=== PATIENT | female | born 1935 | race Caucasian/White ===

== ENCOUNTER 2017-05-24 14:13 | Outpatient (CLI) | payer SELFPAY | END 2017-05-24 14:14 | disposition EMS.NT | LOC: EMS 14:13 | PROVIDERS: ATTEND Surgery | DX: Z04.1 Encounter for examination and observation following transport accident (principal); V48.5XXA Car driver injured in noncollision transport accident in traffic accident, initial encounter; Y92.414 Local residential or business street as the place of occurrence of the external cause ==

== ENCOUNTER 2017-12-13 16:39 | Emergency (ER) | payer MEDICARE, OTHER ==
[2017-12-13 17:21] LABS: BILIRUBIN,URINE NEGATIVE (NEGATIVE); GLUCOSE, URINE (UA) NEGATIVE (NEGATIVE); KETONES,URINE (UA) NEGATIVE (NEGATIVE); LEUKOCYTE ESTERASE, URINE NEGATIVE (NEGATIVE); NITRITE,URINE NEGATIVE (NEGATIVE); OCCULT BLOOD,URINE NEGATIVE (NEGATIVE); PROTEIN,URINE NEGATIVE (NEGATIVE); UROBILINOGEN,URINE 0.2 (NORMAL) E.U./dL (NORMAL)
[2017-12-13 17:24] LABS: CLARITY,URINE CLEAR (CLEAR)
--- NOTE | 2017-12-13 17:50 | ED Physician Documentation ---
PD HPI ABD PAIN - Stated complaint Stated Complaint: LT SIDE BODY PX - Chief complaint Chief Complaint: Abd Pain - History obtained from History obtained from: Patient - History of Present Illness Timing - onset: Yesterday Timing - duration: Days (1) Timing - details: Gradual onset, Still present, Constant. No: Intermittant Quality: Sharp, Pain Location: LLQ Radiation: Left flank Improved by: No: Eating, BM, Position Worsened by: Moving, Palpation. No: Eating, Breathing, Position Associated symptoms: Nausea. No: Fever, Vomiting, Diarrhea, Dysuria, Hematuria , Loss of appetite Similar symptoms before: Has not had sx before Recently seen: Not recently seen Review of Systems Constitutional: denies: Fever, Chills Nose: denies: Rhinorrhea / runny nose, Congestion Throat: denies: Sore throat Cardiac: denies: Chest pain / pressure, Palpitations Respiratory: denies: Dyspnea, Cough GI: reports: Abdominal Pain, Nausea. denies: Vomiting, Diarrhea : denies: Dysuria, Frequency, Hematuria, Discharge Musculoskeletal: denies: Neck pain, Back pain Neurologic: denies: Generalized weakness, Focal weakness, Numbness, Near syncope PD PAST MEDICAL HISTORY - Past Medical History Cardiovascular: None Respiratory: None Neuro: None Endocrine/Autoimmune: None - Present Medications Home Medications: Ambulatory Orders Medication Instructions Recorded Confirmed Diltiazem HCl [Diltiazem 24Hr ER] 12/13/17 Furosemide [Lasix] 12/13/17 Gabapentin 12/13/17 Hydrocodone/Acetaminophen 12/13/17 [Hydrocodone-Acetamin 7.5-325] Levothyroxine [Synthroid] 12/13/17 Nortriptyline [Pamelor] 12/13/17 Potassium Chloride [Klor-Con 10] 12/13/17 12/13/17 Pramipexole [Mirapex] 12/13/17 Sertraline HCl 12/13/17 - Allergies Allergies/Adverse Reactions: Allergies Allergy/AdvReac Type Severity Reaction Status Date / Time oxycodone Allergy Hallucinati Verified 12/13/17 16:55 ons epinephrine AdvReac Anxiety Verified 12/13/17 16:55 - Living Situation Living Situation: reports: With spouse/s.o. Living Arrangement: reports: At home - Social History Does the pt smoke?: No Does the pt drink ETOH?: No Does the pt have substance abuse?: No - Family History Family history: denies: Aortic aneursym, Aortic dissection PD ED PE NORMAL - Vitals Vital signs reviewed: Yes - General General: Alert and oriented X 3, Well developed/nourished, Other (appears in pain) - HEENT HEENT: Pharynx benign - Neck Neck: Supple, no meningeal sign, No adenopathy - Cardiac Cardiac: RRR, No murmur - Respiratory Respiratory: Clear bilaterally - Abdomen Abdomen: Normal bowel sounds, Soft, Non distended, No organomegaly, Other ( tender left lateral abd and toward the CVA area. ) - Female Female : Deferred - Rectal Rectal: Deferred - Back Back: No spinal TTP - Derm Derm: Normal color, Warm and dry, No rash - Neuro Neuro: Alert and oriented X 3, No motor deficit, Normal speech Results - Vitals Vitals: Oxygen O2 Source Room air - Labs Labs: Laboratory Tests 12/13/17 12/13/17 12/13/17 17:10 19:39 19:39 WBC 5.5 RBC 4.46 Hgb 13.6 Hct 40.6 MCV 91.1 MCH 30.4 MCHC 33.4 RDW 12.8 Plt Count 153 MPV 7.9 Neut # 3.2 Lymph # 1.5 [place] # 0.6 Eos # 0.1 Baso # 0.0 Absolute Nucleated RBC 0.00 Nucleated RBC % 0.0 Sodium 135 Potassium 4.0 Chloride 97 L Carbon Dioxide 30 Anion Gap 8.0 BUN 16 Creatinine 0.7 Estimated GFR (MDRD) 80 L Glucose 133 H Calcium 8.9 Magnesium 2.1 Total Bilirubin 0.5 AST 26 ALT 21 Alkaline Phosphatase 71 Total Protein 7.6 Albumin 4.0 Globulin 3.6 Albumin/Globulin Ratio 1.1 Lipase < 10 L Urine Color LT. YELLOW Urine Clarity CLEAR Urine pH 7.0 Ur Specific [place] <=1.005 Urine Protein NEGATIVE Urine Glucose (UA) NEGATIVE Urine Ketones NEGATIVE Urine Occult Blood NEGATIVE Urine Nitrite NEGATIVE Urine Bilirubin NEGATIVE Urine Urobilinogen 0.2 (NORMAL) Ur Leukocyte Esterase NEGATIVE Ur Microscopic Review NOT INDICATED Urine Culture Comments NOT INDICATED - Rads (name of study) abd pelvis CT Radiology: Prelim report reviewed (no acute process), EMP read contemporaneously PD MEDICAL DECISION MAKING - ED course Complexity details: reviewed results (no obvious cause based on UA, CT, blood. Presume myofascial pain. Could be nerve pain from thoracic area. No rash as of yet. ), considered differential, d/w patient Departure - Departure Disposition: 01 Home, Self Care Clinical Impression: Acute left flank pain Condition: Stable Record reviewed to determine appropriate education?: Yes Instructions: ED Flank Pain Uncertain Cause Comments: Your CT scan and blood tests and urine test appear normal. No signs of kidney stone nor kidney infection nor diverticulitis abscess or other acute problems. I presume the pain is musculoskeletal or may even be a nerve pain. Continue usual medications. Add ibuprofen 400-600 mg 2-3 times daily for the next 5 or 6 days. Drink lots of fluids. Recheck if not better during that timeframe. Recheck also if other symptoms develop that may signify a different cause such as fever, bloody stool, skin rash, change in location of pain, etc. Discharge Date/Time: 12/13/17 21:47
[2017-12-13] MEDS ORDERED: ONDANSETRON 4 MG/2 ML VIAL IVP STA (18:04)
[2017-12-13] MEDS ORDERED: HYDROmorphone 1 MG/ML CARPUJECT IVP STA (18:04)
[2017-12-13] MEDS ORDERED: KETOROLAC 60 MG/2 ML VIAL IVP STA (18:05)
[2017-12-13] MEDS ORDERED: IOPAMIDOL-300 100 ML VIAL ONE (18:27)
[2017-12-13 19:42] LABS: BASOPHILS % (AUTO) 0.7 %; EOSINOPHILS # (AUTO) 0.1 10^3/uL (0.0-0.7); HGB - HEMOGLOBIN 13.6 g/dL (12.0-16.0); LYMPHOCYTES # (AUTO) 1.5 10^3/uL (1.5-3.5); LYMPHOCYTES % (AUTO) 27.7 %; MEAN CORPUSCULAR HEMOGLOBIN 30.4 pg (27.0-31.0); MEAN CORPUSCULAR HGB CONC 33.4 g/dL (32.0-36.0); MEAN CORPUSCULAR VOLUME 91.1 fL (81.0-99.0); MEAN PLATELET VOLUME 7.9 fL (7.9-10.8); MONOCYTES # (AUTO) 0.6 10^3/uL (0.0-1.0); MONOCYTES % (AUTO) 11.3 %; NEUTROPHILS # (AUTO) 3.2 10^3/uL (1.5-6.6); NEUTROPHILS % (AUTO) 58.3 %; PLT - PLATELET COUNT 153 10^3/uL (130-450); RED BLOOD COUNT 4.46 10^6/uL (4.20-5.40); RED CELL DISTRIBUTION WIDTH 12.8 % (12.0-15.0); WHITE BLOOD COUNT 5.5 x10^3/uL (4.8-10.8)
[2017-12-13 20:04] LABS: ALBUMIN/GLOBULIN RATIO 1.1 (1.0-2.2); ALKALINE PHOSPHATASE 71 IU/L (42-121); ALT ALANINE AMINOTRANSFERASE 21 IU/L (10-60); AST ASPARTATE AMINOTRANSFERASE 26 IU/L (10-42); BILIRUBIN,TOTAL 0.5 mg/dL (0.2-1.0); BUN - BLOOD UREA NITROGEN 16 mg/dL (6-20); CALCIUM 8.9 mg/dL (8.5-10.3); CARBON DIOXIDE - CO2 30 mmol/L (21-32); CHLORIDE 97 mmol/L (101-111); CREATININE 0.7 mg/dL (0.4-1.0); GFR - MDRD 80 (>89); GLUCOSE 133 mg/dL (70-100); MAGNESIUM 2.1 mg/dL (1.7-2.8); SODIUM 135 mmol/L (135-145); TOTAL PROTEIN 7.6 g/dL (6.7-8.2)
[2017-12-13 20:13] LABS: LIPASE < 10 U/L (22-51)
[2017-12-13] MEDS ORDERED: IOPAMIDOL-300 100 ML VIAL IVP ONE (20:43)
--- NOTE | 2017-12-13 21:08 | CT Report ---
EXAM: CT ABDOMEN AND PELVIS EXAM DATE: 12/13/2017 08:43 PM. CLINICAL HISTORY: Left abd/flank pain today. COMPARISONS: None. TECHNIQUE: Routine helical CT imaging was performed through the abdomen and pelvis. IV contrast: 100 ML ISOVUE 300. Enteric contrast: No. Reconstructions: Coronal and sagittal. In accordance with CT protocol optimization, one or more of the following dose reduction techniques w ere utilized for this exam: automated exposure control, adjustment of mA and/or KV based on patient s ize, or use of iterative reconstructive technique. FINDINGS: Lung Bases: Unremarkable. Liver: Tiny cysts or hemangiomata. Otherwise unremarkable. Gallbladder/Bile Ducts: Unremarkable. Spleen: Normal. Pancreas: Atrophic changes. Adrenal Glands: Normal. Kidneys: Small left renal cyst. Otherwise unremarkable. No hydronephrosis. Peritoneal Cavity/Bowel: Moderate colonic diverticulosis. No free fluid, free air or adenopathy. No m asses or acute inflammatory process. Unremarkable region of appendix. Pelvic Organs: Unremarkable urinary bladder. Absent uterus. Vasculature: No aneurysms or other significant abnormality. Bones: Scoliosis, degenerative changes. Other: None. IMPRESSION: 1. Moderate diverticulosis, but no definite diverticulitis at this time. 2. Other chronic or incidental findings. [facility] Referring Provider Line: [phone] SITE ID: [id number]
[2017-12-13 21:16] VITALS: BP 149/72
[2017-12-13] MEDS ORDERED: DEXAMETHASONE 10 MG/ML VIAL IVP STA (21:26)
== END 2017-12-13 21:47 | disposition home or self-care (01) ==
LOC: ED 16:39
DX: R10.32 Left lower quadrant pain (principal)
CPT/HCPCS: 36415; 74177; 80053; 81003; 83690; 83735; 85025; 96374; 96375; 99283; 99284; Q9967; 81001; 87086

== ENCOUNTER 2019-08-24 21:00 | Outpatient (CLI) | payer MEDICARE, OTHER | END 2019-08-24 21:01 | disposition critical access hospital (66) | LOC: EMS 21:00 | PROVIDERS: ATTEND Surgery | DX: R10.33 Periumbilical pain (principal) | CPT/HCPCS: A0425; A0429 ==

== ENCOUNTER 2019-08-24 21:26 | Inpatient (IN) | payer MEDICARE, OTHER ==
[2019-08-24] MEDS ORDERED: ASPIRIN CHEW 81 MG TABLET PO STA (21:36)
--- NOTE | 2019-08-24 21:38 | ED Physician Documentation ---
History of Present Illness - Stated complaint Stated Complaint: CP - Chief complaint Chief Complaint: Abd Pain - Additonal information Additional information: This is an 83 year old female with a history of HF (unknown EF), atrial fibrillation not on anticoagulation, hypertension, GERD, who presents with epigastric discomfort. Patient states that this began yesterday when she took her pills she had a mild amount of abdominal pain in her epigastrium, this resolved, but then recurred again today and was bit worse it is 6 out of 10. It was nonradiating and associated with nausea but no vomiting. She states she has never had an PA and she typically is able to exercise and do her daily activities without any limitation. She saw her tubing oiler just in the last couple days who is very happy with the progress she has made and states that she appears to be in better condition than she has in past visits. Her called EMS [place], she was hesitant to come into the hospital because she thought that she just had a bit of indigestion. She has her gallbladder still. Review of Systems Constitutional: denies: Fever Nose: denies: Rhinorrhea / runny nose Throat: denies: Dental pain / toothache Cardiac: denies: Chest pain / pressure Respiratory: denies: Dyspnea GI: reports: Abdominal Pain, Nausea : denies: Dysuria Skin: denies: Rash Musculoskeletal: denies: Neck pain Neurologic: denies: Generalized weakness PD PAST MEDICAL HISTORY - Past Medical History Cardiovascular: None Respiratory: None Endocrine/Autoimmune: None - Present Medications Home Medications: Ambulatory Orders Medication Instructions Recorded Confirmed Furosemide [Lasix] 12/13/17 Gabapentin 12/13/17 Hydrocodone/Acetaminophen 12/13/17 [Hydrocodone-Acetamin 7.5-325] Levothyroxine [Synthroid] 12/13/17 Nortriptyline [Pamelor] 12/13/17 Potassium Chloride [Klor-Con 10] 12/13/17 12/13/17 Pramipexole [Mirapex] 12/13/17 Sertraline HCl 12/13/17 dilTIAZem HCl [Diltiazem 24Hr ER] 12/13/17 - Allergies Allergies/Adverse Reactions: Allergies Allergy/AdvReac Type Severity Reaction Status Date / Time oxycodone Allergy Hallucinati Verified 08/24/19 21:31 ons epinephrine AdvReac Anxiety Verified 08/24/19 21:31 - Social History Does the pt smoke?: No Does the pt drink ETOH?: No Does the pt have substance abuse?: No PD ED PE NORMAL - Vitals Vital signs reviewed: Yes - General General: Alert and oriented X 3, No acute distress - HEENT HEENT: PERRL - Neck Neck: Supple, no meningeal sign - Cardiac Cardiac: Other (Irregularly irregular rhythm, normal rate.) - Respiratory Respiratory: No respiratory distress, Clear bilaterally - Abdomen Abdomen: Normal bowel sounds, Soft, Non distended, Other (Moderate tenderness in the epigastrium and right upper quadrant. No lower abdominal tenderness.) - Derm Derm: Warm and dry - Extremities Extremities: No deformity - Neuro Neuro: Alert and oriented X 3 - Psych Psych: Normal mood, Normal affect Results - Vitals Vitals: Vital Signs - 24 hr 08/24/19 08/24/19 08/25/19 21:31 23:32 03:08 Temperature 36.8 C Heart Rate 95 97 105 H Respiratory 14 18 14 Rate Blood Pressure 166/85 H 121/66 141/93 H O2 Saturation 95 93 94 08/25/19 08/25/19 08/25/19 05:00 06:45 07:28 Temperature 36.8 C Heart Rate 113 H 112 H 112 H Respiratory 20 28 H 31 H Rate Blood Pressure 137/70 H 148/81 H 133/77 H O2 Saturation 92 100 98 Oxygen O2 Source Room air Oxygen Flow Rate 3 - EKG (time done) 21:42 Other comments: Other comments (Rate 83, rhythm atrial fibrillation Versus a- flutter,, there is a incomplete left bundle branch block.No ST segment changes. QTc 413) - Labs Labs: Laboratory Tests 08/24/19 08/24/19 08/24/19 22:01 22:01 22:01 WBC 6.0 RBC 4.69 Hgb 14.2 Hct 43.9 MCV 93.6 MCH 30.3 MCHC 32.3 RDW 13.0 Plt Count 168 MPV 10.8 Neut # (Auto) 3.5 Lymph # (Auto) 1.7 [place] # (Auto) 0.6 Eos # (Auto) 0.2 Baso # (Auto) 0.1 Absolute Nucleated RBC 0.00 Nucleated RBC % 0.0 PT 13.6 H INR 1.2 Sodium 141 Potassium 4.1 Chloride 100 L Carbon Dioxide 30 Anion Gap 11.0 BUN 15 Creatinine 0.7 Estimated GFR (MDRD) 80 L Glucose 150 H Calcium 9.4 Total Bilirubin 0.5 AST 30 ALT 25 Alkaline Phosphatase 103 Troponin I High Sens Total Protein 7.8 Albumin 4.0 Globulin 3.8 Albumin/Globulin Ratio 1.1 Lipase 23 08/24/19 22:01 WBC RBC Hgb Hct MCV MCH MCHC RDW Plt Count MPV Neut # (Auto) Lymph # (Auto) [place] # (Auto) Eos # (Auto) Baso # (Auto) Absolute Nucleated RBC Nucleated RBC % PT INR Sodium Potassium Chloride Carbon Dioxide Anion Gap BUN Creatinine Estimated GFR (MDRD) Glucose Calcium Total Bilirubin AST ALT Alkaline Phosphatase Troponin I High Sens 5.7 Total Protein Albumin Globulin Albumin/Globulin Ratio Lipase - Rads (name of study) Chest Xr Radiology: Other (No acute findings, no consolidation, pleural effusion or pneumothorax.) PD MEDICAL DECISION MAKING - ED course Complexity details: considered differential (Gastritis, cholecystitis, ACS, dysrhythmia, pancreatitis, Hepatitis, gastroenteritis.) ED course: On arrival patient is nontoxic-appearing, she does have significant tenderness in the right upper quadrant. IV was inserted labs are drawn patient was given morphine for pain control, she subsequently required a second dose of morphine. Labs show no leukocytosis, her abdominal panel is unremarkable. Ultrasound of the right upper quadrant is performed and shows some gallbladder wall thickening as well as cholelithiasis and a sonographic Pal sign consistent with cholecystitis. On repeat examination she does have persistent right upper quadrant focal tenderness, consistent with cholecystitis. She has no lower abdominal tenderness. Her EKG shows no convincing signs of ischemia or dysrhythmia, and given these results as well as the location of her discomfort in the focal tenderness I feel that ACS is highly unlikely. I spoke with our general surgeon Dr. Ledesma, who is concerned based on patient's cardiac history if she is appropriate for surgery and asked that she have an echocardiogram done for risk stratification by the hospitalist service. Speaking with our hospitalist service it initially seemed unlikely that we would be able to obtain an echocardiogram, and I discussed with patient transfer for further cardiac work-up, I spoke with [facility] but they were full with no beds available, then spoke with the general surgery service at [facility], who did not feel that the patient needed transfer for cardiac work-up, and thought she was appropriate for treatment here. I confirmed that we do have an farm technician in the morning, and an echocardiogram was ordered. Echocardiogram was performed and showed a normal EF, pt does have pulmonary hypretension. I spoke with Dr. Franco and she discussed the case with Dr. Ledesma, and decided to Admit the patient for further work-up and plans for likely cholecystectomy. Patient's pain is fairly well-controlled at the moment, she continues to have some focal right upper quadrant abdominal pain. I reviewed the plan with the patient who is in agreement. Patient is in agreement with this plan. Departure - Departure Disposition: [facility] DC/Xfer Clinical Impression: Cholecystitis Atrial fibrillation Qualifiers: Atrial fibrillation type: unspecified Qualified Code(s): I48.91 - Unspecified atrial fibrillation
[2019-08-24 22:08] LABS: BASOPHILS # (AUTO) 0.1 10^3/uL (0.0-0.1); BASOPHILS % (AUTO) 0.8 %; EOSINOPHILS # (AUTO) 0.2 10^3/uL (0.0-0.7); EOSINOPHILS % (AUTO) 2.5 %; HGB - HEMOGLOBIN 14.2 g/dL (12.0-16.0); LYMPHOCYTES # (AUTO) 1.7 10^3/uL (1.5-3.5); LYMPHOCYTES % (AUTO) 28.3 %; MEAN CORPUSCULAR HEMOGLOBIN 30.3 pg (27.0-31.0); MEAN CORPUSCULAR HGB CONC 32.3 g/dL (32.0-36.0); MEAN CORPUSCULAR VOLUME 93.6 fL (81.0-99.0); MEAN PLATELET VOLUME 10.8 fL (7.9-10.8); MONOCYTES # (AUTO) 0.6 10^3/uL (0.0-1.0); MONOCYTES % (AUTO) 10.2 %; NEUTROPHILS # (AUTO) 3.5 10^3/uL (1.5-6.6); NEUTROPHILS % (AUTO) 57.7 %; PLT - PLATELET COUNT 168 10^3/uL (130-450); RED BLOOD COUNT 4.69 10^6/uL (4.20-5.40)
[2019-08-24 22:13] LABS: INR 1.2 (0.8-1.2); PT - PROTHROMBIN TIME 13.6 secs (9.9-12.6)
[2019-08-24 22:21] LABS: ALBUMIN/GLOBULIN RATIO 1.1 (1.0-2.2); BILIRUBIN,TOTAL 0.5 mg/dL (0.2-1.0); CALCIUM 9.4 mg/dL (8.5-10.3); CREATININE 0.7 mg/dL (0.4-1.0); TOTAL PROTEIN 7.8 g/dL (6.7-8.2)
[2019-08-24] MEDS ORDERED: MAG HYDROX/AL HYDROX/SIMETH 30 ML UDC PO STA (22:36)
--- NOTE | 2019-08-24 23:22 | XRAY Report ---
Reason: Chest Pain Procedure Date: 08/24/2019 Accession Number: [id number] / [id number] Procedure: XR - Chest 1 View X-Ray CPT Code: 92025 Final Report FULL RESULT: EXAM: CHEST RADIOGRAPHY EXAM DATE: 08/24/2019 10:05 PM. CLINICAL HISTORY: Chest Pain. Epigastric pain today. COMPARISON: None. TECHNIQUE: 1 view. FINDINGS: Left midlung linear opacity, suspect atelectasis or scarring. No consolidation, pleural effusion or pneumothorax. Heart size within normal limits for technique. IMPRESSION: No acute findings are seen. See above. [facility]
[2019-08-24] MEDS ORDERED: MORPHINE 2 MG/ML CARPUJECT IVP STA (23:23)
--- NOTE | 2019-08-24 23:41 | Ultrasound Report ---
Reason: RUQ pain Procedure Date: 08/24/2019 Accession Number: [id number] / [id number] Procedure: US - Abdomen Limited CPT Code: Final Report FULL RESULT: EXAM: ABDOMEN ULTRASOUND LIMITED, RUQ EXAM DATE: 08/24/2019 10:52 PM. CLINICAL HISTORY: Right upper quadrant pain. COMPARISON: ABDOMEN/PELVIS W/ 12/13/2017 8:24 PM. TECHNIQUE: Real-time scanning was performed with static images obtained. FINDINGS: Liver: Echotexture within normal limits without suspicious abnormality seen. Possible small 9 mm cyst. Main portal vein flow: Hepatopetal. Gallbladder: Multiple gallstones and a distended gallbladder. Wall thickening at 4 mm. There is reported tenderness. Biliary System: CBD measures 7 mm. No intrahepatic or extrahepatic ductal dilatation. Other: Technically difficult study due to body habitus and motion. IMPRESSION: 1. Reportedly technically difficult due to motion and body habitus. 2. Findings concerning for acute cholecystitis. [facility]
[2019-08-25] MEDS ORDERED: MORPHINE 2 MG/ML CARPUJECT IVP STA ×2 (00:46→05:35)
[2019-08-25] MEDS ORDERED: LACTATED RINGERS 1,000 ML IV STA (04:13)
[2019-08-25] MEDS ORDERED: MIDAZOLAM 2 MG/2 ML VIAL IVP ONE (10:37)
[2019-08-25] MEDS ORDERED: NEOSTIGMINE 1 MG/1 ML 10 ML MDV IVP ONE (10:37)
[2019-08-25] MEDS ORDERED: ONDANSETRON 4 MG/2 ML VIAL IVP ONE (10:37)
[2019-08-25] MEDS ORDERED: LIDOCAINE 2% 10 ML MDV SUBQ ONE (10:37)
[2019-08-25] MEDS ORDERED: PROPOFOL 200 MG/20 ML VIAL IVP ONE (10:37)
[2019-08-25] MEDS ORDERED: PHENYLEPHRINE 10 MG/ML VIAL IV ONE (10:37)
[2019-08-25] MEDS ORDERED: fentaNYL 100 MCG/2 ML VIAL IVP ONE (10:37)
[2019-08-25] MEDS ORDERED: ROCURONIUM 50 MG/5 ML VIAL IVP ONE (10:37)
[2019-08-25] MEDS ORDERED: DEXAMETHASONE 4 MG/ML VIAL IVP ONE (10:37)
[2019-08-25] MEDS ORDERED: ACETAMINOPHEN 1,000 MG/100 ML VIAL IV ONE (10:55)
[2019-08-25] MEDS: BUPIVACAINE 0.5% PF 30 ML VIAL ONE ×2 (11:13→13:03)
--- NOTE | 2019-08-25 11:15 | ANESTHESIA ---
Pre-Anesthesia VS, & Labs - Diagnosis acute cholecytitis - Procedure Laparoscopic cholecystectomy Vital Signs: Temp Pulse Resp BP Pulse Ox 36.8 C 107 H 16 144/81 H 92 08/25/19 10:07 08/25/19 10:07 08/25/19 10:07 08/25/19 10:07 08/25/19 10:07 Height 5 ft 3 in Weight (kg) 92.8 kg Body Mass Index 36.2 - NPO >8 hours - Is Patient ?: No - Lab Results Current Lab Results: Laboratory Tests 08/24/19 22:01: Troponin I High Sens 5.7 08/24/19 22:01: Sodium 141, Potassium 4.1, Chloride 100 L, Carbon Dioxide 30, Anion Gap 11.0, BUN 15, Creatinine 0.7, Estimated GFR (MDRD) 80 L, Glucose 150 H , Calcium 9.4, Total Bilirubin 0.5, AST 30, ALT 25, Alkaline Phosphatase 103, Total Protein 7.8, Albumin 4.0, Globulin 3.8, Albumin/Globulin Ratio 1.1, Lipase 23 08/24/19 22:01: PT 13.6 H, INR 1.2 08/24/19 22:01: WBC 6.0, RBC 4.69, Hgb 14.2, Hct 43.9, MCV 93.6, MCH 30.3, MCHC 32.3, RDW 13.0, Plt Count 168, MPV 10.8, Neut # (Auto) 3.5, Lymph # (Auto) 1.7, [place] # (Auto) 0.6, Eos # (Auto) 0.2, Baso # (Auto) 0.1, Absolute Nucleated RBC 0.00, Nucleated RBC % 0.0 Lab results reviewed: Yes Fish Bones: 08/24/19 22:01 08/24/19 22:01 Home Medications and Allergies Active Medications Lactated Ringer's (Lr) 1,000 mls @ 125 mls/hr IV .Q8H STA Stop: 08/25/19 12:12 Last Admin: 08/25/19 04:20 Dose: 125 mls/hr Piperacillin Sod/Tazobactam (Sod 3.375 gm/ Sodium Chloride) 100 mls @ 200 mls/hr IV Q6H KARRIE Furosemide [Lasix] 12/13/17 Gabapentin 12/13/17 Hydrocodone/Acetaminophen [Hydrocodone-Acetamin 7.5-325] 12/13/17 Levothyroxine [Synthroid] 12/13/17 Nortriptyline [Pamelor] 12/13/17 Potassium Chloride [Klor-Con 10] 12/13/17 Pramipexole [Mirapex] 12/13/17 Sertraline HCl 12/13/17 dilTIAZem HCl [Diltiazem 24Hr ER] 12/13/17 Allergies/Adverse Reactions: Allergies Allergy/AdvReac Type Severity Reaction Status Date / Time oxycodone Allergy Hallucinati Verified 08/24/19 21:31 ons epinephrine AdvReac Anxiety Verified 08/24/19 21:31 Anes History & Medical History - Anesthetic History Anesthesia Complications: reports: No previous complications Family history of Anesthesia Complications: Denies Family history of Malignant Hyperthermia: Denies - Medical History Cardiovascular: reports: None, Atrial fibrillation Pulmonary: reports: None Musculoskeletal: reports: Chronic back pain, Other Endocrine/Autoimmune: reports: None Smoking Status: Never smoker Other Past Medical History: Pt states she is pre diabetic, no meds - Surgical History Gynecologic: 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 Orthopedic: Knee replacement Exam General: Alert, Oriented x3, Cooperative Dental: WNL Mouth Openin Fingerbreadth Neck Mobility: Normal Mallampati classification: III Thyromental Distance: 4-6 cm Respiratory: Lungs clear, Normal breath sounds, No respiratory distress Cardiovascular: Other (AF) Neurological: Normal speech Mental/Cognitive Status: Alert/Oriented X3, Normal for patient Cognitive Status: Within normal limits Plan Anesthesia Type: General Consent for Procedure(s) Verified and Reviewed: Yes Code Status: Attempt Resuscitation ASA classification: 3-Severe systemic disease Is this case an emergency?: Yes
--- NOTE | 2019-08-25 11:16 | CONSULTATION NOTE ---
Referring Provider Name of Referring Provider:: Dr. Ledbetter Consult Date: 08/25/19 Chief Complaint - Chief Complaint Chief Complaint: abd pain History of Present Illness - Admitted From Admitted From:: ER - History Obtained From Records Reviewed: yes History obtained from: pt, records, daughter Exam Limitations: none - History of Present Illness HPI Comment/Other: 83 yo female in her usual state of health until yesterday mid day when she developed sudden onset of severe constant steady midepigastric pain which radiates into the RUQ and back, not associated with N/V, fever/chills. No previous similar sx. No hx of food intolerance, heartburn, indigestion, dysphagia, PUD, hepatitis/jaundice, change in bowel habits, melena/hematochezia/acholic stools. She reports 30# wt loss over the past 6 months which has been intentional. FH + gallbladder disease in her daughter. She reports a nl colonoscopy in her 70s. She denies any prior abdominal surgery. Because of worsening pain she presented to the ER last night where labs were noted to be benign with nl CBC, lfts, and lipase, but abd US showed gallstones in gallbladder which was distended and thickened to 4 mm with + sonographic Pal's sign and nl bile ducts and no other sig abnormalities. She has a hx of CHF and atrial fibrillation and [place] Hospitalist evaluation including EKG and echocardiogram has been completed and she has been cleared medically for cholecystectomy. She was admitted for surgical consultation and cholecystectomy if indicated. History - Past Medical History Cardiovascular: reports: Congestive heart failure, Atrial fibrillation. denies: [place] Respiratory: reports: None Endocrine/Autoimmune: reports: None Psych: reports: Depression, Anxiety Musculoskeletal: reports: Chronic back pain MRSA Hx?: No Other Past Medical History: Pt states she is pre diabetic, no meds - Past Surgical History Ortho: reports: Knee replacement - Family & Social History Family History Comment/Other: + gallbladder disease in daughter Living arrangement: At home Living Situation: With spouse/s.o. - Substance History Use: Uses substance without health or social issues: NONE - POLST Patient has POLST: No Meds/Allgy - Home Medications Home Medications: Ambulatory Orders Medication Instructions Recorded Confirmed Furosemide [Lasix] 12/13/17 Gabapentin 12/13/17 Hydrocodone/Acetaminophen 12/13/17 [Hydrocodone-Acetamin 7.5-325] Levothyroxine [Synthroid] 12/13/17 Nortriptyline [Pamelor] 12/13/17 Potassium Chloride [Klor-Con 10] 12/13/17 12/13/17 Pramipexole [Mirapex] 12/13/17 Sertraline HCl 12/13/17 dilTIAZem HCl [Diltiazem 24Hr ER] 12/13/17 - Allergies Allergies/Adverse Reactions: Allergies Allergy/AdvReac Type Severity Reaction Status Date / Time oxycodone Allergy Hallucinati Verified 08/24/19 21:31 ons epinephrine AdvReac Anxiety Verified 08/24/19 21:31 Review of Systems - Constitutional Constitutional: reports: Weight loss. denies: Fever, Chills, Diaphoresis - Cardiovascular Cariovascular: reports: Irregular heart rate - Respiratory Respiratory: reports: Cough (past several hours) - Gastrointestinal Gastrointestinal: reports: Abdominal pain. denies: Abdominal distention, Constipation, Diarrhea, Change in bowel habits, Rectal bleeding, Black stools, Bloody stools, Nausea, Vomiting, Coffee grounds emesis, Reflux/heartburn, Bloating - Musculoskeletal Musculoskeletal: reports: Back pain - Psychiatric Psychiatric: reports: Depression, Anxiety - Hematologic/Lymphatic Hematologic/Lymphatic: denies: Anemia, Blood clots, Bleeding tendencies - All Other Systems All Other Systems: reports: Reviewed and negative (or covered in HPI/PMH) Exam - Vital Signs Reviewed Vital Signs: Yes Vital Signs: Vital Signs x48h Temp Pulse Pulse Resp BP BP Pulse Ox 08/25/19 10:07 36.8 C 107 H 16 144/81 H 92 08/25/19 09:06 115 H 24 124/73 96 08/25/19 07:28 112 H 31 H 133/77 H 98 08/25/19 06:45 112 H 28 H 148/81 H 100 08/25/19 05:00 36.8 C 113 H 20 137/70 H 92 - Physical Exam General Appearance: positive: Alert, Moderate distress Eyes Bilateral: positive: Normal inspection, Conjunctivae nml, No scleral icterus ENT: positive: Pharynx nml, Dry mucous membranes Neck: positive: Nml inspection, No JVD. negative: Thyromegaly, Lymphadenopathy (R), Lymphadenopathy (L) Respiratory: positive: Chest non-tender, No respiratory distress, Rales (left base partially clear with cough). negative: Wheezes, Rhonchi Cardiovascular: positive: No murmur, Irregularly irregular Abdomen: positive: Tenderness (in RUQ with +Pal's sign; no generalized peritoneal signs), Guarding, Rebound, Other (marked truncal obesity). negative: Hepatomegaly, Splenomegaly, Mass Skin: positive: Color nml, Warm, Dry. negative: Cyanosis Extremities: positive: No pedal edema. negative: Calf tenderness Neurologic/Psychiatric: positive: Oriented x3 Conclusion and Plan - Lab Results Laboratory Results 08/24/19 22:01: Troponin I High Sens 5.7 08/24/19 22:01: Sodium 141, Potassium 4.1, Chloride 100 L, Carbon Dioxide 30, Anion Gap 11.0, BUN 15, Creatinine 0.7, Estimated GFR (MDRD) 80 L, Glucose 150 H, Calcium 9.4, Total Bilirubin 0.5, AST 30, ALT 25, Alkaline Phosphatase 103, Total Protein 7.8, Albumin 4.0, Globulin 3.8, Albumin/Globulin Ratio 1.1, Lipase 23 08/24/19 22:01: PT 13.6 H, INR 1.2 08/24/19 22:01: WBC 6.0, RBC 4.69, Hgb 14.2, Hct 43.9, MCV 93.6, MCH 30.3, MCHC 32.3, RDW 13.0, Plt Count 168, MPV 10.8, Neut # (Auto) 3.5, Lymph # (Auto) 1.7, Shannon # (Auto) 0.6, Eos # (Auto) 0.2, Baso # (Auto) 0.1, Absolute Nucleated RBC 0.00, Nucleated RBC % 0.0 - Diagnostic Imaging Results Diagnostic Imaging Results: positive: Final report reviewed (see HPI; CXR: left mid lung atelectasis; NAD.), Read independently - EKG Results EKG Interpreted Independently: No EKG Findings: atrial fibrillation with controlled VR - Diagnosis Diagnosis: Acute calculous cholecystitis - Plan Plan: Laparoscopic cholecystectomy with poss IOC was discussed with pt and daughter. PAR conference was held and consent obtained. risks of bleeding, infection, bile duct injury, need for open procedure, cardiac/pulmonary complications and discussed and pt and daughter are comfortable with proceeding later this morning. Thanks,
[2019-08-25] MEDS: PIPERACILLIN/TAZOBACTAM 3.375 GM in SODIUM CHLORIDE 0.9% MINIBAG 100 ML IV SCH ×3 (11:19→23:19)
[2019-08-25] MEDS ORDERED: LACTATED RINGERS 1,000 ML IV ONE ×4 (12:02→13:55)
--- NOTE | 2019-08-25 13:20 | OPERATIVE REPORT ---
Operative Report - General Admit Date: 08/25/19 Procedure Date: 08/25/19 Planned Procedure: Laparoscopic cholecystectomy with possible IOC Pre-Op Diagnosis: Acute calculous cholecystitis Procedure Performed: Laparoscopic cholecystectomy Post Op Diagnosis: acute gangrenous calculous cholecystitis - Procedure Note Primary Surgeon: Ga Ledesma MD [facility] Anesthesia Provider: Ac Friedman CRNA Anesthesia Technique: General ET tube Pathology: gallbladder and contents IV Fluids (mL): 900 Estimated Blood Loss (mL): 25 Indications: epigastric and RUQ pain; +US acute calculous cholecystitis Findings: gangrenous changes in gallbladder; pericholecystic edema and adhesions Complications: none
[2019-08-25] MEDS ORDERED: SODIUM CHLORIDE FLUSH 0.9% 10 ML SYRINGE IVP PRN (13:21)
[2019-08-25] MEDS ORDERED: ONDANSETRON 4 MG/2 ML VIAL IVP PRN (13:21)
--- NOTE | 2019-08-25 13:50 | HISTORY & PHYSICAL EXAMINATION ---
0 DATE OF SERVICE: 08/25/2019 Physician: Vaishnavi Ledbetter MD HISTORY OF PRESENT ILLNESS: This is an 83-year-old white female with a history of hypertension, obesity, hypothyroidism, who moved to [facility] approximately two years ago. She still goes to see her PCP in [place] and has a automotive warranty administrator there as well. The history is obtained from the daughter, since the patient is currently about to enter surgery. The daughter is not aware of what the automotive warranty administrator keeps an eye on the patient for. The patient told the ER that she is "on many pills" and did not know their names or diagnoses, but when she was told about atrial fibrillation, she did not recognize that. The patient went to see her automotive warranty administrator two days ago for a six-month visit and described how active she is, that she has lost 34 pounds in attempt to control her blood pressure and overall status, and the automotive warranty administrator was very pleased. The daughter is not sure if there was discussion about any atrial fibrillation. There were apparently no changes in medications. One of the complaints was that the patient was having chest discomfort as well as abdominal discomfort, and the impression according to the daughter was that this did not sound cardiac and that it was probably her gallbladder. The patient's abdominal pain got worse and she presented to the emergency room today, where imaging did show gallstones, dilated gallbladder wall and duct, and she is to be taken for gallbladder surgery. The emergency room doctor spoke to the surgeon and the plan was to obtain a resting echo, and if there was systolic heart failure, then the patient would be transferred to a facility with a higher level of care, but plan for surgery here if the echo is overall stable. The echo has returned and shows normal LV size and contractility, there is mild right heart dilatation and moderate pulmonary hypertension with PA pressure 60 mmHg. PAST MEDICAL HISTORY: Hypothyroidism, hypertension, obesity. It is unclear if atrial fibrillation is old or new. ALLERGIES: OXYCODONE AND EPINEPHRINE. MEDICATIONS: Unknown, but may include: 1. Diltiazem CD. 2. Potassium chloride. 3. Pamelor. 4. Synthroid. 5. Tylenol with Codeine. 6. Gabapentin. 7. Lasix. 8. Sertraline. FAMILY HISTORY: Noncontributory. SOCIAL HISTORY: The patient lives with her . She is very active, walks daily independently, and has good memory and all her faculties. The daughter states that the [place], and she and the go on many trips. REVIEW OF SYSTEMS: This was obtained from the patient's daughter. The pertinent positives are listed, the rest are negative after performing a comprehensive review of systems. PHYSICAL EXAMINATION GENERAL: Elderly white female. She is in no distress, sitting upright in bed. VITAL SIGNS: Blood pressure 148/81, heart rate 112 in atrial fibrillation, afebrile, room air saturation 100%. HEENT: Unremarkable with moist oral mucosa. NECK: Without JVD. CHEST: Clear. HEART: Tachycardic, 1/6 systolic murmur. ABDOMEN: Soft, mildly tender. No guarding or rebound. EXTREMITIES: No clubbing, cyanosis or edema. NEUROLOGIC: Grossly intact. LABORATORY DATA: Normal electrolytes. Normal BUN and creatinine. Troponin high sensitivity is negligible at 5.7. Lipase is normal at 23. CBC is unremarkable. INR is unremarkable. EKG: Atrial fibrillation/flutter with a rate of 83 and an incomplete left bundle branch block. CHEST X-RAY: No active pulmonary disease. ABDOMINAL ULTRASOUND: Dilated gallbladder, dilated gallbladder lamb, duct, and several stones are present. IMPRESSION/DIAGNOSES 1. Acute cholecystitis. 2. Atrial fibrillation. 3. Hypothyroidism history. 4. Hypertension history. 5. Cor pulmonale. 6. Pulmonary HTN. 7. Pre-op clearance. PLAN: The patient's preop evaluation for cardiac risk was done and she has low risk, with only the possibility of heart failure present, giving her a 1-1.3% cardiac risk perioperatively. The patient has been seen by anesthesia, as well as by the surgeon, and is being taken to the operating room. Postoperatively, manage her pain, IV fluids, advance diet as tolerated, treat the hypothyroidism and any blood pressure medication would be resumed. Obtain her proper medication list. It would be beneficial to know if the atrial fibrillation is old or new. CODE STATUS: FULL CODE. DEEP VENOUS THROMBOSIS PROPHYLAXIS: SCDs. ATTESTATION: The patient is expected to be discharged or transferred to another facility within 96 hours: Yes. TD: 08/25/2019 13:18 [facility]
[2019-08-25] MEDS: SODIUM CHLORIDE FLUSH 0.9% 10 ML SYRINGE IVP SCH (17:22)
[2019-08-25] MEDS: LACTATED RINGERS 1,000 ML IV SCH (17:23)
--- NOTE | 2019-08-25 19:05 | OPERATIVE REPORT ---
DATE OF SERVICE: 08/25/2019 Physician: Ga Ledesma MD PREOPERATIVE DIAGNOSIS: Acute calculous cholecystitis. POSTOPERATIVE DIAGNOSIS: Acute gangrenous calculous cholecystitis. PROCEDURE PERFORMED: Laparoscopic cholecystectomy. ANESTHESIA: General endotracheal by Ac Friedman CRNA. SURGEON: Ga Ledesma MD ESTIMATED BLOOD LOSS: 25 mL DRAINS: None. FINDINGS: Laparoscopy revealed a distended gangrenous-appearing gallbladder with marked pericholecys tic edema and moderate pericholecystic adhesions. The visualized portions of the liver, stomach, and small and large bowel were within normal limits. Adhesions were present in the right lower quadrant . The common duct was not visualized. The cystic duct appeared to be mildly dilated versus an enlar ged gallbladder neck. INDICATIONS: Juani Henderson is an 83-year-old woman with a 24-hour history of sudden onset of se colette epigastric and right upper quadrant pain associated with right upper quadrant peritoneal signs, normal labs, and an ultrasound showing a thickened gallbladder wall and stones within the gallbladder and normal bile duct. She was felt to be suffering from acute calculous cholecystitis and after a [facility] preoperative medical clearance, she was advised to undergo laparoscopic cholecystectomy. TECHNIQUE: After informed consent, the patient was taken to the operating room where she was placed under general endotracheal anesthesia. Preoperative preparation included application of sequential c derrick compression boots, administration of 3.375 grams of Zosyn intravenously. Within an hour of the i ncision, her abdomen was prepared with ChloraPrep solution and draped in the usual sterile fashion. A transverse incision was made along the superior edge of the umbilicus and carried down through the layers of the abdominal wall until the peritoneum was identified and entered sharply. A 10 mm Brice cannula was inserted. Pneumoperitoneum was achieved with carbon dioxide. A 10 mm, 30-degree [employer]ke r telescope was inserted. Laparoscopy was carried out with findings as noted above. Three additiona l 5 mm ports were placed in the right upper quadrant. Instruments were passed. The gallbladder was grasped. It was aspirated of approximately 20 mL of dark green bile and sample sent for Gram stain a nd culture. The gallbladder was then able to be grasped and retracted in a cephalad and lateral dire ction. Pericholecystic adhesions were lysed with electrocautery. The cystic triangle of Calot was t hen exposed and carefully dissected, isolating the cystic duct and artery adjacent to the gallbladder . After the critical view of safety had been obtained, the cystic duct was triply clipped distally, doubly proximally adjacent to the gallbladder and divided between. The cystic artery was doubly clip ped proximally and distally, adjacent to the gallbladder and divided between. The gallbladder was th en dissected from the liver bed using electrocautery for dissection and hemostasis. It was detached intact, placed in an organ retrieval bag, extracted and sent for pathologic evaluation. The right up per quadrant was copiously irrigated with warm saline. Hemostasis was assured with electrocautery an d because of continued mild oozing, a piece of Surgicel Nu-Knit was expanded and placed into the live r bed. Hemostasis was complete at the end of the operative procedure. Instruments and cannulas were then removed under direct vision. Pneumoperitoneum was allowed to escape and the incisions were shanda sed in layers using continuous 0 Vicryl to reapproximate the midline fascia at the umbilicus, followe d by 4-0 Monocryl subcuticular skin closure at all the port sites. A total of 30 mL of 0.5% Marcaine with epinephrine was infiltrated into the incision to assist in postoperative analgesia. Dermabond completed wound dressings. Anesthesia was terminated. The patient was transferred to the recovery r oom in satisfactory condition. Sponge and needle counts were correct x2. No drains were used. TD: 08/25/2019 13:35
[2019-08-25] MEDS: ENOXAPARIN 40 MG/0.4 ML SYRINGE SUBQ SCH (21:17)
[2019-08-25] MEDS ORDERED: PRAMIPEXOLE 0.25 MG TABLET PO PRN (22:44)
[2019-08-26] MEDS: traZODone 50 MG TABLET PO SCH ×2 (00:12→21:19)
[2019-08-26] MEDS: SODIUM CHLORIDE FLUSH 0.9% 10 ML SYRINGE IVP SCH ×3 (03:28→18:50)
[2019-08-26] MEDS ORDERED: ZINC OXIDE 20% OINT 30 GM TUBE TOP PRN (04:03)
[2019-08-26] MEDS: PIPERACILLIN/TAZOBACTAM 3.375 GM in SODIUM CHLORIDE 0.9% MINIBAG 100 ML IV SCH (05:16)
[2019-08-26] MEDS: HYDROcod/ACETAM 5/325 MG TABLET PO PRN ×4 (05:16→18:49)
[2019-08-26] MEDS: LACTATED RINGERS 1,000 ML IV SCH (05:17)
[2019-08-26 06:25] LABS: BASOPHILS % (AUTO) 0.1 %; HGB - HEMOGLOBIN 12.3 g/dL (12.0-16.0); LYMPHOCYTES # (AUTO) 0.8 10^3/uL (1.5-3.5); LYMPHOCYTES % (AUTO) 10.6 %; MEAN CORPUSCULAR HEMOGLOBIN 30.1 pg (27.0-31.0); MEAN CORPUSCULAR HGB CONC 32.6 g/dL (32.0-36.0); MEAN CORPUSCULAR VOLUME 92.4 fL (81.0-99.0); MEAN PLATELET VOLUME 10.7 fL (7.9-10.8); MONOCYTES # (AUTO) 0.8 10^3/uL (0.0-1.0); MONOCYTES % (AUTO) 10.2 %; NEUTROPHILS # (AUTO) 6.1 10^3/uL (1.5-6.6); NEUTROPHILS % (AUTO) 78.5 %; PLT - PLATELET COUNT 133 10^3/uL (130-450); RED BLOOD COUNT 4.08 10^6/uL (4.20-5.40); RED CELL DISTRIBUTION WIDTH 12.7 % (12.0-15.0); WHITE BLOOD COUNT 7.7 x10^3/uL (4.8-10.8)
[2019-08-26 06:37] LABS: ALBUMIN/GLOBULIN RATIO 0.9 (1.0-2.2); CALCIUM 8.7 mg/dL (8.5-10.3); CREATININE 0.5 mg/dL (0.4-1.0); TOTAL PROTEIN 6.4 g/dL (6.7-8.2)
--- NOTE | 2019-08-26 09:03 | PROVIDER PROGRESS NOTE ---
Assessment/Plan - Problem List (1) Acute gangrenous cholecystitis Assessment/Plan: Her pain is under good control. The surgeon wants her to start ambulating, PT to be started. The surgeon switched her from IV Zosyn to oral Augmentin but she has an ampicillin allergy causing severe diarrhea with cramps. We will use Cipro 3 times daily and Flagyl 3 times daily orally starting today. (2) Elevated LFTs Assessment/Plan: Probably related to the acute GB disease and biliary obstruction. Continue to monitor CMP daily. (3) Atrial fibrillation Qualifiers: Atrial fibrillation type: unspecified Qualified Code(s): I48.91 - Unspecified atrial fibrillation Assessment/Plan: I reached out to her PCP's office (Dr Anisha Najera) for information about her PMH, and got no call back (today is Sun). The patient was able to tell me who her Home Health Aide was (Dr Aaron Guo at [facility]), and the covering Home Health Aide did call me back after looking at her EMR and read to me her established diagnoses which are: Chronic Diastolic Heart failure, Puilmonaty HTN and HTN. A. fib is a new diagnosis for her. Her TFTs and troponin were normal. HR is under control. But she has not been on her home dose of Diltiazem for 6 mos (per Pharmacy fill info, obtained by our Pharmacist) Continue telemetry Her CHADS score is 2 (age greater than 75 and hypertension, she does not have systolic heart failure), but she cannot be started on oral anticoagulant having had major surgery just yesterday (4) Chronic diastolic (congestive) heart failure Assessment/Plan: The patient was more alert and able to tell me that her spun paste machine operator is per week at [facility] in [facility]. I reached out to his service and the covering spun paste machine operator called me back after checking the EMR and states that the patient's diagnoses are: Chronic diastolic heart failure, hypertension, pulmonary hypertension. A CXR was done today that did not show pulmonary vascular congestion, but atelectasis present. (5) Hypothyroidism Assessment/Plan: Her home thyroid med continues while here. (6) Hx of essential hypertension Assessment/Plan: BP stable (7) Cor pulmonale Assessment/Plan: No evidence of R heart overload, despite being off her Lasix while here. (8) Pulmonary hypertension, moderate to severe Assessment/Plan: No SOB complaintes. Will assess ant SOB with activity. - Current Meds Current Meds: Current Medications Generic Name Dose Route Start Last Admin Trade Name Freq PRN Reason Stop Dose Admin Hydrocodone Bitart/Acetaminophen 1 tab 08/25/19 13:27 08/26/19 05:16 Warren 5/325 PO 1 tab Q4HR PRN Administration PAIN Enoxaparin Sodium 40 mg 08/25/19 21:00 08/25/19 21:17 Lovenox SUBQ 40 mg Q24H KARRIE Administration Piperacillin Sod/Tazobactam 100 mls @ 200 mls/hr 08/25/19 11:00 08/26/19 06:16 Sod 3.375 gm/ Sodium Chloride IV Infused Q6H KARRIE Infusion Lactated Ringer's 1,000 mls @ 75 mls/hr 08/25/19 14:00 08/26/19 05:17 Lr IV 75 mls/hr .[id number] KARRIE Administration Multi-Ingredient Ointment 1 applic 08/26/19 04:03 08/26/19 05:16 Zinc Oxide TOP 1 applic PRN PRN Administration Skin Care Sodium Chloride 10 ml 08/25/19 17:00 08/26/19 03:28 Normal Saline Flush 0.9% IVP Not Given 0100,0900,1700 KARRIE Trazodone HCl 50 mg 08/25/19 23:38 08/26/19 00:12 Desyrel PO 50 mg QPM KARRIE Administration - Lab Result Fish Bone Diagrams: 08/27/19 05:20 08/27/19 05:20 - Additional Planning My Orders: My Active Orders 08/26/19 08:58 PT WITH INR [COAG] Stat 08/27/19 05:00 CBC - COMP BLD CT W/AUTO DIFF [HEME] DAILYLAB CMP [COMPREHENSIVE METABOLIC PANEL] [CHEM] DAILYLAB PT WITH INR [COAG] DAILYLAB 08/28/19 05:00 CBC - COMP BLD CT W/AUTO DIFF [HEME] DAILYLAB CMP [COMPREHENSIVE METABOLIC PANEL] [CHEM] DAILYLAB PT WITH INR [COAG] DAILYLAB Subjective - Subjective Patient Reports: Feeling Better, Resting Comfortably Objective Vital Signs: Vital Signs - 24 hr 08/25/19 08/25/19 08/25/19 09:06 10:07 13:21 Temperature 36.8 C 36.7 C Heart Rate 115 H Heart Rate [ 107 H 79 Brachial] Respiratory 24 16 16 Rate Blood Pressure 124/73 Blood Pressure 144/81 H 117/54 L [Right Brachial artery] O2 Saturation 96 92 94 08/25/19 08/25/19 08/25/19 13:27 13:30 13:35 Temperature 37.4 C 37.3 C 37.3 C Heart Rate 101 H 89 86 Heart Rate [ Brachial] Respiratory 18 20 20 Rate Blood Pressure 134/77 H 129/81 H 136/77 H Blood Pressure [Right Brachial artery] O2 Saturation 96 96 96 08/25/19 08/25/19 08/25/19 13:40 13:45 13:50 Temperature 37.5 C 37.4 C 37.3 C Heart Rate 102 H 99 109 H Heart Rate [ Brachial] Respiratory 20 22 20 Rate Blood Pressure 122/72 121/65 125/84 H Blood Pressure [Right Brachial artery] O2 Saturation 94 95 95 08/25/19 08/25/19 08/25/19 13:51 13:55 15:51 Temperature 36.7 C 37.3 C 36.7 C Heart Rate 102 H Heart Rate [ 78 84 Brachial] Respiratory 16 16 20 Rate Blood Pressure 117/85 H Blood Pressure 122/64 126/77 [Right Brachial artery] O2 Saturation 96 94 92 08/25/19 08/25/19 08/25/19 17:44 21:31 23:54 Temperature 36.5 C 36.4 C L 36.5 C Heart Rate Heart Rate [ 92 89 94 Brachial] Respiratory 20 18 18 Rate Blood Pressure Blood Pressure 128/82 H 121/82 H 130/66 [Right Brachial artery] O2 Saturation 97 94 96 08/26/19 08/26/19 08/26/19 01:59 04:25 08:20 Temperature 36.5 C 36.6 C 36.5 C Heart Rate Heart Rate [ 94 75 77 Brachial] Respiratory 18 16 16 Rate Blood Pressure Blood Pressure 110/61 106/62 118/74 [Right Brachial artery] O2 Saturation 93 95 94 Oxygen O2 Source Room air Oxygen Flow Rate 3 I&O (Last 24 Hrs): Intake and Output Totals x24h 08/24/19 08/25/19 08/26/19 23:59 23:59 23:59 Intake Total 1542.917 992.5 Output Total 1800 Balance -257.083 992.5 General: Alert, Oriented x3 HEENT: Mucous membr. moist/pink Neck: Supple, No JVD Neuro: Alert, Non Focal Cardiovascular: No murmurs, Other (Irreg irreg) Respiratory: No respiratory distress Abdomen: Normal bowel sounds, Soft Extremities: No edema - Results Results: Laboratory Results WBC 7.7 x10^3/uL (4.8-10.8) 08/26/19 05:55 RBC 4.08 10^6/uL (4.20-5.40) L 08/26/19 05:55 Hgb 12.3 g/dL (12.0-16.0) 08/26/19 05:55 Hct 37.7 % (37.0-47.0) 08/26/19 05:55 MCV 92.4 fL (81.0-99.0) 08/26/19 05:55 MCH 30.1 pg (27.0-31.0) 08/26/19 05:55 MCHC 32.6 g/dL (32.0-36.0) 08/26/19 05:55 RDW 12.7 % (12.0-15.0) 08/26/19 05:55 Plt Count 133 10^3/uL (130-450) 08/26/19 05:55 MPV 10.7 fL (7.9-10.8) 08/26/19 05:55 Neut # (Auto) 6.1 10^3/uL (1.5-6.6) 08/26/19 05:55 Lymph # (Auto) 0.8 10^3/uL (1.5-3.5) L 08/26/19 05:55 [place] # (Auto) 0.8 10^3/uL (0.0-1.0) 08/26/19 05:55 Eos # (Auto) 0.0 10^3/uL (0.0-0.7) 08/26/19 05:55 Baso # (Auto) 0.0 10^3/uL (0.0-0.1) 08/26/19 05:55 Absolute Nucleated RBC 0.00 x10^3/uL 08/26/19 05:55 Nucleated RBC % 0.0 /100WBC 08/26/19 05:55 PT 13.6 secs (9.9-12.6) H 08/24/19 22:01 INR 1.2 (0.8-1.2) 08/24/19 22:01 Sodium 139 mmol/L (135-145) 08/26/19 05:55 Potassium 3.7 mmol/L (3.5-5.0) 08/26/19 05:55 Chloride 104 mmol/L (101-111) 08/26/19 05:55 Carbon Dioxide 29 mmol/L (21-32) 08/26/19 05:55 Anion Gap 6.0 (6-13) 08/26/19 05:55 BUN 12 mg/dL (6-20) 08/26/19 05:55 Creatinine 0.5 mg/dL (0.4-1.0) 08/26/19 05:55 Estimated GFR (MDRD) 118 (>89) 08/26/19 05:55 Glucose 130 mg/dL (70-100) H 08/26/19 05:55 Calcium 8.7 mg/dL (8.5-10.3) 08/26/19 05:55 Total Bilirubin 1.0 mg/dL (0.2-1.0) 08/26/19 05:55 AST 238 IU/L (10-42) H 08/26/19 05:55 ALT 128 IU/L (10-60) H 08/26/19 05:55 Alkaline Phosphatase 151 IU/L (42-121) H 08/26/19 05:55 Troponin I High Sens 5.7 ng/L (2.3-14.8) 08/24/19 22:01 Total Protein 6.4 g/dL (6.7-8.2) L 08/26/19 05:55 Albumin 3.0 g/dL (3.2-5.5) L 08/26/19 05:55 Globulin 3.4 g/dL (2.1-4.2) 08/26/19 05:55 Albumin/Globulin Ratio 0.9 (1.0-2.2) L 08/26/19 05:55 Lipase 23 U/L (22-51) 08/24/19 22:01
[2019-08-26 09:18] LABS: INR 1.4 (0.8-1.2); PT - PROTHROMBIN TIME 15.7 secs (9.9-12.6)
--- NOTE | 2019-08-26 10:48 | PROVIDER PROGRESS NOTE ---
Subjective - General Admit Date: 08/25/19 Procedure Date: 08/25/19 Post Op Days: 1 Procedure Performed: lap deepti for gangrenous calculous cholecystitis - Review of Systems Wound/Incisions: positive: Healing well General: positive: No symptoms Pulmonary: positive: No symptoms Cardiovascular: positive: No symptoms Gastrointestinal: positive: No symptoms Psychiatric: positive: Mood lability (crying; wants to go home; misses her and her cats) Objective - Patient Data Reviewed Vital Signs: Yes Vital Signs: Vital Signs x48h Temp Pulse Resp BP Pulse Ox 08/26/19 08:20 36.5 C 77 16 118/74 94 08/26/19 04:25 36.6 C 75 16 106/62 95 Weight: Weight 08/24/19 08/25/19 08/26/19 23:59 23:59 23:59 Weight (kg) 92.8 kg 89 kg Intake & Output: Intake and Output Totals x24h 08/24/19 08/25/19 08/26/19 23:59 23:59 23:59 Intake Total 7733.641 9992.5 Output Total 1800 Balance -870.004 3284.5 - Lab Results Lab Results: 08/26/19 05:55 08/26/19 05:55 Other Lab Results: Lab Results x24hrs 08/26/19 08/26/19 08/26/19 Range/Units 09:05 05:55 05:55 WBC 7.7 (4.8-10.8) x10^3/uL RBC 4.08 L (4.20-5.40) 10^6/uL Hgb 12.3 (12.0-16.0) g/dL Hct 37.7 (37.0-47.0) % MCV 92.4 (81.0-99.0) fL MCH 30.1 (27.0-31.0) pg MCHC 32.6 (32.0-36.0) g/dL RDW 12.7 (12.0-15.0) % Plt Count 133 (130-450) 10^3/uL MPV 10.7 (7.9-10.8) fL Neut # (Auto) 6.1 (1.5-6.6) 10^3/uL Lymph # (Auto) 0.8 L (1.5-3.5) 10^3/uL [place] # (Auto) 0.8 (0.0-1.0) 10^3/uL Eos # (Auto) 0.0 (0.0-0.7) 10^3/uL Baso # (Auto) 0.0 (0.0-0.1) 10^3/uL Absolute Nucleated RBC 0.00 x10^3/uL Nucleated RBC % 0.0 /100WBC PT 15.7 H (9.9-12.6) secs INR 1.4 H (0.8-1.2) Sodium 139 (135-145) mmol/L Potassium 3.7 (3.5-5.0) mmol/L Chloride 104 (101-111) mmol/L Carbon Dioxide 29 (21-32) mmol/L Anion Gap 6.0 (6-13) BUN 12 (6-20) mg/dL Creatinine 0.5 (0.4-1.0) mg/dL Estimated GFR (MDRD) 118 (>89) Glucose 130 H (70-100) mg/dL Calcium 8.7 (8.5-10.3) mg/dL Total Bilirubin 1.0 (0.2-1.0) mg/dL AST 238 H (10-42) IU/L ALT 128 H (10-60) IU/L Alkaline Phosphatase 151 H (42-121) IU/L Total Protein 6.4 L (6.7-8.2) g/dL Albumin 3.0 L (3.2-5.5) g/dL Globulin 3.4 (2.1-4.2) g/dL Albumin/Globulin Ratio 0.9 L (1.0-2.2) - Current Medications Current Medications: Current Medications Generic Name Dose Route Start Last Admin Trade Name Freq PRN Reason Stop Dose Admin Hydrocodone Bitart/Acetaminophen 1 tab 08/25/19 13:27 08/26/19 09:12 [place] 5/325 PO 1 tab Q4HR PRN Administration PAIN Enoxaparin Sodium 40 mg 08/25/19 21:00 08/25/19 21:17 Lovenox SUBQ 40 mg Q24H KARRIE Administration Multi-Ingredient Ointment 1 applic 08/26/19 04:03 08/26/19 05:16 Zinc Oxide TOP 1 applic PRN PRN Administration Skin Care Sodium Chloride 10 ml 08/25/19 17:00 08/26/19 09:13 Normal Saline Flush 0.9% IVP Not Given 0100,0900,1700 KARRIE Trazodone HCl 50 mg 08/25/19 23:38 08/26/19 00:12 Desyrel PO 50 mg QPM KARRIE Administration - Physical Exam Wound/Incisions: positive: Healing well General Appearance: positive: No acute distress, Alert Eyes Bilateral: positive: Normal inspection, No scleral icterus ENT: positive: ENT inspection nml, No signs of dehydration Neck: positive: Nml inspection, No JVD Respiratory: positive: Chest non-tender, No respiratory distress, Rales (bibasilar 2/[address] up back bilat) Cardiovascular: positive: Irregularly irregular Abdomen: positive: Non-tender, No distention, Other (incisions healing well) Skin: positive: Color nml, No rash, Warm, Dry. negative: Cyanosis Extremities: positive: Non-tender, No pedal edema. negative: Calf tenderness Neurologic/Psychiatric: positive: Oriented x3 ABX Reporting Has patient been on IV antibiotics over the past 48 hours?: No Impression/Plan - Problem List Problem List: PO Day 1 s/p lap deepti for acute gangrenous calculous cholecystitis; doing well over all; abn lfts could be due to retained common duct stone, medication side effect (enoxaparin, pip/karen) or sepsis, but clinically no evidence of biliary obstruction. Findings on lung exam concerning for fluid overload/pulm edema vs atelectasis, pneumonitis, etc. Rec: switch from pip/karen to oral amp/clav; obtain a CXR; repeat labs in am tomorrow; OOB and diet as filiberto; ow as per Dr. Ledbetter
[2019-08-26] MEDS ORDERED: AMOX/CLAV 875 MG/125 MG TABLET PO SCH (11:00)
--- NOTE | 2019-08-26 13:06 | XRAY Report ---
Reason: bibasilar rales Procedure Date: 08/26/2019 Accession Number: [id number] / [id number] Procedure: XR - Chest 2 View X-Ray CPT Code: 84791 Final Report FULL RESULT: EXAM: CHEST RADIOGRAPHY EXAM DATE: 08/26/2019 11:12 AM. CLINICAL HISTORY: Bibasilar rales. COMPARISON: CHEST 1 VIEW 08/24/2019 9:43 PM. TECHNIQUE: 2 views. FINDINGS: Lungs/Pleura: There are streaky linear densities in the left midlung and left lower lobe which appear similar. No developing consolidation. There is minimal blunting of the posterior costophrenic angles. Mediastinum: Heart size is normal. There is mild aortic arch atherosclerotic calcification. Other: None. IMPRESSION: 1. Trace bilateral pleural effusion. 2. Linear atelectasis versus airway thickening in left mid lung and base. RADIA
[2019-08-26] MEDS: CIPROFLOXACIN 250 MG TABLET PO SCH ×2 (14:59→21:36)
[2019-08-26] MEDS: metroNIDAZOLE 250 MG TABLET PO SCH ×2 (14:59→22:37)
[2019-08-26] MEDS: SACCHAROMYCES BOULARDII 250 MG CAPSULE PO SCH (16:52)
[2019-08-26] MEDS: ENOXAPARIN 40 MG/0.4 ML SYRINGE SUBQ SCH (21:18)
[2019-08-27] MEDS: SODIUM CHLORIDE FLUSH 0.9% 10 ML SYRINGE IVP SCH ×2 (00:23→10:04)
[2019-08-27 05:40] LABS: BASOPHILS % (AUTO) 0.6 %; EOSINOPHILS # (AUTO) 0.2 10^3/uL (0.0-0.7); EOSINOPHILS % (AUTO) 2.8 %; HGB - HEMOGLOBIN 12.5 g/dL (12.0-16.0); LYMPHOCYTES # (AUTO) 1.8 10^3/uL (1.5-3.5); LYMPHOCYTES % (AUTO) 28.5 %; MEAN CORPUSCULAR HGB CONC 31.8 g/dL (32.0-36.0); MEAN CORPUSCULAR VOLUME 94.2 fL (81.0-99.0); MEAN PLATELET VOLUME 10.8 fL (7.9-10.8); MONOCYTES # (AUTO) 0.7 10^3/uL (0.0-1.0); MONOCYTES % (AUTO) 11.4 %; NEUTROPHILS # (AUTO) 3.6 10^3/uL (1.5-6.6); NEUTROPHILS % (AUTO) 56.5 %; PLT - PLATELET COUNT 154 10^3/uL (130-450); RED BLOOD COUNT 4.17 10^6/uL (4.20-5.40); RED CELL DISTRIBUTION WIDTH 12.9 % (12.0-15.0); WHITE BLOOD COUNT 6.4 x10^3/uL (4.8-10.8)
[2019-08-27 05:42] LABS: INR 1.3 (0.8-1.2)
[2019-08-27 05:53] LABS: ALBUMIN 3.3 g/dL (3.2-5.5); BILIRUBIN,TOTAL 0.7 mg/dL (0.2-1.0); CALCIUM 8.6 mg/dL (8.5-10.3); CREATININE 0.6 mg/dL (0.4-1.0); TOTAL PROTEIN 6.7 g/dL (6.7-8.2)
[2019-08-27] MEDS: CIPROFLOXACIN 250 MG TABLET PO SCH ×2 (06:36→11:22)
[2019-08-27] MEDS: metroNIDAZOLE 250 MG TABLET PO SCH ×2 (06:36→11:22)
--- NOTE | 2019-08-27 06:55 | PROVIDER PROGRESS NOTE ---
Subjective - General Admit Date: 08/25/19 Procedure Date: 08/25/19 Post Op Days: 2 Procedure Performed: lap deepti for gangrenous calculous cholecystitis - Review of Systems Wound/Incisions: positive: Healing well General: positive: No symptoms Pulmonary: positive: No symptoms Cardiovascular: positive: No symptoms Gastrointestinal: positive: No symptoms - Other Other Information/Narrative: feels well; tolerating reg diet, ambulating, voiding well; minimal incisional discomfort. Objective - Patient Data Reviewed Vital Signs: Yes Vital Signs: Vital Signs x48h Temp Pulse Resp BP Pulse Ox 08/27/19 05:00 36.6 C 89 18 125/70 97 08/27/19 00:25 36.6 C 84 18 126/65 95 Weight: Weight 08/25/19 08/26/19 08/27/19 23:59 23:59 23:59 Weight (kg) 89 kg Intake & Output: Intake and Output Totals x24h 08/25/19 08/26/19 08/27/19 23:59 23:59 23:59 Intake Total 5938.289 4613.5 100 Output Total 1800 Balance -029.392 4740.5 100 - Lab Results Lab Results: 08/27/19 05:20 08/27/19 05:20 Other Lab Results: Lab Results x24hrs 08/27/19 08/27/19 08/27/19 Range/Units 05:20 05:20 05:20 WBC 6.4 (4.8-10.8) x10^3/uL RBC 4.17 L (4.20-5.40) 10^6/uL Hgb 12.5 (12.0-16.0) g/dL Hct 39.3 (37.0-47.0) % MCV 94.2 (81.0-99.0) fL MCH 30.0 (27.0-31.0) pg MCHC 31.8 L (32.0-36.0) g/dL RDW 12.9 (12.0-15.0) % Plt Count 154 (130-450) 10^3/uL MPV 10.8 (7.9-10.8) fL Neut # (Auto) 3.6 (1.5-6.6) 10^3/uL Lymph # (Auto) 1.8 (1.5-3.5) 10^3/uL [place] # (Auto) 0.7 (0.0-1.0) 10^3/uL Eos # (Auto) 0.2 (0.0-0.7) 10^3/uL Baso # (Auto) 0.0 (0.0-0.1) 10^3/uL Absolute Nucleated RBC 0.00 x10^3/uL Nucleated RBC % 0.0 /100WBC PT 15.0 H (9.9-12.6) secs INR 1.3 H (0.8-1.2) Sodium 140 (135-145) mmol/L Potassium 3.7 (3.5-5.0) mmol/L Chloride 104 (101-111) mmol/L Carbon Dioxide 29 (21-32) mmol/L Anion Gap 7.0 (6-13) BUN 17 (6-20) mg/dL Creatinine 0.6 (0.4-1.0) mg/dL Estimated GFR (MDRD) 95 (>89) Glucose 108 H (70-100) mg/dL Calcium 8.6 (8.5-10.3) mg/dL Total Bilirubin 0.7 (0.2-1.0) mg/dL AST 109 H (10-42) IU/L ALT 102 H (10-60) IU/L Alkaline Phosphatase 129 H (42-121) IU/L Total Protein 6.7 (6.7-8.2) g/dL Albumin 3.3 (3.2-5.5) g/dL Globulin 3.4 (2.1-4.2) g/dL Albumin/Globulin Ratio 1.0 (1.0-2.2) 08/26/19 Range/Units 09:05 WBC (4.8-10.8) x10^3/uL RBC (4.20-5.40) 10^6/uL Hgb (12.0-16.0) g/dL Hct (37.0-47.0) % MCV (81.0-99.0) fL MCH (27.0-31.0) pg MCHC (32.0-36.0) g/dL RDW (12.0-15.0) % Plt Count (130-450) 10^3/uL MPV (7.9-10.8) fL Neut # (Auto) (1.5-6.6) 10^3/uL Lymph # (Auto) (1.5-3.5) 10^3/uL [place] # (Auto) (0.0-1.0) 10^3/uL Eos # (Auto) (0.0-0.7) 10^3/uL Baso # (Auto) (0.0-0.1) 10^3/uL Absolute Nucleated RBC x10^3/uL Nucleated RBC % /100WBC PT 15.7 H (9.9-12.6) secs INR 1.4 H (0.8-1.2) Sodium (135-145) mmol/L Potassium (3.5-5.0) mmol/L Chloride (101-111) mmol/L Carbon Dioxide (21-32) mmol/L Anion Gap (6-13) BUN (6-20) mg/dL Creatinine (0.4-1.0) mg/dL Estimated GFR (MDRD) (>89) Glucose (70-100) mg/dL Calcium (8.5-10.3) mg/dL Total Bilirubin (0.2-1.0) mg/dL AST (10-42) IU/L ALT (10-60) IU/L Alkaline Phosphatase (42-121) IU/L Total Protein (6.7-8.2) g/dL Albumin (3.2-5.5) g/dL Globulin (2.1-4.2) g/dL Albumin/Globulin Ratio (1.0-2.2) - Imaging Results Radiology Imaging: positive: Final report received Imaging Results Comments: CXR yest: atelectasis - Current Medications Current Medications: Current Medications Generic Name Dose Route Start Last Admin Trade Name Freq PRN Reason Stop Dose Admin Hydrocodone Bitart/Acetaminophen 1 tab 08/25/19 13:27 08/26/19 18:49 [place] 5/325 PO 1 tab Q4HR PRN Administration PAIN Ciprofloxacin 250 mg 08/26/19 15:00 08/27/19 06:36 Cipro PO 250 mg TID KARRIE Administration Enoxaparin Sodium 40 mg 08/25/19 21:00 08/26/19 21:18 Lovenox SUBQ 40 mg Q24H KARRIE Administration Metronidazole 250 mg 08/26/19 15:00 08/27/19 06:36 Flagyl PO 250 mg Q8H KARRIE Administration Multi-Ingredient Ointment 1 applic 08/26/19 04:03 08/26/19 05:16 Zinc Oxide TOP 1 applic PRN PRN Administration Skin Care Pramipexole Dihydrochloride 0.25 mg 08/25/19 22:44 08/26/19 18:50 Mirapex PO 0.25 mg QPM PRN Administration PER PHYSICIAN ORDER Saccharomyces Boulardii 250 mg 08/26/19 17:00 08/26/19 16:52 Florastor PO 250 mg BIDWM KARRIE Administration Sodium Chloride 10 ml 08/25/19 17:00 08/27/19 00:23 Normal Saline Flush 0.9% IVP Not Given 0100,0900,1700 KARRIE Trazodone HCl 50 mg 08/25/19 23:38 08/26/19 21:19 Desyrel PO 50 mg QPM KARRIE Administration - Physical Exam Wound/Incisions: positive: Healing well, No drainage General Appearance: positive: No acute distress, Alert Eyes Bilateral: positive: Normal inspection ENT: positive: ENT inspection nml Neck: positive: No JVD Abdomen: positive: Tenderness (minimal antoni incisional ow benign), Other (incisions healing well) Extremities: positive: No pedal edema. negative: Calf tenderness Neurologic/Psychiatric: positive: Oriented x3 ABX Reporting Has patient been on IV antibiotics over the past 48 hours?: No Impression/Plan - Problem List Problem List: doing well POD #2 s/p lap deepti for gangrenous cholecystitis; lfts improving; no pneumonitis or chf. REc: OK for d/c from surgical perspective; one more day of oral antibiotics; reg diet, ambulation as tolerated; may shower; no baths x 1 week; no lifting more than 10 lbs for [address] Ledesma in 1-2 weeks.
[2019-08-27] MEDS: SACCHAROMYCES BOULARDII 250 MG CAPSULE PO SCH (08:47)
[2019-08-27 08:53] VITALS: BP 120/63
--- NOTE | 2019-08-27 09:26 | Discharge Plan ---
Discharge Plan Problem Reviewed?: Yes Disposition: Home, Self Care Condition: Stable Prescriptions: Ciprofloxacin [Cipro] 250 mg PO TID #9 tablet metroNIDAZOLE [Flagyl] 250 mg PO TID #9 tablet Saccharomyces Boulardii [Daily Probiotic] 250 mg PO BID #6 capsule Diet: Regular Activity Restrictions: Activity as Tolerated Shower Restrictions: No (No bath for 1 week, but shower is OK) Driving Restrictions: No Instruction Topics: Atrial Fibrillation, ED Gallbladder Infec Conf Health Concerns: You were admitted with acute cholecystitis, needed gallbladder surgery and the gallbladder was found to be gangrenous (infected). Antibiotics have been started and should continue. The pain medications that you take for your back, may have been suppressing any early pain symptoms from the gallbladder. Your EKG at admission showed atrial fibrillation. 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 Your other diagnoses which were confirmed from the bridge construction inspector office are: Chronic diastolic heart failure, pulmonary hypertension, and hypertension. You should memorize these or keep a written list in your wallet for future medical or ER visits. Also, you should have a correct list of medications memorized or easily available. Plan of Treatment: You are being sent home with 2 antibiotics to take for several more days and a prescription for a probiotic is being ordered. These were electronically sent to your [email or web address] pharmacy. Use Tylenol, aspirin or Ibuprofen or your home Oxycodone for pain control. Please have light activity for 1 week, then you may restart walking. You should resume all your previous medications now, but stay off the Lasix and Potassium for 5 days, to avoid dehydration. You need to see your PCP in 1-2 weeks for hospital follow-up and for any readjustment of medications or management. You should see your bridge construction inspector in the next 4 to 6 weeks (do not wait 6 months) because of the new diagnosis of A. fib. You may need to be on different medicines for this and have more testing done for this diagnosis. Care Goals: Healing after surgery is the goal. Assessment: The patient and are agreeable with the plan. No Smoking: If you smoke, Please STOP! Call for help. Follow-up with: Anisha Rosas MD [Physician No Access] -
--- NOTE | 2019-08-27 11:21 | DISCHARGE SUMMARY ---
Discharge Summary Admit Date: 08/25/19 Discharge Date: 08/27/19 Discharging Provider: Dr Vaishnavi Ledbetter Primary Care Provider: Dr Anisha Najera (PCP), Dr Aaron Guo (Cardiology) Code Status: Attempt Resuscitation Condition at Discharge: Stable Discharge Disposition: 01 Home, Self Care - DIAGNOSES Admission Diagnoses: 1) Acute cholecystitis 2) Afib 3) Hypothyroidism history 4) Hypertension history 5) Cor pulmonale 6) Pulmonary hypertension 7) Preop clearance Discharge Diagnoses with Status of Each Condition: See below - HPI History of Present Illness: This is an 83-year-old white female with a history of hypertension and hypothyroidism. She moved to [facility] approximately 2 years ago and still sees her PCP in [facility] and has a Television Parts Tester there as well. She does not k now her diagnoses and says she is on "many pills" and "has a touch of heart failure". Patient had gone to see her Television Parts Tester 2 days ago for 6-month visit and described that she is active, had had 34 pound weight loss with walking daily,which was done to control her blood pressure and borderline diabetes, and the Television Parts Tester was "very pleased". The patient did have chest discomfort and abdominal discomfort and the impression, according to the daughter's report, was that this did not sound cardiac and it was probably her gallbladder. The patient's abdominal pain got worse during the following 2 days and she presented to the emergency room here. Abdominal imaging showed gallstones, dilated gallbladder and wall and dilated duct. She had urgent Echocardiogrphy done in the emergency room, fir pre-op clearance, showing preserved LVEF, a moderately dilated right ventricle and pulmonary hypertension with PA pressure of 60 mmHg. Her EKG showed Atrial fib with controlled rate. The patient did not know if she had prior A. fib or not. She was taken to the operating room from the ER and then admitted for management of acute cholecystitis. - CONSULTS | PROCEDURES Consultations: Dr Ga Ledesma Procedures: Laperoscopic cholecystectomy - HOSPITAL COURSE Hospital Course: (1) Acute gangrenous cholecystitis Dr Ga Ledesma performed the surgery and found a gangrenous gallbladder. She was put on IV Zosyn. Her pain was under good control and she started ambulating with PT the next day. The surgeon switched her from IV Zosyn to oral Augmentin but she has an Ampicillin side effect, causing severe diarrhea with cramps. Thus, she was sent home on Cipro 3 times daily and Flagyl 3 times daily orally for a 7 day total course.. (2) Elevated LFTs The LFTs increased on the second day: AST 30>> 238, ALT 25>> 128, alk phos 103>> 151. This was probably related to the acute GB disease and biliary obstruction. By the following day these had decreased: AST 109, ALT 102, alk phos 129. (3) Atrial fibrillation Her admission EKG showed A. fib with a controlled rate. According to the , she was on Cardizem CD but our Pharmacist found that she had not picked up this prescription since February 2019. I reached out to her PCP's office (Dr Anisha Najera) for information about her PMH, and got no call back (Dania). The patient was able to tell me who her Television Parts Tester was (Dr Aaron Guo at [facility]), and the covering Television Parts Tester did call me back after looking at her EMR and read to me her established diagnoses which were: Chronic Diastolic Heart failure, Pulmonary HTN and HTN. A. fib is a new diagnosis for her. Her TFTs and troponin were normal. Her CHADS score is 2 (age greater than 75 and hypertension, and she does not have systolic heart failure), but she cannot be started on oral anticoagulant having had major surgery. She was told that she needs follow-up with her Television Parts Tester in 4 to 6 weeks, not to wait 6 months, for further evaluation and management of this A. fib. (4) Chronic diastolic (congestive) heart failure The patient was more alert by day 2 and able to tell me that her Television Parts Tester is Dr. Guo at [facility] in [place]. I reached out to his service and the covering Television Parts Tester called me back after checking their EMR and stated that the patient's diagnoses are: Chronic diastolic heart failure, hypertension, pulmonary hypertension. A follow-up CXR was done that did not show pulmonary vascular congestion, but atelectasis was present. Incentive spirometry was ordered. Her only medicine for her diastolic heart failure was Lasix apparently, which was not used while she was hospitalized because of her n.p.o. status. She was advised to restart Lasix after about 5 days. (5) Hypothyroidism Her home thyroid med was continued while here. (6) Hx of essential hypertension BP was stable while here. (7) Cor pulmonale This was the (new?) finding by Echo done preoperatively. There was no evidence of right heart volume overload, despite being off her Lasix while here. (8) Pulmonary hypertension, moderate to severe She had no SOB complaints at rest or with ambulation. - ALLERGIES Allergies/Adverse Reactions: Allergies Allergy/AdvReac Type Severity Reaction Status Date / Time ampicillin AdvReac Cramps Verified 08/26/19 14:37 epinephrine AdvReac Anxiety Verified 08/24/19 21:31 oxycodone AdvReac Hallucinati Verified 08/26/19 14:35 ons - MEDICATIONS Home Medications: Ambulatory Orders Medication Instructions Recorded Confirmed RX: Gabapentin 600 mg PO TID 12/13/17 08/26/19 RX: Hydrocodone/Acetaminophen 1 tab PO BID 12/13/17 08/26/19 [Hydrocodone-Acetamin 7.5-325] RX: Levothyroxine [Synthroid] 175 mcg PO QDAC 12/13/17 08/26/19 RX: Nortriptyline [Pamelor] 100 mg PO QPM 12/13/17 08/26/19 RX: Pramipexole [Mirapex] 0.25 - 0.5 mg PO QPM PRN 12/13/17 08/26/19 RX: Sertraline HCl 100 mg PO DAILY 12/13/17 08/26/19 RX: dilTIAZem HCl [Diltiazem 24Hr 360 mg PO DAILY 12/13/17 08/26/19 ER] RX: Ciprofloxacin [Cipro] 250 mg PO TID #9 tablet 08/27/19 RX: Saccharomyces Boulardii [Daily 250 mg PO BID #6 capsule 08/27/19 Probiotic] RX: metroNIDAZOLE [Flagyl] 250 mg PO TID #9 tablet 08/27/19 - PHYSICAL EXAM AT DISCHARGE General Appearance: positive: No acute distress, Alert Eyes Bilateral: positive: Normal inspection ENT: positive: ENT inspection nml Neck: positive: Nml inspection, No JVD Respiratory: positive: No respiratory distress, Breath sounds nml Cardiovascular: positive: No murmur, Irregularly irregular Abdomen: positive: Non-tender, No distention Skin: positive: Color nml Extremities: positive: No pedal edema - LABS Result Diagrams: 08/27/19 05:20 08/27/19 05:20 - DIAGNOSTIC IMAGING Diagnostic Imaging Results: Final report reviewed - FOLLOW UP Follow Up: See PCP in 1 week for hospital follow-up. See Television Parts Tester in 4-6 weeks for follow-up. - TIME SPENT Time Spent in Discharge (Minutes): 60
== END 2019-08-27 11:35 | disposition home or self-care (01) | DRG 418 ==
LOC: EDBD → EDUNIT# → ED 21:26 → MS2 08-25 09:00
PROVIDERS: ADMIT Internal Medicine; ATTEND Internal Medicine
PROC: 0FT44ZZ Resection of Gallbladder, Percutaneous Endoscopic Approach (ICD-10-PCS; principal; 2019-08-25 11:00)
DX: K80.10 Calculus of gallbladder with chronic cholecystitis without obstruction (principal); K80.01 Calculus of gallbladder with acute cholecystitis with obstruction; I50.32 Chronic diastolic (congestive) heart failure; K52.1 Toxic gastroenteritis and colitis; K21.9 Gastro-esophageal reflux disease without esophagitis; T36.0X5A Adverse effect of penicillins, initial encounter; Y92.230 Patient room in hospital as the place of occurrence of the external cause; K82.A1 Gangrene of gallbladder in cholecystitis; K82.8 Other specified diseases of gallbladder; I48.91 Unspecified atrial fibrillation; E03.9 Hypothyroidism, unspecified; I11.0 Hypertensive heart disease with heart failure; I27.81 Cor pulmonale (chronic); I27.20 Pulmonary hypertension, unspecified; R73.03 Prediabetes; E66.9 Obesity, unspecified; F32.9 Major depressive disorder, single episode, unspecified; F41.9 Anxiety disorder, unspecified; M54.9 Dorsalgia, unspecified; Z79.899 Other long term (current) drug therapy; Z68.34 Body mass index [BMI] 34.0-34.9, adult; Z83.79 Family history of other diseases of the digestive system; Z79.891 Long term (current) use of opiate analgesic
CPT/HCPCS: 36415; 71045; 71046; 76705; 80053; 83690; 84484; 85025; 85610; 87070; 87205; 93005; 93306; 96374; 96376; 97162; 99284; 99285; A9270; J0131; J1650; J7120

== ENCOUNTER 2019-12-13 10:20 | Emergency (ER) | payer MEDICARE ==
--- NOTE | 2019-12-13 11:20 | ED Physician Documentation ---
History of Present Illness - Stated complaint Stated Complaint: R ANKLE PN - Chief complaint Chief Complaint: Ext Problem - History obtained from History obtained from: Patient - Additonal information Additional information: Patient comes emergency department complaining of right lower extremity pain and swelling that started sometime last night. Patient states that yesterday, she went for a walk with her friend as she does every day, and did not have any trouble. However, she got up last night to go the bathroom and noticed that her right ankle felt tight and painful. She states that she was able to ambulate at home, but had to be careful and use her cane, which she normally does not have to use. She denies any injury to the ankle. No history of gout. Patient states that she had a PE many years ago after surgery, but has never had any problems with clot formation since. She denies any fevers or chills. Patient normally has some swelling in her lower extremities, but states that it is usually her left side that is worse. No other complaints at this time. Review of Systems Ten Systems: 10 systems reviewed and negative Constitutional: reports: Reviewed and negative Eyes: reports: Reviewed and negative Ears: reports: Reviewed and negative Nose: reports: Reviewed and negative Throat: reports: Reviewed and negative Cardiac: reports: Reviewed and negative Respiratory: reports: Reviewed and negative GI: reports: Reviewed and negative : reports: Reviewed and negative Skin: reports: Reviewed and negative Musculoskeletal: reports: Extremity pain, Extremity swelling, Joint swelling Neurologic: reports: Reviewed and negative Psychiatric: reports: Reviewed and negative Endocrine: reports: Reviewed and negative Immunocompromised: reports: Reviewed and negative PD PAST MEDICAL HISTORY - Past Medical History Past Medical History: Yes Cardiovascular: Congestive heart failure, Atrial fibrillation Respiratory: None Neuro: Peripheral neuropathy Endocrine/Autoimmune: HyPOthyroidism GI: None SYSTEMS PROJECT MANAGER: None : Incontinence HEENT: None Psych: Depression, Anxiety Musculoskeletal: Chronic back pain Derm: None - Past Surgical History Past Surgical History: Yes General: Cholecystectomy Ortho: Knee replacement /SYSTEMS PROJECT MANAGER: 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 - Present Medications Home Medications: Ambulatory Orders Medication Instructions Recorded Confirmed Gabapentin 600 mg PO TID 12/13/17 12/20/19 Hydrocodone/Acetaminophen 1 tab PO BID 12/13/17 12/20/19 [Hydrocodone-Acetamin 7.5-325] Levothyroxine [Synthroid] 175 mcg PO QDAC 12/13/17 12/20/19 Nortriptyline [Pamelor] 100 mg PO QPM 12/13/17 12/20/19 Pramipexole [Mirapex] 0.5 mg PO QPM 12/13/17 12/20/19 Sertraline HCl 100 mg PO DAILY 12/13/17 12/20/19 dilTIAZem HCl [Diltiazem 24Hr ER] 360 mg PO DAILY 12/13/17 12/20/19 Apixaban [Eliquis] 2.5 mg PO BID 12/20/19 12/20/19 Doxycycline Hyclate 100 mg PO BID #20 capsule 12/20/19 Furosemide 20 mg PO DAILY 12/20/19 12/20/19 Potassium Chloride 20 meq PO DAILY 12/20/19 12/20/19 Saccharomyces Boulardii [Daily 250 mg PO DAILY PM 12/20/19 12/20/19 Probiotic] - Allergies Allergies/Adverse Reactions: Allergies Allergy/AdvReac Type Severity Reaction Status Date / Time ampicillin AdvReac Cramps Verified 12/20/19 16:04 epinephrine AdvReac Anxiety Verified 12/20/19 16:04 oxycodone AdvReac Hallucinati Verified 12/20/19 16:04 ons - Social History Does the pt smoke?: No Smoking Status: Never smoker Does the pt drink ETOH?: No Does the pt have substance abuse?: No - Immunizations Immunizations are current?: Yes - POLST Patient has POLST: No PD ED PE NORMAL - Vitals Vital signs reviewed: Yes - General General: Alert and oriented X 3, No acute distress - HEENT HEENT: Atraumatic, PERRL, EOMI, Moist mucous membranes - Neck Neck: Supple, no meningeal sign - Cardiac Cardiac: RRR, No murmur, Strong equal pulses - Respiratory Respiratory: No respiratory distress, Clear bilaterally - Abdomen Abdomen: Soft, Non tender, Non distended - Back Back: Other (Grossly normal) - Derm Derm: Normal color, Warm and dry, No rash - Extremities Extremities: No deformity, Other (Patient has moderate edema of her right lower extremity from the mid calf and distally. She has very mild edema on the left side. No right-sided erythema is noted. Patient has mild hyperpigmentation which is symmetrical bilaterally. Patient has intact distal pulses in her bilateral lower extremities. Patient has mild tenderness palpation over her distal right lower extremity. There is no obvious focus of the swelling in the ankle itself, appears to be fairly uniform distal to the mid calf. No cords are palpable. No venous prominence.) - Neuro Neuro: Alert and oriented X 3 - Psych Psych: Normal mood, Normal affect Results - Vitals Vitals: Oxygen O2 Source Room air - Labs Labs: Laboratory Tests 12/13/19 12/13/19 11:20 11:20 WBC 6.8 RBC 4.44 Hgb 12.6 Hct 40.6 MCV 91.4 MCH 28.4 MCHC 31.0 L RDW 13.7 Plt Count 139 MPV 10.0 Neut # (Auto) 4.9 Lymph # (Auto) 1.0 L [place] # (Auto) 0.8 Eos # (Auto) 0.1 Baso # (Auto) 0.0 Absolute Nucleated RBC 0.00 Nucleated RBC % 0.0 Uric Acid 5.8 - Rads (name of study) US LE Radiology: Final report received, See rad report (Neg DVT) PD MEDICAL DECISION MAKING - ED course Complexity details: reviewed results, re-evaluated patient, considered differential, d/w patient ED course: The patient was worked up with CBC, uric acid level, and ultrasound of the right lower extremity. All work-up was negative. The pt did not have any bony findings of her ankle on physical exam, and had not had any injury to suggest a fracture or even a sprain. As such, I did not feel that x-ray imaging would be helpful. I d/w pt that I am not sure what has caused her to swell. It may be inflammation from the activities she engaged in yesterday, but I cannot be sure. However, no condition requiring acute or emergent intervention has been identified. We have discussed home management of the sx, as well as the usual indications for return. Departure - Departure Disposition: 01 Home, Self Care Clinical Impression: Dependent edema Condition: Stable Instructions: ED Leg Swelling Unilateral Comments: Your labs, ultrasound, and ankle x-ray do not show any acute findings. 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 There is no evidence of a serious cause of your swelling and pain at this time. Most likely, the chronic arthritis in your ankle is flaring up. Sometimes this can happen after seemingly normal activities, such as your daily walk. Please follow-up with your primary care physician if you are not feeling better in the next week. You may take ibuprofen and/or Tylenol for the pain at home, and you may also take the medication prescribed if you have breakthrough pain after those. Please elevate your leg and apply an ice pack several times a day for 20 minutes to help bring the swelling down. Be sure to have a thin barrier, such as a pillowcase or a paper towel between the ice pack and your skin to avoid frostbite. Discharge Date/Time: 12/13/19 13:19
[2019-12-13 11:27] LABS: BASOPHILS % (AUTO) 0.6 %; EOSINOPHILS # (AUTO) 0.1 10^3/uL (0.0-0.7); EOSINOPHILS % (AUTO) 0.7 %; HGB - HEMOGLOBIN 12.6 g/dL (12.0-16.0); LYMPHOCYTES % (AUTO) 14.8 %; MEAN CORPUSCULAR HEMOGLOBIN 28.4 pg (27.0-31.0); MEAN CORPUSCULAR VOLUME 91.4 fL (81.0-99.0); MONOCYTES # (AUTO) 0.8 10^3/uL (0.0-1.0); MONOCYTES % (AUTO) 12.3 %; NEUTROPHILS # (AUTO) 4.9 10^3/uL (1.5-6.6); NEUTROPHILS % (AUTO) 71.3 %; PLT - PLATELET COUNT 139 10^3/uL (130-450); RED BLOOD COUNT 4.44 10^6/uL (4.20-5.40); RED CELL DISTRIBUTION WIDTH 13.7 % (12.0-15.0); WHITE BLOOD COUNT 6.8 x10^3/uL (4.8-10.8)
[2019-12-13] MEDS: KETOROLAC 60 MG/2 ML VIAL IM STA (12:39)
[2019-12-13 12:43] VITALS: BP 116/96
--- NOTE | 2019-12-13 12:46 | Ultrasound Report ---
Reason: swelling/pain Procedure Date: 12/13/2019 Accession Number: [id number] / [id number] Procedure: US - Duplex Ext Veins Right CPT Code: Final Report FULL RESULT: EXAM: RIGHT LOWER EXTREMITY VENOUS ULTRASOUND EXAM DATE: 12/13/2019 12:09 PM. CLINICAL HISTORY: Right leg Swelling/pain. COMPARISON: None. TECHNIQUE: Real-time sonographic vascular imaging was performed by the client relationship consultant through the lower extremity utilizing both color-flow and Doppler spectral analysis. Multiple customer account representative static images were saved for review. FINDINGS: Common Femoral Vein (CFV): Normal. CFV-GSV Junction: Normal. Profunda Femoral Vein (PFV): Normal. Femoral Vein (FV) Prox: Normal. Femoral Vein (FV) Mid: Normal. Femoral Vein (FV) Dist: Technically difficult to compress, but normal color Doppler flow. Popliteal Vein: Normal. Posterior Tibial Veins: Normal. Peroneal Veins: Normal. Contralateral Side CFV: Normal. Other: None. IMPRESSION: No evidence for deep venous thrombosis. RADIA
--- NOTE | 2019-12-13 12:54 | XRAY Report ---
Reason: pain, swelling Procedure Date: 12/13/2019 Accession Number: [id number] / [id number] Procedure: XR - Ankle 3 View RT CPT Code: Final Report FULL RESULT: EXAM: RIGHT ANKLE RADIOGRAPHY EXAM DATE: 12/13/2019 12:29 PM. CLINICAL HISTORY: Pain, swelling. No trauma. COMPARISON: DUPLEX EXT VEINS RIGHT 12/13/2019 11:23 AM. TECHNIQUE: 3 views. FINDINGS: Bones: Moderate well-corticated Achilles calcaneal enthesophyte. No fracture. No lucent or sclerotic lesion. Excess free ossicle is noted adjacent to the medial malleolus. Joints: Normal. No effusion. No subluxations. The ankle mortise is normally aligned. Soft Tissues: Mild diffuse soft tissue swelling about the ankle. IMPRESSION: 1. Mild diffuse soft tissue swelling about the right ankle. 2. No underlying osseous or articular abnormality is identified. RADIA
== END 2019-12-13 13:19 | disposition home or self-care (01) ==
LOC: ED 10:20
DX: R60.0 Localized edema (principal); M19.071 Primary osteoarthritis, right ankle and foot
CPT/HCPCS: 36415; 84550; 85025; 96372; 99284

== ENCOUNTER 2019-12-20 15:59 | Emergency (ER) | payer MEDICARE, OTHER ==
--- NOTE | 2019-12-20 16:44 | ED Physician Documentation ---
History of Present Illness - Stated complaint Stated Complaint: RT LEG PX/SWELLING - Chief complaint Chief Complaint: Ext Problem - History obtained from History obtained from: Patient (83-year-old female comes in today complaining of continued right lower extremity pains, swelling that is been ongoing since roughly the ninth of this month. She was seen in the emergency department here I evaluated for a DVT, via ultrasound which came back negative. Also had a x- ray of her right ankle which did not show any fracture. She was sent home with some pain medicine and told to follow-up with PCP. She denies any history of gout she does admit to having atrial fibrillation, and she is on Eliquis daily for this. This is a new medication she is been on for roughly 2 months now she denies any fevers or chills. She denies any pain to the back of the calf, or feeling any cord to the back of the calf area. Patient does have a history of CHF, which she has bilateral lower extremity edema which she wears compression stockings for daily. She has been unable to wear compression stockings in the right lower extremity due to the edema she is in today at the request of her family, as a swelling is getting worse, some erythema to the area as well. No other concerns or complaints today.) Review of Systems Constitutional: denies: Fever, Chills Eyes: denies: Loss of vision, Decreased vision Ears: denies: Ear pain Nose: denies: Rhinorrhea / runny nose, Epistaxis, Foreign Body Throat: denies: Sore throat, Swollen tonsils Cardiac: reports: Pedal edema, Calf pain. denies: Chest pain / pressure, Palpitations Respiratory: denies: Dyspnea, Cough, Hemoptysis, Wheezing GI: denies: Abdominal Pain, Nausea, Vomiting, Diarrhea Skin: denies: Rash, Lesions, Abrasion (s), Laceration (s) Musculoskeletal: reports: Back pain (Chronic), Extremity pain (right lower leg) Neurologic: denies: Generalized weakness, Numbness, Syncope, Seizure, Confused Psychiatric: reports: Anxiety. 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 : Incontinence HEENT: None Psych: Depression, Anxiety Musculoskeletal: Chronic back pain Derm: None - Past Surgical History Past Surgical History: Yes General: Cholecystectomy Ortho: Knee replacement /PATIENT CARE TECHNICIAN INSTRUCTOR: 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 - Present Medications Home Medications: Ambulatory Orders Medication Instructions Recorded Confirmed Gabapentin 600 mg PO TID 12/13/17 08/26/19 Hydrocodone/Acetaminophen 1 tab PO BID 12/13/17 08/26/19 [Hydrocodone-Acetamin 7.5-325] Levothyroxine [Synthroid] 175 mcg PO QDAC 12/13/17 08/26/19 Nortriptyline [Pamelor] 100 mg PO QPM 12/13/17 08/26/19 Pramipexole [Mirapex] 0.25 - 0.5 mg PO QPM PRN 12/13/17 08/26/19 Sertraline HCl 100 mg PO DAILY 12/13/17 08/26/19 dilTIAZem HCl [Diltiazem 24Hr ER] 360 mg PO DAILY 12/13/17 08/26/19 Saccharomyces Boulardii [Daily 250 mg PO BID #6 capsule 08/27/19 Probiotic] traMADol [Ultram] 25 mg PO Q6HR PRN 5 Days #20 tablet 12/13/19 Apixaban [Eliquis] mg PO 12/20/19 Doxycycline Hyclate 100 mg PO BID #20 capsule 12/20/19 - Allergies Allergies/Adverse Reactions: Allergies Allergy/AdvReac Type Severity Reaction Status Date / Time ampicillin AdvReac Cramps Verified 12/20/19 16:04 epinephrine AdvReac Anxiety Verified 12/20/19 16:04 oxycodone AdvReac Hallucinati Verified 12/20/19 16:04 ons - Social History Does the pt smoke?: No Smoking Status: Never smoker Does the pt drink ETOH?: No Does the pt have substance abuse?: No - Immunizations Immunizations are current?: Yes - POLST Patient has POLST: No PD ED PE NORMAL - General General: Alert and oriented X 3, No acute distress, Well developed/nourished - HEENT HEENT: Atraumatic, PERRL, EOMI - Neck Neck: No adenopathy - Cardiac Cardiac: No murmur. No: RRR - Respiratory Respiratory: No respiratory distress, Clear bilaterally - Abdomen Abdomen: Normal bowel sounds, Soft, Non tender - Back Back: No CVA TTP - Derm Derm: Warm and dry, No rash. No: Normal color - Extremities Extremities: No deformity, No tenderness to palpate, No calf tenderness / cord. No: No edema PD ED PE EXPANDED - Cardiac Cardiac: Irregularly irregular - Extremities Extremities: Other (right lower leg with edema, slight erythema, warmth, some serous blistering noted. ) Results - Vitals Vitals: Vital Signs - 24 hr 12/20/19 12/20/19 16:04 16:18 Temperature 36.5 C 36.8 C Heart Rate 103 H 101 H Respiratory 16 18 Rate Blood Pressure 138/74 H 129/76 O2 Saturation 98 99 Oxygen O2 Source Room air PD MEDICAL DECISION MAKING - ED course Complexity details: reviewed results, re-evaluated patient, considered differential (DVT, cellulitis.), d/w patient, d/w building performance consultant (Dr. Pena evaluated the patient) Departure - Departure Disposition: 01 Home, Self Care Clinical Impression: Cellulitis of leg, right Clinical Impression: (Ruled Out): Cellulitis and abscess of right lower extremity Condition: Good Instructions: ED Infec Skin Cellulitis Prescriptions: Doxycycline Hyclate 100 mg PO BID #20 capsule Comments: You have cellulitis to the right lower leg. I prescribed you doxycycline antibiotic to take 10 days. Continue to put your compression stocking on your right lower leg daily to help reduce the swelling in the leg. If he cannot get a compression stocking or wear the Michael wrap daily to help reduce the swelling. Continue to take your regular medications as prescribed, adding the doxycycline to it. If your symptoms worsen or you develop fever, nausea, vomiting, or your right lower leg becomes more swollen or painful return to the ER for further follow-up.
[2019-12-20 16:58] VITALS: BP 111/70
== END 2019-12-20 17:07 | disposition home or self-care (01) ==
LOC: ED 15:59
DX: L03.115 Cellulitis of right lower limb (principal); I50.9 Heart failure, unspecified; I48.91 Unspecified atrial fibrillation; G62.9 Polyneuropathy, unspecified; E03.9 Hypothyroidism, unspecified; G89.29 Other chronic pain; M54.9 Dorsalgia, unspecified; F32.9 Major depressive disorder, single episode, unspecified; F41.9 Anxiety disorder, unspecified; Z96.653 Presence of artificial knee joint, bilateral; R32 Unspecified urinary incontinence; Z79.891 Long term (current) use of opiate analgesic; Z79.01 Long term (current) use of anticoagulants
CPT/HCPCS: 99282; 99283

== ENCOUNTER 2020-01-03 11:39 | Emergency (ER) | payer MEDICARE, OTHER ==
[2020-01-03 12:00] VITALS: BP 132/72
[2020-01-03] MEDS ORDERED: cephALEXin 250 MG CAPSULE PO STA (12:00)
--- NOTE | 2020-01-03 12:03 | ED Physician Documentation ---
PD HPI LOWER EXT INJURY - Stated complaint Stated Complaint: RT LEG PX - Chief complaint Chief Complaint: Ext Problem - History obtained from History obtained from: Patient (This is a very pleasant 84-year-old woman on anticoagulation therapy for atrial fibrillation. She is had trouble with the right leg for most of the month now, she was seen earlier in the month, there was a concern for DVT but ultrasound was negative at that time. Subsequently developed some redness and was diagnosed with cellulitis. She was placed on doxycycline which was helpful, but despite the completion of the antibiotic she still has redness of the leg. There is no pain, no limited range of motion. 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 ASSESSMENT SPECIALIST: None : Incontinence HEENT: None Psych: Depression, Anxiety Musculoskeletal: Chronic back pain Derm: None - Past Surgical History Past Surgical History: Yes General: Cholecystectomy Ortho: Knee replacement /MISSION ASSESSMENT SPECIALIST: 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 - Present Medications Home Medications: Ambulatory Orders Medication Instructions Recorded Confirmed Gabapentin 600 mg PO TID 12/13/17 12/20/19 Hydrocodone/Acetaminophen 1 tab PO BID 12/13/17 12/20/19 [Hydrocodone-Acetamin 7.5-325] Levothyroxine [Synthroid] 175 mcg PO QDAC 12/13/17 12/20/19 Nortriptyline [Pamelor] 100 mg PO QPM 12/13/17 12/20/19 Pramipexole [Mirapex] 0.5 mg PO QPM 12/13/17 12/20/19 Sertraline HCl 100 mg PO DAILY 12/13/17 12/20/19 dilTIAZem HCl [Diltiazem 24Hr ER] 360 mg PO DAILY 12/13/17 12/20/19 Apixaban [Eliquis] 2.5 mg PO BID 12/20/19 12/20/19 Doxycycline Hyclate 100 mg PO BID #20 capsule 12/20/19 Furosemide 20 mg PO DAILY 12/20/19 12/20/19 Potassium Chloride 20 meq PO DAILY 12/20/19 12/20/19 Saccharomyces Boulardii [Daily 250 mg PO DAILY PM 12/20/19 12/20/19 Probiotic] Cephalexin [Keflex] 500 mg PO Q6H #56 capsule 01/03/20 - Allergies Allergies/Adverse Reactions: Allergies Allergy/AdvReac Type Severity Reaction Status Date / Time ampicillin AdvReac Cramps Verified 01/03/20 12:00 epinephrine AdvReac Anxiety Verified 01/03/20 12:00 oxycodone AdvReac Hallucinati Verified 01/03/20 12:00 ons - Social History Does the pt smoke?: No Smoking Status: Never smoker Does the pt drink ETOH?: No Does the pt have substance abuse?: No - Immunizations Immunizations are current?: Yes - POLST Patient has POLST: No PD ED PE NORMAL - Vitals Vital signs reviewed: Yes - General General: Alert and oriented X 3, No acute distress - Extremities Extremities: Other (She has redness of the leg from the upper cantrell down to the ankle. It spares the foot, but she says the foot was red previously. Good pedal pulses. Excellent range of motion at the ankle and knee. No evidence of abscess. The legs are symmetric with respect to size and mild symmetric pedal edema.) - Neuro Neuro: Alert and oriented X 3, Normal speech Results - Vitals Vitals: Vital Signs - 24 hr 01/03/20 11:55 Temperature 36.8 C Heart Rate 87 Respiratory 18 Rate Blood Pressure 132/72 H O2 Saturation 98 Oxygen O2 Source Room air PD MEDICAL DECISION MAKING - ED course ED course: This is a vilma 84-year-old woman who has persistent cellulitis despite having taken a course of doxycycline and we will give her 2 weeks of Keflex. Departure - Departure Disposition: Home, Self Care Clinical Impression: Cellulitis of leg, right Condition: Good Record reviewed to determine appropriate education?: Yes Instructions: Cellulitis Dc Prescriptions: Cephalexin [Keflex] 500 mg PO Q6H #56 capsule Comments: Recheck with your doctor on Tuesday, return for new or worsening symptoms. Elevate the leg as much as possible.
== END 2020-01-03 12:07 | disposition home or self-care (01) ==
LOC: ED 11:39
DX: L03.115 Cellulitis of right lower limb (principal); I48.91 Unspecified atrial fibrillation; Z79.01 Long term (current) use of anticoagulants
CPT/HCPCS: 99282; 99283; A9270

== ENCOUNTER 2021-03-02 16:36 | Inpatient (IN) | payer MEDICARE, OTHER ==
[2021-03-02 19:51] LABS: BASOPHILS % (AUTO) 0.5 %; EOSINOPHILS # (AUTO) 0.1 10^3/uL (0.0-0.7); EOSINOPHILS % (AUTO) 2.6 %; LYMPHOCYTES # (AUTO) 1.6 10^3/uL (1.5-3.5); LYMPHOCYTES % (AUTO) 36.4 %; MEAN CORPUSCULAR HEMOGLOBIN 25.8 pg (27.0-31.0); MEAN CORPUSCULAR HGB CONC 30.3 g/dL (32.0-36.0); MEAN CORPUSCULAR VOLUME 85.1 fL (81.0-99.0); MEAN PLATELET VOLUME 9.5 fL (7.9-10.8); MONOCYTES # (AUTO) 0.5 10^3/uL (0.0-1.0); MONOCYTES % (AUTO) 11.7 %; NEUTROPHILS # (AUTO) 2.1 10^3/uL (1.5-6.6); NEUTROPHILS % (AUTO) 48.6 %; PLT - PLATELET COUNT 161 10^3/uL (130-450); RED BLOOD COUNT 1.94 10^6/uL (4.20-5.40); RED CELL DISTRIBUTION WIDTH 15.7 % (12.0-15.0); WHITE BLOOD COUNT 4.3 x10^3/uL (4.8-10.8)
--- NOTE | 2021-03-02 20:01 | XRAY Report ---
PROCEDURE: Chest 1 View X-Ray INDICATIONS: pedal edema TECHNIQUE: One view of the chest was acquired. COMPARISON: 08/26/2019 FINDINGS: Surgical changes and devices: None. Lungs and pleura: No pleural effusions or pneumothorax. Mild reticulonodular pulmonary opacity is pr esent. Mediastinum: Mediastinal contours appear normal. Heart size is normal. Bones and chest wall: No suspicious bony lesions. Overlying soft tissues appear unremarkable. IMPRESSION: Mild edema versus atypical pneumonia. Reviewed by: Loco Gaitan MD on 03/02/2021 7:59 PM PDT Approved by: Loco Gaitan MD on 03/02/2021 7:59 PM PDT Station ID: [id number]
[2021-03-02 20:07] LABS: HCT - HEMATOCRIT 16.5 % (37.0-47.0)
[2021-03-02 20:16] LABS: ALBUMIN 3.7 g/dL (3.2-5.5); ALBUMIN/GLOBULIN RATIO 1.3 (1.0-2.2); BILIRUBIN,TOTAL 0.3 mg/dL (0.2-1.0); CALCIUM 8.6 mg/dL (8.5-10.3); CREATININE 0.7 mg/dL (0.4-1.0); POTASSIUM 3.5 mmol/L (3.5-5.0); TOTAL PROTEIN 6.6 g/dL (6.7-8.2)
[2021-03-02] MEDS ORDERED: PANTOPRAZOLE 40 MG VIAL IVP STA (20:29)
--- NOTE | 2021-03-02 20:31 | ED Physician Documentation ---
History of Present Illness - Stated complaint Stated Complaint: SWELLING LT LEG - Chief complaint Chief Complaint: Ext Problem - History obtained from History obtained from: Patient, Family - Additonal information Additional information: 85-year-old woman with history of atrial fibrillation on Eliquis, although it sounds like they converted her 2 years ago and has not been in atrial fibrillation since. Over the last 5 days or so she has had some dark stools and intermittent shortness of breath. More acutely over the last 3 days or so has developed significant bilateral pedal edema, left worse than right with weight gain of 9 pounds. She does not take NSAIDs and does not use alcohol. She is otherwise pretty active but has been laid up right lately because of a stress fracture in her hip. Review of Systems Ten Systems: 10 systems reviewed and negative Constitutional: reports: Reviewed and negative Ears: reports: Reviewed and negative Nose: reports: Reviewed and negative Throat: reports: Reviewed and negative Cardiac: reports: Reviewed and negative PD PAST MEDICAL HISTORY - Past Medical History Past Medical History: Yes Cardiovascular: Congestive heart failure, Atrial fibrillation Respiratory: None Neuro: Peripheral neuropathy Endocrine/Autoimmune: HyPOthyroidism GI: None INSTRUCTIONAL AIDE: None : Incontinence HEENT: None Psych: Depression, Anxiety Musculoskeletal: Chronic back pain Derm: None - Past Surgical History Past Surgical History: Yes General: Cholecystectomy Ortho: Knee replacement /INSTRUCTIONAL AIDE: 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 - Present Medications Home Medications: Ambulatory Orders Medication Instructions Recorded Confirmed Gabapentin 600 mg PO TID 12/13/17 12/20/19 Hydrocodone/Acetaminophen 1 tab PO BID 12/13/17 12/20/19 [Hydrocodone-Acetamin 7.5-325] Levothyroxine [Synthroid] 175 mcg PO QDAC 12/13/17 12/20/19 Nortriptyline [Pamelor] 100 mg PO QPM 12/13/17 12/20/19 Pramipexole [Mirapex] 0.5 mg PO QPM 12/13/17 12/20/19 Sertraline HCl 100 mg PO DAILY 12/13/17 12/20/19 dilTIAZem HCl [Diltiazem 24Hr ER] 360 mg PO DAILY 12/13/17 12/20/19 Apixaban [Eliquis] 2.5 mg PO BID 12/20/19 12/20/19 Doxycycline Hyclate 100 mg PO BID #20 capsule 12/20/19 Furosemide 20 mg PO DAILY 12/20/19 12/20/19 Potassium Chloride 20 meq PO DAILY 12/20/19 12/20/19 Saccharomyces Boulardii [Daily 250 mg PO DAILY PM 12/20/19 12/20/19 Probiotic] cephALEXin [Keflex] 500 mg PO Q6H #56 capsule 01/03/20 - Allergies Allergies/Adverse Reactions: Allergies Allergy/AdvReac Type Severity Reaction Status Date / Time ampicillin AdvReac Cramps Verified 03/02/21 16:50 epinephrine AdvReac Anxiety Verified 03/02/21 16:50 oxycodone AdvReac Hallucinati Verified 03/02/21 16:50 ons - Social History Does the pt smoke?: No Smoking Status: Never smoker Does the pt drink ETOH?: No Does the pt have substance abuse?: No - Family History Family history: reports: Non contributory - Immunizations Immunizations are current?: Yes - POLST Patient has POLST: No PD ED PE NORMAL - Vitals Vital signs reviewed: Yes - General General: Alert and oriented X 3, No acute distress - HEENT HEENT: PERRL, EOMI - Neck Neck: Supple, no meningeal sign, No bony TTP - Cardiac Cardiac: RRR (Subtle systolic murmur which she says is chronic) - Respiratory Respiratory: No respiratory distress, Clear bilaterally - Abdomen Abdomen: Normal bowel sounds, Soft, Non tender - Back Back: No CVA TTP, No spinal TTP - Derm Derm: Normal color, Warm and dry - Extremities Extremities: Other (Significant bilateral pitting pedal edema, nontender, no evidence of cellulitis.) - Neuro Neuro: Alert and oriented X 3, Normal speech Results - Vitals Vitals: Vital Signs - 24 hr 03/02/21 03/02/21 16:45 18:50 Temperature 37.3 C 37.4 C Heart Rate 90 88 Respiratory 18 18 Rate Blood Pressure 124/42 L 134/49 H O2 Saturation 97 97 Oxygen O2 Source Room air - EKG (time done) 1936 Rate: Rate (enter#) (89) Rhythm: NSR [place]: Normal QRS: Low voltage Ischemia: Non specific changes Computer interpretation: Agree with computer - Labs Labs: Laboratory Tests 03/02/21 03/02/21 03/02/21 19:43 19:43 19:43 WBC 4.3 L RBC 1.94 L Hgb 5.0 L* Hct 16.5 L* MCV 85.1 MCH 25.8 L MCHC 30.3 L RDW 15.7 H Plt Count 161 MPV 9.5 Sodium 134 L Potassium 3.5 Chloride 103 Carbon Dioxide 24 Anion Gap 7.0 BUN 18 Creatinine 0.7 Estimated GFR (MDRD) 79 L Glucose 122 H Calcium 8.6 Total Bilirubin 0.3 AST 27 ALT 16 Alkaline Phosphatase 70 Troponin I High Sens 29.7 H* B-Natriuretic Peptide Total Protein 6.6 L Albumin 3.7 Globulin 2.9 Albumin/Globulin Ratio 1.3 Lipase 19 L 03/02/21 19:43 WBC RBC Hgb Hct MCV MCH MCHC RDW Plt Count MPV Sodium Potassium Chloride Carbon Dioxide Anion Gap BUN Creatinine Estimated GFR (MDRD) Glucose Calcium Total Bilirubin AST ALT Alkaline Phosphatase Troponin I High Sens B-Natriuretic Peptide 307 H Total Protein Albumin Globulin Albumin/Globulin Ratio Lipase PD MEDICAL DECISION MAKING - ED course ED course: This is a vilma 85-year-old woman who presents with a chief complaint of pedal edema, but on review of the history and initial labs more likely due to high- output heart failure from a GI bleed. He did not hemodynamically she is in good shape. We will ready blood and give her an IV PPI. I spoke with Dr. Edgar Viera and he will consult at approximately 8:30 PM. And subsequently I spoke with Dr. Gallo for admission at 8:35 PM Departure - Departure Disposition: 66 [facility] DC/Xfer Clinical Impression: Dependent edema, Severe anemia, Adequate anticoagulation on anticoagulant therapy Atrial fibrillation Qualifiers: Atrial fibrillation type: paroxysmal Qualified Code(s): I48.0 - Paroxysmal atrial fibrillation GI bleed Qualifiers: GI bleed type/associated pathology: unspecified gastrointestinal hemorrhage type Qualified Code(s): K92.2 - Gastrointestinal hemorrhage, unspecified Condition: Serious
[2021-03-02] MEDS ORDERED: ACETAMINOPHEN 325 MG TABLET PO PRN (20:33)
[2021-03-02] MEDS ORDERED: SODIUM CHLORIDE FLUSH 0.9% 10 ML SYRINGE IVP PRN (20:33)
[2021-03-02] MEDS ORDERED: ONDANSETRON 4 MG/2 ML VIAL IVP PRN (20:33)
--- NOTE | 2021-03-02 20:40 | HISTORY & PHYSICAL EXAMINATION ---
Chief Complaint - Chief Complaint Chief Complaint: Leg swelling. History of Present Illness - Admitted From Admitted From:: Home - History Obtained From Records Reviewed: Yes History obtained from: Patient, ER Physician, EMR - History of Present Illness HPI Comment/Other: This is a 85-year-old female with a past medical history significant for diast olic heart failure, restless leg syndrome, hypothyroidism, paroxysmal atrial fibrillation on Eliquis who presents today complaining of leg. She states she noticed over the past week that her legs have become more swollen and she gained 9 pounds. She been taking extra dose of Lasix without any improvement. She reports no dyspnea, chest pain, cough. Denies fevers, chills. She denies a prior history of heart failure. She reports no fatigue, weakness, dizziness, lightheadedness. She has noticed that about over the past week her stool has been darker. She not noticed any ciara blood. She does not take any NSAIDs or drink alcohol. She has not had an endoscopy but reports having a colonoscopy in her 70s which was unremarkable. She denies any abdominal pain, nausea, vomiting. She does not take oral iron supplementation. She denies a prior history of DVTs. She does report a history of a left hip stress fracture a few months ago and has been using a cane to ambulate. She does complain of right groin pain that began yesterday. It is worse with movement. No weakness in her lower extremities. No trauma. In the emergency department, she is found to be afebrile. Her heart is in the 80s and her blood pressure is 134/49. She was not tachypneic and was saturating well on room air. Labs were significant for hemoglobin of 5.0. Her BNP was 307. Chest x-ray was concerning for mild pulmonary edema. Given the above findings, medicine was consulted for admission. We did discuss goals of care and she would like to be a DNR. History - Past Medical History Cardiovascular: reports: Congestive heart failure, Atrial fibrillation, Murmur Respiratory: reports: None Neuro: reports: Peripheral neuropathy Endocrine/Autoimmune: reports: HyPOthyroidism GI: reports: None BROADCAST PRODUCER: reports: None : reports: Incontinence HEENT: reports: None Psych: reports: Depression, Anxiety Musculoskeletal: reports: Chronic back pain Derm: reports: None MRSA Hx?: No - Past Surgical History General: reports: Cholecystectomy, Appendectomy Ortho: reports: Knee replacement /BROADCAST PRODUCER: reports: 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 - Family & Social History Family History Comment/Other: She reports that her father in his 60s from a myocardial infarction. Her mother from renal failure due to diabetes. Living arrangement: At home Living Situation: With spouse/s.o. Social History Notes: She lives at home with her , Jimmy. She does not smoke and does not drink alcohol. - Substance History Use: Uses substance without health or social issues: NONE - POLST Patient has POLST: No Meds/Allgy - Home Medications Home Medications: Ambulatory Orders Medication Instructions Recorded Confirmed Gabapentin 600 mg PO TID 12/13/17 12/20/19 Hydrocodone/Acetaminophen 1 tab PO BID 12/13/17 12/20/19 [Hydrocodone-Acetamin 7.5-325] Levothyroxine [Synthroid] 175 mcg PO QDAC 12/13/17 12/20/19 Nortriptyline [Pamelor] 100 mg PO QPM 12/13/17 12/20/19 Pramipexole [Mirapex] 0.5 mg PO QPM 12/13/17 12/20/19 Sertraline HCl 100 mg PO DAILY 12/13/17 12/20/19 dilTIAZem HCl [Diltiazem 24Hr ER] 360 mg PO DAILY 12/13/17 12/20/19 Apixaban [Eliquis] 2.5 mg PO BID 12/20/19 12/20/19 Doxycycline Hyclate 100 mg PO BID #20 capsule 12/20/19 Furosemide 20 mg PO DAILY 12/20/19 12/20/19 Potassium Chloride 20 meq PO DAILY 12/20/19 12/20/19 Saccharomyces Boulardii [Daily 250 mg PO DAILY PM 12/20/19 12/20/19 Probiotic] cephALEXin [Keflex] 500 mg PO Q6H #56 capsule 01/03/20 - Allergies Allergies/Adverse Reactions: Allergies Allergy/AdvReac Type Severity Reaction Status Date / Time ampicillin AdvReac Cramps Verified 03/02/21 16:50 epinephrine AdvReac Anxiety Verified 03/02/21 16:50 oxycodone AdvReac Hallucinati Verified 03/02/21 16:50 ons Review of Systems - Constitutional Constitutional: denies: Fatigue, Fever, Chills, Malaise, Weakness, Poor appetite - Cardiovascular Cariovascular: reports: Edema. denies: Chest pain, Lightheadedness - Respiratory Respiratory: denies: Cough, Orthopnea, SOB at rest, SOB with exertion - Gastrointestinal Gastrointestinal: reports: Black stools. denies: Abdominal pain, Constipation, Diarrhea, Bloody stools, Nausea, Vomiting - Genitourinary Genitourinary: denies: Dysuria, Frequency, Hematuria - Musculoskeletal Musculoskeletal: reports: Back pain - Integumentary Integumentary: denies: Rash - Neurological Neurological: reports: Numbness. denies: General weakness, Focal weakness, Dizziness - Hematologic/Lymphatic Hematologic/Lymphatic: denies: Anemia, Blood clots, Bleeding tendencies - All Other Systems All Other Systems: reports: Reviewed and negative Prior Level of Functionality: She is normally independent with her ADLs but her mobility has been limited due to stress fracture of the hip. Exam - Vital Signs Reviewed Vital Signs: Yes Vital Signs: Vital Signs x48h Temp Pulse Resp BP Pulse Ox 03/02/21 18:50 37.4 C 88 18 134/49 H 97 03/02/21 16:45 37.3 C 90 18 124/42 L 97 - Physical Exam General Appearance: positive: No acute distress, Alert Eyes Bilateral: positive: Other (Conjuctival pallor.) ENT: positive: ENT inspection nml Neck: positive: Nml inspection Respiratory: positive: No respiratory distress, Other (Diminished bilaterally.). negative: Wheezes, Rales Cardiovascular: positive: Systolic murmur. negative: No murmur, Irregularly irregular, Tachycardia, Bradycardia Abdomen: positive: Non-tender, No distention. negative: Tenderness, Guarding, Rebound Skin: positive: Warm, Dry Extremities: positive: Pedal edema (+1 to +2 pitting edema in bilateral lower extremities.), Other (No erythema or edema of right hip. It is not tender. Ne urovascularlly intact.). negative: Calf tenderness Neurologic/Psychiatric: positive: Other (No focal deficits.). negative: Disoriented to person, Disoriented to place Conclusion/Plan - Problem List (1) GI bleed Conclusion/Plan: Concern for an upper GI bleed given she reports dark tarry stools. She is not in alcohol and does not take NSAIDs. She is on Eliquis for her atrial fibrillation. Her hemoglobin is decreased at 5.0. We will place on a clear liquid diet this evening and n.p.o. at midnight for likely EGD tomorrow. Start her on Protonix 40 mg IV twice daily. I did speak with general surgery and will attempt to obtain a colonoscopy at some point during this hospitalization as well. Qualifiers: GI bleed type/associated pathology: unspecified gastrointestinal hemorrhage type Qualified Code(s): K92.2 - Gastrointestinal hemorrhage, unspecified (2) Acute blood loss anemia Conclusion/Plan: This patient secondary to the GI bleed. Her hemoglobin is decreased at 5.0 with a normal MCV. Her prior hemoglobins were all within normal limits. We will transfuse her 2 units of packed red blood cell and will administer Lasix in between given concern for exacerbation of heart failure as well. We will hold her Eliquis. If she has evidence of significant bleeding then we will admin ister FFP. SCDs for DVT prophylaxis. Monitor hemoglobin every 8 hours. (3) Acute exacerbation of congestive heart failure Conclusion/Plan: Concern for potential acute exacerbation of her diastolic heart failure given she has lower extremity edema, and elevated BNP and pulmonary vascular congestion on imaging. We will be transfusing her two units of packed red blood cells today and we will administer 20mg of IV Lasix in between. Continue with daily weights and strict I's and O's. Her last echocardiogram revealed a preserved ejection fraction but she did have evidence of pulmonary hypertension and so we will repeat this. We will also follow-up duplex of her lower extremities although low suspicion for DVT given she has been on Eliquis. Qualifiers: Heart failure type: diastolic Qualified Code(s): I50.33 - Acute on chronic diastolic (congestive) heart failure (4) Atrial fibrillation Conclusion/Plan: She is currently rate controlled. We will continue her home diltiazem in the morning and hold her Eliquis given the GI bleed. Qualifiers: Atrial fibrillation type: paroxysmal Qualified Code(s): I48.0 - Paroxysmal atrial fibrillation (5) Hypothyroidism Conclusion/Plan: We will continue her home Synthroid. (6) Right groin pain Conclusion/Plan: Given her history of pelvic stress fracture of the left hip, there is concern she may have overcompensated and may have a stress fracture of the right hip now. Will order pelvis x-ray. Continue Tylenol and home hydrocodone for pain as needed. - Lab Results Lab results reviewed: Yes Fish Bones: 03/02/21 19:43 03/02/21 19:43 - Diagnostic Imaging Results Diagnostic Imaging Results: positive: Final report reviewed Core Measures - Anticipated LOS I expect patient to be DC'd or transferred within 96 hours.: Yes - Issues Hospital Issues and Management Plan: 85-year-old female presents with dyspnea and dark tarry stools found to have acute blood loss anemia likely due to upper GI bleed and CHF exacerbation. We will admit for transfusion of PRBCs and endoscopy. We will also diurese her. - DVT/VTE - Prophylaxis VTE/DVT Device ordered at admit?: Yes VTE/DVT Prophylaxis med ordered at admit?: No
[2021-03-02] MEDS ORDERED: FUROSEMIDE 20 MG/2 ML VIAL IVP PRN (20:41)
[2021-03-02 20:46] LABS: PLATELET ESTIMATE, MANUAL NORMAL (130-450,000) (NORMAL); PLATELET MORPHOLOGY 2+ GIANT PLATELETS (NORMAL)
--- NOTE | 2021-03-02 20:51 | Ultrasound Report ---
PROCEDURE: Duplex Ext Veins Bilateral INDICATIONS: CITLALLI BRENNER TECHNIQUE: Real-time imaging, as well as color and pulse Doppler interrogation, were performed of the deep veins of both legs from the inguinal ligament to the popliteal fossa. COMPARISON: 12/13/2019 ultrasound. FINDINGS: Calf veins are noncompressible secondary to edema. The deep veins are otherwise normally c ompressible, and free of intraluminal thrombus. Color and pulse Doppler demonstrate normal phasic in travascular flow. There is normal augmentation response to distal compression maneuver. IMPRESSION: 1. Limited examination of the calf veins. 2. No definite DVT. Reviewed by: Loco Gaitan MD on 03/02/2021 8:49 PM PDT Approved by: Loco Gaitan MD on 03/02/2021 8:49 PM PDT Station ID: [id number]
[2021-03-02 21:13] LABS: IRON < 6 ug/dL (28-170); TOTAL IRON BINDING CAPACITY 491 ug/dL (250-450); TRANSFERRIN 351 mg/dL (192-382)
[2021-03-02 21:35] LABS: INR 1.5 (0.8-1.2); PT - PROTHROMBIN TIME 16.4 secs (9.9-12.6)
[2021-03-02 21:45] LABS: B. PARAPERTUSSIS- RESP PCR PAN NOT DETECTED; B. PERTUSSIS- RESP PCR PANEL NOT DETECTED; C. PNEUMONIAE- RESP PCR PANEL NOT DETECTED; CORONAVIRUS 229E-RESP PCR NOT DETECTED; CORONAVIRUS HKU1-RESP PCR NOT DETECTED; CORONAVIRUS NL63-RESP PCR NOT DETECTED; CORONAVIRUS OC43-RESP PCR NOT DETECTED; HUMAN METAPNEUMOVIRUS NOT DETECTED; INFLUENZA A- RESP PCR PANEL NOT DETECTED; INFLUENZA B - RESP PCR PANEL NOT DETECTED; M. PNEUMONIAE- RESP PCR PANEL NOT DETECTED; PARAINFLUENZA VIRUS 1 NOT DETECTED; PARAINFLUENZA VIRUS 2 NOT DETECTED; PARAINFLUENZA VIRUS 3 NOT DETECTED; PARAINFLUENZA VIRUS 4 NOT DETECTED; RHINOVIRUS/ENTEROVIRUS NOT DETECTED; RSV- RESP PCR PANEL NOT DETECTED; SARS-CoV-2 -RESP PCR PANEL NOT DETECTED
[2021-03-02] MEDS: NORTRIPTYLINE 25 MG CAPSULE PO SCH (22:35)
[2021-03-02] MEDS: HYDROcod/ACETAM 7.5 MG/325 MG TABLET PO SCH (22:35)
[2021-03-02] MEDS: PRAMIPEXOLE 0.25 MG TABLET PO SCH (22:35)
[2021-03-02] MEDS: GABAPENTIN 300 MG CAPSULE PO SCH (22:36)
[2021-03-03] MEDS: SODIUM CHLORIDE FLUSH 0.9% 10 ML SYRINGE IVP SCH ×4 (01:34→23:44)
[2021-03-03] MEDS: GABAPENTIN 300 MG CAPSULE PO SCH ×3 (05:05→21:39)
[2021-03-03 06:08] LABS: BASOPHILS # (AUTO) 0.1 10^3/uL (0.0-0.1); BASOPHILS % (AUTO) 1.3 %; EOSINOPHILS # (AUTO) 0.2 10^3/uL (0.0-0.7); EOSINOPHILS % (AUTO) 4.4 %; LYMPHOCYTES # (AUTO) 1.4 10^3/uL (1.5-3.5); LYMPHOCYTES % (AUTO) 37.5 %; MEAN CORPUSCULAR HEMOGLOBIN 26.5 pg (27.0-31.0); MEAN CORPUSCULAR HGB CONC 31.5 g/dL (32.0-36.0); MEAN PLATELET VOLUME 11.1 fL (7.9-10.8); MONOCYTES # (AUTO) 0.5 10^3/uL (0.0-1.0); MONOCYTES % (AUTO) 12.2 %; NEUTROPHILS # (AUTO) 1.7 10^3/uL (1.5-6.6); NEUTROPHILS % (AUTO) 44.3 %; PLT - PLATELET COUNT 114 10^3/uL (130-450); RED BLOOD COUNT 2.38 10^6/uL (4.20-5.40); RED CELL DISTRIBUTION WIDTH 15.9 % (12.0-15.0); WHITE BLOOD COUNT 3.8 x10^3/uL (4.8-10.8)
[2021-03-03 06:14] LABS: CALCIUM 7.9 mg/dL (8.5-10.3); CREATININE 0.6 mg/dL (0.4-1.0); MAGNESIUM 2.1 mg/dL (1.7-2.8); POTASSIUM 3.1 mmol/L (3.5-5.0)
[2021-03-03 06:23] LABS: HGB - HEMOGLOBIN 6.3 g/dL (12.0-16.0)
[2021-03-03] MEDS ORDERED: SODIUM CHLORIDE 0.9% 500 ML IV ONE (07:09)
[2021-03-03] MEDS: LEVOTHYROXINE 25 MCG TABLET PO SCH (07:27)
[2021-03-03] MEDS: POTASSIUM CHLOR 10 MEQ/100 ML 10 MEQ/100 ML BAG IV SCH ×4 (07:38→15:57)
[2021-03-03] MEDS: HYDROcod/ACETAM 7.5 MG/325 MG TABLET PO SCH ×2 (08:51→20:30)
[2021-03-03] MEDS: POTASSIUM CHLORIDE 10 MEQ CAPSULE PO SCH (08:51)
[2021-03-03] MEDS: diltiaZEM CD 180 MG CAPSULE PO SCH (08:51)
[2021-03-03] MEDS: FUROSEMIDE 20 MG/2 ML VIAL IVP SCH ×2 (08:51→20:31)
[2021-03-03] MEDS: FERROUS SULFATE 325 MG TABLET PO SCH ×2 (08:51→16:37)
[2021-03-03] MEDS: SERTRALINE 50 MG TABLET PO SCH (08:52)
[2021-03-03] MEDS: PANTOPRAZOLE 40 MG VIAL IVP SCH ×2 (08:52→20:31)
--- NOTE | 2021-03-03 08:54 | XRAY Report ---
PROCEDURE: Hip w/Pelvis 2-3V RT INDICATIONS: Hip pain. TECHNIQUE: AP pelvis with lateral view(s) of the bilateral hip(s). COMPARISON: None. FINDINGS: Bones: No fractures or dislocations. Pelvic ring appears intact. No suspicious bony lesions. Soft tissues: The visualized bowel gas pattern is normal. No suspicious soft tissue calcifications. IMPRESSION: Quality of visualization is limited by body habitus. 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 No trauma found. Reviewed by: Broderick Garcia MD on 03/03/2021 8:53 AM PDT Approved by: Broderick Garcia MD on 03/03/2021 8:53 AM PDT Station ID: [id number]
[2021-03-03] MEDS ORDERED: FUROSEMIDE 20 MG/2 ML VIAL IVP SCH (09:00)
--- NOTE | 2021-03-03 12:17 | PROVIDER PROGRESS NOTE ---
Assessment/Plan - Problem List (1) GI bleed Qualifiers: GI bleed type/associated pathology: unspecified gastrointestinal hemorrhage type Qualified Code(s): K92.2 - Gastrointestinal hemorrhage, unspecified Assessment/Plan: pt reports dark tarry stools, HGB is continuing drop, pt need another transfusion of blood. Called GI surgeon Dr. Soriano, we will have bowel prepare for patient tonight and plan to have EGD and colonoscopy on tomorrow morning. Continue to trend H monitor patient, continue PPI intravenous, hold eliquis for GI bleeding (2) Acute blood loss anemia Conclusion/Plan: Patient already have 2 units blood transfusion blood but her hemoglobin is still 6.3, patient will have another unit of blood transfusion. We will hold the patient Eliquis. Anemia study show patient also have significantly iron deficiency anemia, we will prescribed iron for patient, continue SCDs for DVT prophylaxis. Monitor hemoglobin H&H. Patient report dark tarry stool, hold eliquis for GI bleeding (3) Acute exacerbation of congestive heart failure we are Concern for potential acute exacerbation of her diastolic heart failure given she has lower extremity edema, and elevated BNP and pulmonary vascular congestion on imaging. We will be transfusing her two units of packed red blood cells today and we will administer 20mg of IV Lasix in between. order ECHO, bid Lasix, Continue with daily weights and strict I's and O's. Her last echocardiogram revealed a preserved ejection fraction but she did have evidence of pulmonary hypertension and so we will repeat this. no DVT on lower extremities although low suspicion, hold eliquis for GI bleeding (4) Atrial fibrillation Conclusion/Plan: She is currently rate controlled. We will continue her home diltiazem in the morning and hold her Eliquis given the GI bleed. (5) Hypothyroidism Conclusion/Plan: we will check TSH, We will continue her home Synthroid. (6) Right groin pain Conclusion/Plan: Xray show Moderate to severe bilaterally hip joint osteoarthritis, no trauma found. Continue Tylenol and home hydrocodone for pain as needed. (7)depression Patient frequently crying, report depression feeling, add Celexa, followup with PCP management. - Current Meds Current Meds: Current Medications Generic Name Dose Route Start Last Admin Trade Name Freq PRN Reason Stop Dose Admin Acetaminophen 650 mg 03/02/21 20:33 03/03/21 04:09 Acetaminophen 325 Mg Tablet PO 325 mg Q4HR PRN Administration Pain 1 to 4 Hydrocodone Bitart/Acetaminophen 1 tab 03/02/21 22:00 03/03/21 08:51 Hydrocod/Acetam 7.5 Mg/325 Mg Tablet PO 1 tab BID KARRIE Administration Diltiazem HCl 360 mg 03/03/21 09:00 03/03/21 08:51 Diltiazem Cd 180 Mg Capsule PO 360 mg DAILY KARRIE Administration Ferrous Sulfate 325 mg 03/03/21 08:00 03/03/21 08:51 Ferrous Sulfate 325 Mg Tablet PO 325 mg BIDWM KARRIE Administration Furosemide 20 mg 03/02/21 20:41 03/03/21 01:35 Furosemide 20 Mg/2 Ml Vial IVP 20 mg PRN PRN Administration Dyspnea Furosemide 20 mg 03/03/21 09:00 03/03/21 08:51 Furosemide 20 Mg/2 Ml Vial IVP 20 mg BID KARRIE Administration Gabapentin 600 mg 03/02/21 22:00 03/03/21 05:05 Gabapentin 300 Mg Capsule PO 600 mg TID KARRIE Administration Levothyroxine Sodium 175 mcg 03/03/21 07:00 03/03/21 07:27 Levothyroxine 25 Mcg Tablet PO 175 mcg QDAC KARRIE Administration Nortriptyline HCl 100 mg 03/02/21 21:00 03/02/21 22:35 Nortriptyline 25 Mg Capsule PO 100 mg QPM KARRIE Administration Pantoprazole Sodium 40 mg 03/03/21 09:00 03/03/21 08:52 Pantoprazole 40 Mg Vial IVP 40 mg BID KARRIE Administration Potassium Chloride 20 meq 03/03/21 08:00 03/03/21 08:51 Potassium Chloride 10 Meq Capsule PO 20 meq DAILYWM KARRIE Administration Pramipexole Dihydrochloride 0.5 mg 03/02/21 21:00 03/02/21 22:35 Pramipexole 0.25 Mg Tablet PO 0.5 mg QPM KARRIE Administration Sertraline HCl 100 mg 03/03/21 09:00 03/03/21 08:52 Sertraline 50 Mg Tablet PO 100 mg DAILY KARRIE Administration Sodium Chloride 10 ml 03/03/21 01:00 03/03/21 08:52 Sodium Chloride Flush 0.9% 10 Ml Syringe IVP 10 ml 0100,0900,1700 KARRIE Administration - Lab Result Fish Bone Diagrams: 03/03/21 05:46 03/03/21 05:46 - Additional Planning My Orders: My Active Orders 03/03/21 09:00 FUROSEMIDE INJ 20mg VIAL [LASIX INJ 20mg VIAL] 20 mg IVP BID 03/03/21 12:00 Citalopram [CeleXA] 10 mg PO DAILY 03/03/21 14:00 H&H [HEMOGLOBIN AND HEMATOCRIT] [HEME] Timed 03/03/21 Dinner Clear Liquid Diet [DIET] 03/03/21 18:00 Sodium/Potassium/Mag Sulfates [Suprep Bowel Prep Kit] 177 ml PO 1800,0500 03/03/21 19:00 D5.45ns W/20 Meq KCl 1,000 ml IV 75 mls/hr 03/03/21 22:00 H&H [HEMOGLOBIN AND HEMATOCRIT] [HEME] Timed 03/04/21 00:01 NPO except Meds at Midnight [DIET] Subjective - Subjective Patient Reports: Feeling Better, Pain Objective Vital Signs: Vital Signs - 24 hr 03/02/21 03/02/21 03/02/21 16:45 18:50 20:00 Temperature 37.3 C 37.4 C Heart Rate 90 88 89 Heart Rate [ Brachial] Respiratory 18 18 24 Rate Blood Pressure 124/42 L 134/49 H 129/54 L Blood Pressure [Left Brachial artery] O2 Saturation 97 97 98 03/02/21 03/02/21 03/02/21 22:05 22:22 22:37 Temperature 36.7 C 36.7 C 36.5 C Heart Rate 86 85 Heart Rate [ 96 Brachial] Respiratory 16 19 18 Rate Blood Pressure 113/47 L 123/44 L Blood Pressure 117/53 L [Left Brachial artery] O2 Saturation 96 03/03/21 03/03/21 03/03/21 01:17 01:31 01:39 Temperature 36.5 C 36.5 C Heart Rate 77 Heart Rate [ 77 Brachial] Respiratory 17 18 Rate Blood Pressure 97/48 L Blood Pressure 97/48 L 109/43 L [Left Brachial artery] O2 Saturation 94 03/03/21 03/03/21 03/03/21 02:19 02:30 02:40 Temperature 36.2 C L 36.3 C L 36.3 C L Heart Rate 94 75 77 Heart Rate [ Brachial] Respiratory 17 17 17 Rate Blood Pressure 118/48 L 115/45 L 121/45 L Blood Pressure [Left Brachial artery] O2 Saturation 03/03/21 03/03/21 03/03/21 04:55 07:52 10:54 Temperature 36.4 C L 36.5 C 36.4 C L Heart Rate 85 78 Heart Rate [ 78 Brachial] Respiratory 16 16 20 Rate Blood Pressure 112/41 L 126/51 L Blood Pressure 108/46 L [Left Brachial artery] O2 Saturation 99 03/03/21 03/03/21 11:04 11:14 Temperature 36.4 C L 36.5 C Heart Rate 80 75 Heart Rate [ Brachial] Respiratory 20 20 Rate Blood Pressure 112/58 L 115/48 L Blood Pressure [Left Brachial artery] O2 Saturation Oxygen O2 Source Room air I&O (Last 24 Hrs): Intake and Output Totals x24h 03/01/21 03/02/21 03/03/21 23:59 23:59 23:59 Intake Total 812 Output Total 800 Balance 12 General: Alert, Oriented x3, Cooperative, No acute distress HEENT: Atraumatic Neck: Supple Lymphatic: no adenopathy Neuro: Alert, Non Focal, Oriented Times 3 Cardiovascular: Regular rate, Normal S1, Normal S2 Respiratory: Chest non-tender, No respiratory distress Extremities: Normal pulses - Results Results: Laboratory Results WBC 3.8 x10^3/uL (4.8-10.8) L 03/03/21 05:46 RBC 2.38 10^6/uL (4.20-5.40) L 03/03/21 05:46 Hgb 6.3 g/dL (12.0-16.0) L* 03/03/21 05:46 Hct 20.0 % (37.0-47.0) L* 03/03/21 05:46 MCV 84.0 fL (81.0-99.0) 03/03/21 05:46 MCH 26.5 pg (27.0-31.0) L 03/03/21 05:46 MCHC 31.5 g/dL (32.0-36.0) L 03/03/21 05:46 RDW 15.9 % (12.0-15.0) H 03/03/21 05:46 Plt Count 114 10^3/uL (130-450) L 03/03/21 05:46 MPV 11.1 fL (7.9-10.8) H 03/03/21 05:46 Neut # (Auto) 1.7 10^3/uL (1.5-6.6) 03/03/21 05:46 Lymph # (Auto) 1.4 10^3/uL (1.5-3.5) L 03/03/21 05:46 [place] # (Auto) 0.5 10^3/uL (0.0-1.0) 03/03/21 05:46 Eos # (Auto) 0.2 10^3/uL (0.0-0.7) 03/03/21 05:46 Baso # (Auto) 0.1 10^3/uL (0.0-0.1) 03/03/21 05:46 Absolute Nucleated RBC 0.00 x10^3/uL 03/03/21 05:46 Nucleated RBC % 0.0 /100WBC 03/03/21 05:46 Platelet Estimate NORMAL (130-450,000) (NORMAL) 03/02/21 19:43 Platelet Morphology 2+ GIANT PLATELETS (NORMAL) 03/02/21 19:43 RBC Morph Micro Appear 2+ ANISOCYTOSIS (NORMAL) 4+ HYPOCHROMASIA (NORMAL) 03/02/21 19:43 RBC Morph Micro Appear 2+ ANISOCYTOSIS (NORMAL) 4+ HYPOCHROMASIA (NORMAL) 03/02/21 19:43 PT 16.4 secs (9.9-12.6) H 03/02/21 21:07 INR 1.5 (0.8-1.2) H 03/02/21 21:07 Sodium 140 mmol/L (135-145) 03/03/21 05:46 Potassium 3.1 mmol/L (3.5-5.0) L 03/03/21 05:46 Chloride 105 mmol/L (101-111) 03/03/21 05:46 Carbon Dioxide 27 mmol/L (21-32) 03/03/21 05:46 Anion Gap 8.0 (6-13) 03/03/21 05:46 BUN 15 mg/dL (6-20) 03/03/21 05:46 Creatinine 0.6 mg/dL (0.4-1.0) 03/03/21 05:46 Estimated GFR (MDRD) 95 (>89) 03/03/21 05:46 Glucose 113 mg/dL (70-100) H 03/03/21 05:46 Calcium 7.9 mg/dL (8.5-10.3) L 03/03/21 05:46 Magnesium 2.1 mg/dL (1.7-2.8) 03/03/21 05:46 Iron < 6 ug/dL (28-170) L 03/02/21 19:43 TIBC 491 ug/dL (250-450) H 03/02/21 19:43 Transferrin 351 mg/dL (192-382) 03/02/21 19:43 Ferritin 5.0 ng/mL (11.0-306.8) L 03/02/21 19:43 Total Bilirubin 0.3 mg/dL (0.2-1.0) 03/02/21 19:43 AST 27 IU/L (10-42) 03/02/21 19:43 ALT 16 IU/L (10-60) 03/02/21 19:43 Alkaline Phosphatase 70 IU/L (42-121) 03/02/21 19:43 Troponin I High Sens 29.7 ng/L (2.3-14.8) H* 03/02/21 19:43 B-Natriuretic Peptide 307 pg/mL (5-100) H 03/02/21 19:43 Total Protein 6.6 g/dL (6.7-8.2) L 03/02/21 19:43 Albumin 3.7 g/dL (3.2-5.5) 03/02/21 19:43 Globulin 2.9 g/dL (2.1-4.2) 03/02/21 19:43 Albumin/Globulin Ratio 1.3 (1.0-2.2) 03/02/21 19:43 Lipase 19 U/L (22-51) L 03/02/21 19:43 TSH 3.86 uIU/mL (0.34-5.60) 03/03/21 05:46 Nasal Adenovirus (PCR) NOT DETECTED 03/02/21 20:46 Nasal B. parapertussis DNA (PCR) NOT DETECTED 03/02/21 20:46 Nasal Coronavir 229E PCR NOT DETECTED 03/02/21 20:46 Nasal Coronavir HKU1 PCR NOT DETECTED 03/02/21 20:46 Nasal Coronavir NL63 PCR NOT DETECTED 03/02/21 20:46 Nasal Coronavir OC43 PCR NOT DETECTED 03/02/21 20:46 Nasal Enterovir/Rhinovir PCR NOT DETECTED 03/02/21 20:46 Nasal Influenza B PCR NOT DETECTED 03/02/21 20:46 Nasal Influenza A PCR NOT DETECTED 03/02/21 20:46 Nasal Parainfluen 1 PCR NOT DETECTED 03/02/21 20:46 Nasal Parainfluen 2 PCR NOT DETECTED 03/02/21 20:46 Nasal Parainfluen 3 PCR NOT DETECTED 03/02/21 20:46 Nasal Parainfluen 4 PCR NOT DETECTED 03/02/21 20:46 Nasal RSV (PCR) NOT DETECTED 03/02/21 20:46 Nasal B.pertussis DNA PCR NOT DETECTED 03/02/21 20:46 Nasal C.pneumoniae (PCR) NOT DETECTED 03/02/21 20:46 Wilfredo Human Metapneumo PCR NOT DETECTED 03/02/21 20:46 Nasal M.pneumoniae (PCR) NOT DETECTED 03/02/21 20:46 Nasal SARS-CoV-2 (PCR) NOT DETECTED 03/02/21 20:46 Blood Type O NEGATIVE 03/02/21 20:37 Blood Type Recheck O NEGATIVE 03/02/21 19:43 Antibody Screen NEGATIVE 03/02/21 20:37 Crossmatch IS Only See Detail 03/02/21 20:37 - Procedures Procedures: Procedures RESECTION OF GALLBLADDER, PERCUTANEOUS ENDOSCOPIC APPROACH (08/25/19) ABX Reporting Has patient been on IV antibiotics over the past 48 hours?: No Current Medications - Current Medications Current Medications: Active Medications Acetaminophen (Acetaminophen 325 Mg Tablet) 650 mg PO Q4HR PRN PRN Reason: Pain 1 to 4 Last Admin: 03/03/21 04:09 Dose: 325 mg Documented by: Hydrocodone Bitart/Acetaminophen (Hydrocod/Acetam 7.5 Mg/325 Mg Tablet) 1 tab PO BID [facility] Last Admin: 03/03/21 08:51 Dose: 1 tab Documented by: Citalopram Hydrobromide (Citalopram 10 Mg Tablet) 10 mg PO DAILY [facility] Last Admin: 03/03/21 12:36 Dose: 10 mg Documented by: Diltiazem HCl (Diltiazem Cd 180 Mg Capsule) 360 mg PO DAILY [facility] Last Admin: 03/03/21 08:51 Dose: 360 mg Documented by: Ferrous Sulfate (Ferrous Sulfate 325 Mg Tablet) 325 mg PO BIDWM [facility] Last Admin: 03/03/21 08:51 Dose: 325 mg Documented by: Furosemide (Furosemide 20 Mg/2 Ml Vial) 20 mg IVP PRN PRN PRN Reason: Dyspnea Last Admin: 03/03/21 01:35 Dose: 20 mg Documented by: Furosemide (Furosemide 20 Mg/2 Ml Vial) 20 mg IVP BID [facility] Last Admin: 03/03/21 08:51 Dose: 20 mg Documented by: Gabapentin (Gabapentin 300 Mg Capsule) 600 mg PO TID [facility] Last Admin: 03/03/21 05:05 Dose: 600 mg Documented by: Potassium Chloride/Dextrose/Sod Cl (D5.45ns W/20 Meq Kcl) 1,000 mls @ 75 mls/hr IV .[id number] [facility] Stop: 03/04/21 21:39 Levothyroxine Sodium (Levothyroxine 25 Mcg Tablet) 175 mcg PO QDAC [facility] Last Admin: 03/03/21 07:27 Dose: 175 mcg Documented by: Nortriptyline HCl (Nortriptyline 25 Mg Capsule) 100 mg PO QPM [facility] Last Admin: 03/02/21 22:35 Dose: 100 mg Documented by: Ondansetron HCl (Ondansetron 4 Mg/2 Ml Vial) 4 mg IVP Q6HR PRN PRN Reason: Nausea / Vomiting Pantoprazole Sodium (Pantoprazole 40 Mg Vial) 40 mg IVP BID [facility] Last Admin: 03/03/21 08:52 Dose: 40 mg Documented by: Potassium Chloride (Potassium Chloride 10 Meq Capsule) 20 meq PO DAILYWM [facility] Last Admin: 03/03/21 08:51 Dose: 20 meq Documented by: Pramipexole Dihydrochloride (Pramipexole 0.25 Mg Tablet) 0.5 mg PO QPM [facility] Last Admin: 03/02/21 22:35 Dose: 0.5 mg Documented by: Sertraline HCl (Sertraline 50 Mg Tablet) 100 mg PO DAILY [facility] Last Admin: 03/03/21 08:52 Dose: 100 mg Documented by: Sodium Chloride (Sodium Chloride Flush 0.9% 10 Ml Syringe) 10 ml IVP PRN PRN PRN Reason: NEEDED PER PROVIDER ORDERS Sodium Chloride (Sodium Chloride Flush 0.9% 10 Ml Syringe) 10 ml IVP 0100,0900,1700 [facility] Last Admin: 03/03/21 08:52 Dose: 10 ml Documented by: Sodium Sulfate/Potass Sulf/Mag Sulf (Sodium/Potassium/Mag Sulfates 354 Ml Prep Kit) 177 ml PO 1800,0500 [facility] Stop: 03/04/21 05:01 Gabapentin 600 mg PO TID 12/13/17 Hydrocodone/Acetaminophen [Hydrocodone-Acetamin 7.5-325] 1 tab PO BID 12/13/17 Nortriptyline [Pamelor] 100 mg PO QPM 12/13/17 Pramipexole [Mirapex] 0.25 mg PO BID 12/13/17 dilTIAZem HCl [Diltiazem 24Hr ER] 360 mg PO DAILY 12/13/17 Furosemide 40 mg PO DAILY 12/20/19 Potassium Chloride 20 meq PO BID 12/20/19 Saccharomyces Boulardii [Daily Probiotic] 250 mg PO DAILY PM 12/20/19 Alendronate [Fosamax] 70 mg PO .Tuesday03/03/21 Apixaban [Eliquis] 5 mg PO BID 03/03/21 Calcium Carbonate [Calcium] 600 mg PO DAILY 03/03/21 Cholecalciferol [Vitamin D3] 25 mcg PO DAILY 03/03/21 Hydroxychloroquine [Plaquenil] 200 mg PO BID 03/03/21 Levothyroxine Sodium [Synthroid] 175 mcg PO QDAC 03/03/21 Mirabegron [Myrbetriq] 25 mg PO DAILY 03/03/21 polyethylene glycoL 3350 [Polyethylene Glycol 3350] 17 gm PO DAILY PRN 03/03/21
--- NOTE | 2021-03-03 12:30 | PHARMACY PROGRESS NOTE ---
- Best Possible Medication History Admit Date and Time: 03/02/212032 Processed by: Pharmacy Medication History completed: Yes Patient Interview: Completed Secondary Source(s): Written medication list Patient reports stopping her sertraline but has not informed her PCP of this. As the person ultimately responsible for medication therapy, providers are able to order a medication from an existing home medication list in [facility] via the "Reconcile Routine" prior to Confirmation of that medication by program support assistant. Such practice is discouraged except when the physician, in their clinical judgment, deems that a medical need exists for a medication without regard to previous use.
[2021-03-03] MEDS: CITALOPRAM 10 MG TABLET PO SCH (12:36)
--- NOTE | 2021-03-03 13:31 | SURGERY HX AND PHYSICAL(T) ---
Surgical History & Physical - PMH/PSH/Social Hx Does the pt have a hx of MRSA?: No Neurological History: Peripheral neuropathy Eyes, Ears, Nose, Throat: None Cardiovascular: Congestive heart failure, Atrial fibrillation, Murmur Respiratory: None Skin: None Endocrine/Autoimmune: HyPOthyroidism Gastrointestinal: None WHEEL ADJUSTER: None Urinary: Incontinence Musculoskeletal: Chronic back pain Blood Disorders: None Psychiatric: Depression, Anxiety General: Cholecystectomy, Appendectomy Orthopedic: Knee replacement Smoking Status: Never smoker Does the pt drink ETOH?: No Does the pt have substance abuse?: No - Home Meds and Allergies Home Medications: Gabapentin 600 mg PO TID 12/13/17 Hydrocodone/Acetaminophen [Hydrocodone-Acetamin 7.5-325] 1 tab PO BID 12/13/17 Nortriptyline [Pamelor] 100 mg PO QPM 12/13/17 Pramipexole [Mirapex] 0.25 mg PO BID 12/13/17 dilTIAZem HCl [Diltiazem 24Hr ER] 360 mg PO DAILY 12/13/17 Furosemide 40 mg PO DAILY 12/20/19 Potassium Chloride 20 meq PO BID 12/20/19 Saccharomyces Boulardii [Daily Probiotic] 250 mg PO DAILY PM 12/20/19 Alendronate [Fosamax] 70 mg PO .Tuesday03/03/21 Apixaban [Eliquis] 5 mg PO BID 03/03/21 Calcium Carbonate [Calcium] 600 mg PO DAILY 03/03/21 Cholecalciferol [Vitamin D3] 25 mcg PO DAILY 03/03/21 Hydroxychloroquine [Plaquenil] 200 mg PO BID 03/03/21 Levothyroxine Sodium [Synthroid] 175 mcg PO QDAC 03/03/21 Mirabegron [Myrbetriq] 25 mg PO DAILY 03/03/21 polyethylene glycoL 3350 [Polyethylene Glycol 3350] 17 gm PO DAILY PRN 03/03/21 Allergies/Adverse Reactions: Allergies Allergy/AdvReac Type Severity Reaction Status Date / Time ampicillin AdvReac Cramps Verified 03/02/21 16:50 epinephrine AdvReac Anxiety Verified 03/02/21 16:50 oxycodone AdvReac Hallucinati Verified 03/02/21 16:50 ons - Vital Signs Heart Rate: 75 Blood Pressure: 115/48 Temperature: 36.5 C Respiratory Rate: 18 O2 Saturation: 93 Weight (kg): 99.5 kg Height: 1.6 m - Patient Review Patient Review: Problems were reviewed with the patient during this visit. Medications were reviewed with the patient during this visit. Allergies were reviewed this patient during this visit. Pertinent Tests Reviewed: All pertitent test for this patient were reviewed.
[2021-03-03 15:21] LABS: HCT - HEMATOCRIT 25.7 % (37.0-47.0); HGB - HEMOGLOBIN 8.1 g/dL (12.0-16.0)
[2021-03-03] MEDS: SODIUM/POTASSIUM/MAG SULFATES 354 ML PREP KIT PO SCH (18:53)
[2021-03-03] MEDS ORDERED: D5.45NS W/20 MEQ KCL 1,000 ML IV SCH ×3 (19:00→21:26)
--- NOTE | 2021-03-03 19:14 | XRAY Report ---
PROCEDURE: Chest 1 View X-Ray INDICATIONS: sob TECHNIQUE: One view of the chest was acquired. COMPARISON: Chest x-ray one view, 02/22/2021 FINDINGS: Surgical changes and devices: None. Lungs and pleura: Bilateral interstitial infiltrates compatible with pulmonary edema secondary to co ngestive heart failure. Discoid atelectasis in the left lung base which No pleural effusions or pneum othorax. Mediastinum: Mediastinal contours appear normal. Heart size is increased. Bones and chest wall: No suspicious bony lesions. Overlying soft tissues appear unremarkable. IMPRESSION: 1. Congestive heart failure. Reviewed by: Eileen Ernst MD on 03/03/2021 7:12 PM PDT Approved by: Eileen Ernst MD on 03/03/2021 7:12 PM PDT Station ID: [id number]
[2021-03-03] MEDS: PRAMIPEXOLE 0.25 MG TABLET PO SCH (20:30)
[2021-03-03] MEDS: NORTRIPTYLINE 25 MG CAPSULE PO SCH (20:30)
[2021-03-03 22:17] LABS: HCT - HEMATOCRIT 24.8 % (37.0-47.0); HGB - HEMOGLOBIN 7.8 g/dL (12.0-16.0)
[2021-03-04] MEDS: SODIUM/POTASSIUM/MAG SULFATES 354 ML PREP KIT PO SCH (04:37)
[2021-03-04] MEDS: GABAPENTIN 300 MG CAPSULE PO SCH (06:16)
[2021-03-04] MEDS: LEVOTHYROXINE 25 MCG TABLET PO SCH (06:16)
[2021-03-04 06:25] LABS: BASOPHILS # (AUTO) 0.1 10^3/uL (0.0-0.1); BASOPHILS % (AUTO) 1.2 %; EOSINOPHILS # (AUTO) 0.2 10^3/uL (0.0-0.7); EOSINOPHILS % (AUTO) 3.7 %; HCT - HEMATOCRIT 27.6 % (37.0-47.0); HGB - HEMOGLOBIN 8.6 g/dL (12.0-16.0); LYMPHOCYTES # (AUTO) 1.4 10^3/uL (1.5-3.5); LYMPHOCYTES % (AUTO) 26.6 %; MEAN CORPUSCULAR HEMOGLOBIN 26.8 pg (27.0-31.0); MEAN CORPUSCULAR HGB CONC 31.2 g/dL (32.0-36.0); MEAN PLATELET VOLUME 11.3 fL (7.9-10.8); MONOCYTES # (AUTO) 0.6 10^3/uL (0.0-1.0); MONOCYTES % (AUTO) 11.3 %; NEUTROPHILS # (AUTO) 2.9 10^3/uL (1.5-6.6); NRBC ABSOLUTE COUNT (AUTO) 0.02 x10^3/uL; NUCLEATED RED BLOOD CELLS AUTO 0.4 /100WBC; PLT - PLATELET COUNT 131 10^3/uL (130-450); RED BLOOD COUNT 3.21 10^6/uL (4.20-5.40); RED CELL DISTRIBUTION WIDTH 15.9 % (12.0-15.0); WHITE BLOOD COUNT 5.1 x10^3/uL (4.8-10.8)
[2021-03-04 06:31] LABS: CALCIUM 8.6 mg/dL (8.5-10.3); CREATININE 0.7 mg/dL (0.4-1.0); MAGNESIUM 2.2 mg/dL (1.7-2.8); POTASSIUM 3.7 mmol/L (3.5-5.0)
[2021-03-04] MEDS: POTASSIUM CHLORIDE 10 MEQ CAPSULE PO SCH (08:00)
[2021-03-04] MEDS: FERROUS SULFATE 325 MG TABLET PO SCH (08:00)
[2021-03-04] MEDS: CITALOPRAM 10 MG TABLET PO SCH (08:00)
[2021-03-04] MEDS: HYDROcod/ACETAM 7.5 MG/325 MG TABLET PO SCH (08:00)
[2021-03-04] MEDS: SERTRALINE 50 MG TABLET PO SCH (08:00)
[2021-03-04] MEDS: diltiaZEM CD 180 MG CAPSULE PO SCH (08:00)
[2021-03-04] MEDS: PANTOPRAZOLE 40 MG VIAL IVP SCH (08:02)
[2021-03-04] MEDS: FUROSEMIDE 20 MG/2 ML VIAL IVP SCH (08:02)
[2021-03-04] MEDS: SODIUM CHLORIDE FLUSH 0.9% 10 ML SYRINGE IVP SCH (08:02)
--- NOTE | 2021-03-04 08:41 | ANESTHESIA ---
Pre-Anesthesia VS, & Labs - Diagnosis GI Bleed/ anemia - Procedure EGD, Colonoscopy Vital Signs: Temp Pulse Resp BP Pulse Ox 36.5 C 86 16 112/50 L 93 03/04/21 08:19 03/04/21 08:19 03/04/21 08:19 03/04/21 08:19 03/04/21 08:19 Height: 5 ft 3 in Weight (kg): 98 kg Body Mass Index: 38.2 BMI Classification: Obese - NPO >8 hours - Is Patient ?: No - Lab Results Current Lab Results: Laboratory Tests 03/04/21 06:15: Sodium 140, Potassium 3.7, Chloride 102, Carbon Dioxide 26, Anion Gap 12.0, BUN 11, Creatinine 0.7, Estimated GFR (MDRD) 79 L, Glucose 143 H , Calcium 8.6, Magnesium 2.2 03/04/21 06:15: WBC 5.1, RBC 3.21 L, Hgb 8.6 L, Hct 27.6 L, MCV 86.0, MCH 26.8 L , MCHC 31.2 L, RDW 15.9 H, Plt Count 131, MPV 11.3 H, Neut # (Auto) 2.9, Lymph # (Auto) 1.4 L, [place] # (Auto) 0.6, Eos # (Auto) 0.2, Baso # (Auto) 0.1, Absolute Nucleated RBC 0.02, Nucleated RBC % 0.4 03/03/21 21:56: Hgb 7.8 L, Hct 24.8 L 03/03/21 15:16: Hgb 8.1 L, Hct 25.7 L 03/03/21 05:46: TSH 3.86 03/03/21 05:46: Sodium 140, Potassium 3.1 L, Chloride 105, Carbon Dioxide 27, Anion Gap 8.0, BUN 15, Creatinine 0.6, Estimated GFR (MDRD) 95, Glucose 113 H, Calcium 7.9 L, Magnesium 2.1 03/03/21 05:46: WBC 3.8 L, RBC 2.38 L, Hgb 6.3 L*, Hct 20.0 L*, MCV 84.0, MCH 26.5 L, MCHC 31.5 L, RDW 15.9 H, Plt Count 114 L, MPV 11.1 H, Neut # (Auto) 1.7, Lymph # (Auto) 1.4 L, [place] # (Auto) 0.5, Eos # (Auto) 0.2, Baso # (Auto) 0.1, Absolute Nucleated RBC 0.00, Nucleated RBC % 0.0 03/02/21 21:07: PT 16.4 H, INR 1.5 H 03/02/21 20:37: Blood Type O NEGATIVE, Antibody Screen NEGATIVE, Crossmatch IS Only See Detail 03/02/21 19:43: Blood Type Recheck O NEGATIVE 03/02/21 19:43: Ferritin 5.0 L 03/02/21 19:43: Iron < 6 L, TIBC 491 H, Transferrin 351 03/02/21 19:43: B-Natriuretic Peptide 307 H 03/02/21 19:43: Troponin I High Sens 29.7 H* 03/02/21 19:43: Sodium 134 L, Potassium 3.5, Chloride 103, Carbon Dioxide 24, Anion Gap 7.0, BUN 18, Creatinine 0.7, Estimated GFR (MDRD) 79 L, Glucose 122 H, Calcium 8.6, Total Bilirubin 0.3, AST 27, ALT 16, Alkaline Phosphatase 70, Total Protein 6.6 L, Albumin 3.7, Globulin 2.9, Albumin/Globulin Ratio 1.3, Lipase 19 L 03/02/21 19:43: WBC 4.3 L, RBC 1.94 L, Hgb 5.0 L*, Hct 16.5 L*, MCV 85.1, MCH 25.8 L, MCHC 30.3 L, RDW 15.7 H, Plt Count 161, MPV 9.5, Neut # (Auto) 2.1, Lymph # (Auto) 1.6, [place] # (Auto) 0.5, Eos # (Auto) 0.1, Baso # (Auto) 0.0, Absolute Nucleated RBC 0.00, Nucleated RBC % 0.0, Platelet Estimate NORMAL (130- 450,000), Platelet Morphology 2+ GIANT PLATELETS, RBC Morph Micro Appear 4+ HYPOCHROMASIA Fish Bones: 03/04/21 06:15 03/04/21 06:15 Home Medications and Allergies Home Medications: Ambulatory Orders Alendronate [Fosamax] 70 mg PO .Tuesday03/03/21 Apixaban [Eliquis] 5 mg PO BID 03/03/21 Calcium Carbonate [Calcium] 600 mg PO DAILY 03/03/21 Cholecalciferol [Vitamin D3] 25 mcg PO DAILY 03/03/21 Hydroxychloroquine [Plaquenil] 200 mg PO BID 03/03/21 Levothyroxine Sodium [Synthroid] 175 mcg PO QDAC 03/03/21 Mirabegron [Myrbetriq] 25 mg PO DAILY 03/03/21 polyethylene glycoL 3350 [Polyethylene Glycol 3350] 17 gm PO DAILY PRN 03/03/21 Active Medications Acetaminophen (Acetaminophen 325 Mg Tablet) 650 mg PO Q4HR PRN PRN Reason: Pain 1 to 4 Last Admin: 03/03/21 04:09 Dose: 325 mg Documented by: Hydrocodone Bitart/Acetaminophen (Hydrocod/Acetam 7.5 Mg/325 Mg Tablet) 1 tab PO BID [facility] Last Admin: 03/04/21 08:00 Dose: 1 tab Documented by: Citalopram Hydrobromide (Citalopram 10 Mg Tablet) 10 mg PO DAILY [facility] Last Admin: 03/04/21 08:00 Dose: 10 mg Documented by: Diltiazem HCl (Diltiazem Cd 180 Mg Capsule) 360 mg PO DAILY [facility] Last Admin: 03/04/21 08:00 Dose: 360 mg Documented by: Ferrous Sulfate (Ferrous Sulfate 325 Mg Tablet) 325 mg PO BIDWM [facility] Last Admin: 03/04/21 08:00 Dose: 325 mg Documented by: Furosemide (Furosemide 20 Mg/2 Ml Vial) 20 mg IVP PRN PRN PRN Reason: Dyspnea Last Admin: 03/03/21 01:35 Dose: 20 mg Documented by: Furosemide (Furosemide 20 Mg/2 Ml Vial) 20 mg IVP BID [facility] Last Admin: 03/04/21 08:02 Dose: 20 mg Documented by: Gabapentin (Gabapentin 300 Mg Capsule) 600 mg PO TID [facility] Last Admin: 03/04/21 06:16 Dose: 600 mg Documented by: Potassium Chloride/Dextrose/Sod Cl (D5.45ns W/20 Meq Kcl) 1,000 mls @ 40 mls/hr IV .Q25H [facility] Stop: 03/05/21 23:25 Last Admin: 03/03/21 21:29 Dose: Not Given Documented by: Levothyroxine Sodium (Levothyroxine 25 Mcg Tablet) 175 mcg PO QDAC [facility] Last Admin: 03/04/21 06:16 Dose: 175 mcg Documented by: Nortriptyline HCl (Nortriptyline 25 Mg Capsule) 100 mg PO QPM [facility] Last Admin: 03/03/21 20:30 Dose: 100 mg Documented by: Ondansetron HCl (Ondansetron 4 Mg/2 Ml Vial) 4 mg IVP Q6HR PRN PRN Reason: Nausea / Vomiting Pantoprazole Sodium (Pantoprazole 40 Mg Vial) 40 mg IVP BID [facility] Last Admin: 03/04/21 08:02 Dose: 40 mg Documented by: Potassium Chloride (Potassium Chloride 10 Meq Capsule) 20 meq PO DAILYWM [facility] Last Admin: 03/04/21 08:00 Dose: 20 meq Documented by: Pramipexole Dihydrochloride (Pramipexole 0.25 Mg Tablet) 0.5 mg PO QPM [facility] Last Admin: 03/03/21 20:30 Dose: 0.5 mg Documented by: Sertraline HCl (Sertraline 50 Mg Tablet) 100 mg PO DAILY [facility] Last Admin: 03/04/21 08:00 Dose: 100 mg Documented by: Sodium Chloride (Sodium Chloride Flush 0.9% 10 Ml Syringe) 10 ml IVP PRN PRN PRN Reason: NEEDED PER PROVIDER ORDERS Sodium Chloride (Sodium Chloride Flush 0.9% 10 Ml Syringe) 10 ml IVP 0100,090 0,1700 [facility] Last Admin: 03/04/21 08:02 Dose: 10 ml Documented by: Gabapentin 600 mg PO TID 12/13/17 Hydrocodone/Acetaminophen [Hydrocodone-Acetamin 7.5-325] 1 tab PO BID 12/13/17 Nortriptyline [Pamelor] 100 mg PO QPM 12/13/17 Pramipexole [Mirapex] 0.25 mg PO BID 12/13/17 dilTIAZem HCl [Diltiazem 24Hr ER] 360 mg PO DAILY 12/13/17 Furosemide 40 mg PO DAILY 12/20/19 Potassium Chloride 20 meq PO BID 12/20/19 Saccharomyces Boulardii [Daily Probiotic] 250 mg PO DAILY PM 12/20/19 Alendronate [Fosamax] 70 mg PO .Tuesday03/03/21 Apixaban [Eliquis] 5 mg PO BID 03/03/21 Calcium Carbonate [Calcium] 600 mg PO DAILY 03/03/21 Cholecalciferol [Vitamin D3] 25 mcg PO DAILY 03/03/21 Hydroxychloroquine [Plaquenil] 200 mg PO BID 03/03/21 Levothyroxine Sodium [Synthroid] 175 mcg PO QDAC 03/03/21 Mirabegron [Myrbetriq] 25 mg PO DAILY 03/03/21 polyethylene glycoL 3350 [Polyethylene Glycol 3350] 17 gm PO DAILY PRN 03/03/21 Allergies/Adverse Reactions: Allergies Allergy/AdvReac Type Severity Reaction Status Date / Time ampicillin AdvReac Cramps Verified 03/02/21 16:50 epinephrine AdvReac Anxiety Verified 03/02/21 16:50 oxycodone AdvReac Hallucinati Verified 03/02/21 16:50 ons Anes History & Medical History - Anesthetic History Anesthesia Complications: reports: No previous complications Family history of Anesthesia Complications: Denies Family history of Malignant Hyperthermia: Denies - Medical History Cardiovascular: reports: Congestive heart failure, Atrial fibrillation, Murmur Pulmonary: reports: None Gastrointestinal: reports: GI bleed Urinary: reports: Incontinence Neuro: reports: Peripheral neuropathy Musculoskeletal: reports: Chronic back pain Endocrine/Autoimmune: reports: HyPOthyroidism Blood Disorders: reports: None Skin: reports: None Smoking Status: Never smoker Psychosocial: reports: Anxiety - Surgical History General: reports: Cholecystectomy, Appendectomy Gynecologic: reports: 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 Orthopedic: reports: Knee replacement Exam General: Alert, Oriented x3, Cooperative Dental: WNL Mouth Openin Fingerbreadth Neck Mobility: Normal Mallampati classification: III Thyromental Distance: 4-6 cm Respiratory: Lungs clear Cardiovascular: Other (A Fib) Plan Anesthesia Type: Total IV Consent for Procedure(s) Verified and Reviewed: Yes Code Status: Attempt Resuscitation ASA classification: 3-Severe systemic disease Is this case an emergency?: No
[2021-03-04] MEDS ORDERED: PROPOFOL 200 MG/20 ML VIAL IVP ONE (08:49)
[2021-03-04] MEDS ORDERED: fentaNYL 100 MCG/2 ML VIAL ONE (08:50)
--- NOTE | 2021-03-04 09:59 | OPERATIVE REPORT ---
Operative Report - General Admit Date: 03/02/21 Procedure Date: 03/04/21 Planned Procedure: EGD and colonoscopy Pre-Op Diagnosis: anemia Procedure Performed: EGD and colonoscopy Post Op Diagnosis: anemia. No evidence bleeding upper or lower endoscopy - Procedure Note Primary Surgeon: rory rivera Anesthesia Technique: MAC Pathology: biopsies taken esophagus and antrum Estimated Blood Loss (mL): 0 Indications: anemia Complications: none - Other Other Information/Narrative: normal egd except white coating esophagus. bx taken. normal mucosa colonoscopy avm right colon without bleeding and diverticulosis sigmoid without bleeding. no polyps/ tumors
--- NOTE | 2021-03-04 11:42 | Discharge Plan ---
Discharge Plan Problem Reviewed?: Yes Disposition: Home, Self Care Condition: Stable Prescriptions: Ferrous Sulfate [Feosol] 325 mg PO DAILY #30 tablet Pantoprazole Sodium [Protonix] 40 mg PO DAILY #30 tab Diet: Regular Activity Restrictions: Activity as Tolerated Shower Restrictions: No (fall precaution) Instruction Topics: Bleeding Gastrointestinal, Anemia Iron Deficiency Ch Health Concerns: GI bleeding Plan of Treatment: You had EGD and colonoscopy done at hospital, in which you has no acute GI bleeding. Your HGB is stable. you are found to have iron deficiency anemia. You are prescribed iron pill, and Protonix. your home Eliquis is holding now for your healing of your GI bleeding. You may discuss with your senior linux administrator and your PCP for the further management of your home Eliquis medication. Care Goals: stabilization and improvement/resolve of your medical conditions. Assessment: Discussed the care plan with you, answered your questions, you understood. Additional Instructions or Follow Up instructions: You may followup with your PCP in one week and have HGB check again. You may followup with your senior linux administrator as out-pt. Should your symptoms return or worsen, you may present ER or call 911 for help. No Smoking: If you smoke, Please STOP! Call for help. Follow-up with: Anisha Rosas MD [Primary Care Provider] -
--- NOTE | 2021-03-04 12:37 | DISCHARGE SUMMARY ---
"Discharge Summary Admit Date: 03/02/21 Discharge Date: 03/04/21 Discharging Provider: Geovanni Hilton Primary Care Provider: Anisha Leon Condition at Discharge: Stable Discharge Disposition: 01 Home, Self Care Discharge Facility Name: home - DIAGNOSES Discharge Diagnoses with Status of Each Condition: (1) GI bleed Patient had both EGD and colonoscopy. Per surgeon report, there is no active bleeding sites in the EGD and colonoscopy. Patient hemoglobin continue to be stable. Patient was discharged with Protonix, recheck hemoglobin with her primary care in 1 week. Hold patient's Eliquis now. Followed by surgeon to rev iew biopsy. Patient may discuss with his PCP and processes chemical design engineer for continued management of his Eliquis medication. (2) Acute blood loss anemia Patient had 3 units blood transfusion in the hospital, then patient hemoglobin continue to be stable. Patient is also found to have iron deficiency. Patient is prescribed iron pill. Patient may follow-up her PCP with PCP to recheck hemoglobin in 1 week. (3) Acute exacerbation of congestive heart failure Resolved to her acute phase of CHF, patient has no acute respiratory distress. Patient had 98% sats on room air without tachycardia or tachypnea. Resume patient's home medication. Echo show normal range EF, with moderate abnormal right heart pressure, RVSP is 59 mmHg (4) Atrial fibrillation Stable, resume home Cardizem. Hold Eliquis now for GI bleeding, pt may discuss with her PCP and processes chemical design engineer for continued management of Eliquis (5) Hypothyroidism TSH is normal, resume home meds (6) Right groin pain Resolved. X-ray show osteoarthritis, pt may followup with PCP for pain management (7)depression Resolved, pt may followup with PCP for pain management - [facility] History of Present Illness: refer from Dr. pineda's HPI on 03/02/21 This is a 85-year-old female with a past medical history significant for diastolic heart failure, restless leg syndrome, hypothyroidism, paroxysmal atrial fibrillation on Eliquis who presents today complaining of leg. She states she noticed over the past week that her legs have become more swollen and she gained 9 pounds. She been taking extra dose of Lasix without any improvement. She reports no dyspnea, chest pain, cough. Denies fevers, chills. She denies a prior history of heart failure. She reports no fatigue, weakness, dizziness, lightheadedness. She has noticed that about over the past week her stool has been darker. She not noticed any ciara blood. She does not take any NSAIDs or drink alcohol. She has not had an endoscopy but reports having a colonoscopy in her 70s which was unremarkable. She denies any abdominal pain, nausea, vomiting. She does not take oral iron supplementation. She denies a prior history of DVTs. She does report a history of a left hip stress fracture a few months ago and has been using a cane to ambulate. She does complain of right groin pain that began yesterday. It is worse with movement. No weakness in her lower extremities. No trauma. In the emergency department, she is found to be afebrile. Her heart is in the 80s and her blood pressure is 134/49. She was not tachypneic and was saturating well on room air. Labs were significant for hemoglobin of 5.0. Her BNP was 307. Chest x-ray was concerning for mild pulmonary edema. Given the above fi ndings, medicine was consulted for admission. We did discuss goals of care and she would like to be a DNR. - CONSULTS | PROCEDURES Consultations: Dr. Wills Procedures: Both EGD and colonoscopy - HOSPITAL COURSE Hospital Course: Patient was admitted for black stool of GI bleed. Patient hemoglobin had 5.0 at admission. Patient was given 3 units of blood transfusion in the hospital. Patient's home medication Eliquis was on hold. Patient was given intravenous Protonix. Patient had a EGD and colonoscopy done in hospital which show no active bleeding site per surgeon. After treatment in the hospital, patient hemoglobin Continue to be stable. Patient also report shortness breathing at adm ission, patient was found to have acute on chronic diastolic heart failure. After the patient was given diuretics, patient's shortness of breathing was resolved, patient had 98% on room air without tachycardia or tachypnea. Patient is discharge as hemodynamically stable condition - ALLERGIES Allergies/Adverse Reactions: Allergies Allergy/AdvReac Type Severity Reaction Status Date / Time ampicillin AdvReac Cramps Verified 03/02/21 16:50 epinephrine AdvReac Anxiety Verified 03/02/21 16:50 oxycodone AdvReac Hallucinati Verified 03/02/21 16:50 ons - MEDICATIONS Home Medications: Ambulatory Orders Medication Instructions Recorded Confirmed Gabapentin 600 mg PO TID 12/13/17 03/03/21 Hydrocodone/Acetaminophen 1 tab PO BID 12/13/17 03/03/21 [Hydrocodone-Acetamin 7.5-325] Nortriptyline [Pamelor] 100 mg PO QPM 12/13/17 03/03/21 Pramipexole [Mirapex] 0.25 mg PO BID 12/13/17 03/03/21 dilTIAZem HCl [Diltiazem 24Hr ER] 360 mg PO DAILY 12/13/17 03/03/21 Furosemide 40 mg PO DAILY 12/20/19 03/03/21 Potassium Chloride 20 meq PO BID 12/20/19 03/03/21 Saccharomyces Boulardii [Daily 250 mg PO DAILY PM 12/20/19 03/03/21 Probiotic] Alendronate [Fosamax] 70 mg PO .Tuesday03/03/21 03/03/21 Calcium Carbonate [Calcium] 600 mg PO DAILY 03/03/21 03/03/21 Cholecalciferol [Vitamin D3] 25 mcg PO DAILY 03/03/21 03/03/21 Hydroxychloroquine [Plaquenil] 200 mg PO BID 03/03/21 03/03/21 Levothyroxine Sodium [Synthroid] 175 mcg PO QDAC 03/03/21 03/03/21 Mirabegron [Myrbetriq] 25 mg PO DAILY 03/03/21 03/03/21 polyethylene glycoL 3350 17 gm PO DAILY PRN 03/03/21 03/03/21 [Polyethylene Glycol 3350] Ferrous Sulfate [Feosol] 325 mg PO DAILY #30 tablet 03/04/21 Pantoprazole Sodium [Protonix] 40 mg PO DAILY #30 tab 03/04/21 - PHYSICAL EXAM AT DISCHARGE General Appearance: positive: No acute distress, Alert. negative: Lethargic Eyes Bilateral: positive: Normal inspection, PERRL, No lid inflammation ENT: positive: ENT inspection nml, No signs of dehydration. negative: Purulent nasal drainage Neck: positive: Nml inspection, Trachea midline. negative: Thyromegaly, Tracheal deviation Respiratory: positive: Chest non-tender, No respiratory distress. negative: Wheezes, Rales Cardiovascular: positive: Regular rate & rhythm, No murmur. negative: Tachycardia, Bradycardia, Systolic murmur, Diastolic murmur Peripheral Pulses: positive: 2+ Abdomen: positive: Non-tender, Nml bowel sounds, No distention. negative: Tenderness Back: positive: Nml inspection Skin: positive: Color nml, Warm, Dry. negative: Cyanosis Extremities: positive: Non-tender, Full ROM, Nml appearance. negative: Calf tenderness Neurologic/Psychiatric: positive: Oriented x3, Motor nml, Sensation nml. negative: Weakness, Sensory loss, Facial droop, Slurred/abnml speech - LABS Result Diagrams: 03/04/21 06:15 03/04/21 06:15 - FOLLOW UP Follow Up: You had EGD and colonoscopy done at hospital, in which you has no acute GI bleeding. Your HGB is stable. you are found to have iron deficiency anemia. You are prescribed iron pill, and Protonix. your home Eliquis is holding now for your healing of your GI bleeding. You may discuss with your processes chemical design engineer and your PCP for the further management of your home Eliquis medication. You may followup with your PCP in one week and have HGB check again. You may followup with your processes chemical design engineer as out-pt. Should your symptoms return or worsen, you may present ER or call 911 for help. - TIME SPENT Time Spent in Discharge (Minutes): 30"
[2021-03-04 12:41] VITALS: BP 114/51
--- NOTE | 2021-03-04 16:00 | ANESTHESIA POST OP EVALUATION ---
Anesthesia Post Eval - Post Anesthesia Eval Vitals: Last Vital Signs Temp 36.5 C 03/04/21 12:28 Pulse 73 03/04/21 12:28 Resp 16 03/04/21 12:28 BP 114/51 L 03/04/21 12:28 Pulse Ox 98 03/04/21 12:28 CV Function Including HR & BP: Stable Pain Control: Satisfactory Nausea & Vomiting: Negative Mental Status: Baseline Respiratory Status: Airway Patent Hydration Status: Satisfactory Anesthesia Complications: None
== END 2021-03-04 13:37 | disposition home or self-care (01) | DRG 377 ==
LOC: ED 16:36 → MS2 20:33
PROVIDERS: ADMIT Internal Medicine; ATTEND Nurse Practitioner Gerontology
PROC: 30233N1 Transfusion of Nonautologous Red Blood Cells into Peripheral Vein, Percutaneous Approach (ICD-10-PCS; 2021-03-03)
PROC: 0DB38ZX Excision of Lower Esophagus, Via Natural or Artificial Opening Endoscopic, Diagnostic (ICD-10-PCS; principal; 2021-03-04 10:45)
PROC: 0DB78ZX Excision of Stomach, Pylorus, Via Natural or Artificial Opening Endoscopic, Diagnostic (ICD-10-PCS; 2021-03-04 10:45)
DX: D64.9 Anemia, unspecified (principal); K92.2 Gastrointestinal hemorrhage, unspecified; I50.33 Acute on chronic diastolic (congestive) heart failure; D62 Acute posthemorrhagic anemia; I50.9 Heart failure, unspecified; D50.9 Iron deficiency anemia, unspecified; G62.9 Polyneuropathy, unspecified; Q27.33 Arteriovenous malformation of digestive system vessel; K57.30 Diverticulosis of large intestine without perforation or abscess without bleeding; I11.0 Hypertensive heart disease with heart failure; F41.9 Anxiety disorder, unspecified; I48.0 Paroxysmal atrial fibrillation; E03.9 Hypothyroidism, unspecified; Z20.822 Contact with and (suspected) exposure to COVID-19; M16.0 Bilateral primary osteoarthritis of hip; G89.29 Other chronic pain; M54.9 Dorsalgia, unspecified; F32.9 Major depressive disorder, single episode, unspecified; M84.359D Stress fracture, hip, unspecified, subsequent encounter for fracture with routine healing; R32 Unspecified urinary incontinence; G25.81 Restless legs syndrome; E66.9 Obesity, unspecified; Z96.649 Presence of unspecified artificial hip joint; Z68.38 Body mass index [BMI] 38.0-38.9, adult; Z79.891 Long term (current) use of opiate analgesic; Z79.01 Long term (current) use of anticoagulants; Z79.899 Other long term (current) drug therapy
CPT/HCPCS: 36415; 71045; 73502; 80048; 80053; 82272; 82728; 83540; 83690; 83735; 83880; 84443; 84466; 84484; 85014; 85018; 85025; 85610; 86850; 86900; 86901; 86920; 87631; 93005; 93306; 93970; 99285; A9270; P9016; 0202U

== ENCOUNTER 2021-03-08 23:56 | Emergency (ER) | payer MEDICARE ==
[2021-03-09 00:56] LABS: BASOPHILS # (AUTO) 0.1 10^3/uL (0.0-0.1); BASOPHILS % (AUTO) 1.2 %; EOSINOPHILS # (AUTO) 0.3 10^3/uL (0.0-0.7); EOSINOPHILS % (AUTO) 5.9 %; LYMPHOCYTES # (AUTO) 1.6 10^3/uL (1.5-3.5); LYMPHOCYTES % (AUTO) 31.9 %; MEAN CORPUSCULAR HEMOGLOBIN 26.1 pg (27.0-31.0); MEAN CORPUSCULAR HGB CONC 29.6 g/dL (32.0-36.0); MEAN CORPUSCULAR VOLUME 87.9 fL (81.0-99.0); MEAN PLATELET VOLUME 10.4 fL (7.9-10.8); MONOCYTES # (AUTO) 0.8 10^3/uL (0.0-1.0); NEUTROPHILS # (AUTO) 2.3 10^3/uL (1.5-6.6); NEUTROPHILS % (AUTO) 45.6 %; PLT - PLATELET COUNT 154 10^3/uL (130-450); RED BLOOD COUNT 3.07 10^6/uL (4.20-5.40); RED CELL DISTRIBUTION WIDTH 16.2 % (12.0-15.0); WHITE BLOOD COUNT 5.1 x10^3/uL (4.8-10.8)
[2021-03-09 01:07] LABS: ALBUMIN 3.4 g/dL (3.2-5.5); ALBUMIN/GLOBULIN RATIO 1.1 (1.0-2.2); BILIRUBIN,TOTAL 0.5 mg/dL (0.2-1.0); CALCIUM 8.9 mg/dL (8.5-10.3); CREATININE 0.7 mg/dL (0.4-1.0); POTASSIUM 4.2 mmol/L (3.5-5.0); TOTAL PROTEIN 6.6 g/dL (6.7-8.2)
--- NOTE | 2021-03-09 02:35 | ED Physician Documentation ---
History of Present Illness - Stated complaint Stated Complaint: BILAT LEG SWELLING - Chief complaint Chief Complaint: Ext Problem - History obtained from History obtained from: Patient, Family - Additonal information Additional information: Patient comes to the emergency department chief complaint of lower extremity edema. Patient states that she has a history of this and that about a week and a half ago, her chip tuner ahead have the patient increase her dose of daily Lasix from 40 to 60 mg. She took this dose for 3 days but then was admitted to the hospital for a variety of issues including what turned out to be a congestive heart failure exacerbation. Patient was discharged from the hospital and instead of going back on the 60 mg of furosemide, she downgraded to her prior dose of 40 mg daily. She states that in the nearly weeks since, her lower extremity edema has slowly increased again. She denies any shortness of breath. No chest pain. No fevers or chills. Her swelling is symmetrical bilaterally. No pain in her lower extremities. Patient states she is here because she "just wants to make sure she is not going to ." Patient does admit to not wearing compression stockings because "they are hard to get on". She states she has an appointment with her chip tuner in 4 days. Review of Systems Ten Systems: 10 systems reviewed and negative Constitutional: reports: Reviewed and negative Eyes: reports: Reviewed and negative Ears: reports: Reviewed and negative Nose: reports: Reviewed and negative Throat: reports: Reviewed and negative Cardiac: reports: Reviewed and negative Respiratory: reports: Reviewed and negative. denies: Dyspnea GI: reports: Reviewed and negative : reports: Reviewed and negative Skin: reports: Reviewed and negative Musculoskeletal: reports: Extremity swelling Neurologic: reports: Reviewed and negative Psychiatric: reports: Reviewed and negative Endocrine: reports: Reviewed and negative Immunocompromised: reports: Reviewed and negative PD PAST MEDICAL HISTORY - Past Medical History Past Medical History: Yes Cardiovascular: Congestive heart failure, Atrial fibrillation, Murmur Respiratory: None Neuro: Peripheral neuropathy Endocrine/Autoimmune: HyPOthyroidism GI: GI bleed HEAT TREATING FURNACE TENDER: None : Incontinence HEENT: None Psych: Depression, Anxiety Musculoskeletal: Chronic back pain Derm: None - Past Surgical History Past Surgical History: Yes General: Cholecystectomy, Appendectomy Ortho: Knee replacement /HEAT TREATING FURNACE TENDER: 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 - Present Medications Home Medications: Ambulatory Orders Medication Instructions Recorded Confirmed Gabapentin 600 mg PO TID 12/13/17 03/09/21 Hydrocodone/Acetaminophen 1 tab PO BID 12/13/17 03/09/21 [Hydrocodone-Acetamin 7.5-325] Nortriptyline [Pamelor] 100 mg PO QPM 12/13/17 03/09/21 Pramipexole [Mirapex] 0.25 mg PO BID 12/13/17 03/09/21 dilTIAZem HCl [Diltiazem 24Hr ER] 360 mg PO DAILY 12/13/17 03/09/21 Furosemide 40 mg PO DAILY 12/20/19 03/09/21 Potassium Chloride 20 meq PO BID 12/20/19 03/09/21 Saccharomyces Boulardii [Daily 250 mg PO DAILY PM 12/20/19 03/09/21 Probiotic] Alendronate [Fosamax] 70 mg PO .Tuesday03/03/21 03/09/21 Calcium Carbonate [Calcium] 600 mg PO DAILY 03/03/21 03/09/21 Cholecalciferol [Vitamin D3] 25 mcg PO DAILY 03/03/21 03/09/21 Hydroxychloroquine [Plaquenil] 200 mg PO BID 03/03/21 03/09/21 Levothyroxine Sodium [Synthroid] 175 mcg PO QDAC 03/03/21 03/09/21 Mirabegron [Myrbetriq] 25 mg PO DAILY 03/03/21 03/09/21 polyethylene glycoL 3350 17 gm PO DAILY PRN 03/03/21 03/09/21 [Polyethylene Glycol 3350] Ferrous Sulfate [Feosol] 325 mg PO DAILY #30 tablet 03/04/21 03/09/21 Pantoprazole Sodium [Protonix] 40 mg PO DAILY #30 tab 03/04/21 03/09/21 - Allergies Allergies/Adverse Reactions: Allergies Allergy/AdvReac Type Severity Reaction Status Date / Time ampicillin AdvReac Cramps Verified 03/09/21 00:41 epinephrine AdvReac Anxiety Verified 03/09/21 00:41 oxycodone AdvReac Hallucinati Verified 03/09/21 00:41 ons - Social History Does the pt smoke?: No Smoking Status: Never smoker Does the pt drink ETOH?: No Does the pt have substance abuse?: No - Immunizations Immunizations are current?: Yes - POLST Patient has POLST: No PD ED PE NORMAL - Vitals Vital signs reviewed: Yes - General General: Alert and oriented X 3, Well developed/nourished, Other (Patient is not in respiratory distress, but is tearful and anxious.) - HEENT HEENT: Atraumatic, PERRL, EOMI, Moist mucous membranes - Neck Neck: Supple, no meningeal sign - Cardiac Cardiac: RRR, No murmur, Strong equal pulses - Respiratory Respiratory: No respiratory distress, Clear bilaterally - Abdomen Abdomen: Soft, Non tender, Non distended - Derm Derm: Normal color, Warm and dry, No rash - Extremities Extremities: No deformity, Other (Marked pitting edema, symmetrical, bilateral lower extremities. Edema extends to approximately 4 cm distal to knees. No calf tenderness.) - Neuro Neuro: Alert and oriented X 3 - Psych Psych: Normal mood, Normal affect Results - Vitals Vitals: Vital Signs - 24 hr 03/09/21 03/09/21 00:18 02:59 Temperature 36.6 C 37.1 C Heart Rate 91 99 Respiratory 20 18 Rate Blood Pressure 151/68 H 144/63 H O2 Saturation 98 95 Oxygen O2 Source Room air - Labs Labs: Laboratory Tests 03/09/21 03/09/21 03/09/21 00:50 00:50 00:50 WBC 5.1 RBC 3.07 L Hgb 8.0 L Hct 27.0 L MCV 87.9 MCH 26.1 L MCHC 29.6 L RDW 16.2 H Plt Count 154 MPV 10.4 Neut # (Auto) 2.3 Lymph # (Auto) 1.6 [place] # (Auto) 0.8 Eos # (Auto) 0.3 Baso # (Auto) 0.1 Absolute Nucleated RBC 0.00 Nucleated RBC % 0.0 Sodium 142 Potassium 4.2 Chloride 103 Carbon Dioxide 29 Anion Gap 10.0 BUN 18 Creatinine 0.7 Estimated GFR (MDRD) 79 L Glucose 140 H Calcium 8.9 Total Bilirubin 0.5 AST 22 ALT 17 Alkaline Phosphatase 74 B-Natriuretic Peptide 149 H Total Protein 6.6 L Albumin 3.4 Globulin 3.2 Albumin/Globulin Ratio 1.1 Lipase 17 L PD MEDICAL DECISION MAKING - ED course Complexity details: reviewed results, re-evaluated patient, considered differential, d/w patient, d/w family ED course: I discussed with the patient that her BNP is actually only mildly elevated and that I suspect that between going back to her previous, lower dose of Lasix, instead of staying on the increased dose that her chip tuner had recommended, as well as not using pressure stockings, she is most likely inadequately treating the edema. There is no evidence of pulmonary edema, and patient has no respiratory complaints. I discussed with the patient that I would recommend going back up to the 60 mg daily Lasix dose and using prescription grade pressure stockings, which I prescribed for her. We have discussed elevating the legs, as well. The patient has an appointment coming up in 4 days with her chip tuner which is reasonable. Given the symmetrical nature of her findings, I do not feel that either cellulitis or DVT is likely. We have discussed home management of symptoms, as well as usual indications for return. Departure - Departure Disposition: Home, Self Care Condition: Stable Instructions: ED Edema Legs Bilateral Comments: Your labs look fairly good overall. Your congestive heart failure lab is mildly elevated, but this is to be expected. It is not concerningly high at this time. You do have a low red blood cell count, which may also partly account for some of the swelling you are experiencing. Please talk to your chip tuner about this when you see him on . You should go back up to the dose of furosemide that your chip tuner had recommended, which is 3 tablet dose. Please start this the next time you take your furosemide and stay on this higher dose every day until you see your chip tuner. Please also coal picker the medical grade pressure stockings to help move fluid out of your legs and back into your system so your body can get rid of it. There is no evidence of a serious condition today, and most likely, you have just gotten somewhat behind on getting the fluid out of your legs. Following the recommendations above should help to get this under control. Discharge Date/Time: 03/09/21 03:00
[2021-03-09 03:00] VITALS: BP 144/63
== END 2021-03-09 03:00 | disposition home or self-care (01) ==
LOC: ED 23:56
DX: R60.0 Localized edema (principal); T50.1X6A Underdosing of loop [high-ceiling] diuretics, initial encounter; Z91.138 Patient's unintentional underdosing of medication regimen for other reason; I50.9 Heart failure, unspecified; I48.91 Unspecified atrial fibrillation; G62.9 Polyneuropathy, unspecified
CPT/HCPCS: 36415; 80053; 83690; 83880; 85025; 99283

== ENCOUNTER 2021-11-25 23:16 | Outpatient (CLI) | payer MEDICARE | END 2021-11-25 23:17 | disposition EMS.NT | LOC: EMS 23:16 | DX: M79.604 Pain in right leg (principal); M79.605 Pain in left leg; G25.81 Restless legs syndrome; R60.0 Localized edema ==

== ENCOUNTER 2021-12-17 15:48 | Observation (INO) | payer MEDICARE, OTHER ==
[2021-12-17] MEDS ORDERED: MORPHINE 2 MG/ML CARPUJECT IVP STA (16:15)
[2021-12-17] MEDS ORDERED: FUROSEMIDE 40 MG/4 ML VIAL IVP STA (16:15)
--- NOTE | 2021-12-17 16:18 | ED Physician Documentation ---
PD HPI DYSPNEA - Stated complaint Stated Complaint: SOA,SWOLLEN LEGS - Chief complaint Chief Complaint: Cardiac - History obtained from History obtained from: Patient - Additional information Additional information: 85-year-old woman with history of CHF and pulmonary hypertension presents referred by [facility] cardiology for evaluation of anasarca. States that about a month and a half ago she started on the Nutrisystem diet and was not watching her sodium intake and started to develop increased water retention. About a week ago she was switched to torsemide which has not helped her fluid retention. She is short of breath especially with supine positioning but she is short of breath even at rest. They did send her last echocardiogram which was done in October 2019 which showed no hypokinesis. She had an EF of 63%. She had severe LAE, mild right atrial enlargement. Mild to moderate TR and mild pulmonary hypertension. She denies chest pain. She is also having right ankle pain which she says is chronic but she does need something for it. Review of Systems Ten Systems: 10 systems reviewed and negative Constitutional: reports: Reviewed and negative Eyes: reports: Reviewed and negative Ears: reports: Reviewed and negative Nose: reports: Reviewed and negative Throat: reports: Reviewed and negative Respiratory: reports: Dyspnea. denies: Cough PD PAST MEDICAL HISTORY - Past Medical History Cardiovascular: Congestive heart failure, Atrial fibrillation, Murmur Respiratory: None Neuro: Peripheral neuropathy Endocrine/Autoimmune: HyPOthyroidism GI: GI bleed DIRECTOR AUTO: None : Incontinence HEENT: None Psych: Depression, Anxiety Musculoskeletal: Chronic back pain Derm: None - Past Surgical History Past Surgical History: Yes General: Cholecystectomy, Appendectomy Ortho: Knee replacement /DIRECTOR AUTO: 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 - Present Medications Home Medications: Ambulatory Orders Medication Instructions Recorded Confirmed Gabapentin 600 mg PO TID 12/13/17 03/09/21 Hydrocodone/Acetaminophen 1 tab PO BID 12/13/17 03/09/21 [Hydrocodone-Acetamin 7.5-325] Nortriptyline [Pamelor] 100 mg PO QPM 12/13/17 03/09/21 Pramipexole [Mirapex] 0.25 mg PO BID 12/13/17 03/09/21 dilTIAZem HCl [Diltiazem 24Hr ER] 360 mg PO DAILY 12/13/17 03/09/21 Furosemide 40 mg PO DAILY 12/20/19 03/09/21 Potassium Chloride 20 meq PO BID 12/20/19 03/09/21 Saccharomyces Boulardii [Daily 250 mg PO DAILY PM 12/20/19 03/09/21 Probiotic] Alendronate [Fosamax] 70 mg PO .Tuesday03/03/21 03/09/21 Calcium Carbonate [Calcium] 600 mg PO DAILY 03/03/21 03/09/21 Cholecalciferol [Vitamin D3] 25 mcg PO DAILY 03/03/21 03/09/21 Hydroxychloroquine [Plaquenil] 200 mg PO BID 03/03/21 03/09/21 Levothyroxine Sodium [Synthroid] 175 mcg PO QDAC 03/03/21 03/09/21 Mirabegron [Myrbetriq] 25 mg PO DAILY 03/03/21 03/09/21 polyethylene glycoL 3350 17 gm PO DAILY PRN 03/03/21 03/09/21 [Polyethylene Glycol 3350] Ferrous Sulfate [Feosol] 325 mg PO DAILY #30 tablet 03/04/21 03/09/21 Pantoprazole Sodium [Protonix] 40 mg PO DAILY #30 tab 03/04/21 03/09/21 - Allergies Allergies/Adverse Reactions: Allergies Allergy/AdvReac Type Severity Reaction Status Date / Time ampicillin AdvReac Cramps Verified 12/17/21 16:02 epinephrine AdvReac Anxiety Verified 12/17/21 16:02 oxycodone AdvReac Hallucinati Verified 12/17/21 16:02 ons - Social History Does the pt smoke?: No Smoking Status: Never smoker Does the pt drink ETOH?: No Does the pt have substance abuse?: No - Immunizations Immunizations are current?: Yes - POLST Patient has POLST: No PD ED PE NORMAL - Vitals Vital signs reviewed: Yes - General General: Alert and oriented X 3, No acute distress - HEENT HEENT: PERRL, EOMI - Neck Neck: Supple, no meningeal sign, No bony TTP - Cardiac Cardiac: Other (Irregularly irregular with a subtle murmur) - Respiratory Respiratory: Other (Diminished throughout) - Abdomen Abdomen: Normal bowel sounds, Soft, Non tender - Extremities Extremities: Other (She is weeping anasarca of the right leg and symmetric anasarca of the left leg up to the belly. Abdominal ultrasound briefly shows no free fluid.) - Neuro Neuro: Alert and oriented X 3, Normal speech - Psych Psych: Normal mood, Normal affect Results - Vitals Vitals: Vital Signs - 24 hr 12/17/21 12/17/21 15:59 16:02 Temperature 36.4 C L 36.5 C Heart Rate 97 97 Respiratory 20 20 Rate Blood Pressure 135/67 H 135/67 H O2 Saturation 100 100 Oxygen O2 Source Room air - EKG (time done) 1630 Rate: Rate (enter#) (97) Rhythm: Atrial fibrillation [place]: Normal QRS: Normal Ischemia: Non specific changes. No: ST elevation c/w ischemia, ST depression - Labs Labs: Laboratory Tests 12/17/21 12/17/21 12/17/21 16:50 16:50 16:50 WBC 4.5 L RBC 2.91 L Hgb 6.2 L* Hct 22.2 L MCV 76.3 L MCH 21.3 L MCHC 27.9 L RDW 19.9 H Plt Count TNP MPV Not Reportable Neut # (Auto) 2.8 Lymph # (Auto) 0.[address] [place] # (Auto) 0.7 Eos # (Auto) 0.1 Baso # (Auto) 0.1 Absolute Nucleated RBC 0.03 Nucleated RBC % 0.7 Manual Slide Review Indicated Platelet Estimate NORMAL (130-450,000) Platelet Morphology PLATELET CLUMPING RBC Morph Micro Appear 1+ MICROCYTOSIS PT 32.0 H INR 2.9 H Sodium 133 L Potassium 3.6 Chloride 94 L Carbon Dioxide 27 Anion Gap 12.0 BUN 17 Creatinine 0.9 Estimated GFR (MDRD) 59 L Glucose 138 H Calcium 8.7 Total Bilirubin 1.0 AST 42 ALT 29 Alkaline Phosphatase 94 Troponin I High Sens B-Natriuretic Peptide Total Protein 7.2 Albumin 3.6 Globulin 3.6 Albumin/Globulin Ratio 1.0 Lipase 26 12/17/21 12/17/21 16:50 16:50 WBC RBC Hgb Hct MCV MCH MCHC RDW Plt Count MPV Neut # (Auto) Lymph # (Auto) [place] # (Auto) Eos # (Auto) Baso # (Auto) Absolute Nucleated RBC Nucleated RBC % Manual Slide Review Platelet Estimate Platelet Morphology RBC Morph Micro Appear PT INR Sodium Potassium Chloride Carbon Dioxide Anion Gap BUN Creatinine Estimated GFR (MDRD) Glucose Calcium Total Bilirubin AST ALT Alkaline Phosphatase Troponin I High Sens 14.5 B-Natriuretic Peptide 255 H Total Protein Albumin Globulin Albumin/Globulin Ratio Lipase PD MEDICAL DECISION MAKING - ED course ED course: 85-year-old woman with HFpEF presents with anasarca and significant weight gain associated with stage IV CHF. Found to have significant anemia which is not necessarily a new issue. Negative endoscopies upper and lower in the past for same. Given her symptomatology at rest, anasarca, and anemia I spoke with Dr. Gallo for observation at 5:30 PM and he accepts. Treatment in the emergency department consisted of 80 mg of IV Lasix with good urine output and prep for 1 unit transfusion. Departure - Departure Disposition: ED Place in Observation Clinical Impression: Adequate anticoagulation on anticoagulant therapy, Severe anemia, Atrial fibrillation, (HFpEF) heart failure with preserved ejection fraction Condition: Serious
--- NOTE | 2021-12-17 16:31 | XRAY Report ---
PROCEDURE: Chest 1 View X-Ray INDICATIONS: dyspnea TECHNIQUE: One view of the chest was acquired. COMPARISON: October 03, 2020. FINDINGS: SUPPORT DEVICES: None. LUNGS/PLEURA: Prominence of the interstitial markings, compatible with pulmonary edema. No pleural ef fusion or pneumothorax. MEDIASTINUM: Enlargement of the cardiac silhouette. BONES/SOFT TISSUES: No acute abnormality. IMPRESSION: 1.Cardiomegaly with pulmonary edema pattern. Reviewed by: Nitesh Bran MD on 12/17/2021 4:30 PM PDT Approved by: Nitesh Bran MD on 12/17/2021 4:30 PM PDT Station ID: [id number]
[2021-12-17 17:01] LABS: BASOPHILS # (AUTO) 0.1 10^3/uL (0.0-0.1); BASOPHILS % (AUTO) 1.3 %; EOSINOPHILS # (AUTO) 0.1 10^3/uL (0.0-0.7); EOSINOPHILS % (AUTO) 1.8 %; HCT - HEMATOCRIT 22.2 % (37.0-47.0); LYMPHOCYTES # (AUTO) 0.8 10^3/uL (1.5-3.5); MEAN CORPUSCULAR HEMOGLOBIN 21.3 pg (27.0-31.0); MEAN CORPUSCULAR HGB CONC 27.9 g/dL (32.0-36.0); MEAN CORPUSCULAR VOLUME 76.3 fL (81.0-99.0); MONOCYTES # (AUTO) 0.7 10^3/uL (0.0-1.0); MONOCYTES % (AUTO) 15.1 %; NEUTROPHILS # (AUTO) 2.8 10^3/uL (1.5-6.6); NEUTROPHILS % (AUTO) 63.4 %; NRBC ABSOLUTE COUNT (AUTO) 0.03 x10^3/uL; NUCLEATED RED BLOOD CELLS AUTO 0.7 /100WBC; RED BLOOD COUNT 2.91 10^6/uL (4.20-5.40); RED CELL DISTRIBUTION WIDTH 19.9 % (12.0-15.0); WHITE BLOOD COUNT 4.5 x10^3/uL (4.8-10.8)
[2021-12-17 17:04] LABS: SLIDE REVIEW? Indicated
[2021-12-17 17:05] LABS: HGB - HEMOGLOBIN 6.2 g/dL (12.0-16.0)
[2021-12-17 17:10] LABS: ALBUMIN 3.6 g/dL (3.2-5.5); CALCIUM 8.7 mg/dL (8.5-10.3); CREATININE 0.9 mg/dL (0.4-1.0); POTASSIUM 3.6 mmol/L (3.5-5.0); TOTAL PROTEIN 7.2 g/dL (6.7-8.2)
[2021-12-17 17:17] LABS: INR 2.9 (0.8-1.2)
[2021-12-17 17:26] LABS: PLATELET ESTIMATE, MANUAL NORMAL (130-450,000) (NORMAL); PLATELET MORPHOLOGY PLATELET CLUMPING (NORMAL)
[2021-12-17] MEDS ORDERED: ONDANSETRON ODT 4 MG TABLET TL PRN (17:36)
[2021-12-17 18:14] LABS: % IRON SATURATION 2 % (20-50); IRON 10 ug/dL (28-170); TOTAL IRON BINDING CAPACITY 571 ug/dL (250-450); TRANSFERRIN 408 mg/dL (192-382)
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
[2021-12-17] MEDS ORDERED: NORTRIPTYLINE 25 MG CAPSULE PO SCH (21:00)
[2021-12-17] MEDS: HYDROcod/ACETAM 5/325 MG TABLET PO SCH (21:49)
[2021-12-17] MEDS: PRAMIPEXOLE 0.25 MG TABLET PO SCH (21:49)
[2021-12-17 22:04] LABS: HGB - HEMOGLOBIN 6.6 g/dL (12.0-16.0)
[2021-12-17] MEDS: GABAPENTIN 400 MG CAPSULE PO SCH (22:59)
[2021-12-18] MEDS: SODIUM CHLORIDE FLUSH 0.9% 10 ML SYRINGE IVP SCH ×3 (00:08→16:42)
[2021-12-18 05:16] LABS: BASOPHILS # (AUTO) 0.1 10^3/uL (0.0-0.1); BASOPHILS % (AUTO) 1.5 %; EOSINOPHILS # (AUTO) 0.1 10^3/uL (0.0-0.7); EOSINOPHILS % (AUTO) 1.7 %; HCT - HEMATOCRIT 23.8 % (37.0-47.0); HGB - HEMOGLOBIN 7.2 g/dL (12.0-16.0); LYMPHOCYTES # (AUTO) 1.1 10^3/uL (1.5-3.5); LYMPHOCYTES % (AUTO) 23.8 %; MEAN CORPUSCULAR HEMOGLOBIN 23.3 pg (27.0-31.0); MEAN CORPUSCULAR HGB CONC 30.3 g/dL (32.0-36.0); MEAN PLATELET VOLUME 11.1 fL (7.9-10.8); MONOCYTES # (AUTO) 0.8 10^3/uL (0.0-1.0); MONOCYTES % (AUTO) 17.5 %; NEUTROPHILS # (AUTO) 2.5 10^3/uL (1.5-6.6); NEUTROPHILS % (AUTO) 55.1 %; NRBC ABSOLUTE COUNT (AUTO) 0.03 x10^3/uL; NUCLEATED RED BLOOD CELLS AUTO 0.7 /100WBC; PLT - PLATELET COUNT 47 10^3/uL (130-450); RED BLOOD COUNT 3.09 10^6/uL (4.20-5.40); RED CELL DISTRIBUTION WIDTH 20.5 % (12.0-15.0); WHITE BLOOD COUNT 4.6 x10^3/uL (4.8-10.8)
[2021-12-18 05:25] LABS: CALCIUM 8.1 mg/dL (8.5-10.3); CREATININE 0.7 mg/dL (0.4-1.0); POTASSIUM 2.8 mmol/L (3.5-5.0)
[2021-12-18 05:28] LABS: SLIDE REVIEW? Indicated
[2021-12-18] MEDS: FUROSEMIDE 40 MG/4 ML VIAL IVP SCH ×2 (05:29→07:28)
[2021-12-18] MEDS: PRAMIPEXOLE 0.25 MG TABLET PO SCH (05:30)
[2021-12-18 05:53] LABS: PLATELET ESTIMATE, MANUAL DECREASED (<130,000) (NORMAL); PLATELET MORPHOLOGY PLATELET CLUMPING (NORMAL); WBC MORPHOLOGY (MULTIPLE) NORMAL APPEARANCE (NORMAL)
[2021-12-18] MEDS: GABAPENTIN 400 MG CAPSULE PO SCH (07:28)
[2021-12-18] MEDS ORDERED: POTASSIUM CHLORIDE 20 MEQ/15 ML UDC PO SCH (08:00)
[2021-12-18] MEDS: HYDROcod/ACETAM 5/325 MG TABLET PO SCH ×2 (08:36→20:38)
[2021-12-18] MEDS: diltiaZEM CD 180 MG CAPSULE PO SCH (08:36)
[2021-12-18] MEDS ORDERED: ENOXAPARIN 100 MG/ML SYRINGE SUBQ SCH (09:00)
[2021-12-18] MEDS ORDERED: IRON DEXTRAN 1,000 MG in SODIUM CHLORIDE 0.9% 250 ML IV ONE (09:00)
[2021-12-18] MEDS: SODIUM CHLORIDE FLUSH 0.9% 10 ML SYRINGE IVP PRN ×2 (09:20→13:30)
[2021-12-18 10:28] LABS: BASOPHILS # (AUTO) 0.1 10^3/uL (0.0-0.1); BASOPHILS % (AUTO) 1.3 %; EOSINOPHILS # (AUTO) 0.1 10^3/uL (0.0-0.7); HCT - HEMATOCRIT 27.5 % (37.0-47.0); HGB - HEMOGLOBIN 8.1 g/dL (12.0-16.0); LYMPHOCYTES # (AUTO) 0.6 10^3/uL (1.5-3.5); LYMPHOCYTES % (AUTO) 12.6 %; MEAN CORPUSCULAR HEMOGLOBIN 21.8 pg (27.0-31.0); MEAN CORPUSCULAR HGB CONC 29.5 g/dL (32.0-36.0); MEAN CORPUSCULAR VOLUME 73.9 fL (81.0-99.0); MEAN PLATELET VOLUME 10.5 fL (7.9-10.8); MONOCYTES # (AUTO) 0.6 10^3/uL (0.0-1.0); MONOCYTES % (AUTO) 13.7 %; NEUTROPHILS # (AUTO) 3.2 10^3/uL (1.5-6.6); NEUTROPHILS % (AUTO) 68.1 %; NRBC ABSOLUTE COUNT (AUTO) 0.05 x10^3/uL; NUCLEATED RED BLOOD CELLS AUTO 1.1 /100WBC; PLT - PLATELET COUNT 159 10^3/uL (130-450); RED BLOOD COUNT 3.72 10^6/uL (4.20-5.40); RED CELL DISTRIBUTION WIDTH 19.2 % (12.0-15.0); WHITE BLOOD COUNT 4.7 x10^3/uL (4.8-10.8)
[2021-12-18] MEDS ORDERED: metOLazone 2.5 MG TABLET PO SCH (11:00)
--- NOTE | 2021-12-18 12:03 | PHARMACY PROGRESS NOTE ---
- Best Possible Medication History Admit Date and Time: 12/17/21 1736 Processed by: Pharmacy Medication History completed: Yes Patient Interview: Completed Secondary Source(s): Physician records As the person ultimately responsible for medication therapy, providers are able to order a medication from an existing home medication list in [facility] via the "Reconcile Routine" prior to Confirmation of that medication by arch support maker. Such practice is discouraged except when the physician, in their clinical judgment, deems that a medical need exists for a medication without regard to previous use.
[2021-12-18] MEDS ORDERED: GABAPENTIN 300 MG CAPSULE PO SCH ×2 (13:00→21:00)
--- NOTE | 2021-12-18 13:16 | PROVIDER PROGRESS NOTE ---
Subjective - Prog Note Date Prog Note Date: 12/18/21 - Subjective Subjective: She states she does not feel short of breath with activity. She is still concerned about her significant edema predominately in her upper thighs and abdomen. She confirms she has not always been compliant with her oral iron. She has not noticed any bleeding or blood in her stool. Current Medications - Current Medications Current Medications: Active Medications Acetaminophen (Acetaminophen 325 Mg Tablet) 650 mg PO Q4HR PRN PRN Reason: Pain 1 to 4, or Fever Hydrocodone Bitart/Acetaminophen (Hydrocod/Acetam 5/325 Mg Tablet) 1 tab PO BID [facility] Last Admin: 12/18/21 08:36 Dose: 1 tab Bumetanide (Bumetanide 1 Mg/4 Ml Vial) 1 mg IVP BIDDIURETIC [facility] Diltiazem HCl (Diltiazem Cd 180 Mg Capsule) 360 mg PO DAILY [facility] Last Admin: 12/18/21 08:36 Dose: 360 mg Gabapentin (Gabapentin 300 Mg Capsule) 600 mg PO TID [facility] Metolazone (Metolazone 2.5 Mg Tablet) 2.5 mg PO ONCE [facility] Stop: 12/18/21 14:00 Last Admin: 12/18/21 11:15 Dose: 2.5 mg Nortriptyline HCl (Nortriptyline 25 Mg Capsule) 25 mg PO QPM [facility] Last Admin: 12/17/21 21:49 Dose: 25 mg Ondansetron HCl (Ondansetron Odt 4 Mg Tablet) 4 mg TL Q6HR PRN PRN Reason: Nausea / Vomiting Pramipexole Dihydrochloride (Pramipexole 0.25 Mg Tablet) 0.25 mg PO TID [facility] Last Admin: 12/18/21 05:30 Dose: 0.25 mg Sodium Chloride (Sodium Chloride Flush 0.9% 10 Ml Syringe) 10 ml IVP PRN PRN PRN Reason: NEEDED PER PROVIDER ORDERS Last Admin: 12/18/21 09:20 Dose: 10 ml Sodium Chloride (Sodium Chloride Flush 0.9% 10 Ml Syringe) 10 ml IVP 0100,0900,1700 [facility] Last Admin: 12/18/21 08:36 Dose: Not Given Gabapentin 600 mg PO QPM 12/13/17 Hydrocodone/Acetaminophen [Hydrocodone-Acetamin 7.5-325] 1 tab PO BID 12/13/17 Nortriptyline [Pamelor] 100 mg PO QPM 12/13/17 Pramipexole [Mirapex] 0.5 mg PO 1700 12/13/17 dilTIAZem HCl [Diltiazem 24Hr ER] 360 mg PO DAILY 12/13/17 Potassium Chloride 30 meq PO QPM 12/20/19 Alendronate [Fosamax] 70 mg PO TU 03/03/21 Calcium Carbonate [Calcium] 600 mg PO DAILY 03/03/21 Cholecalciferol [Vitamin D3] 25 mcg PO DAILY 03/03/21 Hydroxychloroquine [Plaquenil] 200 mg PO BID 03/03/21 Levothyroxine Sodium [Synthroid] 175 mcg PO QDAC 03/03/21 polyethylene glycoL 3350 [Polyethylene Glycol 3350] 17 gm PO DAILY PRN 03/03/21 Apixaban [Eliquis] 5 mg PO BID 12/18/21 Diclofenac Sodium [Voltaren Arthritis Pain] 2 gm TP QID PRN 12/18/21 Gabapentin [Neurontin] 1,200 mg PO DAILY 12/18/21 Sertraline HCl 100 mg PO DAILY 12/18/21 Torsemide 40 mg PO DAILY 12/18/21 Objective - Vital Signs/Intake & Output Reviewed Vital Signs: Yes Vital Signs: Vital Signs x48h Temp Pulse Pulse Resp BP Pulse Ox 12/18/21 12:20 36.6 C 97 18 117/66 97 12/18/21 07:25 36.8 C 104 H 18 109/59 L 93 12/18/21 05:30 36.8 C 84 20 106/52 L 96 Intake & Output: Intake & Output 12/15/21 12/16/21 12/17/21 12/18/21 23:59 23:59 23:59 23:59 Intake Total 1200 930 Output Total 900 750 Balance 300 180 - Objective General Appearance: positive: No acute distress, Alert Eyes Bilateral: positive: Normal inspection, Conjunctivae nml ENT: positive: ENT inspection nml Neck: positive: Nml inspection Respiratory: positive: No respiratory distress, Rales (Faint rales bilaterally.) Cardiovascular: positive: Irregularly irregular. negative: Tachycardia, Systolic murmur Abdomen: positive: Non-tender, No distention. negative: Tenderness Skin: positive: Warm, Dry Extremities: positive: Pedal edema (+1 edema in her lower abdomen and in her lower extremities above the knee.) Neurologic/Psychiatric: negative: Disoriented to person, Disoriented to place - Lab Results Fish Bones: 12/18/21 10:19 12/18/21 04:26 Other Labs: Lab Results x24hrs 12/18/21 12/18/21 12/18/21 Range/Units 10:19 04:26 04:26 WBC 4.7 L (4.8-10.8) x10^3/uL RBC 3.72 L (4.20-5.40) 10^6/uL Hgb 8.1 L (12.0-16.0) g/dL Hct 27.5 L (37.0-47.0) % MCV 73.9 L (81.0-99.0) fL MCH 21.8 L (27.0-31.0) pg MCHC 29.5 L (32.0-36.0) g/dL RDW 19.2 H (12.0-15.0) % Plt Count 159 MPV 10.5 Neut # (Auto) 3.2 (1.5-6.6) 10^3/uL Lymph # (Auto) 0.6 L (1.5-3.5) 10^3/uL Starr # (Auto) 0.6 (0.0-1.0) 10^3/uL Eos # (Auto) 0.1 (0.0-0.7) 10^3/uL Baso # (Auto) 0.1 (0.0-0.1) 10^3/uL Absolute Nucleated RBC 0.05 x10^3/uL Nucleated RBC % 1.1 /100WBC Manual Slide Review WBC Morphology (NORMAL) Platelet Estimate (NORMAL) Platelet Morphology (NORMAL) RBC Morph Micro Appear (NORMAL) PT (9.9-12.6) secs INR (0.8-1.2) Sodium 137 (135-145) mmol/L Potassium 2.8 L (3.5-5.0) mmol/L Chloride 98 L (101-111) mmol/L Carbon Dioxide 28 (21-32) mmol/L Anion Gap 11.0 (6-13) BUN 15 (6-20) mg/dL Creatinine 0.7 (0.4-1.0) mg/dL Estimated GFR (MDRD) 79 L (>89) Glucose 101 H (70-100) mg/dL Calcium 8.1 L (8.5-10.3) mg/dL Iron (28-170) ug/dL TIBC (250-450) ug/dL % Saturation (20-50) % Transferrin (192-382) mg/dL Ferritin (11.0-306.8) ng/mL Total Bilirubin (0.2-1.0) mg/dL AST (10-42) IU/L ALT (10-60) IU/L Alkaline Phosphatase (42-121) IU/L Troponin I High Sens (2.3-14.8) ng/L B-Natriuretic Peptide 398 H (5-100) pg/mL Total Protein (6.7-8.2) g/dL Albumin (3.2-5.5) g/dL Globulin (2.1-4.2) g/dL Albumin/Globulin Ratio (1.0-2.2) Lipase (22-51) U/L SARS-CoV-2 (PCR) Blood Type Antibody Screen Crossmatch IS Only 12/18/21 12/17/21 12/17/21 Range/Units 04:26 21:55 17:50 WBC 4.6 L (4.8-10.8) x10^3/uL RBC 3.09 L (4.20-5.40) 10^6/uL Hgb 7.2 L 6.6 L* (12.0-16.0) g/dL Hct 23.8 L 23.0 L (37.0-47.0) % MCV 77.0 L (81.0-99.0) fL MCH 23.3 L (27.0-31.0) pg MCHC 30.3 L (32.0-36.0) g/dL RDW 20.5 H (12.0-15.0) % Plt Count 47 L MPV 11.1 H Neut # (Auto) 2.5 (1.5-6.6) 10^3/uL Lymph # (Auto) 1.1 L (1.5-3.5) 10^3/uL Starr # (Auto) 0.8 (0.0-1.0) 10^3/uL Eos # (Auto) 0.1 (0.0-0.7) 10^3/uL Baso # (Auto) 0.1 (0.0-0.1) 10^3/uL Absolute Nucleated RBC 0.03 x10^3/uL Nucleated RBC % 0.7 /100WBC Manual Slide Review Indicated WBC Morphology NORMAL APPEARANCE (NORMAL) Platelet Estimate DECREASED (<130,000) (NORMAL) Platelet Morphology PLATELET CLUMPING (NORMAL) RBC Morph Micro Appear 2+ HYPOCHROMASIA (NORMAL) PT (9.9-12.6) secs INR (0.8-1.2) Sodium (135-145) mmol/L Potassium (3.5-5.0) mmol/L Chloride (101-111) mmol/L Carbon Dioxide (21-32) mmol/L Anion Gap (6-13) BUN (6-20) mg/dL Creatinine (0.4-1.0) mg/dL Estimated GFR (MDRD) (>89) Glucose (70-100) mg/dL Calcium (8.5-10.3) mg/dL Iron (28-170) ug/dL TIBC (250-450) ug/dL % Saturation (20-50) % Transferrin (192-382) mg/dL Ferritin (11.0-306.8) ng/mL Total Bilirubin (0.2-1.0) mg/dL AST (10-42) IU/L ALT (10-60) IU/L Alkaline Phosphatase (42-121) IU/L Troponin I High Sens (2.3-14.8) ng/L B-Natriuretic Peptide (5-100) pg/mL Total Protein (6.7-8.2) g/dL Albumin (3.2-5.5) g/dL Globulin (2.1-4.2) g/dL Albumin/Globulin Ratio (1.0-2.2) Lipase (22-51) U/L SARS-CoV-2 (PCR) NOT DETECTED Blood Type Antibody Screen Crossmatch IS Only 12/17/21 12/17/21 12/17/21 Range/Units 17:35 16:50 16:50 WBC (4.8-10.8) x10^3/uL RBC (4.20-5.40) 10^6/uL Hgb (12.0-16.0) g/dL Hct (37.0-47.0) % MCV (81.0-99.0) fL MCH (27.0-31.0) pg MCHC (32.0-36.0) g/dL RDW (12.0-15.0) % Plt Count MPV Neut # (Auto) (1.5-6.6) 10^3/uL Lymph # (Auto) (1.5-3.5) 10^3/uL Starr # (Auto) (0.0-1.0) 10^3/uL Eos # (Auto) (0.0-0.7) 10^3/uL Baso # (Auto) (0.0-0.1) 10^3/uL Absolute Nucleated RBC x10^3/uL Nucleated RBC % /100WBC Manual Slide Review WBC Morphology (NORMAL) Platelet Estimate (NORMAL) Platelet Morphology (NORMAL) RBC Morph Micro Appear (NORMAL) PT (9.9-12.6) secs INR (0.8-1.2) Sodium (135-145) mmol/L Potassium (3.5-5.0) mmol/L Chloride (101-111) mmol/L Carbon Dioxide (21-32) mmol/L Anion Gap (6-13) BUN (6-20) mg/dL Creatinine (0.4-1.0) mg/dL Estimated GFR (MDRD) (>89) Glucose (70-100) mg/dL Calcium (8.5-10.3) mg/dL Iron 10 L (28-170) ug/dL TIBC 571 H (250-450) ug/dL % Saturation 2 L (20-50) % Transferrin 408 H (192-382) mg/dL Ferritin 9.3 L (11.0-306.8) ng/mL Total Bilirubin (0.2-1.0) mg/dL AST (10-42) IU/L ALT (10-60) IU/L Alkaline Phosphatase (42-121) IU/L Troponin I High Sens (2.3-14.8) ng/L B-Natriuretic Peptide (5-100) pg/mL Total Protein (6.7-8.2) g/dL Albumin (3.2-5.5) g/dL Globulin (2.1-4.2) g/dL Albumin/Globulin Ratio (1.0-2.2) Lipase (22-51) U/L SARS-CoV-2 (PCR) Blood Type O NEGATIVE Antibody Screen NEGATIVE Crossmatch IS Only See Detail 12/17/21 12/17/21 12/17/21 Range/Units 16:50 16:50 16:50 WBC (4.8-10.8) x10^3/uL RBC (4.20-5.40) 10^6/uL Hgb (12.0-16.0) g/dL Hct (37.0-47.0) % MCV (81.0-99.0) fL MCH (27.0-31.0) pg MCHC (32.0-36.0) g/dL RDW (12.0-15.0) % Plt Count MPV Neut # (Auto) (1.5-6.6) 10^3/uL Lymph # (Auto) (1.5-3.5) 10^3/uL Starr # (Auto) (0.0-1.0) 10^3/uL Eos # (Auto) (0.0-0.7) 10^3/uL Baso # (Auto) (0.0-0.1) 10^3/uL Absolute Nucleated RBC x10^3/uL Nucleated RBC % /100WBC Manual Slide Review WBC Morphology (NORMAL) Platelet Estimate (NORMAL) Platelet Morphology (NORMAL) RBC Morph Micro Appear (NORMAL) PT (9.9-12.6) secs INR (0.8-1.2) Sodium 133 L (135-145) mmol/L Potassium 3.6 (3.5-5.0) mmol/L Chloride 94 L (101-111) mmol/L Carbon Dioxide 27 (21-32) mmol/L Anion Gap 12.0 (6-13) BUN 17 (6-20) mg/dL Creatinine 0.9 (0.4-1.0) mg/dL Estimated GFR (MDRD) 59 L (>89) Glucose 138 H (70-100) mg/dL Calcium 8.7 (8.5-10.3) mg/dL Iron (28-170) ug/dL TIBC (250-450) ug/dL % Saturation (20-50) % Transferrin (192-382) mg/dL Ferritin (11.0-306.8) ng/mL Total Bilirubin 1.0 (0.2-1.0) mg/dL AST 42 (10-42) IU/L ALT 29 (10-60) IU/L Alkaline Phosphatase 94 (42-121) IU/L Troponin I High Sens 14.5 (2.3-14.8) ng/L B-Natriuretic Peptide 255 H (5-100) pg/mL Total Protein 7.2 (6.7-8.2) g/dL Albumin 3.6 (3.2-5.5) g/dL Globulin 3.6 (2.1-4.2) g/dL Albumin/Globulin Ratio 1.0 (1.0-2.2) Lipase 26 (22-51) U/L SARS-CoV-2 (PCR) Blood Type Antibody Screen Crossmatch IS Only 12/17/21 12/17/21 Range/Units 16:50 16:50 WBC 4.5 L (4.8-10.8) x10^3/uL RBC 2.91 L (4.20-5.40) 10^6/uL Hgb 6.2 L* (12.0-16.0) g/dL Hct 22.2 L (37.0-47.0) % MCV 76.3 L (81.0-99.0) fL MCH 21.3 L (27.0-31.0) pg MCHC 27.9 L (32.0-36.0) g/dL RDW 19.9 H (12.0-15.0) % Plt Count TNP MPV Not Reportable Neut # (Auto) 2.8 (1.5-6.6) 10^3/uL Lymph # (Auto) 0.8 L (1.5-3.5) 10^3/uL Starr # (Auto) 0.7 (0.0-1.0) 10^3/uL Eos # (Auto) 0.1 (0.0-0.7) 10^3/uL Baso # (Auto) 0.1 (0.0-0.1) 10^3/uL Absolute Nucleated RBC 0.03 x10^3/uL Nucleated RBC % 0.7 /100WBC Manual Slide Review Indicated WBC Morphology (NORMAL) Platelet Estimate NORMAL (130-450,000) (NORMAL) Platelet Morphology PLATELET CLUMPING (NORMAL) RBC Morph Micro Appear 1+ MICROCYTOSIS (NORMAL) PT 32.0 H (9.9-12.6) secs INR 2.9 H (0.8-1.2) Sodium (135-145) mmol/L Potassium (3.5-5.0) mmol/L Chloride (101-111) mmol/L Carbon Dioxide (21-32) mmol/L Anion Gap (6-13) BUN (6-20) mg/dL Creatinine (0.4-1.0) mg/dL Estimated GFR (MDRD) (>89) Glucose (70-100) mg/dL Calcium (8.5-10.3) mg/dL Iron (28-170) ug/dL TIBC (250-450) ug/dL % Saturation (20-50) % Transferrin (192-382) mg/dL Ferritin (11.0-306.8) ng/mL Total Bilirubin (0.2-1.0) mg/dL AST (10-42) IU/L ALT (10-60) IU/L Alkaline Phosphatase (42-121) IU/L Troponin I High Sens (2.3-14.8) ng/L B-Natriuretic Peptide (5-100) pg/mL Total Protein (6.7-8.2) g/dL Albumin (3.2-5.5) g/dL Globulin (2.1-4.2) g/dL Albumin/Globulin Ratio (1.0-2.2) Lipase (22-51) U/L SARS-CoV-2 (PCR) Blood Type Antibody Screen Crossmatch IS Only Assessment/Plan - Problem List (1) Acute on chronic heart failure with preserved ejection fraction (HFpEF) Impression: Although she is not hypoxic and her dyspnea is improved, she is still significantly volume overloaded and imaging still reveals pulmonary edema and this is evident on exam. I have recommended that she remain hospitalized for 1 more night so we can diurese her further. We will switch her over to Bumex 1 mg IV twice daily and we will add metolazone 2.5 mg. We will look to discharge her on Bumex 1 mg p.o. twice daily and metolazone on Tuesday/Tuesday/Tuesday. We will continue with daily weights and strict I's and O's. She really does prefer to go home and so we will look to discharge her tomorrow as long as she is stable from a dyspnea standpoint and her hemoglobin is stable. (2) Iron deficiency anemia Impression: She has severe iron deficiency which is the cause of her anemia. I have ordered for IV iron for this morning given her significant deficiency and the fact that she is consistent with her oral iron and has a history of constipation. There has been no evidence of bleeding and she had an EGD/colonoscopy last year which showed an AVM in the right colon but no evidence of bleeding. Her hemoglobin is improved this morning to greater 8 after one unit of packed red blood cell. We will continue her Eliquis and recheck noted in the morning. If stable then she can be discharged. Qualifiers: Iron deficiency anemia type: inadequate dietary iron intake Qualified Code(s): D50.8 - Other iron deficiency anemias (3) Atrial fibrillation Impression: She is rate controlled. We will continue her diltiazem and Eliquis. 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 (4) Hypothyroidism Impression: Continue Synthroid. (5) Restless leg syndrome Impression: We discussed this may have been exacerbated by her iron deficiency. She received IV iron and we are continuing her home Mirapex.
[2021-12-18] MEDS: BUMETANIDE 1 MG/4 ML VIAL IVP SCH (13:30)
[2021-12-18] MEDS: ACETAMINOPHEN 325 MG TABLET PO PRN (16:41)
--- NOTE | 2021-12-18 16:49 | Discharge Plan ---
Discharge Plan Problem Reviewed?: Yes Disposition: Home, Self Care Condition: Stable Prescriptions: Bumetanide [Bumex] 1 mg PO BID #60 tablet Potassium Chloride Oral Soln [Potassium Chloride] 20 meq PO BIDWM 30 Days #1 bottle metOLazone [Zaroxolyn] 2.5 mg PO UD #30 tablet Diet: Low Sodium Activity Restrictions: Activity as Tolerated Assistance Devices: [facility] Concerns: You were admitted to the hospital because of excess fluid due to your heart failure. You are also found to be anemic with low blood counts. We gave you furosemide through an IV to help remove fluid and added another medication called metolazone to help assist with this. You have had improvement in your swelling and you are no longer short of breath with activity. Your blood counts were also noted to be low and we gave you 1 unit of blood. You were found to be severely iron deficient and we gave you IV iron. You will need to take the oral iron at home. If you do not tolerate oral iron you may need IV iron infusions on an outpatient basis. There has not been any evidence of bleeding since you are hospitalized. We did not perform an endoscopy or colonoscopy given you had one just this past year. Plan of Treatment: We have changed a few of your medications on discharge. Please stop taking torsemide and begin to take Bumex 1 mg twice daily. This is similar to the torsemide but the Bumex is better absorbed and we have increased the medication to twice a day to help keep fluid off. We have also prescribed you a new medication called metolazone which you should take only on Tuesday/Tuesday/Fridays. This is to help augment the Bumex and keeping fluid off. It is important to adhere to a low-sodium diet as sodium can cause fluid retenti on. Please stop taking the previous potassium tablet you are taking each night. I have sent a new prescription for liquid potassium which you will need to take twice a day due to low potassium. Care Goals: The goal is to prevent future hospitalizations for your heart failure and to treat your iron deficiency anemia. Assessment: The patient expressed understanding of the treatment plan. 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 You should have labs done next week to ensure your kidney function and potassium are stable. You should also have your blood counts checked to ensure your hemoglobin and platelets are stable. No Smoking: If you smoke, Please STOP! Call for help. Follow-up with: Anisha Rosas MD [Primary Care Provider] -
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
[2021-12-18] MEDS ORDERED: PRAMIPEXOLE 0.25 MG TABLET PO SCH (17:00)
[2021-12-18] MEDS: HYDROXYCHLOROQUINE 200 MG TABLET PO SCH (20:38)
[2021-12-18] MEDS ORDERED: APIXABAN 5 MG TABLET PO SCH (21:00)
[2021-12-18] MEDS ORDERED: POTASSIUM CHLORIDE 10 MEQ CAPSULE PO SCH (21:00)
[2021-12-18] MEDS ORDERED: NORTRIPTYLINE 25 MG CAPSULE PO SCH (21:00)
[2021-12-19] MEDS: SODIUM CHLORIDE FLUSH 0.9% 10 ML SYRINGE IVP SCH ×2 (00:37→06:00)
[2021-12-19] MEDS: ACETAMINOPHEN 325 MG TABLET PO PRN ×2 (00:37→05:58)
[2021-12-19 05:20] LABS: BASOPHILS # (AUTO) 0.1 10^3/uL (0.0-0.1); BASOPHILS % (AUTO) 1.3 %; EOSINOPHILS # (AUTO) 0.2 10^3/uL (0.0-0.7); EOSINOPHILS % (AUTO) 4.4 %; HCT - HEMATOCRIT 24.8 % (37.0-47.0); HGB - HEMOGLOBIN 7.3 g/dL (12.0-16.0); LYMPHOCYTES # (AUTO) 1.3 10^3/uL (1.5-3.5); LYMPHOCYTES % (AUTO) 23.6 %; MEAN CORPUSCULAR HEMOGLOBIN 22.5 pg (27.0-31.0); MEAN CORPUSCULAR HGB CONC 29.4 g/dL (32.0-36.0); MEAN CORPUSCULAR VOLUME 76.5 fL (81.0-99.0); MEAN PLATELET VOLUME 11.4 fL (7.9-10.8); MONOCYTES # (AUTO) 0.8 10^3/uL (0.0-1.0); MONOCYTES % (AUTO) 14.2 %; NEUTROPHILS # (AUTO) 3.1 10^3/uL (1.5-6.6); NEUTROPHILS % (AUTO) 55.4 %; NRBC ABSOLUTE COUNT (AUTO) 0.06 x10^3/uL; NUCLEATED RED BLOOD CELLS AUTO 1.1 /100WBC; PLT - PLATELET COUNT 107 10^3/uL (130-450); RED BLOOD COUNT 3.24 10^6/uL (4.20-5.40); RED CELL DISTRIBUTION WIDTH 20.5 % (12.0-15.0); WHITE BLOOD COUNT 5.5 x10^3/uL (4.8-10.8)
[2021-12-19 05:26] LABS: CALCIUM 8.7 mg/dL (8.5-10.3); CREATININE 0.8 mg/dL (0.4-1.0); POTASSIUM 2.9 mmol/L (3.5-5.0)
[2021-12-19 05:58] LABS: SLIDE REVIEW? Indicated
[2021-12-19] MEDS: BUMETANIDE 1 MG/4 ML VIAL IVP SCH (05:58)
[2021-12-19 05:59] LABS: PLATELET ESTIMATE, MANUAL DECREASED (<130,000) (NORMAL); PLATELET MORPHOLOGY PLATELET CLUMPING (NORMAL); WBC MORPHOLOGY (MULTIPLE) NORMAL APPEARANCE (NORMAL)
[2021-12-19] MEDS ORDERED: LEVOTHYROXINE 100 MCG TABLET PO SCH (07:00)
[2021-12-19] MEDS ORDERED: LEVOTHYROXINE 75 MCG TABLET PO SCH (07:00)
[2021-12-19] MEDS ORDERED: POTASSIUM CHLORIDE 10 MEQ CAPSULE PO SCH (08:00)
[2021-12-19 08:32] VITALS: BP 123/63
[2021-12-19] MEDS ORDERED: CALCIUM CARB (OYSTER SHELL) 500 MG TABLET PO SCH (09:00)
[2021-12-19] MEDS ORDERED: FERROUS SULFATE 325 MG TABLET PO SCH (09:00)
[2021-12-19] MEDS ORDERED: GABAPENTIN 400 MG CAPSULE PO SCH (09:00)
[2021-12-19] MEDS ORDERED: CHOLECALCIFEROL 25 MCG TABLET PO SCH (09:00)
[2021-12-19] MEDS ORDERED: SERTRALINE 50 MG TABLET PO SCH (09:00)
[2021-12-19] MEDS: HYDROcod/ACETAM 5/325 MG TABLET PO SCH (09:04)
[2021-12-19] MEDS: HYDROXYCHLOROQUINE 200 MG TABLET PO SCH (09:04)
[2021-12-19] MEDS: diltiaZEM CD 180 MG CAPSULE PO SCH (09:04)
[2021-12-19 09:33] LABS: BASOPHILS # (AUTO) 0.1 10^3/uL (0.0-0.1); BASOPHILS % (AUTO) 1.5 %; EOSINOPHILS # (AUTO) 0.2 10^3/uL (0.0-0.7); EOSINOPHILS % (AUTO) 3.9 %; HCT - HEMATOCRIT 29.6 % (37.0-47.0); HGB - HEMOGLOBIN 8.5 g/dL (12.0-16.0); LYMPHOCYTES # (AUTO) 0.7 10^3/uL (1.5-3.5); LYMPHOCYTES % (AUTO) 15.7 %; MEAN CORPUSCULAR HEMOGLOBIN 21.7 pg (27.0-31.0); MEAN CORPUSCULAR HGB CONC 28.7 g/dL (32.0-36.0); MEAN CORPUSCULAR VOLUME 75.7 fL (81.0-99.0); MEAN PLATELET VOLUME 10.5 fL (7.9-10.8); MONOCYTES # (AUTO) 0.6 10^3/uL (0.0-1.0); MONOCYTES % (AUTO) 13.1 %; NEUTROPHILS % (AUTO) 64.9 %; NRBC ABSOLUTE COUNT (AUTO) 0.08 x10^3/uL; NUCLEATED RED BLOOD CELLS AUTO 1.7 /100WBC; PLT - PLATELET COUNT 74 10^3/uL (130-450); RED BLOOD COUNT 3.91 10^6/uL (4.20-5.40); RED CELL DISTRIBUTION WIDTH 19.7 % (12.0-15.0); WHITE BLOOD COUNT 4.6 x10^3/uL (4.8-10.8)
[2021-12-19 10:51] LABS: BASOPHILS # (AUTO) 0.1 10^3/uL (0.0-0.1); BASOPHILS % (AUTO) 1.7 %; EOSINOPHILS # (AUTO) 0.2 10^3/uL (0.0-0.7); EOSINOPHILS % (AUTO) 3.5 %; HCT - HEMATOCRIT 30.5 % (37.0-47.0); HGB - HEMOGLOBIN 8.9 g/dL (12.0-16.0); LYMPHOCYTES # (AUTO) 0.7 10^3/uL (1.5-3.5); LYMPHOCYTES % (AUTO) 13.7 %; MEAN CORPUSCULAR HGB CONC 29.2 g/dL (32.0-36.0); MEAN CORPUSCULAR VOLUME 75.5 fL (81.0-99.0); MONOCYTES # (AUTO) 0.7 10^3/uL (0.0-1.0); MONOCYTES % (AUTO) 12.9 %; NEUTROPHILS # (AUTO) 3.5 10^3/uL (1.5-6.6); NRBC ABSOLUTE COUNT (AUTO) 0.12 x10^3/uL; NUCLEATED RED BLOOD CELLS AUTO 2.3 /100WBC; PLT - PLATELET COUNT 185 10^3/uL (130-450); RED BLOOD COUNT 4.04 10^6/uL (4.20-5.40); RED CELL DISTRIBUTION WIDTH 19.9 % (12.0-15.0); WHITE BLOOD COUNT 5.2 x10^3/uL (4.8-10.8)
[2021-12-19 11:02] LABS: SLIDE REVIEW? Indicated
== END 2021-12-19 12:15 | disposition home or self-care (01) ==
LOC: ED 15:48 → MS2 17:36
PROVIDERS: ADMIT Specialist; ATTEND Internal Medicine
DX: I50.33 Acute on chronic diastolic (congestive) heart failure (principal); I48.91 Unspecified atrial fibrillation; Z79.01 Long term (current) use of anticoagulants; F43.23 Adjustment disorder with mixed anxiety and depressed mood; G25.81 Restless legs syndrome; E03.9 Hypothyroidism, unspecified; Z20.822 Contact with and (suspected) exposure to COVID-19; I27.20 Pulmonary hypertension, unspecified; G62.9 Polyneuropathy, unspecified; N39.41 Urge incontinence; F32.A Depression, unspecified; F41.9 Anxiety disorder, unspecified; M06.9 Rheumatoid arthritis, unspecified; M54.9 Dorsalgia, unspecified; G89.29 Other chronic pain; D50.8 Other iron deficiency anemias
CPT/HCPCS: 36415; 36430; 71045; 80048; 80053; 82728; 83540; 83690; 83735; 83880; 84443; 84466; 84484; 85014; 85018; 85025; 85610; 86850; 86900; 86901; 86920; 87635; 93005; 96365; 96375; 96376; 99285; A9270; G0378; J1750; P9016

== ENCOUNTER 2021-12-22 11:29 | Outpatient (CLI) | payer MEDICARE ==
[2021-12-22 12:01] LABS: HCT - HEMATOCRIT 28.7 % (37.0-47.0); HGB - HEMOGLOBIN 8.1 g/dL (12.0-16.0); MEAN CORPUSCULAR HEMOGLOBIN 22.3 pg (27.0-31.0); MEAN CORPUSCULAR HGB CONC 28.2 g/dL (32.0-36.0); MEAN CORPUSCULAR VOLUME 78.8 fL (81.0-99.0); RED BLOOD COUNT 3.64 10^6/uL (4.20-5.40); RED CELL DISTRIBUTION WIDTH 22.8 % (12.0-15.0)
[2021-12-22 12:26] LABS: ALBUMIN 3.4 g/dL (3.2-5.5); ALBUMIN/GLOBULIN RATIO 0.9 (1.0-2.2); BILIRUBIN,TOTAL 0.7 mg/dL (0.2-1.0); CALCIUM 9.1 mg/dL (8.5-10.3); CREATININE 0.8 mg/dL (0.4-1.0); POTASSIUM 3.4 mmol/L (3.5-5.0)
== END 2021-12-22 11:30 | disposition home or self-care (01) ==
LOC: LAB 11:29
PROVIDERS: ATTEND Internal Medicine
DX: I50.32 Chronic diastolic (congestive) heart failure (principal); D50.0 Iron deficiency anemia secondary to blood loss (chronic)
CPT/HCPCS: 36415; 80053; 83540; 83880; 84466; 85027

== ENCOUNTER 2022-08-30 14:42 | Inpatient (IN) | payer MEDICARE ==
--- NOTE | 2022-08-30 15:47 | XRAY Report ---
PROCEDURE: Chest 1 View X-Ray INDICATIONS: Chest Pain TECHNIQUE: One view of the chest was acquired. COMPARISON: CXR 12/17/2021. FINDINGS: Surgical changes and devices: None. Lungs and pleura: No pleural effusions or pneumothorax. Lungs are clear. Mediastinum: Mediastinal contours appear normal. Heart size is normal. Bones and chest wall: No suspicious bony lesions. Scoliosis. Overlying soft tissues appear unremark able. IMPRESSION: No acute cardiopulmonary abnormality. Reviewed by: Familia Mclain MD on 08/30/2022 3:46 PM PST Approved by: Familia Mclain MD on 08/30/2022 3:46 PM PST Station ID: [id number]
[2022-08-30 15:48] LABS: BASOPHILS % (AUTO) 0.8 %; EOSINOPHILS % (AUTO) 0.4 %; LYMPHOCYTES % (AUTO) 18.1 %; MEAN CORPUSCULAR HEMOGLOBIN 28.9 pg (27.0-31.0); MEAN CORPUSCULAR HGB CONC 28.4 g/dL (32.0-36.0); MEAN CORPUSCULAR VOLUME 101.8 fL (81.0-99.0); MEAN PLATELET VOLUME 9.6 fL (7.9-10.8); MONOCYTES # (AUTO) 0.6 10^3/uL (0.0-1.0); MONOCYTES % (AUTO) 10.6 %; NEUTROPHILS # (AUTO) 3.7 10^3/uL (1.5-6.6); NEUTROPHILS % (AUTO) 69.7 %; PLT - PLATELET COUNT 225 10^3/uL (130-450); RED BLOOD COUNT 1.66 10^6/uL (4.20-5.40); RED CELL DISTRIBUTION WIDTH 13.6 % (12.0-15.0); WHITE BLOOD COUNT 5.3 x10^3/uL (4.8-10.8)
[2022-08-30 15:53] LABS: SLIDE REVIEW? Indicated
[2022-08-30 15:56] LABS: HCT - HEMATOCRIT 16.9 % (37.0-47.0); HGB - HEMOGLOBIN 4.8 g/dL (12.0-16.0)
[2022-08-30 16:07] LABS: ALBUMIN/GLOBULIN RATIO 1.2 (1.0-2.2); BILIRUBIN,TOTAL 0.3 mg/dL (0.2-1.0); CALCIUM 8.4 mg/dL (8.5-10.3); CREATININE 0.9 mg/dL (0.4-1.0); POTASSIUM 3.5 mmol/L (3.5-5.0); TOTAL PROTEIN 5.6 g/dL (6.7-8.2)
[2022-08-30 16:48] LABS: PLATELET ESTIMATE, MANUAL NORMAL (130-450,000) (NORMAL); PLATELET MORPHOLOGY NORMAL APPEARANCE (NORMAL)
--- NOTE | 2022-08-30 16:48 | ED Physician Documentation ---
History of Present Illness - Stated complaint Stated Complaint: TIRED/SOA - Chief complaint Chief Complaint: Cardiac - Additonal information Additional information: 86-year-old female who has a history of atrial fibrillation anticoagulated on Eliquis presents to the emergency department for evaluation of progressive weakness as well as dyspnea. She is also noticed that she has beginning to have bilateral lower extremity leg swelling. She has had no syncope. She denies chest pain. She is on iron supplement so reports that her stools typically black. She was admitted to this hospital in February 2021 for a GI bleed though the screening colonoscopy and EGD did not find a source. On presentation to the emergency department the patient appears well though she is exceedingly anxious and upset. She has an atrial fibrillation rate of 120 on the monitor. She is normotensive. Review of Systems Constitutional: denies: Fever, Chills Cardiac: reports: Palpitations, Pedal edema. denies: Chest pain / pressure Respiratory: reports: Dyspnea. denies: Cough GI: reports: Other (Reports chronically black or tarry stools but is on iron) : reports: Reviewed and negative Skin: reports: Reviewed and negative PD PAST MEDICAL HISTORY - Past Medical History Cardiovascular: Congestive heart failure, Atrial fibrillation, Murmur Respiratory: Shortness of breath Neuro: Peripheral neuropathy Endocrine/Autoimmune: HyPOthyroidism GI: GI bleed STORAGE ADMINISTRATOR: None : Incontinence HEENT: None Psych: Depression, Anxiety Musculoskeletal: Rheumatoid arthritis, Chronic back pain, Other Derm: Other - Past Surgical History Past Surgical History: Yes General: Cholecystectomy, Appendectomy Ortho: Knee replacement /STORAGE ADMINISTRATOR: 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 - Present Medications Home Medications: Ambulatory Orders Medication Instructions Recorded Confirmed Gabapentin 600 mg PO QPM 12/13/17 12/18/21 Hydrocodone/Acetaminophen 1 tab PO BID 12/13/17 12/18/21 [Hydrocodone-Acetamin 7.5-325] Nortriptyline [Pamelor] 100 mg PO QPM 12/13/17 12/18/21 Pramipexole [Mirapex] 0.5 mg PO 1700 12/13/17 12/18/21 dilTIAZem HCl [Diltiazem 24Hr ER] 360 mg PO DAILY 12/13/17 12/18/21 Alendronate [Fosamax] 70 mg PO TU 03/03/21 12/18/21 Calcium Carbonate [Calcium] 600 mg PO DAILY 03/03/21 12/18/21 Cholecalciferol [Vitamin D3] 25 mcg PO DAILY 03/03/21 12/18/21 Hydroxychloroquine [Plaquenil] 200 mg PO BID 03/03/21 12/18/21 Levothyroxine Sodium [Synthroid] 175 mcg PO QDAC 03/03/21 12/18/21 polyethylene glycoL 3350 17 gm PO DAILY PRN 03/03/21 12/18/21 [Polyethylene Glycol 3350] Ferrous Sulfate [Feosol] 325 mg PO DAILY #30 tablet 03/04/21 12/18/21 Apixaban [Eliquis] 5 mg PO BID 12/18/21 12/18/21 Diclofenac Sodium [Voltaren 2 gm TP QID PRN 12/18/21 12/18/21 Arthritis Pain] Gabapentin [Neurontin] 1,200 mg PO DAILY 12/18/21 12/18/21 Sertraline HCl 100 mg PO DAILY 12/18/21 12/18/21 Bumetanide [Bumex] 1 mg PO BID #60 tablet 12/19/21 Potassium Chloride Oral Soln 20 meq PO BIDWM 30 Days #1 bottle 12/19/21 [Potassium Chloride] metOLazone [Zaroxolyn] 2.5 mg PO UD #30 tablet 12/19/21 Acetaminophen [Tylenol] 650 mg PO Q6H PRN #30 tab 04/25/22 Cyclobenzaprine [Flexeril] 10 mg PO TID PRN #20 tablet 04/25/22 - Allergies Allergies/Adverse Reactions: Allergies Allergy/AdvReac Type Severity Reaction Status Date / Time acetaminophen [From Tylenol] Allergy Unknown Verified 08/30/22 18:02 ampicillin AdvReac Cramps Verified 08/30/22 15:12 epinephrine AdvReac Anxiety Verified 08/30/22 15:12 oxycodone AdvReac Hallucinati Verified 08/30/22 15:12 ons - Social History Does the pt smoke?: No Smoking Status: Never smoker Does the pt drink ETOH?: No Does the pt have substance abuse?: No - Immunizations Immunizations are current?: Yes - POLST Patient has POLST: No PD ED PE EXPANDED - General General: Alert, Anxious - Cardiac Cardiac: Irregularly irregular, Murmur Present (2+ systolic murmur), Radial strong equal, Pedal strong equal, Cap refill < 2 sec, Other (2+ pitting edema in the bilateral lower extremities from the feet to the knees.) - Respiratory Respiratory: Clear to ausultation deandre. No: Distress, Labored - Abdomen Abdomen: Normal Bowel sounds. No: Tender to palpation - Back Back: Normal exam - Derm Derm: Abrasion (s) (Areas of bruising noted on the legs and upper extremities) - Extremities Extremities: Pedal Pulses Present - Neuro Neuro: Alert and Oriented X 3, CNII-XII intact - GCS Eye Opening: Spontaneous Motor: Obeys Commands Verbal: Oriented Total: 15 Results - Vitals Vitals: Vital Signs - 24 hr 08/30/22 08/30/22 15:07 16:43 Temperature 36.7 C Heart Rate 118 H 117 H Respiratory 20 15 Rate Blood Pressure 136/53 H O2 Saturation 100 100 Oxygen O2 Source Room air - EKG (time done) 1515 Rate: Rate (enter#) (112) Rhythm: Atrial fibrillation Intervals: No: Prolonged QT Ischemia: Non specific changes Compare to prior EKG: Unchanged from prior EKG - Labs Labs: Laboratory Tests 08/30/22 08/30/22 08/30/22 15:43 15:43 15:43 WBC 5.3 RBC 1.66 L Hgb 4.8 L* Hct 16.9 L* MCV 101.8 H MCH 28.9 MCHC 28.4 L RDW 13.6 Plt Count 225 MPV 9.6 Neut # (Auto) 3.7 Lymph # (Auto) 1.0 L [place] # (Auto) 0.6 Eos # (Auto) 0.0 Baso # (Auto) 0.0 Absolute Nucleated RBC 0.00 Nucleated RBC % 0.0 Manual Slide Review Indicated Platelet Estimate NORMAL (130-450,000) Platelet Morphology NORMAL APPEARANCE RBC Morph Micro Appear 2+ RENZO CELLS Sodium 138 Potassium 3.5 Chloride 99 L Carbon Dioxide 28 Anion Gap 11.0 BUN 26 H Creatinine 0.9 Estimated GFR (MDRD) 59 L Glucose 155 H Lactic Acid Calcium 8.4 L Total Bilirubin 0.3 AST 24 ALT 17 Alkaline Phosphatase 66 Troponin I High Sens 11.5 B-Natriuretic Peptide Total Protein 5.6 L Albumin 3.0 L Globulin 2.6 Albumin/Globulin Ratio 1.2 Lipase 28 Blood Type Antibody Screen Crossmatch IS Only 08/30/22 08/30/22 08/30/22 15:43 16:48 16:48 WBC RBC Hgb Hct MCV MCH MCHC RDW Plt Count MPV Neut # (Auto) Lymph # (Auto) [place] # (Auto) Eos # (Auto) Baso # (Auto) Absolute Nucleated RBC Nucleated RBC % Manual Slide Review Platelet Estimate Platelet Morphology RBC Morph Micro Appear Sodium Potassium Chloride Carbon Dioxide Anion Gap BUN Creatinine Estimated GFR (MDRD) Glucose Lactic Acid Calcium Total Bilirubin AST ALT Alkaline Phosphatase Troponin I High Sens B-Natriuretic Peptide 200 H 200 H Total Protein Albumin Globulin Albumin/Globulin Ratio Lipase Blood Type O NEGATIVE Antibody Screen NEGATIVE Crossmatch IS Only See Detail 08/30/22 16:55 WBC RBC Hgb Hct MCV MCH MCHC RDW Plt Count MPV Neut # (Auto) Lymph # (Auto) [place] # (Auto) Eos # (Auto) Baso # (Auto) Absolute Nucleated RBC Nucleated RBC % Manual Slide Review Platelet Estimate Platelet Morphology RBC Morph Micro Appear Sodium Potassium Chloride Carbon Dioxide Anion Gap BUN Creatinine Estimated GFR (MDRD) Glucose Lactic Acid 1.4 Calcium Total Bilirubin AST ALT Alkaline Phosphatase Troponin I High Sens B-Natriuretic Peptide Total Protein Albumin Globulin Albumin/Globulin Ratio Lipase Blood Type Antibody Screen Crossmatch IS Only - Rads (name of study) cxr Radiology: Final report received (No acute cardiopulmonary abnormality) PD Medical Decision Making - ED course Complexity details: reviewed old records, reviewed results, re-evaluated patient, d/w patient, d/w family ED course: 86-year-old female who has a history of congestive heart failure, Atrial fibrillation anticoagulated on Eliquis comes to the emergency department with increasing weakness over the last week some exertional dyspnea and orthopnea as well as increasing swelling of her bilateral lower extremities. She does have a history of GI bleed requiring blood transfusion. She was admitted to this hospital in February 2021 for similar. She did obtain a colonoscopy as well as an EGD but no source of bleeding was found. Patient is on iron and reports black stools. On exam she is alert to though quite anxious. EKG is A. fib with a rate of 120. She was not hypoxic. Abdominal exam was nontender. Initial CBC showed marked anemia with a hemoglobin of 4.8. Her electrolytes showed no worrisome findings. She has preserved renal function. A lactate was negative. However this likely is severe anemia in the setting of anticoagulation likely a GI bleed. Patient will be admitted to the hospital under ICU care in order to initially manage the anemia.. She does have a [id number] score of 6 putting her at about a 10% risk of stroke in the absence of anticoagulation however the significant anemia likely Barse further anticoagulation moving forward. I have spoken with Dr. Ledbetter or hospitalist was agreed to admit the patient. Further care to be dictated by the inpatient team - Critical Care Time(min): 30 Time Includes: Review records, Coordinate care Data interpretation: Labs Departure - Departure Disposition: ED Place in Observation Clinical Impression: Severe anemia, Anticoagulated CHF (congestive heart failure) Qualifiers: Heart failure type: unspecified Heart failure chronicity: acute on chronic Qualified Code(s): I50.9 - Heart failure, unspecified GIB (gastrointestinal bleeding) Qualifiers: GI bleed type/associated pathology: unspecified gastrointestinal hemorrhage type Qualified Code(s): K92.2 - Gastrointestinal hemorrhage, unspecified Discharge Date/Time: 08/30/22 18:05
[2022-08-30] MEDS ORDERED: ACETAMINOPHEN 325 MG TABLET PO ONE (17:06)
[2022-08-30] MEDS ORDERED: ONDANSETRON 4 MG/2 ML VIAL IVP PRN (18:02)
[2022-08-30] MEDS ORDERED: diltiaZEM INJ 5 MG/ML VIAL IVP STA (18:08)
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
[2022-08-30] MEDS ORDERED: FUROSEMIDE 20 MG/2 ML VIAL IVP SCH (21:00)
[2022-08-30] MEDS: PANTOPRAZOLE 40 MG VIAL IVP SCH (21:38)
[2022-08-30] MEDS: NORTRIPTYLINE 25 MG CAPSULE PO SCH (21:38)
[2022-08-30] MEDS: SODIUM CHLORIDE FLUSH 0.9% 10 ML SYRINGE IVP PRN ×2 (21:39→23:11)
[2022-08-30] MEDS: LORazepam 2 MG/ML VIAL IVP PRN (23:11)
[2022-08-31] MEDS: SODIUM CHLORIDE FLUSH 0.9% 10 ML SYRINGE IVP SCH ×4 (02:37→22:45)
[2022-08-31 05:14] LABS: CALCIUM, IONIZED 0.98 mmol/L (1.15-1.33); VBG PH 7.535 (7.31-7.41)
[2022-08-31 05:17] LABS: BASOPHILS % (AUTO) 0.8 %; EOSINOPHILS % (AUTO) 0.8 %; HCT - HEMATOCRIT 20.7 % (37.0-47.0); LYMPHOCYTES # (AUTO) 1.2 10^3/uL (1.5-3.5); LYMPHOCYTES % (AUTO) 22.5 %; MEAN CORPUSCULAR HEMOGLOBIN 28.8 pg (27.0-31.0); MEAN CORPUSCULAR HGB CONC 30.4 g/dL (32.0-36.0); MEAN CORPUSCULAR VOLUME 94.5 fL (81.0-99.0); MEAN PLATELET VOLUME 11.2 fL (7.9-10.8); MONOCYTES # (AUTO) 0.7 10^3/uL (0.0-1.0); MONOCYTES % (AUTO) 12.6 %; NEUTROPHILS # (AUTO) 3.3 10^3/uL (1.5-6.6); NEUTROPHILS % (AUTO) 62.9 %; PLT - PLATELET COUNT 131 10^3/uL (130-450); RED BLOOD COUNT 2.19 10^6/uL (4.20-5.40); RED CELL DISTRIBUTION WIDTH 16.8 % (12.0-15.0); WHITE BLOOD COUNT 5.2 x10^3/uL (4.8-10.8)
[2022-08-31 05:27] LABS: CALCIUM 7.9 mg/dL (8.5-10.3); CREATININE 0.8 mg/dL (0.4-1.0); MAGNESIUM 1.9 mg/dL (1.7-2.8); PHOSPHORUS 3.9 mg/dL (2.5-4.6); POTASSIUM 3.3 mmol/L (3.5-5.0)
[2022-08-31 05:29] LABS: HGB - HEMOGLOBIN 6.3 g/dL (12.0-16.0)
[2022-08-31] MEDS: FUROSEMIDE 20 MG/2 ML VIAL IVP SCH ×3 (06:11→17:41)
[2022-08-31] MEDS: LEVOTHYROXINE 100 MCG TABLET PO SCH (06:12)
[2022-08-31] MEDS: LEVOTHYROXINE 75 MCG TABLET PO SCH (06:12)
[2022-08-31] MEDS: SODIUM CHLORIDE FLUSH 0.9% 10 ML SYRINGE IVP PRN ×2 (06:12→21:05)
[2022-08-31] MEDS ORDERED: CALCIUM GLUCONATE IN NS 0.9% 2,000 MG/100 ML BAG IV ONE (07:00)
[2022-08-31] MEDS ORDERED: POTASSIUM CHLORIDE 10 MEQ CAPSULE PO ONE (08:11)
[2022-08-31] MEDS: ACETAMINOPHEN 325 MG TABLET PO PRN (09:15)
[2022-08-31] MEDS: PANTOPRAZOLE 40 MG VIAL IVP SCH ×2 (09:15→21:05)
[2022-08-31] MEDS: POTASSIUM CHLORIDE 20 MEQ TABLET PO SCH ×2 (09:15→12:14)
[2022-08-31] MEDS: SERTRALINE 50 MG TABLET PO SCH (09:15)
[2022-08-31] MEDS: diltiaZEM CD 120 MG CAPSULE PO SCH (09:15)
[2022-08-31] MEDS: FUROSEMIDE 20 MG/2 ML VIAL IVP ONE (12:13)
[2022-08-31 13:04] LABS: CALCIUM, IONIZED 1.06 mmol/L (1.15-1.33); VBG PH 7.411 (7.31-7.41)
--- NOTE | 2022-08-31 13:49 | PHARMACY PROGRESS NOTE ---
- Best Possible Medication History Admit Date and Time: 08/30/221801 Processed by: Pharmacy Medication History completed: Yes Patient Interview: Pt unable to participate Secondary Source(s): Written medication list, Physician records As the person ultimately responsible for medication therapy, providers are able to order a medication from an existing home medication list in [facility] via the "Reconcile Routine" prior to Confirmation of that medication by support group manager. Such practice is discouraged except when the physician, in their clinical judgment, deems that a medical need exists for a medication without regard to previous use.
[2022-08-31] MEDS ORDERED: POTASSIUM CHLORIDE 20 MEQ TABLET PO ONE (14:27)
[2022-08-31] MEDS ORDERED: CALCIUM GLUC 1,000MG/50ML-NACL 1,000 MG/50 ML BAG IV ONE ×3 (14:27→22:26)
[2022-08-31 16:59] LABS: CALCIUM, IONIZED 1.05 mmol/L (1.15-1.33); VBG PH 7.44 (7.31-7.41)
--- NOTE | 2022-08-31 19:23 | PROVIDER PROGRESS NOTE ---
Subjective - Subjective Pt reports feeling: Improved (Feels stronger and no SOB, since got several U of blood transfused. Has no abd pain, N/V/D.) Objective - Vital Signs/Intake & Output Reviewed Vital Signs: Yes Vital Signs: Vital Signs Pulse Resp BP BP Pulse Ox 08/31/22 19:00 99 23 112/57 L 100 08/31/22 18:00 99 24 107/60 96 08/31/22 17:00 113 H 24 102/56 L 95 08/31/22 16:00 112 H 20 109/56 L 97 Intake & Output: Intake & Output 08/28/22 08/29/22 08/30/22 08/31/22 23:59 23:59 23:59 23:59 Intake Total 784 4301 Output Total 425 1050 Balance 359 3251 - Objective General Appearance: positive: No acute distress, Alert Eyes Bilateral: positive: Normal inspection ENT: positive: ENT inspection nml, No signs of dehydration Neck: positive: Nml inspection, No JVD Respiratory: positive: No respiratory distress, Breath sounds nml Cardiovascular: positive: Regular rate & rhythm, No murmur Abdomen: positive: Non-tender, Nml bowel sounds Skin: positive: Warm, Dry, Pallor Extremities: positive: Non-tender, Other (Trace ankle edema) - Lab Results Fish Bones: 08/31/22 16:45 08/31/22 16:52 Other Labs: Lab Results x24hrs 08/31/22 08/31/22 08/31/22 Range/Units 16:52 16:52 16:45 WBC (4.8-10.8) x10^3/uL RBC (4.20-5.40) 10^6/uL Hgb 8.4 L (12.0-16.0) g/dL Hct (37.0-47.0) % MCV (81.0-99.0) fL MCH (27.0-31.0) pg MCHC (32.0-36.0) g/dL RDW (12.0-15.0) % Plt Count (130-450) 10^3/uL MPV (7.9-10.8) fL Neut # (Auto) (1.5-6.6) 10^3/uL Lymph # (Auto) (1.5-3.5) 10^3/uL [place] # (Auto) (0.0-1.0) 10^3/uL Eos # (Auto) (0.0-0.7) 10^3/uL Baso # (Auto) (0.0-0.1) 10^3/uL Absolute Nucleated RBC x10^3/uL Nucleated RBC % /100WBC VBG pH 7.440 H (7.31-7.41) Ionized Calcium 1.05 L (1.15-1.33) mmol/L Sodium (135-145) mmol/L Potassium 4.3 (3.5-5.0) mmol/L Chloride (101-111) mmol/L Carbon Dioxide (21-32) mmol/L Anion Gap (6-13) BUN (6-20) mg/dL Creatinine (0.4-1.0) mg/dL Estimated GFR (MDRD) (>89) Glucose (70-100) mg/dL Calcium (8.5-10.3) mg/dL Phosphorus (2.5-4.6) mg/dL Magnesium (1.7-2.8) mg/dL Troponin I High Sens (2.3-14.8) ng/L TSH (0.34-5.60) uIU/mL Nasal Screen MRSA (PCR) (NEGATIVE) SARS-CoV-2 (PCR) Blood Type Antibody Screen Crossmatch IS Only 08/31/22 08/31/22 08/31/22 Range/Units 12:45 12:45 04:17 WBC (4.8-10.8) x10^3/uL RBC (4.20-5.40) 10^6/uL Hgb (12.0-16.0) g/dL Hct (37.0-47.0) % MCV (81.0-99.0) fL MCH (27.0-31.0) pg MCHC (32.0-36.0) g/dL RDW (12.0-15.0) % Plt Count (130-450) 10^3/uL MPV (7.9-10.8) fL Neut # (Auto) (1.5-6.6) 10^3/uL Lymph # (Auto) (1.5-3.5) 10^3/uL [place] # (Auto) (0.0-1.0) 10^3/uL Eos # (Auto) (0.0-0.7) 10^3/uL Baso # (Auto) (0.0-0.1) 10^3/uL Absolute Nucleated RBC x10^3/uL Nucleated RBC % /100WBC VBG pH 7.411 H 7.535 H (7.31-7.41) Ionized Calcium 1.06 L 0.98 L (1.15-1.33) mmol/L Sodium (135-145) mmol/L Potassium 3.7 (3.5-5.0) mmol/L Chloride (101-111) mmol/L Carbon Dioxide (21-32) mmol/L Anion Gap (6-13) BUN (6-20) mg/dL Creatinine (0.4-1.0) mg/dL Estimated GFR (MDRD) (>89) Glucose (70-100) mg/dL Calcium (8.5-10.3) mg/dL Phosphorus (2.5-4.6) mg/dL Magnesium (1.7-2.8) mg/dL Troponin I High Sens (2.3-14.8) ng/L TSH (0.34-5.60) uIU/mL Nasal Screen MRSA (PCR) (NEGATIVE) SARS-CoV-2 (PCR) Blood Type Antibody Screen Crossmatch IS Only 08/31/22 08/31/22 08/31/22 Range/Units 04:17 04:17 04:17 WBC 5.2 (4.8-10.8) x10^3/uL RBC 2.19 L (4.20-5.40) 10^6/uL Hgb 6.3 L* (12.0-16.0) g/dL Hct 20.7 L (37.0-47.0) % MCV 94.5 (81.0-99.0) fL MCH 28.8 (27.0-31.0) pg MCHC 30.4 L (32.0-36.0) g/dL RDW 16.8 H (12.0-15.0) % Plt Count 131 (130-450) 10^3/uL MPV 11.2 H (7.9-10.8) fL Neut # (Auto) 3.3 (1.5-6.6) 10^3/uL Lymph # (Auto) 1.2 L (1.5-3.5) 10^3/uL [place] # (Auto) 0.7 (0.0-1.0) 10^3/uL Eos # (Auto) 0.0 (0.0-0.7) 10^3/uL Baso # (Auto) 0.0 (0.0-0.1) 10^3/uL Absolute Nucleated RBC 0.00 x10^3/uL Nucleated RBC % 0.0 /100WBC VBG pH (7.31-7.41) Ionized Calcium (1.15-1.33) mmol/L Sodium 136 (135-145) mmol/L Potassium 3.3 L (3.5-5.0) mmol/L Chloride 98 L (101-111) mmol/L Carbon Dioxide 28 (21-32) mmol/L Anion Gap 10.0 (6-13) BUN 24 H (6-20) mg/dL Creatinine 0.8 (0.4-1.0) mg/dL Estimated GFR (MDRD) 68 L (>89) Glucose 133 H (70-100) mg/dL Calcium 7.9 L (8.5-10.3) mg/dL Phosphorus 3.9 (2.5-4.6) mg/dL Magnesium 1.9 (1.7-2.8) mg/dL Troponin I High Sens (2.3-14.8) ng/L TSH 3.45 (0.34-5.60) uIU/mL Nasal Screen MRSA (PCR) (NEGATIVE) SARS-CoV-2 (PCR) Blood Type Antibody Screen Crossmatch IS Only 08/30/22 08/30/22 08/30/22 Range/Units 18:55 18:50 18:23 WBC (4.8-10.8) x10^3/uL RBC (4.20-5.40) 10^6/uL Hgb (12.0-16.0) g/dL Hct (37.0-47.0) % MCV (81.0-99.0) fL MCH (27.0-31.0) pg MCHC (32.0-36.0) g/dL RDW (12.0-15.0) % Plt Count (130-450) 10^3/uL MPV (7.9-10.8) fL Neut # (Auto) (1.5-6.6) 10^3/uL Lymph # (Auto) (1.5-3.5) 10^3/uL [place] # (Auto) (0.0-1.0) 10^3/uL Eos # (Auto) (0.0-0.7) 10^3/uL Baso # (Auto) (0.0-0.1) 10^3/uL Absolute Nucleated RBC x10^3/uL Nucleated RBC % /100WBC VBG pH (7.31-7.41) Ionized Calcium (1.15-1.33) mmol/L Sodium (135-145) mmol/L Potassium (3.5-5.0) mmol/L Chloride (101-111) mmol/L Carbon Dioxide (21-32) mmol/L Anion Gap (6-13) BUN (6-20) mg/dL Creatinine (0.4-1.0) mg/dL Estimated GFR (MDRD) (>89) Glucose (70-100) mg/dL Calcium (8.5-10.3) mg/dL Phosphorus (2.5-4.6) mg/dL Magnesium (1.7-2.8) mg/dL Troponin I High Sens 14.2 (2.3-14.8) ng/L TSH (0.34-5.60) uIU/mL Nasal Screen MRSA (PCR) NEGATIVE (NEGATIVE) SARS-CoV-2 (PCR) NOT DETECTED Blood Type Antibody Screen Crossmatch IS Only 08/30/22 Range/Units 16:48 WBC (4.8-10.8) x10^3/uL RBC (4.20-5.40) 10^6/uL Hgb (12.0-16.0) g/dL Hct (37.0-47.0) % MCV (81.0-99.0) fL MCH (27.0-31.0) pg MCHC (32.0-36.0) g/dL RDW (12.0-15.0) % Plt Count (130-450) 10^3/uL MPV (7.9-10.8) fL Neut # (Auto) (1.5-6.6) 10^3/uL Lymph # (Auto) (1.5-3.5) 10^3/uL [place] # (Auto) (0.0-1.0) 10^3/uL Eos # (Auto) (0.0-0.7) 10^3/uL Baso # (Auto) (0.0-0.1) 10^3/uL Absolute Nucleated RBC x10^3/uL Nucleated RBC % /100WBC VBG pH (7.31-7.41) Ionized Calcium (1.15-1.33) mmol/L Sodium (135-145) mmol/L Potassium (3.5-5.0) mmol/L Chloride (101-111) mmol/L Carbon Dioxide (21-32) mmol/L Anion Gap (6-13) BUN (6-20) mg/dL Creatinine (0.4-1.0) mg/dL Estimated GFR (MDRD) (>89) Glucose (70-100) mg/dL Calcium (8.5-10.3) mg/dL Phosphorus (2.5-4.6) mg/dL Magnesium (1.7-2.8) mg/dL Troponin I High Sens (2.3-14.8) ng/L TSH (0.34-5.60) uIU/mL Nasal Screen MRSA (PCR) (NEGATIVE) SARS-CoV-2 (PCR) Blood Type O NEGATIVE Antibody Screen NEGATIVE Crossmatch IS Only See Detail Assessment/Plan - Problem List (1) Symptomatic anemia Impression: She is tachycardic at rest and has a soft BP BP less than 100 syst today, some meds were held. This severely low hemoglobin has given her CHF exacerbations in the past, as it is this time Etiology of anemia is likely a GI bleed. If she does not have a sudden acute GI bleed, she may have a slow oozing of GI blood loss. Location is not known. Hgb went from 4.8>> 6.2 this am after 2 U transfused. Plan: Will order type and cross and transfuse 2 more units of blood tonight. Target hemoglobin will be 8, as it is in the past given her symptomatic CHF presentations. Follow H/H q12h (2) Black stools Conclusion/Plan: She takes iron replacement daily. Her iron or a GI bleed could be the reason for black stools. When she had the colonoscopy in 02/2021, a non-bleeding AVM was seen. Today she had a maroon stool. It was sent for guaiac and came back positive. I asked for records of the recent pill cam test to be obtained by our [facility] and by our [facility] RN and finally myself called the office of Dr Gustafson at [facility] in [place]. I received info that it has not been interpreted yet and Dr Gustafson is not back for another 3 days. Plan: Considering a general surgery consult for possible repeat colonoscopy. We will start her on empiric Protonix twice daily Stopped Eliquis I explained to her today what a bleeding AVM may be causing, gay pictures on her white board. (3) Atrial fibrillation with RVR Conclusion/Plan: The cause of RVR is likely her significant anemia and hypotension. TSH was normal Plan: Continue telemetry. 2 more U of blood to be transfused today to replace her intravascular volume. Cont her usual Cardizem CD 360 milligrams daily a.m. dose Unfortunately her Eliquis needed to be stopped until we are assured no GI bleed is active. (4) Acute on chronic heart failure with preserved ejection fraction (HFpEF) Conclusion/Plan: This is most likely from her severe anemia. Her troponins ruled out an acute SC as the cause Plan: Remain in the ICU given her hypotension and maroon BM today. Give blood transfusion to a target hemoglobin of 8. Will use IV diuretics. Continue with her other cardiac medications Since her last Echo was done over a year ago (in 02/2021), will repeat her Echo to assure this is still diastolic heart failure, not systolic. (5) Restless leg syndrome Conclusion/Plan: According to history, this gave her severe distress but "when she got iv Iron, her sx stopped" and she is also on a medication for it Plan: Resume her RLS medication when her home medication list is reconciled by pharmacy (6) Anxiety Conclusion/Plan: She has had anxiety in previous admissions. Currently she admits that she is very afraid of being diagnosed with cancer as the cause of her severe anemia The family members are asking to give her something for her significant anxiety Plan: Will give Ativan as needed
[2022-08-31] MEDS: NORTRIPTYLINE 25 MG CAPSULE PO SCH (21:04)
[2022-08-31 22:18] LABS: VBG PH 7.463 (7.31-7.41)
[2022-08-31 22:19] LABS: CALCIUM, IONIZED 1.05 mmol/L (1.15-1.33)
[2022-08-31] MEDS: LORazepam 2 MG/ML VIAL IVP PRN (22:44)
[2022-09-01] MEDS: LORazepam 2 MG/ML VIAL IVP PRN ×2 (01:15→02:52)
[2022-09-01] MEDS: SODIUM CHLORIDE FLUSH 0.9% 10 ML SYRINGE IVP PRN ×5 (01:15→21:50)
[2022-09-01 05:16] LABS: CALCIUM, IONIZED 1.07 mmol/L (1.15-1.33); VBG PH 7.459 (7.31-7.41)
[2022-09-01] MEDS ORDERED: CALCIUM GLUC 1,000MG/50ML-NACL 1,000 MG/50 ML BAG IV ONE ×2 (05:23→21:00)
[2022-09-01 05:27] LABS: MAGNESIUM 1.8 mg/dL (1.7-2.8); PHOSPHORUS 3.1 mg/dL (2.5-4.6)
[2022-09-01] MEDS: FUROSEMIDE 20 MG/2 ML VIAL IVP SCH (06:49)
[2022-09-01] MEDS ORDERED: MAGNESIUM SULFATE 2 GRAM 2 GM/50 ML BAG IV ONE (08:05)
[2022-09-01] MEDS: SODIUM CHLORIDE FLUSH 0.9% 10 ML SYRINGE IVP SCH ×2 (08:31→20:46)
[2022-09-01] MEDS: diltiaZEM CD 120 MG CAPSULE PO SCH ×2 (09:13→10:18)
[2022-09-01] MEDS: LEVOTHYROXINE 75 MCG TABLET PO SCH (09:13)
[2022-09-01] MEDS: LEVOTHYROXINE 100 MCG TABLET PO SCH ×2 (09:13→10:38)
[2022-09-01] MEDS: SERTRALINE 50 MG TABLET PO SCH ×2 (09:13→10:38)
[2022-09-01] MEDS ORDERED: DIGOXIN 500 MCG/2 ML AMP IVP STA (09:17)
--- NOTE | 2022-09-01 09:28 | PROVIDER PROGRESS NOTE ---
Subjective - Subjective Pt reports feeling: Worse (Confused and lethargic, after received Ativan for sleep last night. Has had 3 red-maroon BMs today) Objective - Vital Signs/Intake & Output Reviewed Vital Signs: Yes Vital Signs: Vital Signs Temp Pulse Resp BP Pulse Ox 09/01/22 08:55 37 C 09/01/22 08:15 88 L 09/01/22 08:00 114 H 33 H 117/48 L 92 09/01/22 07:00 117 H 21 123/70 96 09/01/22 06:00 118 H 34 H 109/61 92 Intake & Output: Intake & Output 08/29/22 08/30/22 08/31/22 09/01/22 23:59 23:59 23:59 23:59 Intake Total 784 4971 500 Output Total 425 1050 Balance 359 3921 500 - Objective General Appearance: positive: No acute distress, Lethargic (Awakens, smiles, moves all extrem, falls back asleep) Eyes Bilateral: positive: Normal inspection, EOMI ENT: positive: No signs of dehydration Neck: positive: Nml inspection, No JVD Respiratory: positive: No respiratory distress Cardiovascular: positive: No murmur, Irregularly irregular Abdomen: positive: Non-tender, No distention Skin: positive: Warm, Dry, Pallor Extremities: positive: Non-tender, Other (Trace ankle edema) - Lab Results Fish Bones: 09/01/22 04:21 08/31/22 16:52 Other Labs: Lab Results x24hrs 09/01/22 09/01/22 09/01/22 Range/Units 04:21 04:21 04:21 Hgb 7.4 L (12.0-16.0) g/dL VBG pH 7.459 H (7.31-7.41) Ionized Calcium 1.07 L (1.15-1.33) mmol/L Potassium (3.5-5.0) mmol/L Phosphorus 3.1 (2.5-4.6) mg/dL Magnesium 1.8 (1.7-2.8) mg/dL Blood Type Antibody Screen Crossmatch IS Only 08/31/22 08/31/22 08/31/22 Range/Units 22:11 16:52 16:52 Hgb (12.0-16.0) g/dL VBG pH 7.463 H 7.440 H (7.31-7.41) Ionized Calcium 1.05 L 1.05 L (1.15-1.33) mmol/L Potassium 4.3 (3.5-5.0) mmol/L Phosphorus (2.5-4.6) mg/dL Magnesium (1.7-2.8) mg/dL Blood Type Antibody Screen Crossmatch IS Only 08/31/22 08/31/22 08/31/22 Range/Units 16:45 12:45 12:45 Hgb 8.4 L (12.0-16.0) g/dL VBG pH 7.411 H (7.31-7.41) Ionized Calcium 1.06 L (1.15-1.33) mmol/L Potassium 3.7 (3.5-5.0) mmol/L Phosphorus (2.5-4.6) mg/dL Magnesium (1.7-2.8) mg/dL Blood Type Antibody Screen Crossmatch IS Only 08/30/22 Range/Units 16:48 Hgb (12.0-16.0) g/dL VBG pH (7.31-7.41) Ionized Calcium (1.15-1.33) mmol/L Potassium (3.5-5.0) mmol/L Phosphorus (2.5-4.6) mg/dL Magnesium (1.7-2.8) mg/dL Blood Type O NEGATIVE Antibody Screen NEGATIVE Crossmatch IS Only See Detail Assessment/Plan - Problem List (1) Acute delirium Impression: She was very anxious and had insomnia yesterday and last night. She got Ativan prn, ordered for anxiety Today she is confused, disoriented to person place and time. It is not hyperthyroidism, her TSH is normal She is not hypoxic or hypotensive Plan: We will stop her lorazepam Remain in bed until alert and oriented Give cueing and supportive care (2) Symptomatic anemia Conclusion/Plan: She is still mildly tachycardic at rest )HR 100-120) and has a soft BP BP of 10o-110 syst today, some meds needed to be held. This severely low hemoglobin has given her CHF exacerbations in the past and now Etiology of anemia is likely a GI bleed. Hgb went from 4.8>> 6.2 after 2 U transfused>> 8.4 after 2 more U>> then down to 7.4 today without any iv hydration to cause hemodilution. Plan: Will order type and cross and transfuse 1 more units of blood today Target hemoglobin will be 8, as it is in the past given her symptomatic CHF presentations. Follow H/H q12h (3) Hematochezia Conclusion/Plan: She has had about 4 red-maroon stools since admission. Guaic test is (+). When she had the colonoscopy in 02/2021, a non-bleeding AVM was seen. I explained to her yesterday what a bleeding AVM may be causing, gay pictures on her white board. I asked for records of the recent pill cam test and called the office of Dr Gustafson at [facility] in [place]. I received info that it has not been interpreted yet and Dr Gustafson is not back until 09/03. Plan: Will request a General Surgery consult for repeat colonoscopy. I discussed case with Dr Wills. Change diet to clear liquids Continue her on empiric Protonix twice daily We stopped Eliquis at time of admission (4) Atrial fibrillation with RVR Conclusion/Plan: The cause of RVR is likely her significant anemia and borderline hypotension, but also her Cardizem has needed to be on hold due to low BP. TSH was normal Plan: Continue telemetry. 1 more U of blood to be transfused today to replace her intravascular volume. Cont her usual Cardizem CD 360 mg daily a.m. dose, but with holding parameters Will give Dig 250 mcg iv x1 today for rate control. Her Eliquis needed to be stopped given her active GI bleeding. (5) Acute on chronic heart failure with preserved ejection fraction (HFpEF) Conclusion/Plan: Her CHF presentation is most likely from her severe anemia. Her troponins ruled out an acute AL as the cause Her last Echo was done in 02/2021. Plan: Remain in the ICU given her borderline hypotension and today's maroon BMs Give blood transfusion to a target hemoglobin of 8. Since her last Echo was done over a year ago (in 02/2021), will repeat her Echo to assure this is still diastolic heart failure, not systolic. (6) Restless leg syndrome Conclusion/Plan: According to history, RLS gave her severe distress but "when she got iv Iron, her sx stopped" and she is also on a medication for it Plan: We resumed her RLS medication (7) Anxiety Conclusion/Plan: She has had anxiety in previous admissions. Currently she admits that she is very afraid of being diagnosed with cancer as the cause of her severe anemia The family members asked to give her something for her significant anxiety Plan: Will stop the prn Ativan due to confusion.
[2022-09-01] MEDS: PANTOPRAZOLE 40 MG VIAL IVP SCH ×2 (10:19→20:45)
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
--- NOTE | 2022-09-01 18:48 | ANESTHESIA PROCEDURE NOTE ---
Anesth Central Line Template - Central Line Central Line Preparation: Consent Obtained, Time out completed, Ultrasound used, Sterile prep and drape Central line location: Right IJ Central line type: Triple lumen Central line catheter tip site resides: Superior vena cava (SVC) Central line aftercare: Chlorhexidine disc placed, Secured, Placement confirmed, No pneumothorax, No complications, Bundle checklist complete, Pt tolerated well, Other (20cm cath sutured at 16. Caps easily aspirate/flush x3.)
--- NOTE | 2022-09-01 19:08 | XRAY Report ---
PROCEDURE: Chest for Line Placement INDICATIONS: new CVL@RIJ TECHNIQUE: One view of the chest was acquired. COMPARISON: 08/30/2022 FINDINGS: Surgical changes and devices: Right internal jugular vein central venous catheter is present, tip of which projects over the lower SVC. Lungs and pleura: No pleural effusions or pneumothorax. There is severe diffuse reticulonodular pulm onary opacity. Mediastinum: Mediastinal contours appear normal. Heart size is normal. Bones and chest wall: No suspicious bony lesions. Overlying soft tissues appear unremarkable. IMPRESSION: Severe edema versus atypical pneumonia. Reviewed by: Loco Gaitan MD on 09/01/2022 7:06 PM PST Approved by: Loco Gaitan MD on 09/01/2022 7:06 PM PST Station ID: [id number]
[2022-09-01 20:07] LABS: CALCIUM, IONIZED 1.05 mmol/L (1.15-1.33); VBG PH 7.504 (7.31-7.41)
[2022-09-01] MEDS: NORTRIPTYLINE 25 MG CAPSULE PO SCH ×2 (20:47→21:56)
[2022-09-02] MEDS: SODIUM CHLORIDE FLUSH 0.9% 10 ML SYRINGE IVP SCH ×3 (01:24→18:10)
[2022-09-02] MEDS: SODIUM CHLORIDE FLUSH 0.9% 10 ML SYRINGE IVP PRN ×2 (01:24→01:58)
[2022-09-02 02:10] LABS: CALCIUM, IONIZED 1.07 mmol/L (1.15-1.33); VBG PH 7.495 (7.31-7.41)
[2022-09-02] MEDS: LEVOTHYROXINE 100 MCG TABLET PO SCH (06:37)
[2022-09-02 06:41] LABS: CALCIUM, IONIZED 1.05 mmol/L (1.15-1.33); VBG PH 7.515 (7.31-7.41)
[2022-09-02 06:53] LABS: PHOSPHORUS 4.2 mg/dL (2.5-4.6)
[2022-09-02 07:54] LABS: CALCIUM 7.6 mg/dL (8.5-10.3); CREATININE 0.9 mg/dL (0.4-1.0); POTASSIUM 3.5 mmol/L (3.5-5.0)
[2022-09-02] MEDS: diltiaZEM CD 120 MG CAPSULE PO SCH (08:41)
[2022-09-02] MEDS: SERTRALINE 50 MG TABLET PO SCH (08:42)
[2022-09-02] MEDS: PANTOPRAZOLE 40 MG VIAL IVP SCH ×2 (08:42→20:39)
[2022-09-02] MEDS: CALCIUM CARBONATE CHEW 500 MG TABLET PO SCH ×2 (09:32→13:38)
[2022-09-02] MEDS: POTASSIUM CHLORIDE 20 MEQ TABLET PO SCH ×2 (09:33→11:43)
[2022-09-02] MEDS ORDERED: iohexoL-300 100 ML VIAL ONE (12:56)
--- NOTE | 2022-09-02 14:08 | CT Report ---
PROCEDURE: ABDOMEN/PELVIS W/WO INDICATIONS: active lower GI bleeding CONTRAST: 100ml Omnipaque 300 TECHNIQUE: Noncontrast 5 mm thick sections acquired from the diaphragms to the symphysis. 5 mm coronal and sagi ttal reformats were then performed. After the administration of intravenous contrast, 5 mm thick art erial phase sections acquired from the diaphragms to the symphysis. 5 mm thick coronal and sagittal reformats were acquired. Then, portal venous phase imaging was obtained. For radiation dose reduction , the following was used: automated exposure control, adjustment of mA and/or kV according to patien t size. COMPARISON: CT abdomen and pelvis dated 12/13/2017. FINDINGS: Image quality: Excellent. Lung bases: Bibasilar pleural effusions and bibasilar atelectasis. Top normal heart size with at leas t moderate coronary artery calcifications. Urinary system: Both kidneys are normal in size, without hydronephrosis or nephrolithiasis on pre-co ntrast images. No perinephric fat stranding. There is normal bilateral renal enhancement. Renal ca lyces appear normal in morphology when filled with contrast. Opacified portions of both ureters demo nstrate normal caliber. Bladder wall thickness is normal. No calcified bladder stones. Other solid organs: Liver and spleen are normal in size and enhancement. Gallbladder is surgically a bsent Biliary system is non dilated. Pancreas enhances normally. No adrenal nodules. Peritoneum and bowel: Bowel loops demonstrate normal wall thickness and caliber. There is some hyper dense material in the stomach and small bowel at the beginning the study, on the noncontrast images. On the delayed images, there is hyperdense material in the junction between the second and third port ion of the duodenum, reference image 27/12. This likely represents bowel contents which have moved fr om the stomach into the duodenum, and less likely represents acute hemorrhage. No other findings are suspicious for acute hemorrhage. Diverticulosis without evidence of diverticulitis. No free fluid or air. Nodes and vessels: No retroperitoneal or mesenteric adenopathy by size criteria. Aorta and inferior vena cava are normal in size. SMA, celiac, and DAVIN are patent. Abdominal wall: No ventral hernias. Pelvis: No pathologic free pelvic fluid. No inguinal hernias or adenopathy. Uterus is surgically a bsent. Bones: No suspicious bony lesions. Intrapelvic deformity from previous fracture. No vertebral body compression fractures. IMPRESSION: 1. No findings suspicious for acute hemorrhage during the study. 2. Widely patent mesenteric vessels. 3. No areas of bowel wall thickening noted. 4. Bilateral pleural effusions, bibasilar atelectasis. 5. Coronary artery disease. Reviewed by: Bart Barajas MD on 09/02/2022 2:06 PM PST Approved by: Bart Barajas MD on 09/02/2022 2:06 PM PST Station ID: [id number]
[2022-09-02] MEDS: ACETAMINOPHEN 325 MG TABLET PO PRN (14:38)
[2022-09-02] MEDS: SODIUM/POTASSIUM/MAG SULFATES 354 ML PREP KIT PO SCH (18:10)
[2022-09-02] MEDS ORDERED: [UNRECOGNIZED DRUG - OTHER] TOP PRN (18:15)
--- NOTE | 2022-09-02 19:09 | PROVIDER PROGRESS NOTE ---
Subjective - Subjective Pt reports feeling: Improved (easily arrouses and responds appropriately today. denies abdominal symptoms) Objective - Vital Signs/Intake & Output Reviewed Vital Signs: Yes Vital Signs: Vital Signs x48h Temp Pulse Pulse Resp BP BP Pulse Ox 09/02/22 17:00 37.1 C 88 24 100/37 L 92 09/02/22 15:47 37.2 C 93 20 94/32 L 95 09/02/22 15:04 36.7 C 84 17 99/42 L 94 09/02/22 12:10 90 18 114/42 L 98 Intake & Output: Intake & Output 08/30/22 08/31/22 09/01/22 09/02/22 23:59 23:59 23:59 23:59 Intake Total 784 4971 1271 2228 Output Total 425 1050 1650 500 Balance 359 3921 -379 1728 - Objective General Appearance: positive: No acute distress, Alert Neck: positive: No JVD, Trachea midline Respiratory: positive: Other (mild tachypnea and shallow breathing) Abdomen: positive: Non-tender, No distention - Lab Results Fish Bones: 09/02/22 12:00 09/02/22 06:30 Other Labs: Lab Results x24hrs 09/02/22 09/02/22 09/02/22 Range/Units 12:00 06:30 06:30 Hgb 7.8 L 7.8 L (12.0-16.0) g/dL VBG pH (7.31-7.41) Ionized Calcium (1.15-1.33) mmol/L Sodium 135 (135-145) mmol/L Potassium 3.5 (3.5-5.0) mmol/L Chloride 100 L (101-111) mmol/L Carbon Dioxide 30 (21-32) mmol/L Anion Gap 5.0 L (6-13) BUN 18 (6-20) mg/dL Creatinine 0.9 (0.4-1.0) mg/dL Estimated GFR (MDRD) 59 L (>89) Glucose 110 H (70-100) mg/dL Calcium 7.6 L (8.5-10.3) mg/dL Phosphorus (2.5-4.6) mg/dL Magnesium (1.7-2.8) mg/dL Blood Type Antibody Screen Crossmatch IS Only 09/02/22 09/02/22 09/02/22 Range/Units 06:30 06:30 01:55 Hgb (12.0-16.0) g/dL VBG pH 7.515 H 7.495 H (7.31-7.41) Ionized Calcium 1.05 L 1.07 L (1.15-1.33) mmol/L Sodium (135-145) mmol/L Potassium (3.5-5.0) mmol/L Chloride (101-111) mmol/L Carbon Dioxide (21-32) mmol/L Anion Gap (6-13) BUN (6-20) mg/dL Creatinine (0.4-1.0) mg/dL Estimated GFR (MDRD) (>89) Glucose (70-100) mg/dL Calcium (8.5-10.3) mg/dL Phosphorus 4.2 (2.5-4.6) mg/dL Magnesium 2.0 (1.7-2.8) mg/dL Blood Type Antibody Screen Crossmatch IS Only 09/01/22 09/01/22 09/01/22 Range/Units 19:40 19:40 19:40 Hgb 7.0 L* (12.0-16.0) g/dL VBG pH 7.504 H (7.31-7.41) Ionized Calcium 1.05 L (1.15-1.33) mmol/L Sodium (135-145) mmol/L Potassium (3.5-5.0) mmol/L Chloride (101-111) mmol/L Carbon Dioxide (21-32) mmol/L Anion Gap (6-13) BUN (6-20) mg/dL Creatinine (0.4-1.0) mg/dL Estimated GFR (MDRD) (>89) Glucose (70-100) mg/dL Calcium (8.5-10.3) mg/dL Phosphorus (2.5-4.6) mg/dL Magnesium 2.0 (1.7-2.8) mg/dL Blood Type Antibody Screen Crossmatch IS Only 08/30/22 Range/Units 16:48 Hgb (12.0-16.0) g/dL VBG pH (7.31-7.41) Ionized Calcium (1.15-1.33) mmol/L Sodium (135-145) mmol/L Potassium (3.5-5.0) mmol/L Chloride (101-111) mmol/L Carbon Dioxide (21-32) mmol/L Anion Gap (6-13) BUN (6-20) mg/dL Creatinine (0.4-1.0) mg/dL Estimated GFR (MDRD) (>89) Glucose (70-100) mg/dL Calcium (8.5-10.3) mg/dL Phosphorus (2.5-4.6) mg/dL Magnesium (1.7-2.8) mg/dL Blood Type O NEGATIVE Antibody Screen NEGATIVE Crossmatch IS Only See Detail Assessment/Plan - Problem List (1) CHF (congestive heart failure) Qualifiers: Heart failure type: unspecified Heart failure chronicity: acute on chronic Qualified Code(s): I50.9 - Heart failure, unspecified (2) GI bleed Impression: one bm today consistent with old blood as of noon today hgb stable medicine service demanding colonoscopy and patient is agreeable Qualifiers: GI bleed type/associated pathology: unspecified gastrointestinal hemorrhage type Qualified Code(s): K92.2 - Gastrointestinal hemorrhage, unspecified
--- NOTE | 2022-09-02 19:49 | PROVIDER PROGRESS NOTE ---
Assessment/Plan - Problem List (1) Lower GI bleed requiring more than 4 units of blood in 24 hours, ICU, or surgery Assessment/Plan: Hgb went from 4.8>> 6.2 after 2 U transfused>> 8.4 after 2 more U (these 4 U were given in 24 hours, and in ICU). Then Hgb down to 7.4>> 7.0 and she got 2/3 of a U after that (lost IV and needed a R IJ line placed). After that transusion, Hgb 7.8 this a.m. and at noon. She has had about 4 red-maroon stools yesterday 09/01 that [place] tested (+). This morning she had 1 large maroon current-jelly BM. AVM in colon was seen at colonoscopy in 2020. I asked for records of the recent pill cam test and called the office of Dr Gustafson at [facility] in [place]. I received info that it has not been interpreted yet. WE started her on empiric Protonix twice daily, but suspect a lower GI source. We stopped Eliquis at time of admission A General Surgery consult was done yesterday. I requested a colonoscopy given her ongoing current-jelly stools yesterday and today and soft BP and tachycardia. I discussed case with Dr Wills yesterday and today. Plan: Will obtain CTA of the abdomen today (arterial and venous phase) to see if there is any contrast extravasation seen, to show us where her bleeding may be located>> no source of bleeding could be identified. Cont clear liquids today SuPrep bowel prep ordered to start tonite and in early a.m., for colonoscopy tomorrow. Her and daughter are at bedside today and I explained all the above to them (2) Symptomatic anemia Conclusion/Plan: She is still mildly tachycardic at rest HR (100-120) and has a soft BP of 90-110 syst today, This severely low hemoglobin has given her CHF exacerbations in the past and now Etiology of anemia is her GI bleed. Plan: Target hemoglobin will be 7.8 Follow H/H q8-12h (3) Atrial fibrillation with RVR Conclusion/Plan: The cause of RVR is likely her significant anemia and borderline hypotension, but also her Cardizem has needed to be on hold due to low BP. TSH was normal Plan: Continue telemetry. Cont her usual Cardizem CD 360 mg daily a.m. dose, but with holding parameters Would give iv Dig 250 mcg again if needed for rate control. Her Eliquis needed to be stopped given her active GI bleeding. (4) Acute on chronic heart failure with preserved ejection fraction (HFpEF) Conclusion/Plan: Her CHF presentation is most likely from her severe anemia. Her troponins ruled out an acute [place] as the cause Her last Echo was done in 02/2021. Echo was done today to assure this is still diastolic heart failure, not systolic. The Echo showed normal LVEF of 55-60% and (possible) diastolic dysfunction. Plan: Give blood transfusion to a target hemoglobin of 7.8. Give meds for HR control. Use iv Lasix after blood transfusions. Continue her cardiac meds but with holding parameters due to "soft" BP. (5) Restless leg syndrome Conclusion/Plan: According to history, RLS gave her severe distress but "when she got iv Iron, her sx stopped" and she is also on a medication for it Plan: We resumed her RLS medication (6) Anxiety Conclusion/Plan: She has had anxiety in previous admissions. And she admits that she is very afraid of being diagnosed with cancer as the cause of her severe anemia. The family members asked to give her something for her significant anxiety. Ativan was used. Plan: We stopped the prn Ativan due to confusion and Ativan is now listed on the Allergy List as causing an Adverse Reaction. I updated the and daughter at bedside about this today. (7) Acute delirium Impression: Resolved, she is tired this morning, closes her eyes and falls asleep while talking, but is no longer confused She was very anxious and had insomnia yesterday. She got Ativan ordered for anxiety. Then all of yesterday she was confused, disoriented to person place and time. It is not hyperthyroidism, her TSH is normal. She was not hypoxic or hypotensive Plan: We stopped her lorazepam. I explained all this to and daughter who are in the room today Remain in bed until alert and oriented - Current Meds Current Meds: Current Medications Generic Name Dose Route Start Last Admin Trade Name Freq PRN Reason Stop Dose Admin Acetaminophen 650 mg 08/30/22 18:02 09/02/22 14:38 Acetaminophen 325 Mg Tablet PO 650 mg Q4HR PRN Administration Pain 1 to 4, or Fever Diltiazem HCl 360 mg 09/02/22 07:40 09/02/22 08:41 Diltiazem Cd 120 Mg Capsule PO 360 mg DAILY KARRIE Administration Levothyroxine Sodium 100 mcg 08/31/22 07:00 09/02/22 06:37 Levothyroxine 100 Mcg Tablet PO 100 mcg QDAC KARRIE Administration Nortriptyline HCl 100 mg 08/30/22 21:00 09/01/22 21:56 Nortriptyline 25 Mg Capsule PO 100 mg QPM KARRIE Administration Pantoprazole Sodium 40 mg 08/30/22 21:00 09/02/22 08:42 Pantoprazole 40 Mg Vial IVP 40 mg BID KARRIE Administration Sertraline HCl 100 mg 08/31/22 09:00 09/02/22 08:42 Sertraline 50 Mg Tablet PO 100 mg DAILY KARRIE Administration Sodium Chloride 10 ml 08/31/22 01:00 09/02/22 18:10 Sodium Chloride Flush 0.9% 10 Ml Syringe IVP 10 ml 0100,0900,1700 KARRIE Administration Sodium Chloride 10 ml 08/30/22 18:02 09/02/22 01:24 Sodium Chloride Flush 0.9% 10 Ml Syringe IVP 10 ml PRN PRN Administration NEEDED PER PROVIDER ORDERS Sodium Chloride 20 ml 09/01/22 21:08 09/02/22 01:58 Sodium Chloride Flush 0.9% 10 Ml Syringe IVP 20 ml PRN PRN Administration After Blood Draw Sodium Sulfate/Potass Sulf/Mag Sulf 177 ml 09/02/22 18:00 09/02/22 18:10 Sodium/Potassium/Mag Sulfates 354 Ml Prep Kit PO 09/03/22 05:01 177 ml 1800,0500 KARRIE Administration - Lab Result Fish Bone Diagrams: 09/02/22 21:36 09/02/22 06:30 - Additional Planning My Orders: My Active Orders 09/01/22 21:08 Sodium Chloride Flush 0.9% [Normal Saline Flush 0.9%] 20 ml IVP PRN PRN 09/02/22 07:39 Telemetry- [RC] Q4HR 09/02/22 07:40 diltiaZEM CD [Cardizem Cd] 360 mg PO DAILY 09/02/22 18:00 Sodium/Potassium/Mag Sulfates [Suprep Bowel Prep Kit] 177 ml PO 1800,0500 09/02/22 18:15 Patient Own Med [Patient Own Medication] 1 each TOP TID PRN 09/02/22 20:00 HGB - HEMOGLOBIN [HEME] Routine 09/03/22 05:00 CBC W/O DIFF (HEMOGRAM) [HEME] DAILYLAB 09/04/22 05:00 CBC W/O DIFF (HEMOGRAM) [HEME] DAILYLAB 09/05/22 05:00 CBC W/O DIFF (HEMOGRAM) [HEME] DAILYLAB 09/06/22 05:00 CBC W/O DIFF (HEMOGRAM) [HEME] DAILYLAB Subjective - Subjective Patient Reports: Other (feels weak) Nursing Reports: Other (After yesterday's 3-4 red BMs, she had a large maroon BM this a.m., it looked like current-jelly, it was the size of a softball. BP 90, HR tachy, I discussed this with Dr Wills at mid-day.) Objective Vital Signs: Vital Signs - 24 hr 09/01/22 09/01/22 09/01/22 21:00 21:40 21:59 Temperature 37.3 C 98.9 C H Heart Rate [ Brachial] Heart Rate [ 100 104 H 108 H Monitoring electrodes] Respiratory 24 21 21 Rate Blood Pressure 107/58 L 126/56 L 120/55 L [Left Brachial artery] Blood Pressure [Right Brachial artery] Blood Pressure [Right Radial artery] O2 Saturation 94 95 96 09/01/22 09/02/22 09/02/22 23:00 00:45 01:04 Temperature Heart Rate [ Brachial] Heart Rate [ 109 H 90 104 H Monitoring electrodes] Respiratory 29 H 30 H 22 Rate Blood Pressure 113/52 L 106/49 L 118/62 [Left Brachial artery] Blood Pressure [Right Brachial artery] Blood Pressure [Right Radial artery] O2 Saturation 98 95 98 09/02/22 09/02/22 09/02/22 01:21 03:00 05:00 Temperature 37.0 C 36.8 C Heart Rate [ Brachial] Heart Rate [ 105 H 106 H 107 H Monitoring electrodes] Respiratory 19 21 26 H Rate Blood Pressure 101/49 L 114/72 [Left Brachial artery] Blood Pressure 120/54 L [Right Brachial artery] Blood Pressure [Right Radial artery] O2 Saturation 95 95 96 09/02/22 09/02/22 09/02/22 07:00 08:34 09:00 Temperature Heart Rate [ Brachial] Heart Rate [ 102 H 94 97 Monitoring electrodes] Respiratory 29 H 22 24 Rate Blood Pressure 108/48 L [Left Brachial artery] Blood Pressure 120/57 L 85/47 L [Right Brachial artery] Blood Pressure [Right Radial artery] O2 Saturation 93 92 95 09/02/22 09/02/22 09/02/22 09:28 10:00 11:00 Temperature 36.9 C 36.7 C Heart Rate [ Brachial] Heart Rate [ 103 H 91 Monitoring electrodes] Respiratory 26 H 27 H Rate Blood Pressure [Left Brachial artery] Blood Pressure [Right Brachial artery] Blood Pressure 111/61 91/45 L 99/46 L [Right Radial artery] O2 Saturation 96 98 09/02/22 09/02/22 09/02/22 12:10 15:04 15:47 Temperature 36.7 C 37.2 C Heart Rate [ Brachial] Heart Rate [ 90 84 93 Monitoring electrodes] Respiratory 18 17 20 Rate Blood Pressure [Left Brachial artery] Blood Pressure [Right Brachial artery] Blood Pressure 114/42 L 99/42 L 94/32 L [Right Radial artery] O2 Saturation 98 94 95 09/02/22 09/02/22 17:00 19:00 Temperature 37.1 C 36.9 C Heart Rate [ 88 97 Brachial] Heart Rate [ Monitoring electrodes] Respiratory 24 24 Rate Blood Pressure [Left Brachial artery] Blood Pressure 100/37 L 109/53 L [Right Brachial artery] Blood Pressure [Right Radial artery] O2 Saturation 92 96 Oxygen O2 Source Room air I&O (Last 24 Hrs): Intake and Output Totals x24h 08/31/22 09/01/22 09/02/22 23:59 23:59 23:59 Intake Total 4971 1271 2228 Output Total 1050 1650 500 Balance 3921 -379 1728 General: Alert, Oriented x3, Other (Pale and appears tired) HEENT: Mucous membr. moist/pink Neck: Supple, No JVD Neuro: Alert, Non Focal, Other (Lethargic) Cardiovascular: No murmurs, Other (Irreg and tachy) Respiratory: No respiratory distress, Breath sounds nml Abdomen: Normal bowel sounds, Soft, No tenderness Extremities: No clubbing, No edema - Results Results: Laboratory Results WBC 5.2 x10^3/uL (4.8-10.8) 08/31/22 04:17 RBC 2.19 10^6/uL (4.20-5.40) L 08/31/22 04:17 Hgb 7.8 g/dL (12.0-16.0) L 09/02/22 12:00 Hct 20.7 % (37.0-47.0) L 08/31/22 04:17 MCV 94.5 fL (81.0-99.0) 08/31/22 04:17 MCH 28.8 pg (27.0-31.0) 08/31/22 04:17 MCHC 30.4 g/dL (32.0-36.0) L 08/31/22 04:17 RDW 16.8 % (12.0-15.0) H 08/31/22 04:17 Plt Count 131 10^3/uL (130-450) 08/31/22 04:17 MPV 11.2 fL (7.9-10.8) H 08/31/22 04:17 Neut # (Auto) 3.3 10^3/uL (1.5-6.6) 08/31/22 04:17 Lymph # (Auto) 1.2 10^3/uL (1.5-3.5) L 08/31/22 04:17 Mcmullen # (Auto) 0.7 10^3/uL (0.0-1.0) 08/31/22 04:17 Eos # (Auto) 0.0 10^3/uL (0.0-0.7) 08/31/22 04:17 Baso # (Auto) 0.0 10^3/uL (0.0-0.1) 08/31/22 04:17 Absolute Nucleated RBC 0.00 x10^3/uL 08/31/22 04:17 Nucleated RBC % 0.0 /100WBC 08/31/22 04:17 Manual Slide Review Indicated 08/30/22 15:43 Platelet Estimate NORMAL (130-450,000) (NORMAL) 08/30/22 15:43 Platelet Morphology NORMAL APPEARANCE (NORMAL) 08/30/22 15:43 RBC Morph Micro Appear 2+ ANISOCYTOSIS (NORMAL) 3+ HYPOCHROMASIA (NORMAL) 2+ RENZO CELLS (NORMAL) 08/30/22 15:43 RBC Morph Micro Appear 2+ ANISOCYTOSIS (NORMAL) 3+ HYPOCHROMASIA (NORMAL) 2+ RENZO CELLS (NORMAL) 08/30/22 15:43 RBC Morph Micro Appear 2+ ANISOCYTOSIS (NORMAL) 3+ HYPOCHROMASIA (NORMAL) 2+ RENZO CELLS (NORMAL) 08/30/22 15:43 VBG pH 7.515 (7.31-7.41) H 09/02/22 06:30 Ionized Calcium 1.05 mmol/L (1.15-1.33) L 09/02/22 06:30 Sodium 135 mmol/L (135-145) 09/02/22 06:30 Potassium 3.5 mmol/L (3.5-5.0) 09/02/22 06:30 Chloride 100 mmol/L (101-111) L 09/02/22 06:30 Carbon Dioxide 30 mmol/L (21-32) 09/02/22 06:30 Anion Gap 5.0 (6-13) L 09/02/22 06:30 BUN 18 mg/dL (6-20) 09/02/22 06:30 Creatinine 0.9 mg/dL (0.4-1.0) 09/02/22 06:30 Estimated GFR (MDRD) 59 (>89) L 09/02/22 06:30 Glucose 110 mg/dL (70-100) H 09/02/22 06:30 Lactic Acid 1.4 mmol/L (0.5-2.2) 08/30/22 16:55 Calcium 7.6 mg/dL (8.5-10.3) L 09/02/22 06:30 Phosphorus 4.2 mg/dL (2.5-4.6) 09/02/22 06:30 Magnesium 2.0 mg/dL (1.7-2.8) 09/02/22 06:30 Total Bilirubin 0.3 mg/dL (0.2-1.0) 08/30/22 15:43 AST 24 IU/L (10-42) 08/30/22 15:43 ALT 17 IU/L (10-60) 08/30/22 15:43 Alkaline Phosphatase 66 IU/L (42-121) 08/30/22 15:43 Troponin I High Sens 14.2 ng/L (2.3-14.8) 08/30/22 18:55 B-Natriuretic Peptide 200 pg/mL (5-100) H 08/30/22 16:48 Total Protein 5.6 g/dL (6.7-8.2) L 08/30/22 15:43 Albumin 3.0 g/dL (3.2-5.5) L 08/30/22 15:43 Globulin 2.6 g/dL (2.1-4.2) 08/30/22 15:43 Albumin/Globulin Ratio 1.2 (1.0-2.2) 08/30/22 15:43 Lipase 28 U/L (22-51) 08/30/22 15:43 TSH 3.45 uIU/mL (0.34-5.60) 08/31/22 04:17 Nasal Screen MRSA (PCR) NEGATIVE (NEGATIVE) 08/30/22 18:50 SARS-CoV-2 (PCR) NOT DETECTED 08/30/22 18:23 Blood Type O NEGATIVE 08/30/22 16:48 Antibody Screen NEGATIVE 08/30/22 16:48 Crossmatch IS Only See Detail 08/30/22 16:48 - Procedures Procedures: Procedures EXCISION OF LOWER ESOPHAGUS, ENDO, DIAGN (03/02/21) EXCISION OF STOMACH, PYLORUS, ENDO, DIAGN (03/02/21) RESECTION OF GALLBLADDER, PERCUTANEOUS ENDOSCOPIC APPROACH (08/25/19) TRANSFUSE NONAUT RED BLOOD CELLS IN PERIPH VEIN, PERC (03/02/21)
[2022-09-02] MEDS: NORTRIPTYLINE 25 MG CAPSULE PO SCH (20:39)
[2022-09-02] MEDS ORDERED: iohexoL-300 100 ML VIAL IVP ONE (21:11)
[2022-09-02] MEDS ORDERED: FUROSEMIDE 20 MG/2 ML VIAL IVP PRN (22:12)
[2022-09-03] MEDS: SODIUM CHLORIDE FLUSH 0.9% 10 ML SYRINGE IVP PRN ×2 (03:25→08:38)
[2022-09-03] MEDS: SODIUM/POTASSIUM/MAG SULFATES 354 ML PREP KIT PO SCH (04:45)
[2022-09-03] MEDS: LEVOTHYROXINE 100 MCG TABLET PO SCH (04:59)
[2022-09-03 05:15] LABS: HCT - HEMATOCRIT 28.7 % (37.0-47.0); HGB - HEMOGLOBIN 8.9 g/dL (12.0-16.0); MEAN CORPUSCULAR HEMOGLOBIN 29.3 pg (27.0-31.0); MEAN CORPUSCULAR VOLUME 94.4 fL (81.0-99.0); MEAN PLATELET VOLUME 11.9 fL (7.9-10.8); RED BLOOD COUNT 3.04 10^6/uL (4.20-5.40); RED CELL DISTRIBUTION WIDTH 15.4 % (12.0-15.0); WHITE BLOOD COUNT 4.8 x10^3/uL (4.8-10.8)
[2022-09-03] MEDS: PANTOPRAZOLE 40 MG VIAL IVP SCH ×2 (08:36→22:47)
[2022-09-03] MEDS: diltiaZEM CD 120 MG CAPSULE PO SCH (08:36)
[2022-09-03] MEDS: SERTRALINE 50 MG TABLET PO SCH (08:37)
[2022-09-03] MEDS: SODIUM CHLORIDE FLUSH 0.9% 10 ML SYRINGE IVP SCH ×3 (08:37→17:42)
[2022-09-03] MEDS ORDERED: PROPOFOL 500 MG/50 ML 500 MG/50 ML VIAL ONE (11:14)
--- NOTE | 2022-09-03 11:39 | ANESTHESIA ---
Pre-Anesthesia VS, & Labs - Diagnosis anemia, GI bleed - Procedure colonoscopy Vital Signs: Temp Pulse Resp BP Pulse Ox O2 Flow Rate 36.9 C 101 H 18 127/58 L 97 1 09/03/22 08:35 09/03/22 08:35 09/03/22 08:35 09/03/22 08:35 09/03/22 08:35 09/01/22 14:24 Height: 5 ft 2 in Weight (kg): 88 kg Body Mass Index: 35.4 BMI Classification: Obese - NPO >8 hours Last Fluid Intake: 250cl liq @0900 - Is Patient ?: No - Lab Results Current Lab Results: Laboratory Tests 09/03/22 04:55: WBC 4.8, RBC 3.04 L, Hgb 8.9 L, Hct 28.7 L, MCV 94.4, MCH 29.3, MCHC 31.0 L, RDW 15.4 H, Plt Count 72 L, MPV 11.9 H 09/02/22 22:32: Blood Type O NEGATIVE, Antibody Screen NEGATIVE, Crossmatch IS Only See Detail 09/02/22 21:36: Hgb 7.7 L 09/02/22 12:00: Hgb 7.8 L 09/02/22 06:30: Sodium 135, Potassium 3.5, Chloride 100 L, Carbon Dioxide 30, Anion Gap 5.0 L, BUN 18, Creatinine 0.9, Estimated GFR (MDRD) 59 L, Glucose 110 H, Calcium 7.6 L 09/02/22 06:30: Hgb 7.8 L 09/02/22 06:30: VBG pH 7.515 H, Ionized Calcium 1.05 L 09/02/22 06:30: Phosphorus 4.2, Magnesium 2.0 09/02/22 01:55: VBG pH 7.495 H, Ionized Calcium 1.07 L 09/01/22 19:40: VBG pH 7.504 H, Ionized Calcium 1.05 L 09/01/22 19:40: Magnesium 2.0 09/01/22 19:40: Hgb 7.0 L* 09/01/22 04:21: Hgb 7.4 L 09/01/22 04:21: VBG pH 7.459 H, Ionized Calcium 1.07 L 09/01/22 04:21: Phosphorus 3.1, Magnesium 1.8 08/31/22 22:11: VBG pH 7.463 H, Ionized Calcium 1.05 L 08/31/22 16:52: VBG pH 7.440 H, Ionized Calcium 1.05 L 08/31/22 16:52: Potassium 4.3 08/31/22 16:45: Hgb 8.4 L 08/31/22 12:45: VBG pH 7.411 H, Ionized Calcium 1.06 L 08/31/22 12:45: Potassium 3.7 08/31/22 04:17: VBG pH 7.535 H, Ionized Calcium 0.98 L 08/31/22 04:17: TSH 3.45 08/31/22 04:17: Sodium 136, Potassium 3.3 L, Chloride 98 L, Carbon Dioxide 28, Anion Gap 10.0, BUN 24 H, Creatinine 0.8, Estimated GFR (MDRD) 68 L, Glucose 133 H, Calcium 7.9 L, Phosphorus 3.9, Magnesium 1.9 08/31/22 04:17: WBC 5.2, RBC 2.19 L, Hgb 6.3 L*, Hct 20.7 L, MCV 94.5, MCH 28.8, MCHC 30.4 L, RDW 16.8 H, Plt Count 131, MPV 11.2 H, Neut # (Auto) 3.3, Lymph # (Auto) 1.2 L, Yancey # (Auto) 0.7, Eos # (Auto) 0.0, Baso # (Auto) 0.0, Absolute Nucleated RBC 0.00, Nucleated RBC % 0.0 08/30/22 18:55: Troponin I High Sens 14.2 08/30/22 16:55: Lactic Acid 1.4 08/30/22 16:48: Blood Type O NEGATIVE, Antibody Screen NEGATIVE, Crossmatch IS Only See Detail 08/30/22 16:48: B-Natriuretic Peptide 200 H 08/30/22 15:43: B-Natriuretic Peptide 200 H 08/30/22 15:43: Troponin I High Sens 11.5 08/30/22 15:43: Sodium 138, Potassium 3.5, Chloride 99 L, Carbon Dioxide 28, Anion Gap 11.0, BUN 26 H, Creatinine 0.9, Estimated GFR (MDRD) 59 L, Glucose 155 H, Calcium 8.4 L, Total Bilirubin 0.3, AST 24, ALT 17, Alkaline Phosphatase 66, Total Protein 5.6 L, Albumin 3.0 L, Globulin 2.6, Albumin/Globulin Ratio 1.2, Lipase 28 08/30/22 15:43: WBC 5.3, RBC 1.66 L, Hgb 4.8 L*, Hct 16.9 L*, MCV 101.8 H, MCH 28.9, MCHC 28.4 L, RDW 13.6, Plt Count 225, MPV 9.6, Neut # (Auto) 3.7, Lymph # (Auto) 1.0 L, Yancey # (Auto) 0.6, Eos # (Auto) 0.0, Baso # (Auto) 0.0, Absolute Nucleated RBC 0.00, Nucleated RBC % 0.0, Manual Slide Review Indicated, Platelet Estimate NORMAL (130-450,000), Platelet Morphology NORMAL APPEARANCE, RBC Morph Micro Appear 2+ RENZO CELLS Lab results reviewed: Yes Fish Bones: 09/03/22 04:55 09/02/22 06:30 Home Medications and Allergies Home Medications: Ambulatory Orders Gabapentin [Neurontin] 600 mg PO QDDINNER 08/31/22 Nortriptyline HCl [Pamelor] 100 mg PO HS 08/31/22 Potassium Chloride [Micro-K] 30 meq PO HS 08/31/22 Lidocaine HCl/Benzyl Alcohol [Salonpas Lidocain Pls 4-10% Cr] 1 applic TOP TID PRN 09/02/22 Active Medications Acetaminophen (Acetaminophen 325 Mg Tablet) 650 mg PO Q4HR PRN PRN Reason: Pain 1 to 4, or Fever Last Admin: 09/02/22 14:38 Dose: 650 mg Diltiazem HCl (Diltiazem Cd 120 Mg Capsule) 360 mg PO DAILY [facility] Last Admin: 09/03/22 08:36 Dose: 360 mg Furosemide (Furosemide 20 Mg/2 Ml Vial) 20 mg IVP ONCE PRN PRN Reason: Between units Stop: 09/03/22 22:11 Last Admin: 09/03/22 03:25 Dose: 20 mg Levothyroxine Sodium (Levothyroxine 100 Mcg Tablet) 100 mcg PO QDAC [facility] Last Admin: 09/03/22 04:59 Dose: 100 mcg Nortriptyline HCl (Nortriptyline 25 Mg Capsule) 100 mg PO QPM [facility] Last Admin: 09/02/22 20:39 Dose: 100 mg Ondansetron HCl (Ondansetron 4 Mg/2 Ml Vial) 4 mg IVP Q6HR PRN PRN Reason: Nausea / Vomiting Pantoprazole Sodium (Pantoprazole 40 Mg Vial) 40 mg IVP BID [facility] Last Admin: 09/03/22 08:36 Dose: 40 mg Patient Own Med ( Salonpas- Lidocaine 4% Plus) 1 each TOP TID PRN PRN Reason: PAIN Sertraline HCl (Sertraline 50 Mg Tablet) 100 mg PO DAILY [facility] Last Admin: 09/03/22 08:37 Dose: 100 mg Sodium Chloride (Sodium Chloride Flush 0.9% 10 Ml Syringe) 10 ml IVP 0100,0900,1700 [facility] Last Admin: 09/03/22 08:37 Dose: 10 ml Sodium Chloride (Sodium Chloride Flush 0.9% 10 Ml Syringe) 10 ml IVP PRN PRN PRN Reason: NEEDED PER PROVIDER ORDERS Last Admin: 09/02/22 01:24 Dose: 10 ml Sodium Chloride (Sodium Chloride Flush 0.9% 10 Ml Syringe) 20 ml IVP PRN PRN PRN Reason: After Blood Draw Last Admin: 09/03/22 08:38 Dose: 20 ml Gabapentin 600 mg PO QPM 12/13/17 Hydrocodone/Acetaminophen [Hydrocodone-Acetamin 7.5-325] 1 tab PO BID 12/13/17 Pramipexole [Mirapex] 0.5 mg PO HS 12/13/17 dilTIAZem HCl [Diltiazem 24Hr ER] 360 mg PO QPM 12/13/17 Calcium Carbonate [Calcium] 600 mg PO DAILY 03/03/21 Cholecalciferol [Vitamin D3] 25 mcg PO DAILY 03/03/21 Hydroxychloroquine [Plaquenil] 200 mg PO BID 03/03/21 Levothyroxine Sodium [Synthroid] 175 mcg PO QDAC 03/03/21 polyethylene glycoL 3350 [Polyethylene Glycol 3350] 17 gm PO DAILY PRN 03/03/21 Apixaban [Eliquis] 5 mg PO BID 12/18/21 Diclofenac Sodium [Voltaren Arthritis Pain] 2 gm TP QID PRN 12/18/21 Gabapentin [Neurontin] 1,200 mg PO DAILY 12/18/21 Gabapentin [Neurontin] 600 mg PO QDDINNER 08/31/22 Nortriptyline HCl [Pamelor] 100 mg PO HS 08/31/22 Potassium Chloride [Micro-K] 30 meq PO HS 08/31/22 Lidocaine HCl/Benzyl Alcohol [Salonpas Lidocain Pls 4-10% Cr] 1 applic TOP TID PRN 09/02/22 Allergies/Adverse Reactions: Allergies Allergy/AdvReac Type Severity Reaction Status Date / Time ampicillin AdvReac Cramps Verified 08/30/22 15:12 epinephrine AdvReac Anxiety Verified 08/30/22 15:12 lorazepam AdvReac Hallucinati Verified 09/01/22 10:46 ons oxycodone AdvReac Hallucinati Verified 08/30/22 15:12 ons Anes History & Medical History - Anesthetic History Anesthesia Complications: reports: Slow wake-up, Emergence delirium Family history of Anesthesia Complications: Denies Family history of Malignant Hyperthermia: Denies - Medical History Cardiovascular: reports: Congestive heart failure, Atrial fibrillation, Murmur Pulmonary: reports: Shortness of breath Gastrointestinal: reports: GI bleed Urinary: reports: Incontinence Neuro: reports: Peripheral neuropathy Musculoskeletal: reports: Rheumatoid arthritis, Chronic back pain, Other Endocrine/Autoimmune: reports: HyPOthyroidism Blood Disorders: reports: Anemia Skin: reports: Other Smoking Status: Never smoker - Surgical History General: reports: Cholecystectomy, Appendectomy Gynecologic: reports: 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 Orthopedic: reports: Knee replacement Exam General: Alert, Cooperative, Mild distress Dental: WNL Mouth Openin Fingerbreadth Neck Mobility: Normal Mallampati classification: II Thyromental Distance: 4-6 cm Respiratory: Lungs clear, Normal breath sounds, No respiratory distress Cardiovascular: Other (AF, chronic) Neurological: Normal speech Mental/Cognitive Status: Alert/Oriented X3, Normal for patient Cognitive Status: Within normal limits Plan Anesthesia Type: Total IV Consent for Procedure(s) Verified and Reviewed: Yes Code Status: Attempt Resuscitation ASA classification: 3-Severe systemic disease Is this case an emergency?: Yes
[2022-09-03] MEDS ORDERED: PROPOFOL 200 MG/20 ML VIAL IVP ONE (14:54)
--- NOTE | 2022-09-03 15:51 | OPERATIVE REPORT ---
Operative Report - General Admit Date: 08/30/22 Procedure Date: 09/03/22 Planned Procedure: colonoscopy Pre-Op Diagnosis: lower gi bleed Procedure Performed: colonoscopy Post Op Diagnosis: old blood/ clot throughout the colon. diverticulosis. no active bleeding - Procedure Note Primary Surgeon: rory rivera Anesthesia Technique: Other (iv general) Pathology: none Estimated Blood Loss (mL): 0 Indications: recurrent lower gi bleed Findings: old blood / clot throughout the colon most clot in the cecum and at the hepatic flexure diverticulosis sigmoid and descending colon no active bleeding no source of the bleeding identified. 2 liters irrigation used and 72 minutes spent thoroughly inspecting the colon no blood in the ileum Complications: none
--- NOTE | 2022-09-03 16:39 | ANESTHESIA POST OP EVALUATION ---
Anesthesia Post Eval - Post Anesthesia Eval Vitals: Last Vital Signs Temp 36.6 C 09/03/22 15:47 Pulse 92 09/03/22 15:47 Resp 18 09/03/22 15:47 BP 111/51 L 09/03/22 15:47 Pulse Ox 93 09/03/22 15:47 O2 Flow Rate 1 09/01/22 14:24 CV Function Including HR & BP: Stable Pain Control: Satisfactory Nausea & Vomiting: Negative Mental Status: Baseline Respiratory Status: Airway Patent Hydration Status: Satisfactory Anesthesia Complications: None
[2022-09-03 17:36] LABS: HGB - HEMOGLOBIN 8.4 g/dL (12.0-16.0)
[2022-09-03] MEDS ORDERED: FUROSEMIDE 20 MG/2 ML VIAL IVP PRN (19:08)
--- NOTE | 2022-09-03 19:50 | PROVIDER PROGRESS NOTE ---
Assessment/Plan - Problem List (1) Lower GI bleed requiring more than 4 units of blood in 24 hours, ICU, or surgery Assessment/Plan: Hgb was 4.8>> 6.2 after 2 U transfused>> 8.4 after 2 more U (these 4 U were given in 24 hours, and in ICU). Then Hgb down to 7.4>> 7.0 and she got 2/3 of a U after that (lost IV and needed a R IJ line placed). She had about 4 red-maroon stools current-jelly BM daily for the last 2 days. Today she has ciara blood on bedsheets We started her on empiric Protonix twice daily, but suspect a lower GI source. We stopped Eliquis at time of admission We obtained CTA of the abdomen yessterday (arterial and venous phase) >> no source of bleeding could be identified. 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 I spoke to Dr Gustafson at [facility] in [place] today, he said the pill cam video wont open (technical trouble and they are calling the company), that is why there is no results. She underwent her colonoscopy earlier than originally scheduled this afternoon. Dr. Wills said that he saw blood clots throughout her colon, it took him 72 minutes to lavage the colon and he looked carefully for source and thinks it mus t be coming from the distal small bowel. I then again spoke to Dr. Simon Gustafson and he recommends that she be transferred to [facility]. He also asked if the pill was seen stuck in the distal small bowel on CTA abdomen, because the pill cam does not show it leaving through the colon. I then contacted [facility] transfer center and have been in contact with the Hospitalist who accepts this patient in transfer (Dr. Andrade Friend) and he asked for phone calls to update them about her and her hemodynamics. I called back [facility] but the transfer center says that she is in line and there may be 8 people ahead of her and it could take 5 days for her to be transferred CRITCAL CARE TIME SPENT: 100 min (Evaluating patient, reevaluating patient, reviewing labs, ordering blood transfusion, calling GI specialist and speaking to him twice, calling transfer center and speaking to accepting Hospitalist) Plan: Because of active bleeding we will give another unit of blood today, and have another ready Continue to follow H/H q6-12 h Because of occasionally soft blood pressures of 90 systolic, will remain at bedrest She is in critical condition, would like to move her to the ICU as this is ciara hemorrhage, but we have no open bed in ICU currently Her daughter is outside her room today and I explained all the above to her (2) Symptomatic anemia Conclusion/Plan: She is still occaisionally mildly tachycardic at rest (HR 100) and has a soft BP of 90-120 syst today, This severely low hemoglobin has also given her CHF sx and an exacerbations in the past and now Etiology of anemia is her GI bleed. Plan: Target hemoglobin will be 7.8 Follow H/H q8-12h (3) Thrombocytopenia This is likely hemodilution all plus from hemorrhage Plan: We will transfuse 1 unit of platelets Follow plt ct daily (4) Atrial fibrillation with RVR Conclusion/Plan: HR has improved. The cause of RVR is likely her significant anemia and borderline hypotension, but also her Cardizem has needed to be on hold due to low BP. TSH was normal Plan: Continue telemetry. Cont her usual Cardizem CD 360 mg daily a.m. dose, but with holding parameters. Or will split the dose to 180 BID. Would give iv Dig 250 mcg again if needed for rate control. Her Eliquis needed to be stopped given her active GI bleeding. (5) Acute on chronic heart failure with preserved ejection fraction (HFpEF) Conclusion/Plan: Her CHF presentation is most likely from her severe anemia. Her troponins ruled out an acute DC as the cause Her last Echo was done in 02/2021. Echo was done today to assure this is still diastolic heart failure, not systolic. The Echo showed normal LVEF of 55-60% and diastolic dysfunction. Plan: Give blood transfusion to a target hemoglobin of 7.8. Give meds for HR control. Use iv Lasix after blood transfusions. Continue her cardiac meds but with holding parameters due to "soft" BP. (6) Restless leg syndrome Conclusion/Plan: According to history, RLS gave her severe distress but "when she got iv Iron, her sx stopped" and she is also on a medication for it Plan: We resumed her RLS medication (7) Anxiety Conclusion/Plan: She has had anxiety in previous admissions. And she admits that she is very afraid of being diagnosed with cancer as the cause of her severe anemia. The f lauray members asked to give her something for her significant anxiety on night of admission. Ativan was used. Plan: The next day we stopped the prn Ativan due to confusion and Ativan is now listed on the Allergy List as causing an Adverse Reaction. I updated the and daughter at bedside about this yesterday (8) Acute delirium Impression: Resolved. She was confused and disoriented to person place and time, all of 09/01, then very tired 09/02, closes her eyes and falls asleep while talking, but was no longer confused She was very anxious and had insomnia at admission. She got Ativan ordered for anxiety. She is not hyperthyroidism, her TSH is normal. She was not hypoxic or hypotensive Plan: We stopped her lorazepam. I explained all this to and daughter who were in the room yesterday - Current Meds Current Meds: Current Medications Generic Name Dose Route Start Last Admin Trade Name Freq PRN Reason Stop Dose Admin Acetaminophen 650 mg 08/30/22 18:02 09/02/22 14:38 Acetaminophen 325 Mg Tablet PO 650 mg Q4HR PRN Administration Pain 1 to 4, or Fever Diltiazem HCl 360 mg 09/02/22 07:40 09/03/22 08:36 Diltiazem Cd 120 Mg Capsule PO 360 mg DAILY KARRIE Administration Furosemide 20 mg 09/02/22 22:12 09/03/22 03:25 Furosemide 20 Mg/2 Ml Vial IVP 09/03/22 22:11 20 mg ONCE PRN Administration Between units Levothyroxine Sodium 100 mcg 08/31/22 07:00 09/03/22 04:59 Levothyroxine 100 Mcg Tablet PO 100 mcg QDAC KARRIE Administration Nortriptyline HCl 100 mg 08/30/22 21:00 09/02/22 20:39 Nortriptyline 25 Mg Capsule PO 100 mg QPM KARRIE Administration Pantoprazole Sodium 40 mg 08/30/22 21:00 09/03/22 08:36 Pantoprazole 40 Mg Vial IVP 40 mg BID KARRIE Administration Sertraline HCl 100 mg 08/31/22 09:00 09/03/22 08:37 Sertraline 50 Mg Tablet PO 100 mg DAILY KARRIE Administration Sodium Chloride 10 ml 08/31/22 01:00 09/03/22 17:42 Sodium Chloride Flush 0.9% 10 Ml Syringe IVP 10 ml 0100,0900,1700 KARRIE Administration Sodium Chloride 10 ml 08/30/22 18:02 09/02/22 01:24 Sodium Chloride Flush 0.9% 10 Ml Syringe IVP 10 ml PRN PRN Administration NEEDED PER PROVIDER ORDERS Sodium Chloride 20 ml 09/01/22 21:08 09/03/22 08:38 Sodium Chloride Flush 0.9% 10 Ml Syringe IVP 20 ml PRN PRN Administration After Blood Draw - Lab Result Fish Bone Diagrams: 09/04/22 05:40 09/02/22 06:30 - Additional Planning My Orders: My Active Orders 09/02/22 19:47 Miscellaenous Nursing Order [RC] QSHIFT 09/03/22 Dinner DIET [Dysphagia - Puree] [DIET] 09/03/22 17:08 Transfuse Platelet Pheresis Pk [RC] .ONCE Transfuse RBCs Leukoreduced [RC] .ONCE 09/03/22 19:08 FUROSEMIDE INJ 20mg VIAL [LASIX INJ 20mg VIAL] 20 mg IVP ONCE PRN 09/04/22 05:00 CBC W/O DIFF (HEMOGRAM) [HEME] DAILYLAB 09/05/22 05:00 CBC W/O DIFF (HEMOGRAM) [HEME] DAILYLAB 09/06/22 05:00 CBC W/O DIFF (HEMOGRAM) [HEME] DAILYLAB Subjective - Subjective Patient Reports: Other (Feels weak, is tired, is afraid of what the colonoscopy will find) Objective Vital Signs: Vital Signs - 24 hr 09/02/22 09/02/22 09/03/22 21:00 23:00 00:02 Temperature 37.2 C 36.2 C L 36.9 C Heart Rate [ 91 90 103 H Brachial] Respiratory 20 24 16 Rate Blood Pressure 111/49 L 110/61 118/52 L [Right Brachial artery] Blood Pressure [Right Radial artery] O2 Saturation 94 93 92 09/03/22 09/03/22 09/03/22 00:07 00:09 00:17 Temperature 363 C H 37.1 C Heart Rate [ 95 99 Brachial] Respiratory 16 16 Rate Blood Pressure 116/48 L 120/46 L [Right Brachial artery] Blood Pressure [Right Radial artery] O2 Saturation 92 95 09/03/22 09/03/22 09/03/22 00:24 00:26 01:00 Temperature 36.7 C 37.1 C 36.8 C Heart Rate [ 98 92 84 Brachial] Respiratory 16 16 16 Rate Blood Pressure 124/44 L 118/53 L 109/50 L [Right Brachial artery] Blood Pressure [Right Radial artery] O2 Saturation 93 93 94 09/03/22 09/03/22 09/03/22 03:00 03:26 04:59 Temperature 36.6 C 37.0 C 36.4 C L Heart Rate [ 91 90 91 Brachial] Respiratory 16 16 16 Rate Blood Pressure 118/59 L 128/58 L 134/56 H [Right Brachial artery] Blood Pressure [Right Radial artery] O2 Saturation 95 96 95 09/03/22 09/03/22 09/03/22 06:56 08:25 08:35 Temperature 36.9 C 36.9 C Heart Rate [ 99 98 101 H Brachial] Respiratory 18 18 Rate Blood Pressure 130/55 L [Right Brachial artery] Blood Pressure 127/50 L 127/58 L [Right Radial artery] O2 Saturation 94 97 09/03/22 09/03/22 09/03/22 13:14 15:47 17:00 Temperature 36.9 C 36.6 C 36.9 C Heart Rate [ 91 92 85 Brachial] Respiratory 18 18 18 Rate Blood Pressure 97/46 L [Right Brachial artery] Blood Pressure 125/51 L 111/51 L [Right Radial artery] O2 Saturation 95 93 94 09/03/22 19:46 Temperature 36.6 C Heart Rate [ 90 Brachial] Respiratory 14 Rate Blood Pressure [Right Brachial artery] Blood Pressure 121/54 L [Right Radial artery] O2 Saturation 96 Oxygen O2 Source Room air I&O (Last 24 Hrs): Intake and Output Totals x24h 09/01/22 09/02/22 09/03/22 23:59 23:59 23:59 Intake Total 1271 2408 930 Output Total 1650 1050 Balance -379 1358 930 General: Alert, Oriented x3 HEENT: Mucous membr. moist/pink Neck: Supple Neuro: Alert, Non Focal Cardiovascular: No murmurs Respiratory: No respiratory distress Abdomen: Soft, No tenderness Rectal: Other (Last BM was BRBPR) Extremities: No edema - Results Results: Laboratory Results WBC 4.8 x10^3/uL (4.8-10.8) 09/03/22 04:55 RBC 3.04 10^6/uL (4.20-5.40) L 09/03/22 04:55 Hgb 8.4 g/dL (12.0-16.0) L 09/03/22 17:13 Hct 28.7 % (37.0-47.0) L 09/03/22 04:55 MCV 94.4 fL (81.0-99.0) 09/03/22 04:55 MCH 29.3 pg (27.0-31.0) 09/03/22 04:55 MCHC 31.0 g/dL (32.0-36.0) L 09/03/22 04:55 RDW 15.4 % (12.0-15.0) H 09/03/22 04:55 Plt Count 76 10^3/uL (130-450) L 09/03/22 17:13 MPV 11.9 fL (7.9-10.8) H 09/03/22 04:55 Neut # (Auto) 3.3 10^3/uL (1.5-6.6) 08/31/22 04:17 Lymph # (Auto) 1.2 10^3/uL (1.5-3.5) L 08/31/22 04:17 Woodward # (Auto) 0.7 10^3/uL (0.0-1.0) 08/31/22 04:17 Eos # (Auto) 0.0 10^3/uL (0.0-0.7) 08/31/22 04:17 Baso # (Auto) 0.0 10^3/uL (0.0-0.1) 08/31/22 04:17 Absolute Nucleated RBC 0.00 x10^3/uL 08/31/22 04:17 Nucleated RBC % 0.0 /100WBC 08/31/22 04:17 Manual Slide Review Indicated 08/30/22 15:43 Platelet Estimate NORMAL (130-450,000) (NORMAL) 08/30/22 15:43 Platelet Morphology NORMAL APPEARANCE (NORMAL) 08/30/22 15:43 RBC Morph Micro Appear 2+ ANISOCYTOSIS (NORMAL) 3+ HYPOCHROMASIA (NORMAL) 2+ RENZO CELLS (NORMAL) 08/30/22 15:43 RBC Morph Micro Appear 2+ ANISOCYTOSIS (NORMAL) 3+ HYPOCHROMASIA (NORMAL) 2+ RENZO CELLS (NORMAL) 08/30/22 15:43 RBC Morph Micro Appear 2+ ANISOCYTOSIS (NORMAL) 3+ HYPOCHROMASIA (NORMAL) 2+ RENZO CELLS (NORMAL) 08/30/22 15:43 VBG pH 7.515 (7.31-7.41) H 09/02/22 06:30 Ionized Calcium 1.05 mmol/L (1.15-1.33) L 09/02/22 06:30 Sodium 135 mmol/L (135-145) 09/02/22 06:30 Potassium 3.5 mmol/L (3.5-5.0) 09/02/22 06:30 Chloride 100 mmol/L (101-111) L 09/02/22 06:30 Carbon Dioxide 30 mmol/L (21-32) 09/02/22 06:30 Anion Gap 5.0 (6-13) L 09/02/22 06:30 BUN 18 mg/dL (6-20) 09/02/22 06:30 Creatinine 0.9 mg/dL (0.4-1.0) 09/02/22 06:30 Estimated GFR (MDRD) 59 (>89) L 09/02/22 06:30 Glucose 110 mg/dL (70-100) H 09/02/22 06:30 Lactic Acid 1.4 mmol/L (0.5-2.2) 08/30/22 16:55 Calcium 7.6 mg/dL (8.5-10.3) L 09/02/22 06:30 Phosphorus 4.2 mg/dL (2.5-4.6) 09/02/22 06:30 Magnesium 2.0 mg/dL (1.7-2.8) 09/02/22 06:30 Total Bilirubin 0.3 mg/dL (0.2-1.0) 08/30/22 15:43 AST 24 IU/L (10-42) 08/30/22 15:43 ALT 17 IU/L (10-60) 08/30/22 15:43 Alkaline Phosphatase 66 IU/L (42-121) 08/30/22 15:43 Troponin I High Sens 14.2 ng/L (2.3-14.8) 08/30/22 18:55 B-Natriuretic Peptide 200 pg/mL (5-100) H 08/30/22 16:48 Total Protein 5.6 g/dL (6.7-8.2) L 08/30/22 15:43 Albumin 3.0 g/dL (3.2-5.5) L 08/30/22 15:43 Globulin 2.6 g/dL (2.1-4.2) 08/30/22 15:43 Albumin/Globulin Ratio 1.2 (1.0-2.2) 08/30/22 15:43 Lipase 28 U/L (22-51) 08/30/22 15:43 TSH 3.45 uIU/mL (0.34-5.60) 08/31/22 04:17 Nasal Screen MRSA (PCR) NEGATIVE (NEGATIVE) 08/30/22 18:50 SARS-CoV-2 (PCR) NOT DETECTED 08/30/22 18:23 Blood Type O NEGATIVE 09/02/22 22:32 Antibody Screen NEGATIVE 09/02/22 22:32 Crossmatch IS Only See Detail 09/02/22 22:32 - Procedures Procedures: Procedures EXCISION OF LOWER ESOPHAGUS, ENDO, DIAGN (03/02/21) EXCISION OF STOMACH, PYLORUS, ENDO, DIAGN (03/02/21) RESECTION OF GALLBLADDER, PERCUTANEOUS ENDOSCOPIC APPROACH (08/25/19) TRANSFUSE NONAUT RED BLOOD CELLS IN PERIPH VEIN, PERC (03/02/21)
[2022-09-03] MEDS: NORTRIPTYLINE 25 MG CAPSULE PO SCH (21:17)
[2022-09-04] MEDS: SODIUM CHLORIDE FLUSH 0.9% 10 ML SYRINGE IVP SCH ×4 (01:18→20:49)
[2022-09-04] MEDS: LEVOTHYROXINE 100 MCG TABLET PO SCH (05:31)
[2022-09-04 05:45] LABS: HCT - HEMATOCRIT 28.2 % (37.0-47.0); MEAN CORPUSCULAR HEMOGLOBIN 29.3 pg (27.0-31.0); MEAN CORPUSCULAR HGB CONC 31.9 g/dL (32.0-36.0); MEAN CORPUSCULAR VOLUME 91.9 fL (81.0-99.0); MEAN PLATELET VOLUME 11.5 fL (7.9-10.8); RED BLOOD COUNT 3.07 10^6/uL (4.20-5.40); WHITE BLOOD COUNT 4.3 x10^3/uL (4.8-10.8)
[2022-09-04] MEDS: diltiaZEM CD 120 MG CAPSULE PO SCH (08:39)
[2022-09-04] MEDS: PANTOPRAZOLE 40 MG VIAL IVP SCH ×2 (08:39→20:49)
[2022-09-04] MEDS: SODIUM CHLORIDE FLUSH 0.9% 10 ML SYRINGE IVP PRN ×2 (08:40→10:41)
[2022-09-04] MEDS: SERTRALINE 50 MG TABLET PO SCH (08:40)
[2022-09-04] MEDS ORDERED: HYDROcod/ACETAM 7.5 MG/325 MG TABLET PO PRN (11:00)
[2022-09-04] MEDS: ACETAMINOPHEN 325 MG TABLET PO PRN ×2 (12:45→20:49)
--- NOTE | 2022-09-04 17:47 | PROVIDER PROGRESS NOTE ---
Assessment/Plan - Problem List (1) Lower GI bleed requiring more than 4 units of blood in 24 hours, ICU, or surgery Assessment/Plan: Hgb was 4.8>> 6.2 after 2 U transfused>> 8.4 after 2 more U (these 4 U were given in 24 hours, and in ICU). Then Hgb down to 7.4>> 7.0 and she got 2/3 of a U after that (lost IV and needed a R IJ line placed). Yesterday, when she had many red BMs and before taken to OR for colonoscopy, I ordered another U of PRBCs due to active bleeding. We started her on empiric Protonix twice daily, but suspect a lower GI source. We stopped Eliquis at time of admission We obtained CTA of the abdomen yesterday (arterial and venous phase) >> no source of bleeding could be identified. 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 I spoke to Dr Gustafson at [facility] in [place] today, he said the pill cam video wont open (technical trouble and they are calling the company), that is why there is no results. She underwent her colonoscopy yesterday 09/03. Dr. Wills said that he saw blood clots throughout her colon, it took him 72 minutes to lavage the colon and he looked carefully for source and thinks the bleeding is coming from the distal small bowel. I then again spoke to Dr. Simon Gustafson and he recommends that she be transferred to [facility]. He also asked if the pill was seen stuck in the distal small bowel on CTA abdomen, because the pill cam does not show it leaving through the colon. I then contacted [facility] transfer center and have been in contact with the Hospitalist who accepts this patient in transfer (Dr. Andrade Friend) and he asked for phone calls to update them about her and her hemodynamics. I called back [facility] but the transfer center says that she is in line and there may be 8 people ahead of her and it could take 5 days for her to be transferred Today I have called [facility] and they have no beds and 40 people ahead of her. I also called and they took her information and have her on hold. I then spoke to the patient about her current status and the plan. Patient agrees to go to a higher level of care hospital. I then called Delmy her daughter and gave her this entire update Plan: Because of active bleeding, continue to follow H/H q6-12 h Because of occasionally soft blood pressures of 90 systolic, will remain at bedrest She is in critical condition, would like to move her to the ICU as this is ciara hemorrhage, but we have no open bed in ICU currently (2) Symptomatic anemia Conclusion/Plan: She is still occaisionally mildly tachycardic at rest (HR 100) and has a soft BP of 90-120 syst today, This severely low hemoglobin has also given her CHF sx and an exacerbations in the past and now Etiology of anemia is her GI bleed. Plan: Target hemoglobin will be 7.8 Follow H/H q8-12h (3) Thrombocytopenia This is likely hemodilution plus from hemorrhage Plan: We transfused 1 unit of platelets when plt ct was 44, today plt ct is 103. Follow plt ct daily (4) Atrial fibrillation with RVR Conclusion/Plan: HR has improved. The cause of RVR is likely her significant anemia and borderline hypotension, but also her Cardizem has needed to be on hold due to low BP. TSH was normal Plan: Continue telemetry. Cont her usual Cardizem CD 360 mg daily a.m. dose, but with holding parameters. Or will split the dose to 180 BID. Would give iv Dig 250 mcg again if needed for rate control. Her Eliquis has been stopped given her active GI bleeding. I explained to Daughter and today that we are weighing the risks and benefits daily, as to which medicines to use (5) Acute on chronic heart failure with preserved ejection fraction (HFpEF) Conclusion/Plan: Her CHF presentation is most likely from her severe anemia. Her troponins ruled out an acute NV as the cause Her last Echo was done in 02/2021. Echo was done today to assure this is still diastolic heart failure, not systolic. The Echo showed normal LVEF of 55-60% and diastolic dysfunction. Plan: Give blood transfusion to a target hemoglobin of 7.8. Give meds for HR control. Use iv Lasix after blood transfusions. Continue her cardiac meds but with holding parameters due to "soft" BP. (6) Restless leg syndrome Conclusion/Plan: According to history, RLS gave her severe distress but "when she got iv Iron, her sx stopped" and she is also on a medication for it Plan: We resumed her RLS medication (7) Anxiety Conclusion/Plan: She has had anxiety in previous admissions. And she admits that she is very afraid of being diagnosed with cancer as the cause of her severe anemia. The family members asked to give her something for her significant anxiety on night of admission. Ativan was used. Plan: The next day we stopped the prn Ativan due to confusion and Ativan is now listed on the Allergy List as causing an Adverse Reaction. I updated the and daughter at bedside about this yesterday (8) Chronic pain Conclusion/Plan: The told me today and daughter reminded me last night, that the patient takes oxycodone scheduled and she even has a contract with her provider and if she is only allowed 28 tablets/month. Plan: Will order her oxycodone here, to avoid narcotic withdrawal, but will try to keep the dosing lower since the narcotic could drop her blood pressure. The asked and I agreed that her oxycodone provider should start tapering her very slowly as an outpatient to get her off this narcotic (9) Acute delirium Impression: Resolved. She was confused and disoriented to person place and time, all of 09/01, then very tired 09/02, closes her eyes and falls asleep while talking, but was no longer confused She was very anxious and had insomnia at admission. She got Ativan ordered for anxiety. She is not hyperthyroidism, her TSH is normal. She was not hypoxic or hypotensive Plan: We stopped her lorazepam. I explained all this to and daughter who were in the room yesterday - Current Meds Current Meds: Current Medications Generic Name Dose Route Start Last Admin Trade Name Elmo PRN Reason Stop Dose Admin Acetaminophen 650 mg 08/30/22 18:02 09/04/22 12:45 Acetaminophen 325 Mg Tablet PO 650 mg Q4HR PRN Administration Pain 1 to 4, or Fever Furosemide 20 mg 09/03/22 19:08 09/04/22 01:18 Furosemide 20 Mg/2 Ml Vial IVP 09/04/22 19:07 20 mg ONCE PRN Administration Between units Levothyroxine Sodium 100 mcg 08/31/22 07:00 09/04/22 05:31 Levothyroxine 100 Mcg Tablet PO 100 mcg QDAC KARRIE Administration Nortriptyline HCl 100 mg 08/30/22 21:00 09/03/22 21:17 Nortriptyline 25 Mg Capsule PO 100 mg QPM KARRIE Administration Pantoprazole Sodium 40 mg 08/30/22 21:00 09/04/22 08:39 Pantoprazole 40 Mg Vial IVP 40 mg BID KARRIE Administration Sertraline HCl 100 mg 08/31/22 09:00 09/04/22 08:40 Sertraline 50 Mg Tablet PO 100 mg DAILY KARRIE Administration Sodium Chloride 10 ml 08/31/22 01:00 09/04/22 08:40 Sodium Chloride Flush 0.9% 10 Ml Syringe IVP 10 ml 0100,0900,1700 KARRIE Administration Sodium Chloride 10 ml 08/30/22 18:02 09/04/22 10:41 Sodium Chloride Flush 0.9% 10 Ml Syringe IVP 30 ml PRN PRN Administration NEEDED PER PROVIDER ORDERS Sodium Chloride 20 ml 09/01/22 21:08 09/03/22 08:38 Sodium Chloride Flush 0.9% 10 Ml Syringe IVP 20 ml PRN PRN Administration After Blood Draw - Lab Result Fish Bone Diagrams: 09/04/22 05:40 09/02/22 06:30 - Additional Planning My Orders: My Active Orders 09/03/22 19:08 FUROSEMIDE INJ 20mg VIAL [LASIX INJ 20mg VIAL] 20 mg IVP ONCE PRN 09/04/22 11:00 HYDROcodone/ACET 7.5/325 [[place] 7.5/325] 1 tab PO BID PRN 09/04/22 17:00 HGB - HEMOGLOBIN [HEME] Timed 09/05/22 05:00 BMP - BASIC METABOLIC PANEL [CHEM] DAILYLAB CBC - COMP BLD CT W/AUTO DIFF [HEME] DAILYLAB CBC W/O DIFF (HEMOGRAM) [HEME] DAILYLAB 09/05/22 09:00 diltiaZEM CD [Cardizem Cd] 360 mg PO DAILY 09/06/22 05:00 CBC W/O DIFF (HEMOGRAM) [HEME] DAILYLAB Subjective - Subjective Patient Reports: Other (No change, she was so she was home. She had another bloody bowel movement at midday) Objective Vital Signs: Vital Signs - 24 hr 09/03/22 09/03/22 09/03/22 19:46 20:02 22:39 Temperature 36.6 C 36.5 C 36.5 C Heart Rate [ 90 91 88 Brachial] Respiratory 14 16 16 Rate Blood Pressure [Right Brachial artery] Blood Pressure 121/54 L 109/54 L 122/47 L [Right Radial artery] O2 Saturation 96 97 94 09/03/22 09/04/22 09/04/22 23:56 02:21 02:41 Temperature 36.8 C 36.9 C 37 C Heart Rate [ 89 93 87 Brachial] Respiratory 18 20 18 Rate Blood Pressure 120/47 L 128/50 L 137/60 H [Right Brachial artery] Blood Pressure [Right Radial artery] O2 Saturation 94 94 94 09/04/22 09/04/22 09/04/22 02:54 03:03 07:23 Temperature 37.0 C 36.8 C 36.9 C Heart Rate [ 93 88 90 Brachial] Respiratory 18 18 22 Rate Blood Pressure 137/60 H 126/53 L 120/72 [Right Brachial artery] Blood Pressure [Right Radial artery] O2 Saturation 95 93 94 09/04/22 13:06 Temperature 36.4 C L Heart Rate [ 92 Brachial] Respiratory 20 Rate Blood Pressure 104/48 L [Right Brachial artery] Blood Pressure [Right Radial artery] O2 Saturation 96 Oxygen O2 Source Room air I&O (Last 24 Hrs): Intake and Output Totals x24h 09/02/22 09/03/22 09/04/22 23:59 23:59 23:59 Intake Total 2408 1230 765 Output Total 1355 113 4471 Balance 1358 825 -885 General: Alert, Oriented x3 HEENT: Mucous membr. moist/pink Neck: Supple, No JVD Neuro: Alert, Non Focal Cardiovascular: No murmurs Respiratory: No respiratory distress Abdomen: Soft, No tenderness Extremities: No clubbing, No edema - Results Results: Laboratory Results WBC 4.3 x10^3/uL (4.8-10.8) L 09/04/22 05:40 RBC 3.07 10^6/uL (4.20-5.40) L 09/04/22 05:40 Hgb 9.0 g/dL (12.0-16.0) L 09/04/22 05:40 Hct 28.2 % (37.0-47.0) L 09/04/22 05:40 MCV 91.9 fL (81.0-99.0) 09/04/22 05:40 MCH 29.3 pg (27.0-31.0) 09/04/22 05:40 MCHC 31.9 g/dL (32.0-36.0) L 09/04/22 05:40 RDW 15.0 % (12.0-15.0) 09/04/22 05:40 Plt Count 103 10^3/uL (130-450) L 09/04/22 05:40 MPV 11.5 fL (7.9-10.8) H 09/04/22 05:40 Neut # (Auto) 3.3 10^3/uL (1.5-6.6) 08/31/22 04:17 Lymph # (Auto) 1.2 10^3/uL (1.5-3.5) L 08/31/22 04:17 [place] # (Auto) 0.7 10^3/uL (0.0-1.0) 08/31/22 04:17 Eos # (Auto) 0.0 10^3/uL (0.0-0.7) 08/31/22 04:17 Baso # (Auto) 0.0 10^3/uL (0.0-0.1) 08/31/22 04:17 Absolute Nucleated RBC 0.00 x10^3/uL 08/31/22 04:17 Nucleated RBC % 0.0 /100WBC 08/31/22 04:17 Manual Slide Review Indicated 08/30/22 15:43 Platelet Estimate NORMAL (130-450,000) (NORMAL) 08/30/22 15:43 Platelet Morphology NORMAL APPEARANCE (NORMAL) 08/30/22 15:43 RBC Morph Micro Appear 2+ ANISOCYTOSIS (NORMAL) 3+ HYPOCHROMASIA (NORMAL) 2+ RENZO CELLS (NORMAL) 08/30/22 15:43 RBC Morph Micro Appear 2+ ANISOCYTOSIS (NORMAL) 3+ HYPOCHROMASIA (NORMAL) 2+ RENZO CELLS (NORMAL) 08/30/22 15:43 RBC Morph Micro Appear 2+ ANISOCYTOSIS (NORMAL) 3+ HYPOCHROMASIA (NORMAL) 2+ RENZO CELLS (NORMAL) 08/30/22 15:43 VBG pH 7.515 (7.31-7.41) H 09/02/22 06:30 Ionized Calcium 1.05 mmol/L (1.15-1.33) L 09/02/22 06:30 Sodium 135 mmol/L (135-145) 09/02/22 06:30 Potassium 3.5 mmol/L (3.5-5.0) 09/02/22 06:30 Chloride 100 mmol/L (101-111) L 09/02/22 06:30 Carbon Dioxide 30 mmol/L (21-32) 09/02/22 06:30 Anion Gap 5.0 (6-13) L 09/02/22 06:30 BUN 18 mg/dL (6-20) 09/02/22 06:30 Creatinine 0.9 mg/dL (0.4-1.0) 09/02/22 06:30 Estimated GFR (MDRD) 59 (>89) L 09/02/22 06:30 Glucose 110 mg/dL (70-100) H 09/02/22 06:30 Lactic Acid 1.4 mmol/L (0.5-2.2) 08/30/22 16:55 Calcium 7.6 mg/dL (8.5-10.3) L 09/02/22 06:30 Phosphorus 4.2 mg/dL (2.5-4.6) 09/02/22 06:30 Magnesium 2.0 mg/dL (1.7-2.8) 09/02/22 06:30 Total Bilirubin 0.3 mg/dL (0.2-1.0) 08/30/22 15:43 AST 24 IU/L (10-42) 08/30/22 15:43 ALT 17 IU/L (10-60) 08/30/22 15:43 Alkaline Phosphatase 66 IU/L (42-121) 08/30/22 15:43 Troponin I High Sens 14.2 ng/L (2.3-14.8) 08/30/22 18:55 B-Natriuretic Peptide 200 pg/mL (5-100) H 08/30/22 16:48 Total Protein 5.6 g/dL (6.7-8.2) L 08/30/22 15:43 Albumin 3.0 g/dL (3.2-5.5) L 08/30/22 15:43 Globulin 2.6 g/dL (2.1-4.2) 08/30/22 15:43 Albumin/Globulin Ratio 1.2 (1.0-2.2) 08/30/22 15:43 Lipase 28 U/L (22-51) 08/30/22 15:43 TSH 3.45 uIU/mL (0.34-5.60) 08/31/22 04:17 Nasal Screen MRSA (PCR) NEGATIVE (NEGATIVE) 08/30/22 18:50 SARS-CoV-2 (PCR) NOT DETECTED 08/30/22 18:23 Blood Type O NEGATIVE 09/02/22 22:32 Antibody Screen NEGATIVE 09/02/22 22:32 Crossmatch IS Only See Detail 09/02/22 22:32 - Procedures Procedures: Procedures EXCISION OF LOWER ESOPHAGUS, ENDO, DIAGN (03/02/21) EXCISION OF STOMACH, PYLORUS, ENDO, DIAGN (03/02/21) RESECTION OF GALLBLADDER, PERCUTANEOUS ENDOSCOPIC APPROACH (08/25/19) TRANSFUSE NONAUT RED BLOOD CELLS IN PERIPH VEIN, PERC (03/02/21)
[2022-09-04] MEDS: NORTRIPTYLINE 25 MG CAPSULE PO SCH (20:49)
[2022-09-05 01:02] VITALS: BP 107/57
[2022-09-05] MEDS: SODIUM CHLORIDE FLUSH 0.9% 10 ML SYRINGE IVP PRN (01:47)
--- NOTE | 2022-09-05 07:27 | DISCHARGE SUMMARY ---
Discharge Summary Admit Date: 08/30/22 Discharge Date: 09/05/22 Discharging Provider: Dr Vaishnavi Ledbetter Primary Care Provider: Unknown, not listed Condition at Discharge: Fair Discharge Disposition: 02 Transfer Acute Care Hosp - [facility] History of Present Illness: This is an 86-year-old female who has a history of atrial fibrillation anticoagulated on Eliquis and had several cardioversions in the past, Hx of diastolic heart failure and pulmonary HTN, PA pressure 60 mmHg, Hx of anxiety and prior GI blood loss anemia; she was admitted to this hospital in February 2021 for a GI bleed, Hgb was 5 and she needed 3U blood transfused and had EGD that showed no bleeding but a white-coated esophagus and colonoscopy that showed a non-bleeding AVM and diverticulosis. Her Eliquis was stopped for unknown period of time and she was on empric Protonix. She has started to see Dr Simon Gustafson and underwent a pill cam study 2 weeks ago, and the results are not known yet. She presented to the emergency department today for evaluation of progressive weakness, dyspnea. and bilateral lower extremity leg swelling. She has had no syncope. She denies chest pain. Denies nausea or vomiting. She is on iron supplement and reports that her stools are typically black. The patient appeared anxious and upset, and says it is over worrying about having cancer. She was in atrial fibrillation with RVR, at rate of 120. She was normotensive. Her labs showed a Hgb of 4.8. Type and Crossmatch were ordered and the ED provider spoke to the Hospitalist Team about treating her as an Inpatient and she will be admitted to the ICU on the Hospitalist service. - CONSULTS | PROCEDURES Consultations: Dr Mikhail Wills Procedures: Colonoscopy - HOSPITAL COURSE Hospital Course: (1) Lower GI bleed requiring more than 4 units of blood in 24 hours, ICU, or surgery We stopped Eliquis at time of admission. We started her on empiric Protonix twice daily. Hgb was 4.8>> 6.2 after 2 U transfused>> 8.4 after 2 more U (these 4 U were given in 24 hours, and in ICU). Then Hgb again dropped to 7.4>> 7.0 and she got 2/3 of a U (because during transfusion she lost IV and needed a R IJ l ine placed). We obtained CTA of the abdomen (arterial and venous phase) >> no source of bleeding could be identified. On 09/03, she had many red BMs just before her colonoscopy, and got another U of PRBCs, and more were crossmatched and made available. I spoke to Dr Simon Gustafson, her Licensed Surveyor at [facility] in [place] and he said the pill cam video wouldn't open due to technical trouble and they were calling the company. She underwent her colonoscopy on 09/03. Dr. Wills reported that he saw blood clots throughout her colon, it took him 72 minutes to lavage the colon and he looked carefully for source and felt that the bleeding was coming from the distal small bowel. I again contacted Dr. Simon Gustafson requesting that she be transferred to [facility], and he agreed, and asked that we contact [facility] transfer center. A Hospitalist accepted the patient but the transfer center said that she is in line and it could take 5 days for her to be transferred. Therefore we tried transfer to [facility] and they had no beds, then called and they put her on hold. Eventually, she was transferred to [facility] at 0210 on 09/05/22. (2) Symptomatic anemia She was mildly tachycardic and lowest BP was , then had soft BPs of 90 occaisionally. Also, this severely low hemoglobin gave her an exacerbation of CHF sx. We tried to keep hemoglobin at 7.8 or higher and followed H/H q8-12h. (3) Thrombocytopenia At mid hospitalization, her plt ct was 44. This was likely hemodilution (from PRBC transfusions) plus from hemorrhage. She received 1 unit of platelets and plt ct improved to 103. Follow plt ct daily (4) Atrial fibrillation with RVR TSH was normal. The cause of RVR is likely her significant anemia and borderline hypotension, but also her Cardizem needed to be on hold intermittently due to low BP. We ordered Dig iv x1. We restarted Cardizem and adjusted the dose to BID. Her Eliquis was stopped due to her active GI bleeding. I explained to daughter and that we are weighing the risks and benefits daily, as to which medicines to use. (5) Acute on chronic heart failure with preserved ejection fraction (HFpEF) Her CHF presentation was felt to be from her severe anemia, since her troponins ruled out an acute ME as the cause. An Echo was done and showed normal LVEF of 55-60% and diastolic dysfunction. She received meds for HR control and we used iv Lasix after blood transfusions. We continued her cardiac meds, that had holding parameters due to her "soft" BP. (6) Restless leg syndrome According to history, RLS gave her severe distress but she thinks that "when she got iv Iron, her RLS symptoms stopped". She is on a medication for RLS. (7) Anxiety She has had and repeatedly says that she is very afraid of being diagnosed with cancer as the cause of her severe anemia. The family members asked to give her something for her significant anxiety. Ativan was used. The next day we stopped the prn Ativan due to confusion and somnolence for an entire day. (8) Chronic pain The and daughter reported that the patient takes oxycodone scheduled and she even has a contract with her provider and is only allowed 28 tablets/month. We ordered her oxycodone here, to avoid narcotic withdrawal, but tried to keep the dosing lower since the narcotic could drop her blood pressure. The asked and I agreed that her oxycodone provider should start tapering her dose down slowly, as an outpatient, to get her off this narcotic (9) Acute delirium She got Ativan ordered for anxiety and insomnia at admission. She was then confused and disoriented to person place and time, all of 09/01, then very tired 09/02. She is not hyperthyroidism, her TSH is normal. She was not hypoxic or hypotensive. The next day we stopped the prn Ativan due to confusion then somnolence. Ativan is now listed on the Allergy List as causing an Adverse Reaction. - ALLERGIES Allergies/Adverse Reactions: Allergies Allergy/AdvReac Type Severity Reaction Status Date / Time ampicillin AdvReac Cramps Verified 08/30/22 15:12 epinephrine AdvReac Anxiety Verified 08/30/22 15:12 lorazepam AdvReac Hallucinati Verified 09/01/22 10:46 ons oxycodone AdvReac Hallucinati Verified 08/30/22 15:12 ons - MEDICATIONS Home Medications: Ambulatory Orders Medication Instructions Recorded Confirmed Gabapentin 600 mg PO QPM 12/13/17 08/31/22 Hydrocodone/Acetaminophen 1 tab PO BID 12/13/17 08/31/22 [Hydrocodone-Acetamin 7.5-325] Pramipexole [Mirapex] 0.5 mg PO HS 12/13/17 08/31/22 dilTIAZem HCl [Diltiazem 24Hr ER] 360 mg PO QPM 12/13/17 08/31/22 Calcium Carbonate [Calcium] 600 mg PO DAILY 03/03/21 08/31/22 Cholecalciferol [Vitamin D3] 25 mcg PO DAILY 03/03/21 08/31/22 Hydroxychloroquine [Plaquenil] 200 mg PO BID 03/03/21 08/31/22 Levothyroxine Sodium [Synthroid] 175 mcg PO QDAC 03/03/21 08/31/22 polyethylene glycoL 3350 17 gm PO DAILY PRN 03/03/21 08/31/22 [Polyethylene Glycol 3350] Ferrous Sulfate [Feosol] 325 mg PO DAILY #30 tablet 03/04/21 08/31/22 Apixaban [Eliquis] 5 mg PO BID 12/18/21 08/31/22 Diclofenac Sodium [Voltaren 2 gm TP QID PRN 12/18/21 08/31/22 Arthritis Pain] Gabapentin [Neurontin] 1,200 mg PO DAILY 12/18/21 08/31/22 Gabapentin [Neurontin] 600 mg PO QDDINNER 08/31/22 08/31/22 Nortriptyline HCl [Pamelor] 100 mg PO HS 08/31/22 08/31/22 Potassium Chloride [Micro-K] 30 meq PO HS 08/31/22 08/31/22 Lidocaine HCl/Benzyl Alcohol 1 applic TOP TID PRN 09/02/22 09/02/22 [Salonpas Lidocain Pls 4-10% Cr] - PHYSICAL EXAM AT DISCHARGE General Appearance: positive: No acute distress, Alert Eyes Bilateral: positive: Normal inspection, EOMI ENT: positive: ENT inspection nml, No signs of dehydration Neck: positive: Nml inspection, No JVD Respiratory: positive: No respiratory distress, Breath sounds nml Cardiovascular: positive: No murmur, Irregularly irregular Abdomen: positive: Non-tender, No distention Skin: positive: Warm, Dry Extremities: positive: Non-tender, No pedal edema Neurologic/Psychiatric: positive: Oriented x3, Motor nml - LABS Result Diagrams: 09/04/22 18:05 09/02/22 06:30 - DIAGNOSTIC IMAGING Diagnostic Imaging Results: Final report reviewed - TIME SPENT Time Spent in Discharge (Minutes): 60
[2022-09-05] MEDS ORDERED: diltiaZEM CD 180 MG CAPSULE PO SCH (09:00)
== END 2022-09-05 02:10 | disposition short-term general hospital (02) | DRG 377 ==
LOC: ED 14:42 → ICU 18:02 → MS2 09-02 11:56
PROVIDERS: ADMIT Internal Medicine; ATTEND Internal Medicine
PROC: 02HV33Z Insertion of Infusion Device into Superior Vena Cava, Percutaneous Approach (ICD-10-PCS; 2022-08-31)
PROC: 30243N1 Transfusion of Nonautologous Red Blood Cells into Central Vein, Percutaneous Approach (ICD-10-PCS; 2022-08-31)
PROC: 0DJD8ZZ Inspection of Lower Intestinal Tract, Via Natural or Artificial Opening Endoscopic (ICD-10-PCS; principal; 2022-09-03 15:00)
DX: K92.2 Gastrointestinal hemorrhage, unspecified (principal); D64.9 Anemia, unspecified; K92.1 Melena; I50.9 Heart failure, unspecified; I50.33 Acute on chronic diastolic (congestive) heart failure; I48.91 Unspecified atrial fibrillation; I27.20 Pulmonary hypertension, unspecified; I11.0 Hypertensive heart disease with heart failure; F41.9 Anxiety disorder, unspecified; D69.6 Thrombocytopenia, unspecified; I95.9 Hypotension, unspecified; G25.81 Restless legs syndrome; G89.29 Other chronic pain; G47.00 Insomnia, unspecified; R41.0 Disorientation, unspecified; T42.4X5A Adverse effect of benzodiazepines, initial encounter; Y92.239 Unspecified place in hospital as the place of occurrence of the external cause; E03.9 Hypothyroidism, unspecified; G62.9 Polyneuropathy, unspecified; F32.A Depression, unspecified; M54.9 Dorsalgia, unspecified; M06.9 Rheumatoid arthritis, unspecified; D50.0 Iron deficiency anemia secondary to blood loss (chronic); K57.30 Diverticulosis of large intestine without perforation or abscess without bleeding; R32 Unspecified urinary incontinence; Z79.01 Long term (current) use of anticoagulants; Z79.890 Hormone replacement therapy; Z79.899 Other long term (current) drug therapy; Z82.49 Family history of ischemic heart disease and other diseases of the circulatory system; Z83.3 Family history of diabetes mellitus
CPT/HCPCS: 36415; 71045; 74178; 80048; 80053; 82272; 82330; 83605; 83690; 83735; 83880; 84100; 84132; 84443; 84484; 85018; 85025; 85027; 85049; 86850; 86900; 86901; 86920; 87150; 87635; 93005; 93306; 99285; 99291; A9270; J2060; P9016; P9037; P9040; Q9967

== ENCOUNTER 2022-09-05 02:17 | Outpatient (CLI) | payer MEDICARE | END 2022-09-05 23:59 | disposition short-term general hospital (02) | LOC: EMS 02:17 | PROVIDERS: ATTEND Emergency Medicine | DX: K92.2 Gastrointestinal hemorrhage, unspecified (principal) | CPT/HCPCS: A0425; A0428 ==

== ENCOUNTER 2022-09-15 17:08 | Outpatient (CLI) | payer MEDICARE ==
[2022-09-15 17:49] LABS: BASOPHILS % (AUTO) 0.8 %; EOSINOPHILS # (AUTO) 0.3 10^3/uL (0.0-0.7); EOSINOPHILS % (AUTO) 5.2 %; HCT - HEMATOCRIT 24.1 % (37.0-47.0); HGB - HEMOGLOBIN 7.1 g/dL (12.0-16.0); LYMPHOCYTES # (AUTO) 1.4 10^3/uL (1.5-3.5); MEAN CORPUSCULAR HEMOGLOBIN 29.7 pg (27.0-31.0); MEAN CORPUSCULAR HGB CONC 29.5 g/dL (32.0-36.0); MEAN CORPUSCULAR VOLUME 100.8 fL (81.0-99.0); MEAN PLATELET VOLUME 9.9 fL (7.9-10.8); MONOCYTES # (AUTO) 0.5 10^3/uL (0.0-1.0); MONOCYTES % (AUTO) 10.2 %; NEUTROPHILS # (AUTO) 2.6 10^3/uL (1.5-6.6); NEUTROPHILS % (AUTO) 53.4 %; PLT - PLATELET COUNT 210 10^3/uL (130-450); RED BLOOD COUNT 2.39 10^6/uL (4.20-5.40); RED CELL DISTRIBUTION WIDTH 16.5 % (12.0-15.0); WHITE BLOOD COUNT 4.8 x10^3/uL (4.8-10.8)
== END 2022-09-15 17:09 | disposition home or self-care (01) ==
LOC: LAB 17:08
PROVIDERS: ATTEND Internal Medicine Transplant Hepatology
DX: K92.1 Melena (principal)
CPT/HCPCS: 36415; 85025

== ENCOUNTER 2022-09-24 14:48 | Outpatient (CLI) | payer MEDICARE ==
[2022-09-24 15:17] LABS: HCT - HEMATOCRIT 28.9 % (37.0-47.0); HGB - HEMOGLOBIN 8.3 g/dL (12.0-16.0); MEAN CORPUSCULAR HEMOGLOBIN 28.9 pg (27.0-31.0); MEAN CORPUSCULAR HGB CONC 28.7 g/dL (32.0-36.0); MEAN CORPUSCULAR VOLUME 100.7 fL (81.0-99.0); MEAN PLATELET VOLUME 9.7 fL (7.9-10.8); RED BLOOD COUNT 2.87 10^6/uL (4.20-5.40); RED CELL DISTRIBUTION WIDTH 15.9 % (12.0-15.0); WHITE BLOOD COUNT 5.7 x10^3/uL (4.8-10.8)
[2022-09-24 15:21] LABS: CALCIUM, IONIZED 1.14 mmol/L (1.15-1.33); VBG PH 7.349 (7.31-7.41)
== END 2022-09-24 14:49 | disposition home or self-care (01) ==
LOC: LAB 14:48
PROVIDERS: ATTEND Internal Medicine
DX: D62 Acute posthemorrhagic anemia (principal); E83.51 Hypocalcemia
CPT/HCPCS: 36415; 82330; 83970; 85027

== ENCOUNTER 2023-03-01 04:06 | Outpatient (CLI) | payer MEDICARE | END 2023-03-01 23:59 | disposition EMS.NT | LOC: EMS 04:06 | DX: Z03.89 Encounter for observation for other suspected diseases and conditions ruled out (principal) ==

== ENCOUNTER 2023-04-06 15:37 | Outpatient (CLI) | payer MEDICARE | END 2023-04-06 23:59 | disposition home or self-care (01) | LOC: EMS 15:37 | DX: S01.91XA Laceration without foreign body of unspecified part of head, initial encounter (principal); W18.30XA Fall on same level, unspecified, initial encounter | CPT/HCPCS: A0425; A0429 ==

== ENCOUNTER 2023-04-06 16:07 | Emergency (ER) | payer MEDICARE ==
--- NOTE | 2023-04-06 16:52 | ED Physician Documentation ---
History of Present Illness - Stated complaint Stated Complaint: GEN WEAKNESS - Chief complaint Chief Complaint: Ext Problem - Additonal information Additional information: 87-year-old female is brought to the emergency department for evaluation of difficulty walking due to left knee pain. States it all began over the weekend when she was vacuuming though she is not sure what happened. States when she woke up the next morning her knee was hurting but she denies that there was any falls or trauma. However now with progressive pain in the knee she is having difficulty getting around thus her requested she come to the ER. The patient is a very poor historian. No fevers. She does have a history of atrial fibrillation anticoagulated on Eliquis. 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 : Incontinence HEENT: None Psych: Depression, Anxiety Musculoskeletal: Rheumatoid arthritis, Chronic back pain, Other Derm: Other - Past Surgical History Past Surgical History: Yes General: Cholecystectomy, Appendectomy Ortho: Knee replacement /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: 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 - Present Medications Home Medications: Ambulatory Orders Medication Instructions Recorded Confirmed Gabapentin 600 mg PO QPM 12/13/17 08/31/22 Hydrocodone/Acetaminophen 1 tab PO BID 12/13/17 08/31/22 [Hydrocodone-Acetamin 7.5-325] Pramipexole [Mirapex] 0.5 mg PO HS 12/13/17 08/31/22 dilTIAZem HCl [Diltiazem 24Hr ER] 360 mg PO QPM 12/13/17 08/31/22 Calcium Carbonate [Calcium] 600 mg PO DAILY 03/03/21 08/31/22 Cholecalciferol [Vitamin D3] 25 mcg PO DAILY 03/03/21 08/31/22 Hydroxychloroquine [Plaquenil] 200 mg PO BID 03/03/21 08/31/22 Levothyroxine Sodium [Synthroid] 175 mcg PO QDAC 03/03/21 08/31/22 polyethylene glycoL 3350 17 gm PO DAILY PRN 03/03/21 08/31/22 [Polyethylene Glycol 3350] Ferrous Sulfate [Feosol] 325 mg PO DAILY #30 tablet 03/04/21 08/31/22 Apixaban [Eliquis] 5 mg PO BID 12/18/21 08/31/22 Diclofenac Sodium [Voltaren 2 gm TP QID PRN 12/18/21 08/31/22 Arthritis Pain] Gabapentin [Neurontin] 1,200 mg PO DAILY 12/18/21 08/31/22 Gabapentin [Neurontin] 600 mg PO QDDINNER 08/31/22 08/31/22 Nortriptyline HCl [Pamelor] 100 mg PO HS 08/31/22 08/31/22 Potassium Chloride [Micro-K] 30 meq PO HS 08/31/22 08/31/22 Lidocaine HCl/Benzyl Alcohol 1 applic TOP TID PRN 09/02/22 09/02/22 [Salonpas Lidocain Pls 4-10% Cr] cephALEXin [Keflex] 500 mg PO Q6H #28 cap 04/06/23 - Allergies Allergies/Adverse Reactions: Allergies Allergy/AdvReac Type Severity Reaction Status Date / Time ampicillin AdvReac Cramps Verified 04/06/23 16:14 epinephrine AdvReac Anxiety Verified 04/06/23 16:14 lorazepam AdvReac Hallucinati Verified 04/06/23 16:14 ons oxycodone AdvReac Hallucinati Verified 04/06/23 16:14 ons - Social History Does the pt smoke?: No Smoking Status: Never smoker Does the pt drink ETOH?: No Does the pt have substance abuse?: No - Immunizations Immunizations are current?: Yes - POLST Patient has POLST: No PD ED PE NORMAL - General General: Alert and oriented X 3. No: No acute distress (Anxious) - Cardiac Cardiac: Strong equal pulses. 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 Relevant findings are: Rate: Rate (enter#) (109) Rhythm: Atrial fibrillation Intervals: No: Prolonged QT QRS: Low voltage Ischemia: Non specific changes Compare to prior EKG: Unchanged from prior EKG Computer interpretation: Agree with computer - Labs Labs: Laboratory Tests 04/06/23 04/06/23 04/06/23 16:43 16:51 16:51 WBC 5.7 RBC 3.34 L Hgb 10.0 L Hct 31.3 L MCV 93.7 MCH 29.9 MCHC 31.9 L RDW 14.1 Plt Count MPV TNP Neut # (Auto) 4.3 Lymph # (Auto) 0.7 L [place] # (Auto) 0.6 Eos # (Auto) 0.0 Baso # (Auto) 0.0 Absolute Nucleated RBC 0.00 Nucleated RBC % 0.0 Manual Slide Review Indicated Platelet Estimate NORMAL (130-450,000) Platelet Morphology PLATELET CLUMPING Sodium 132 L Potassium 3.8 Chloride 99 L Carbon Dioxide 30 Anion Gap 3.0 L BUN 12 Creatinine 0.5 L Estimated GFR (MDRD) 116 Glucose 139 H Lactic Acid Calcium 8.7 Total Bilirubin 0.6 AST 23 ALT 13 Alkaline Phosphatase 85 Total Protein 6.7 Albumin 3.3 Globulin 3.4 Albumin/Globulin Ratio 1.0 TSH 0.42 Free T4 Direct 1.39 Urine Color YELLOW Urine Clarity CLEAR Urine pH 7.0 Ur Specific [place] 1.015 Urine Protein NEGATIVE Urine Glucose (UA) NEGATIVE Urine Ketones NEGATIVE Urine Occult Blood NEGATIVE Urine Nitrite NEGATIVE Urine Bilirubin NEGATIVE Urine Urobilinogen 0.2 (NORMAL) Ur Leukocyte Esterase NEGATIVE Urine RBC None Seen Urine WBC 4-5 Ur Squamous Epith Cells RARE Squamous Urine Bacteria None Seen Urine Culture Comments NOT INDICATED 04/06/23 17:06 WBC RBC Hgb Hct MCV MCH MCHC RDW Plt Count MPV Neut # (Auto) Lymph # (Auto) [place] # (Auto) Eos # (Auto) Baso # (Auto) Absolute Nucleated RBC Nucleated RBC % Manual Slide Review Platelet Estimate Platelet Morphology Sodium Potassium Chloride Carbon Dioxide Anion Gap BUN Creatinine Estimated GFR (MDRD) Glucose Lactic Acid 0.8 Calcium Total Bilirubin AST ALT Alkaline Phosphatase Total Protein Albumin Globulin Albumin/Globulin Ratio TSH Free T4 Direct Urine Color Urine Clarity Urine pH Ur Specific [place] Urine Protein Urine Glucose (UA) Urine Ketones Urine Occult Blood Urine Nitrite Urine Bilirubin Urine Urobilinogen Ur Leukocyte Esterase Urine RBC Urine WBC Ur Squamous Epith Cells Urine Bacteria Urine Culture Comments - Rads (name of study) cxr Relevant Findings:: Final report received (Question very mild pulmonary edema) PD Medical Decision Making - ED course Complexity details: reviewed results, re-evaluated patient, d/w patient, d/w family ED course: 87-year-old female was brought to the emergency department for evaluation of weakness and difficulty walking. Symptoms began several days ago when she woke up and noticed that there was some redness on the left lower lateral side of her knee. This followed vacuuming the day before at home. She denies any falls or trauma. She has had no fevers. On presentation she appears well though anxious. Her initial vital signs showed no fever. She is noted to be in A-fib rate controlled in the 90s to low 100 range. She is normotensive 113/55. The exam does show an area of superficial redness on the left lateral knee without fluctuance. No micromotion tenderness or tenderness out of proportion. An x-ray of the knee is interpreted by the radiologist showed no a moderate joint effusion but no soft tissue gas. I did obtain CBC and electrolytes. Per my interpretation no leukocytosis. She does have an anemia with a hemoglobin of 10 though this is improved from baseline. Chemistry reveals a sodium of 132. Normal BUN and creatinine. Her lactate is not elevated. Urine showed no signs of infection. At this time I suspect that she has a knee effusion likely strain with a superimposed cellulitis. Nothing to indicate a joint space infection given lack of fever or leukocytosis. Patient was administered a [place] here and then her left knee was Michael wrapped. Following this she was able to ambulate with ease with a walker. I did give her a gram of ceftriaxone IV here in the emergency department and she will be discharged with a prescription for Keflex. She is to follow closely with her primary care doctor. the usual return precautions discussed Departure - Departure Disposition: Home, Self Care Clinical Impression: Effusion, left knee Cellulitis Qualifiers: Site of cellulitis: extremity Site of cellulitis of extremity: lower extremity Laterality: left Qualified Code(s): L03.116 - Cellulitis of left lower limb Condition: Stable Record reviewed to determine appropriate education?: Yes Instructions: Cellulitis Dc Follow-Up: Anisha Rosas MD [Primary Care Provider] - Prescriptions: cephALEXin [Keflex] 500 mg PO Q6H #28 cap Comments: You are seen today in the emergency department for difficulty walking and pain in your left knee. As discussed at the bedside your labs today were essentially normal and did not show any signs of significant abnormality. You do have an effusion around your left knee and this may be a fluid collection due to strain while you are vacuuming. You also appear to have a superficial skin infection called cellulitis. I have sent a prescription for Keflex to the [facility] in [place]. You should fill this tomorrow and begin taking as directed. Over the next week when out of bed use the Michael wrap to help protect the knee and reduce the effusion. With this treatment I would expect your pain and symptoms to be getting better over the next several days. Please discuss this ED visit with your primary care doctor. Return to the ER for any new or worsening symptoms. Forms: PCP List
--- NOTE | 2023-04-06 16:57 | XRAY Report ---
PROCEDURE: Chest 1 View X-Ray INDICATIONS: Sepsis TECHNIQUE: One view of the chest was acquired. COMPARISON: 09/01/2022 FINDINGS: Surgical changes and devices: None. Lungs and pleura: No pleural effusions or pneumothorax. Improved compared to the previous study. Que stion very mild interstitial pulmonary edema. Mediastinum: Mediastinal contours appear normal. Cardiomegaly. Bones and chest wall: No suspicious bony lesions. Overlying soft tissues appear unremarkable. IMPRESSION: Question very mild pulmonary edema. Reviewed by: Bart Barajas MD on 04/06/2023 4:55 PM PDT Approved by: Bart Barajas MD on 04/06/2023 4:55 PM PDT Station ID: [id number]
[2023-04-06 17:23] LABS: BILIRUBIN,URINE NEGATIVE (NEGATIVE); GLUCOSE, URINE (UA) NEGATIVE (NEGATIVE); KETONES,URINE (UA) NEGATIVE (NEGATIVE); LEUKOCYTE ESTERASE, URINE NEGATIVE (NEGATIVE); NITRITE,URINE NEGATIVE (NEGATIVE); OCCULT BLOOD,URINE NEGATIVE (NEGATIVE); PROTEIN,URINE NEGATIVE (NEGATIVE); UROBILINOGEN,URINE 0.2 (NORMAL) E.U./dL (NORMAL)
[2023-04-06 17:24] LABS: BASOPHILS % (AUTO) 0.5 %; EOSINOPHILS % (AUTO) 0.5 %; HCT - HEMATOCRIT 31.3 % (37.0-47.0); LYMPHOCYTES # (AUTO) 0.7 10^3/uL (1.5-3.5); LYMPHOCYTES % (AUTO) 12.6 %; MEAN CORPUSCULAR HEMOGLOBIN 29.9 pg (27.0-31.0); MEAN CORPUSCULAR HGB CONC 31.9 g/dL (32.0-36.0); MEAN CORPUSCULAR VOLUME 93.7 fL (81.0-99.0); MONOCYTES # (AUTO) 0.6 10^3/uL (0.0-1.0); MONOCYTES % (AUTO) 10.8 %; NEUTROPHILS # (AUTO) 4.3 10^3/uL (1.5-6.6); NEUTROPHILS % (AUTO) 75.3 %; RED BLOOD COUNT 3.34 10^6/uL (4.20-5.40); RED CELL DISTRIBUTION WIDTH 14.1 % (12.0-15.0); WHITE BLOOD COUNT 5.7 x10^3/uL (4.8-10.8)
[2023-04-06 17:25] LABS: BILIRUBIN,TOTAL 0.6 mg/dL (0.2-1.0); CALCIUM 8.7 mg/dL (8.5-10.3); CREATININE 0.5 mg/dL (0.6-1.3); POTASSIUM 3.8 mmol/L (3.5-4.5); TOTAL PROTEIN 6.7 g/dL (6.4-8.9)
[2023-04-06 17:39] LABS: BACTERIA,URINE None Seen /HPF (None Seen); CLARITY,URINE CLEAR (CLEAR); RBC,URINE None Seen /HPF (0-5); SQUAMOUS EPITHELIAL CELL,UR RARE Squamous (<= Few)
[2023-04-06 17:40] LABS: THYROID STIMULATING HORMONE 0.42 uIU/mL (0.34-5.60)
[2023-04-06 17:48] LABS: PLATELET ESTIMATE, MANUAL NORMAL (130-450,000) (NORMAL); PLATELET MORPHOLOGY PLATELET CLUMPING (NORMAL); SLIDE REVIEW? Indicated
--- NOTE | 2023-04-06 17:48 | XRAY Report ---
PROCEDURE: Knee 2 View LT INDICATIONS: cellulitis TECHNIQUE: 2 views of the left knee(s) were acquired. COMPARISON: None. FINDINGS: Bones: Knee prosthesis in place. No periprosthetic lucency. No unexpected fractures. Soft tissues: Moderate-sized knee joint effusion. There are a few wispy calcifications projecting ov er the anterior joint space in the suprapatellar region and anterior to the joint space. There is no soft tissue gas or radiodense foreign body. IMPRESSION: 1. Moderate size joint effusion. 2. No soft tissue gas. 3. Intact knee prosthesis without radiographic evidence of loosening. Reviewed by: Delmis Dudley MD on 04/06/2023 5:47 PM PDT Approved by: Delmis Dudley MD on 04/06/2023 5:47 PM PDT Station ID: [id number]
[2023-04-06 17:59] LABS: ALBUMIN 3.3 g/dL (3.2-5.5)
[2023-04-06] MEDS ORDERED: cefTRIAXone 1 GM VIAL IVP STA (18:02)
[2023-04-06] MEDS ORDERED: HYDROcod/ACETAM 5/325 MG TABLET PO STA (18:03)
[2023-04-06 20:22] VITALS: BP 107/59
--- NOTE | 2023-04-06 20:43 | Ultrasound Report ---
PROCEDURE: Duplex Ext Veins Left INDICATIONS: swelling left leg; hx of dvt; ? cellulitis TECHNIQUE: Real-time imaging, as well as color and pulse Doppler interrogation, were performed of the lower extr emity deep veins from the inguinal ligament to the popliteal fossa. COMPARISON: None. FINDINGS: The deep veins are normally compressible, and free of intraluminal thrombus. Color and pu lse Doppler demonstrate normal phasic intraluminal flow. There is normal augmentation response to di stal compression maneuver. IMPRESSION: 1. No evidence of deep venous thrombosis in the left lower extremity. Reviewed by: Reece Schaefer MD on 04/06/2023 8:42 PM PDT Approved by: Reece Schaefer MD on 04/06/2023 8:42 PM PDT Station ID: [id number]
== END 2023-04-06 19:35 | disposition home or self-care (01) ==
LOC: EDUNIT# → ED 16:07
DX: M25.462 Effusion, left knee (principal); L03.116 Cellulitis of left lower limb
CPT/HCPCS: 36415; 71045; 73560; 80053; 81001; 83605; 84439; 84443; 85025; 87040; 93005; 93971; 96374; 99284; A9270; 87086

== ENCOUNTER 2023-07-20 11:31 | Emergency (ER) | payer MEDICARE ==
[2023-07-20 11:38] VITALS: BP 115/57; O2SAT 98
--- NOTE | 2023-07-20 12:45 | XRAY Report ---
PROCEDURE: Hip w/Pelvis 2-3V LT INDICATIONS: groin pain radiating down knee TECHNIQUE: AP pelvis with lateral view(s) of the left hip(s). COMPARISON: None. FINDINGS: Bones: No fractures or dislocations. 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 Degenerati ve changes of the visualized lower lumbar spine and pubic symphysis. No suspicious bony lesions. Soft tissues: No suspicious soft tissue calcifications or masses. Atherosclerotic vascular calcifica tion. IMPRESSION: No acute bony abnormality. 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 Reviewed by: Quentin Mancini MD on 07/20/2023 12:44 PM PST Approved by: Quentin Mancini MD on 07/20/2023 12:44 PM PST Station ID: [id number]
[2023-07-20] MEDS ORDERED: DEXAMETHASONE 10 MG/ML VIAL IM STA (15:14)
[2023-07-20] MEDS ORDERED: KETOROLAC 60 MG/2 ML VIAL IM STA (15:14)
[2023-07-20] MEDS ORDERED: HYDROmorphone 1 MG/ML CARPUJECT IM STA (15:14)
--- NOTE | 2023-07-20 16:44 | ED Physician Documentation ---
PD HPI LOWER EXT INJURY - Stated complaint Stated Complaint: HIP PX - Chief complaint Chief Complaint: Ext Problem - History obtained from History obtained from: Patient, Family - Additional information Additional information: The patient comes to the emergency department chief complaint of left hip pain, radiating down her left leg. She states that she did not have any trauma but just woke up that way. She has had hip pain on occasion before but this feels worse. No formal diagnosis of sciatica previously. The patient states that she just cannot get the pain under control at home. She states that the pain seems to be coming from somewhere in her low back. She denies any abdominal pain or dysuria. No fevers or chills. 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 - Present Medications Home Medications: Ambulatory Orders Medication Instructions Recorded Confirmed Gabapentin 600 mg PO QPM 12/13/17 08/31/22 Hydrocodone/Acetaminophen 1 tab PO BID 12/13/17 08/31/22 [Hydrocodone-Acetamin 7.5-325] Pramipexole [Mirapex] 0.5 mg PO HS 12/13/17 08/31/22 dilTIAZem HCl [Diltiazem 24Hr ER] 360 mg PO QPM 12/13/17 08/31/22 Calcium Carbonate [Calcium] 600 mg PO DAILY 03/03/21 08/31/22 Cholecalciferol [Vitamin D3] 25 mcg PO DAILY 03/03/21 08/31/22 Hydroxychloroquine [Plaquenil] 200 mg PO BID 03/03/21 08/31/22 Levothyroxine Sodium [Synthroid] 175 mcg PO QDAC 03/03/21 08/31/22 polyethylene glycoL 3350 17 gm PO DAILY PRN 03/03/21 08/31/22 [Polyethylene Glycol 3350] Ferrous Sulfate [Feosol] 325 mg PO DAILY #30 tablet 03/04/21 08/31/22 Apixaban [Eliquis] 5 mg PO BID 12/18/21 08/31/22 Diclofenac Sodium [Voltaren 2 gm TP QID PRN 12/18/21 08/31/22 Arthritis Pain] Gabapentin [Neurontin] 1,200 mg PO DAILY 12/18/21 08/31/22 Gabapentin [Neurontin] 600 mg PO QDDINNER 08/31/22 08/31/22 Nortriptyline HCl [Pamelor] 100 mg PO HS 08/31/22 08/31/22 Potassium Chloride [Micro-K] 30 meq PO HS 08/31/22 08/31/22 Lidocaine HCl/Benzyl Alcohol 1 applic TOP TID PRN 09/02/22 09/02/22 [Salonpas Lidocain Pls 4-10% Cr] cephALEXin [Keflex] 500 mg PO Q6H #28 cap 04/06/23 HYDROcod/ACETAM 5/325 [[place] 5/325] 1 - 2 tablet PO Q6H PRN #14 tablet 07/20/23 predniSONE [Deltasone] 10 mg PO [id number] #42 tab 07/20/23 - Allergies Allergies/Adverse Reactions: Allergies Allergy/AdvReac Type Severity Reaction Status Date / Time ampicillin AdvReac Cramps Verified 07/20/23 11:34 epinephrine AdvReac Anxiety Verified 07/20/23 11:34 lorazepam AdvReac Hallucinati Verified 07/20/23 11:34 ons oxycodone AdvReac Hallucinati Verified 07/20/23 11:34 ons - Social History Does the pt smoke?: No Smoking Status: Never smoker Does the pt drink ETOH?: No Does the pt have substance abuse?: No - Immunizations Immunizations are current?: Yes - POLST Patient has POLST: No PD ED PE NORMAL - Vitals Vital signs reviewed: Yes - General General: Alert and oriented X 3, Well developed/nourished, Other (The patient appears distraught but otherwise is in no apparent distress.) - HEENT HEENT: Atraumatic, EOMI, Moist mucous membranes - Neck Neck: Supple, no meningeal sign - Respiratory Respiratory: No respiratory distress - Abdomen Abdomen: Soft, Non tender, Non distended - Back Back: Other (Tenderness palpation on the left lumbar paraspinal musculature extending to the lateral edge of the spine. No step-off.) - Derm Derm: Normal color, Warm and dry, No rash (With) - Extremities Extremities: No deformity, Other (Tenderness to palpation over left SI joint and down the patient's posterior thigh.) - Neuro Neuro: Alert and oriented X 3 - Psych Psych: Normal mood, Normal affect Results - Vitals Vitals: Oxygen O2 Source Room air - Rads (name of study) Lumbar spine x-ray series Relevant Findings:: Final report received, See rad report Hip pelvis x-ray Relevant Findings:: Final report received, See rad report (Bilateral degenerat pankaj changes, no acute findings.) PD Medical Decision Making - ED course Complexity details: reviewed results, re-evaluated patient, considered differential, d/w patient, d/w family ED course: X-ray series was performed of the lumbar spine and the hip and pelvis, with no acute findings noted. I discussed with the patient that her symptoms are most consistent with sciatica and we have discussed symptomatic management and the need for follow-up. Departure - Departure Disposition: 01 Home, Self Care Clinical Impression: Sciatica Qualifiers: Laterality: left Qualified Code(s): M54.32 - Sciatica, left side DJD (degenerative joint disease), lumbar Qualifiers: Spinal osteoarthritis complication: unspecified spinal osteoarthritis Qualified Code(s): M47.816 - Spondylosis without myelopathy or radiculopathy, lumbar region Condition: Stable Instructions: ED Sciatica Prescriptions: predniSONE [Deltasone] 10 mg PO [id number] #42 tab HYDROcod/ACETAM 5/325 [[place] 5/325] 1 - 2 tablet PO Q6H PRN #14 tablet PRN Reason: Pain Comments: Your hip x-ray shows no fractures of the hip or pelvis and your lumbar spine x- ray shows some arthritis but is otherwise unremarkable. You most likely have pain of the nerves that make up your sciatic nerve bundle, either coming from the spine or going through the sciatic joint in your pelvis. This can cause pain that shoots down your leg and can be quite sharp. Sometimes, the pain can also be coming from the sciatic joint itself which can become inflamed and cause a sharp pain with even small movements. In general, these problems get better on their own, given time, but if you have ongoing pain for more than the next few weeks, you will need to make a follow-up appoint with your primary doctor to discuss whether MRI would be helpful. Prescriptions for medications to help with your symptoms have been electronically transmitted to the [facility] in [place]. You have also been given pain medication here in the emergency department. One of the medications that has been prescribed is hydrocodone which you are already on at home. You may take a total of up to 2 tablets of hydrocodone every 4 hours as needed for pain. This would be the total of the hydrocodone you already take and any further hydrocodone that you take on top of that. Forms: PCP List Discharge Date/Time: 07/20/23 17:07
--- NOTE | 2023-07-20 16:47 | XRAY Report ---
PROCEDURE: Lumbar Spine 2 View INDICATIONS: low back and L hip pain TECHNIQUE: 3 views of the lumbar spine were acquired. COMPARISON: None. FINDINGS: Bones: Evaluation is compromised by osteopenia overlying soft tissues, with limited bony detail. The re is suggestion of 5 nonrib-bearing lumbar-type vertebral bodies, although the L4 and L5 levels are poorly visualized. Levoconvex curvature is noted. Multilevel degenerative disc disease and facet hype rtrophy are seen. Soft tissues: Overlying bowel gas pattern is normal. No suspicious soft tissue calcifications. IMPRESSION: No acute osseous abnormality identified. However, evaluation is compromised by relative osteopenia an d prominence of overlying soft tissue structures with poor visualization of bony details. If there is clinical concern for a vertebral compression fracture, consider MRI or CT for further evaluation. Reviewed by: Buzz Rivero MD on 07/20/2023 4:46 PM PST Approved by: Buzz Rivero MD on 07/20/2023 4:46 PM PST Station ID: [id number]
== END 2023-07-20 17:07 | disposition home or self-care (01) ==
LOC: ED 11:31
DX: M54.32 Sciatica, left side (principal); M47.816 Spondylosis without myelopathy or radiculopathy, lumbar region; I50.9 Heart failure, unspecified; I48.91 Unspecified atrial fibrillation; E03.9 Hypothyroidism, unspecified; Z79.899 Other long term (current) drug therapy; Z79.01 Long term (current) use of anticoagulants
CPT/HCPCS: 72100; 73502; 96372; 99283; J1170

== ENCOUNTER 2023-08-13 20:03 | Outpatient (CLI) | payer MEDICARE | END 2023-08-13 20:04 | disposition EMS.NT | LOC: EMS 20:03 | DX: R07.89 Other chest pain (principal); I48.91 Unspecified atrial fibrillation ==

== ENCOUNTER 2023-08-14 04:15 | Emergency (ER) | payer MEDICARE ==
[2023-08-14 04:29] VITALS: BP 147/73; O2SAT 97
--- NOTE | 2023-08-14 05:04 | ED Physician Documentation ---
History of Present Illness - Stated complaint Stated Complaint: L/R RESTLESS LEG - Chief complaint Chief Complaint: Ext Problem - History obtained from History obtained from: Patient, Family - Additonal information Additional information: The patient comes to the emergency department chief complaint of restless leg syndrome. She has a history of this previously and states that for some reason, it has flared up again in recent weeks. The patient states that previously, she was placed on iron and gabapentin and states that the iron really seem to help. This was about a year ago. She states she got back on the iron in recent weeks when she started having the shakes again, but has not seem to have helped at all. She states that she has been taking 3 to 4 tablets of iron per day and that today, she took 6. The patient states that she notices it most if she lies flat and that the shakes started in her hips go all the way down both legs. She states she has not had any recent dose changes of her other medications including her hydrocodone and gabapentin. No recent vomiting or diarrhea. No other complaints at this time. She sees her primary care physician for care of her restless leg syndrome and has not seen a neurologist. PD PAST MEDICAL HISTORY - Past Medical History Cardiovascular: Congestive heart failure, Atrial fibrillation, Murmur Respiratory: Shortness of breath Neuro: Peripheral neuropathy Endocrine/Autoimmune: HyPOthyroidism GI: GI bleed HAND CULTIVATOR: None : Incontinence HEENT: None Psych: Depression, Anxiety Musculoskeletal: Rheumatoid arthritis, Chronic back pain, Other Derm: Other - Past Surgical History Past Surgical History: Yes General: Cholecystectomy, Appendectomy Ortho: Knee replacement /HAND CULTIVATOR: 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 - Present Medications Home Medications: Ambulatory Orders Medication Instructions Recorded Confirmed Gabapentin 600 mg PO QPM 12/13/17 08/14/23 Hydrocodone/Acetaminophen 1 tab PO BID 12/13/17 08/14/23 [Hydrocodone-Acetamin 7.5-325] Pramipexole [Mirapex] 0.5 mg PO HS 12/13/17 08/14/23 dilTIAZem HCl [Diltiazem 24Hr ER] 360 mg PO QPM 12/13/17 08/14/23 Calcium Carbonate [Calcium] 600 mg PO DAILY 03/03/21 08/14/23 Cholecalciferol [Vitamin D3] 25 mcg PO DAILY 03/03/21 08/14/23 Hydroxychloroquine [Plaquenil] 200 mg PO BID 03/03/21 08/14/23 Levothyroxine Sodium [Synthroid] 175 mcg PO QDAC 03/03/21 08/14/23 polyethylene glycoL 3350 17 gm PO DAILY PRN 03/03/21 08/14/23 [Polyethylene Glycol 3350] Ferrous Sulfate [Feosol] 325 mg PO DAILY #30 tablet 03/04/21 08/14/23 Diclofenac Sodium [Voltaren 2 gm TP QID PRN 12/18/21 08/14/23 Arthritis Pain] Gabapentin [Neurontin] 1,200 mg PO DAILY 12/18/21 08/14/23 Gabapentin [Neurontin] 600 mg PO HS 08/31/22 08/14/23 Nortriptyline HCl [Pamelor] 100 mg PO HS 08/31/22 08/14/23 Potassium Chloride [Micro-K] 30 meq PO HS 08/31/22 08/14/23 Lidocaine HCl/Benzyl Alcohol 1 applic TOP TID PRN 09/02/22 08/14/23 [Salonpas Lidocain Pls 4-10% Cr] HYDROcod/ACETAM 5/325 [[place] 5/325] 1 - 2 tablet PO Q6H PRN #14 tablet 07/20/23 08/14/23 - Allergies Allergies/Adverse Reactions: Allergies Allergy/AdvReac Type Severity Reaction Status Date / Time ampicillin AdvReac Cramps Verified 08/14/23 04:29 epinephrine AdvReac Anxiety Verified 08/14/23 04:29 lorazepam AdvReac Hallucinati Verified 08/14/23 04:29 ons oxycodone AdvReac Hallucinati Verified 08/14/23 04:29 ons - Social History Does the pt smoke?: No Smoking Status: Never smoker Does the pt drink ETOH?: No Does the pt have substance abuse?: No - Immunizations Immunizations are current?: Yes - POLST Patient has POLST: No PD ED PE NORMAL - Vitals Vital signs reviewed: Yes - General General: No acute distress, Well developed/nourished, Other (Alert, grossly appropriate.) - HEENT HEENT: Atraumatic, PERRL, EOMI, Moist mucous membranes - Neck Neck: Supple, no meningeal sign - Cardiac Cardiac: RRR, No murmur - Respiratory Respiratory: No respiratory distress, Clear bilaterally - Derm Derm: Normal color, Warm and dry, No rash - Extremities Extremities: No deformity, No edema - Neuro Neuro: Alert and oriented X 3 - Psych Psych: Normal mood, Normal affect Results - Vitals Vitals: Vital Signs - 24 hr 08/14/23 04:25 Temperature 36.7 C Heart Rate 88 Respiratory 16 Rate Blood Pressure 147/73 H O2 Saturation 97 Oxygen O2 Source Room air PD Medical Decision Making - ED course Complexity details: reviewed old records, considered differential, d/w patient, d/w family ED course: I discussed with the patient that at this point in time, all I can really offer her as medication, as restless leg is not something that I can fix in the emergency department. I have reviewed her past medical history, and found that about a year ago, she was having hemoglobins running in the 7-8 range. However, she currently has been running much higher than this with her last hemoglobin on our record in June being 11.4. The patient stated that she actually did not think she wanted any medication here and really just wanted to go home and try sitting up a little to sleep. She has an appointment coming up in 2 days with her primary care physician and she states she will just keep that to determine if there is anything else to do about her restless leg. I feel this is reasonable as there is no emergent condition currently. We have discussed the usual indications for return. Departure - Departure Disposition: 01 Home, Self Care Clinical Impression: Tremors of nervous system Condition: Stable Instructions: Restless Legs Syndrome What Do Forms: PCP List Discharge Date/Time: 08/14/23 05:11
== END 2023-08-14 05:11 | disposition home or self-care (01) ==
LOC: ED 04:15
DX: R25.1 Tremor, unspecified (principal)
CPT/HCPCS: 99281; 99282

== ENCOUNTER 2023-08-16 06:29 | Emergency (ER) | payer MEDICARE ==
[2023-08-16] MEDS ORDERED: HYDROcod/ACETAM 7.5 MG/325 MG TABLET PO STA (07:49)
[2023-08-16] MEDS ORDERED: GABAPENTIN 400 MG CAPSULE PO STA (07:49)
[2023-08-16 07:51] LABS: BASOPHILS # (AUTO) 0.1 10^3/uL (0.0-0.1); BASOPHILS % (AUTO) 1.1 %; EOSINOPHILS # (AUTO) 0.1 10^3/uL (0.0-0.7); EOSINOPHILS % (AUTO) 2.3 %; HCT - HEMATOCRIT 40.5 % (37.0-47.0); HGB - HEMOGLOBIN 12.6 g/dL (12.0-16.0); LYMPHOCYTES # (AUTO) 1.6 10^3/uL (1.5-3.5); LYMPHOCYTES % (AUTO) 29.8 %; MEAN CORPUSCULAR HEMOGLOBIN 27.5 pg (27.0-31.0); MEAN CORPUSCULAR HGB CONC 31.1 g/dL (32.0-36.0); MEAN CORPUSCULAR VOLUME 88.4 fL (81.0-99.0); MEAN PLATELET VOLUME 10.5 fL (7.9-10.8); MONOCYTES # (AUTO) 0.7 10^3/uL (0.0-1.0); MONOCYTES % (AUTO) 12.6 %; NEUTROPHILS # (AUTO) 2.9 10^3/uL (1.5-6.6); PLT - PLATELET COUNT 127 10^3/uL (130-450); RED BLOOD COUNT 4.58 10^6/uL (4.20-5.40); RED CELL DISTRIBUTION WIDTH 18.6 % (12.0-15.0); WHITE BLOOD COUNT 5.3 x10^3/uL (4.8-10.8)
--- NOTE | 2023-08-16 08:13 | ED Physician Documentation ---
History of Present Illness - Stated complaint Stated Complaint: SOA - Chief complaint Chief Complaint: Resp - History obtained from History obtained from: Patient - Additonal information Additional information: Patient is an 87-year-old female presenting for evaluation of shortness of air. Patient states this started around 9:00 last night. Patient states that she has been having issues with restless legs and that was having trouble falling asleep. As she was having trouble falling asleep she reports feeling short of air that was worse when she sat up. She states that that lasted until she got into the car to come here. She was here in our emergency department 2 days ago for the restless legs but declined any medications at that time and has a PCP appointment later today. She denies recent illness with fever, cough or congestion. She denies chest pain. She is post to be on a diuretic but has not taken it for the past several days as they were going to be out of the house and she did not want to have to make frequent trips to the bathroom.Patient has a history of atrial fibrillation with prior Watchman procedure. Review of Systems Constitutional: denies: Fever Cardiac: denies: Chest pain / pressure Respiratory: reports: Dyspnea. denies: Cough GI: denies: Abdominal Pain Musculoskeletal: denies: Extremity swelling PD PAST MEDICAL HISTORY - Past Medical History Past Medical History: Yes Cardiovascular: Congestive heart failure, Atrial fibrillation, Murmur Respiratory: Shortness of breath Neuro: Peripheral neuropathy Endocrine/Autoimmune: HyPOthyroidism GI: GI bleed SYNTHETIC RESIN OPERATOR: None : Incontinence HEENT: None Psych: Depression, Anxiety Musculoskeletal: Rheumatoid arthritis, Chronic back pain, Other Derm: Other - Past Surgical History Past Surgical History: Yes General: Cholecystectomy, Appendectomy Ortho: Knee replacement /SYNTHETIC RESIN OPERATOR: 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 - Present Medications Home Medications: Ambulatory Orders Medication Instructions Recorded Confirmed Gabapentin 600 mg PO QPM 12/13/17 08/14/23 Hydrocodone/Acetaminophen 1 tab PO BID 12/13/17 08/14/23 [Hydrocodone-Acetamin 7.5-325] Pramipexole [Mirapex] 0.5 mg PO HS 12/13/17 08/14/23 dilTIAZem HCl [Diltiazem 24Hr ER] 360 mg PO QPM 12/13/17 08/14/23 Calcium Carbonate [Calcium] 600 mg PO DAILY 03/03/21 08/14/23 Cholecalciferol [Vitamin D3] 25 mcg PO DAILY 03/03/21 08/14/23 Hydroxychloroquine [Plaquenil] 200 mg PO BID 03/03/21 08/14/23 Levothyroxine Sodium [Synthroid] 175 mcg PO QDAC 03/03/21 08/14/23 polyethylene glycoL 3350 17 gm PO DAILY PRN 03/03/21 08/14/23 [Polyethylene Glycol 3350] Ferrous Sulfate [Feosol] 325 mg PO DAILY #30 tablet 03/04/21 08/14/23 Diclofenac Sodium [Voltaren 2 gm TP QID PRN 12/18/21 08/14/23 Arthritis Pain] Gabapentin [Neurontin] 1,200 mg PO DAILY 12/18/21 08/14/23 Gabapentin [Neurontin] 600 mg PO HS 08/31/22 08/14/23 Nortriptyline HCl [Pamelor] 100 mg PO HS 08/31/22 08/14/23 Potassium Chloride [Micro-K] 30 meq PO HS 08/31/22 08/14/23 Lidocaine HCl/Benzyl Alcohol 1 applic TOP TID PRN 09/02/22 08/14/23 [Salonpas Lidocain Pls 4-10% Cr] HYDROcod/ACETAM 5/325 [[place] 5/325] 1 - 2 tablet PO Q6H PRN #14 tablet 07/20/23 08/14/23 - Allergies Allergies/Adverse Reactions: Allergies Allergy/AdvReac Type Severity Reaction Status Date / Time ampicillin AdvReac Cramps Verified 08/14/23 04:29 epinephrine AdvReac Anxiety Verified 08/14/23 04:29 lorazepam AdvReac Hallucinati Verified 08/14/23 04:29 ons oxycodone AdvReac Hallucinati Verified 08/14/23 04:29 ons - Social History Does the pt smoke?: No Smoking Status: Never smoker Does the pt drink ETOH?: No Does the pt have substance abuse?: No - Immunizations Immunizations are current?: Yes - POLST Patient has POLST: No PD ED PE NORMAL - General General: Alert and oriented X 3, No acute distress, Well developed/nourished - HEENT HEENT: Atraumatic, Moist mucous membranes, Pharynx benign - Neck Neck: Supple, no meningeal sign - Cardiac Cardiac: RRR, Strong equal pulses - Respiratory Respiratory: No respiratory distress, Clear bilaterally - Abdomen Abdomen: Normal bowel sounds, Soft, Non tender, Non distended - Derm Derm: Warm and dry - Extremities Extremities: No calf tenderness / cord - Neuro Neuro: Alert and oriented X 3, No motor deficit, Normal speech Results - Vitals Vitals: Vital Signs - 24 hr 08/16/23 08/16/23 08/16/23 06:50 07:00 08:51 Temperature 36.5 C 36.2 C L Heart Rate 76 74 72 Respiratory 14 19 17 Rate Blood Pressure 146/81 H 123/69 114/73 O2 Saturation 98 95 100 Oxygen O2 Source Room air - EKG (time done) 0737 EKG releavant findings:: EKG personally interpreted by author of this note. Relevant findings are: Rate 66, atrial fib, no STEMI - Labs Labs: Laboratory Tests 08/16/23 08/16/23 08/16/23 07:35 07:35 07:35 WBC 5.3 RBC 4.58 Hgb 12.6 Hct 40.5 MCV 88.4 MCH 27.5 MCHC 31.1 L RDW 18.6 H Plt Count 127 L MPV 10.5 Neut # (Auto) 2.9 Lymph # (Auto) 1.6 [place] # (Auto) 0.7 Eos # (Auto) 0.1 Baso # (Auto) 0.1 Absolute Nucleated RBC 0.00 Nucleated RBC % 0.0 Sodium 140 Potassium 3.8 Chloride 106 Carbon Dioxide 29 Anion Gap 5.0 L BUN 11 Creatinine 0.5 L Estimated GFR (MDRD) 116 Glucose 126 H Calcium 9.4 Total Bilirubin 0.5 AST 25 ALT 18 Alkaline Phosphatase 106 Troponin I High Sens 10.6 B-Natriuretic Peptide 152 H Total Protein 7.0 Albumin 3.8 Globulin 3.2 Albumin/Globulin Ratio 1.2 PD Medical Decision Making - ED course Complexity details: reviewed results, re-evaluated patient, d/w patient ED course: Patient is an 87-year-old female presenting for evaluation of an episode of shortness of air last night. This occurred in the setting of having difficulty falling asleep due to her restless leg syndrome. Her shortness of air resolved prior to arrival. She does have a history of A-fib and Has had a prior Watchman procedure. Therefore I feel a PE would be unlikely. Patient's primary concern at this time appears to be her restless legs. She was seen here in our ED 2 days ago for this. Labs including a CBC, chemistries, troponin and BNP were obtained and reviewed and without significant findings. She has been taking iron replacement. She does not appear to be anemic. She is on a number of medications for other reasons including high doses of gabapentin as well as hydrocodone. I discussed some options for the treatment of restless leg but given her medication history I do feel that it would be more appropriate to initiate medication by her PCP as other medications may need to be adjusted. She is supposed to see her PCP today and I encouraged her to try and keep this appointment if possible. I encouraged her to see if they could make this a televisit if she is not able to go in person. Patient has not had any shortness of air since being at home today including being able to get into her car and walk here into the emergency department without any recurrence of her symptoms. She has no symptoms to suggest a heart attack. She has not been taking her diuretic for a few days but does not have clinically significant volume overload and I did encourage her to resume her diuretic. Patient again is advised on need for close follow-up with PCP and is aware of concerning symptoms to return for. Departure - Departure Disposition: 01 Home, Self Care Clinical Impression: Shortness of breath, Restless leg syndrome, Chronic atrial fibrillation Condition: Stable Instructions: Restless Legs Syndrome What Do, ED Dyspnea Shortness of Breath Comments: At this time I am not finding any clear cause for your episode of shortness of breath last night but I do think it is a good sign that your symptoms got better on their own and you have not had a reoccurrence of them while here in the emergency department. We checked labs including a CBC, chemistry panel, troponin and BNP and I do not see any significant abnormal results to explain your symptoms either. I do think would be a good idea for you to resume your water pill. I do recommend close follow-up with your primary care provider and do think you should discuss options for treatment of your restless leg syndrome as this may have been a contributing factor to your symptoms last night. You are on a number of medications including gabapentin and a narcotic and so additional medications for the treatment of restless leg syndrome should be discussed with your primary care provider as some of these medications may need to also be adjusted. Forms: PCP List Discharge Date/Time: 08/16/23 08:51
[2023-08-16 08:14] LABS: ALBUMIN 3.8 g/dL (3.2-5.5); ALBUMIN/GLOBULIN RATIO 1.2 (1.0-2.2); BILIRUBIN,TOTAL 0.5 mg/dL (0.2-1.0); CALCIUM 9.4 mg/dL (8.5-10.3); CREATININE 0.5 mg/dL (0.6-1.3); POTASSIUM 3.8 mmol/L (3.5-4.5)
[2023-08-16 08:15] LABS: TROPONIN I HIGH SENSITIVITY 10.6 ng/L (2.3-14.8)
--- NOTE | 2023-08-16 08:17 | XRAY Report ---
PROCEDURE: Chest 1 View X-Ray INDICATIONS: SOA TECHNIQUE: One view of the chest was acquired. COMPARISON: None. FINDINGS: Surgical changes and devices: None. Lungs and pleura: No pleural effusions or pneumothorax. There is mild pulmonary vascular congestion. No definite focal infiltrate. Mediastinum: Mildly tortuous thoracic aorta is seen with aortic arch calcifications. Heart size is en larged. Bones and chest wall: No suspicious bony lesions. Overlying soft tissues appear unremarkabl e. IMPRESSION: Cardiomegaly and mild congestion. No definite focal infiltrate. No pleural effusion or pn eumothorax. Reviewed by: Ba Pitt MD on 08/16/2023 8:16 AM PST Approved by: Ba Pitt MD on 08/16/2023 8:16 AM PST Station ID: [id number]
[2023-08-16 08:58] VITALS: BP 114/73; O2SAT 100
== END 2023-08-16 08:51 | disposition home or self-care (01) ==
LOC: ED 06:29
DX: G25.81 Restless legs syndrome (principal); R06.02 Shortness of breath; I48.20 Chronic atrial fibrillation, unspecified; I50.9 Heart failure, unspecified; E03.9 Hypothyroidism, unspecified; Z79.899 Other long term (current) drug therapy
CPT/HCPCS: 36415; 71045; 80053; 83880; 84484; 85025; 93005; 99283; 99284; A9270

== ENCOUNTER 2024-03-22 10:36 | Outpatient (CLI) | payer MEDICARE, OTHER ==
[2024-03-22 11:10] LABS: CALCIUM 9.7 mg/dL (8.5-10.3); CREATININE 0.6 mg/dL (0.6-1.3); POTASSIUM 4.2 mmol/L (3.5-4.5)
[2024-03-22 11:15] LABS: ESTIMATED AVERAGE GLUCOSE 117 mg/dL (70-100); HEMOGLOBIN A1c% 5.7 % (4.27-6.07)
[2024-03-22 11:25] LABS: BASOPHILS # (AUTO) 0.1 10^3/uL (0.0-0.1); BASOPHILS % (AUTO) 1.6 %; EOSINOPHILS # (AUTO) 0.2 10^3/uL (0.0-0.7); EOSINOPHILS % (AUTO) 4.2 %; HCT - HEMATOCRIT 43.4 % (37.0-47.0); HGB - HEMOGLOBIN 13.7 g/dL (12.0-16.0); LYMPHOCYTES # (AUTO) 1.5 10^3/uL (1.5-3.5); LYMPHOCYTES % (AUTO) 29.6 %; MEAN CORPUSCULAR HEMOGLOBIN 30.7 pg (27.0-31.0); MEAN CORPUSCULAR HGB CONC 31.6 g/dL (32.0-36.0); MEAN CORPUSCULAR VOLUME 97.3 fL (81.0-99.0); MONOCYTES # (AUTO) 0.6 10^3/uL (0.0-1.0); MONOCYTES % (AUTO) 12.5 %; NEUTROPHILS # (AUTO) 2.6 10^3/uL (1.5-6.6); NEUTROPHILS % (AUTO) 51.9 %; PLT - PLATELET COUNT 140 10^3/uL (130-450); RED BLOOD COUNT 4.46 10^6/uL (4.20-5.40); RED CELL DISTRIBUTION WIDTH 13.9 % (12.0-15.0); WHITE BLOOD COUNT 5.1 x10^3/uL (4.8-10.8)
== END 2024-03-22 10:37 | disposition home or self-care (01) ==
LOC: LAB 10:36
PROVIDERS: ATTEND Internal Medicine
DX: Z01.818 Encounter for other preprocedural examination (principal)
CPT/HCPCS: 36415; 80048; 83036; 85025